=== PATIENT | male | born 1990 | race African-American/Black ===

== ENCOUNTER 2020-05-18 13:50 | Inpatient (IN) | payer OTHER, SELFPAY ==
[2020-05-18] VITALS (14 sets, daily range): BP systolic 171–195; BP diastolic 105–124; PULSE 101–118; RESP 13–21; TEMP 36.7–37.7; O2SAT 95–100; BMI 35.9
--- NOTE | 2020-05-18 15:31 | ECG_ITS ---
Test Reason : ABDOMINAL PAIIN Blood Pressure : / mmHG Vent. Rate : 102 BPM Atrial Rate : 102 BPM P-R Int : 134 ms QRS Dur : 092 ms QT Int : 322 ms P-R-T Axes : 060 -17 032 degrees QTc Int : 419 ms Sinus tachycardia with Sinus Arrhythmia RSR' or QR pattern in V1 suggests right ventricular conduction delay Abnormal ECG No previous ECGs available Referred By: Juan Cheung Electronically Signed By:CAMPOS EATON MD
--- NOTE | 2020-05-18 15:48 | PC.NURSE ---
PT TRIAGED C/O LUQ PAIN X 3 DAYS WITH VOMITING, CHILLS, NAUSEA. HX PANCREATITIS. RECENT INC IN ETOH INTAKE. SLIGHTLY TACHY, BP ELEVATED. PAIN SEVERE, DIAPHORETIC. PT TOUGHT JOHANNY. ABY RN IN TO ATTEMPT IV PLACEMENT AND LAB DRAW.
--- NOTE | 2020-05-18 16:09 | PC.NURSE ---
CALL MADE OUT TO PHLEBOTOMY FOR BLOOD DRAW
[2020-05-18] MEDS: 0.9 % Sodium Chloride 1,000 ML 999 ML IVCONT (16:10)
[2020-05-18] MEDS: Morphine Sulfate 4 MG/ML CARTRIDGE IVPUSH ×3 (16:10→22:14)
[2020-05-18] MEDS: Famotidine/PF 20 MG/2 ML VIAL IVPUSH (16:11)
[2020-05-18] MEDS: ondansetron HCL 4 MG/2 ML VIAL IVPUSH (16:11)
--- NOTE | 2020-05-18 16:23 | PC.NURSE ---
phlebotomy at bedside for blood draw
[2020-05-18 16:30] LABS: PLT CLUMP 1; Red Cell Distribution Width 12.4 % (11.0-16.0); SCAN SMEAR FLAG 1
[2020-05-18 16:31] LABS: Basophils Absolute Auto 0.1 X10*3/uL (0.0-0.2); Basophils Percent Auto 0.6 % (0-2); Eosinophils Absolute Auto 0.1 X10*3/uL (0.0-0.4); Eosinophils Percent Auto 1.1 % (0-4); Hematocrit 52.4 % (42-52); Hemoglobin 18.1 g/dl (14.0-18.0); Imm Gran Abs Auto 0.03 X10*3/uL (0.00-0.03); Imm Gran Pct Auto 0.4 % (0.0-0.4); Lymphocytes Absolute Auto 0.7 X10*3/uL (1.2-4.9); Lymphocytes Percent Auto 8.9 % (20-40); Mean Corpuscular HGB Conc 34.5 g/dl (31.0-36.0); Mean Corpuscular Hemoglobin 30.8 pg (27.0-33.0); Mean Corpuscular Volume 89.1 fL (80-98); Monocytes Absolute Auto 0.6 X10*3/uL (0.1-1.2); Monocytes Percent Auto 7.3 % (2-11); Neutrophils Absolute Auto 6.8 X10*3/uL (2.0-8.3); Neutrophils Percent Auto 81.7 % (45-73); Red Blood Count 5.88 X10*6/uL (4.60-5.80); White Blood Count 8.3 X10*3/uL (4.8-10.8)
[2020-05-18 16:48] LABS: MANUAL DIFF FLAG NO
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
[2020-05-18 17:15] LABS: Troponin-I High Sensitivity 4.4 ng/L (<3.5-35.0)
[2020-05-18 17:20] LABS: Alanine Aminotransferase 66 U/L (0-40); Albumin Level 4.8 g/dL (3.5-5.0); Alkaline Phosphatase 63 U/L (39-117); Anion Gap 22 (12-20); Aspartate Amino Transferase 54 U/L (5-37); Bilirubin Direct 0.8 mg/dL (0.0-0.5); Bilirubin Total 1.9 mg/dL (0.0-1.0); Blood Urea Nitrogen 14 mg/dL (9-16); Carbon Dioxide 20 mmol/L (22-29); Chloride 96 mmol/L (96-108); Creatinine Clr Calc Pharmacy 104.5; Estimated Glomerular Filt Rate > 60; Glucose Random 149 mg/dL (60-115); Lipase 1078 U/L (8-78); Potassium 3.9 mmol/l (3.3-5.1); Sodium 134 mmol/L (135-145); Total Protein 8.7 g/dL (6.5-8.0)
--- NOTE | 2020-05-18 17:31 | CT_ITS ---
EXAMINATION: CT ABDOMEN AND PELVIS WITHOUT CONTRAST CLINICAL INFORMATION: Abdomen pain Evaluate for gallstone pancreatitis. COMPARISON: None TECHNIQUE: Multidetector volumetric imaging was performed from the superior aspect of the liver through the pubic symphysis. Sagittal and coronal reformatted images were obtained on the technologist's workstation. This CT examination was performed using dose optimization techniques as appropriate, variously including the following: *Automated exposure control *Adjustment of mA and/or kV according to patient size (this includes techniques or standardized protocols for targeted exams where dose is matched to indication/reason for exam; i.e. extremities or head) *Use of iterative reconstruction technique DLP: 805 mGy-cm FINDINGS: LUNG BASES: No suspicious abnormality in the visualized lower chest LIVER, GALLBLADDER, AND BILIARY TREE: The liver contour appears smooth. There may be some fatty change. No definite focal lesion. There is some mild hypodensity in the gallbladder which is nonspecific. No calcified gallstone. No obvious biliary dilation. PANCREAS: The pancreas and surrounding tissues are markedly abnormal. The pancreas is enlarged and the margins are indistinct. There is extensive peripancreatic fat stranding extending along the pararenal fascia extending into the mesentery and lesser sac as well as along the left paracolic gutter. The study was performed without IV contrast. SPLEEN: No suspicious abnormality ADRENAL GLANDS: Within normal limits KIDNEYS AND URETERS: There is no dilation of the intrarenal collecting system on either side. No suspicious renal mass. BLADDER: No abnormality demonstrated GASTROINTESTINAL TRACT: The rectum is not distended. There is gas and fecal residue throughout the colon. The stranding extends into the mesentery adjacent to the colon. The appendix is normal. There is no evidence of small bowel obstruction. ABDOMINAL WALL: I suspect previous lower abdominal midline surgery. LYMPH NODES: No measurably enlarged lymph nodes. VASCULAR: There is no abdominal aortic aneurysm. PELVIC VISCERA: No suspicious abnormality OSSEOUS STRUCTURES: Within normal limits CT/CT abdomen pelvis wo con IMPRESSION: Extensive abnormalities related to acute pancreatitis. No contrast was administered and therefore I cannot determine if there is any necrosis. Extensive stranding extends along the retroperitoneum, mesentery, lesser sac and paracolic gutter No opaque biliary calculus. If there is persistent concern for biliary calculus MRCP might be of value
--- NOTE | 2020-05-18 18:21 | PC.NURSE ---
PT TO CT SCAN
[2020-05-18] MEDS: LORazepam 2 MG/ML VIAL IVPUSH (18:45)
--- NOTE | 2020-05-18 18:45 | PC.NURSE ---
pt reported no change in pain to initial MOP dose, 9/10 pain. denies nausea at this time. reports typically drinking 3 nips and 2 beers every other day. consumption recently increased to 4 nips and larger beers, for about a week leading up to tuesday when pain started. increase in ETOH consumption related to the loss of his mother. pt to underdgo CT scan, lipase elevated
--- NOTE | 2020-05-18 18:52 | PC.NURSE ---
PA MADE AWARE OF SUSTAINED ELEVATED BPS. LIKELY R/T PAIN AND POSSIBLE ETOH WITHDRAWAL
--- NOTE | 2020-05-18 18:52 | PC.NURSE ---
MED REC COMPLETE
[2020-05-18] MEDS: HYDROmorphone HCl 0.5 MG/0.5 ML SYRINGE IVPUSH (19:40)
[2020-05-18] MEDS: Labetalol HCL 100 MG/20 ML VIAL 10 MG IVPUSH (19:41)
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
[2020-05-18] MEDS: amLODIPine Besylate 5 MG TABLET PO (20:47)
[2020-05-18 20:52] LABS: SARS COV2 PCR INHOUSE NEGATIVE (Negative)
[2020-05-18] MEDS: Lactated Ringers 1,000 ML 150 ML IVCONT (21:00)
--- NOTE | 2020-05-18 21:24 | PC.NURSE ---
CALLED UP TO [facility] [place] FOR REPORT
--- NOTE | 2020-05-18 22:06 | PC.NURSE ---
BPS REMAIN ELEVATED. TRENDING BACK UP TO 190S SYSTOLICALLY. PT ALSO C/O ONGOING PAIN 7-03/03. CIWA 0. SPOKE WITH DEREK JIN FOR OVERNIGHT ORDERS. [facility] GIVEN REPORT. WILL MEDICATE AND TRANSPORT TO FLOOR
[2020-05-18] MEDS: hydrALAZINE HCl 20 MG/ML VIAL 5 MG IVPUSH (22:14)
[2020-05-19] VITALS (22 sets, daily range): BP systolic 122–208; BP diastolic 63–119; PULSE 80–140; RESP 16–19; TEMP 36–39.1; O2SAT 93–99; BMI 35.9
--- NOTE | 2020-05-19 | ECG_ITS ---
Test Reason : sinus tach, ? t-wave inverstions Blood Pressure : / mmHG Vent. Rate : 129 BPM Atrial Rate : 129 BPM P-R Int : 140 ms QRS Dur : 088 ms QT Int : 304 ms P-R-T Axes : 051 -02 -07 degrees QTc Int : 445 ms Sinus tachycardia RSR' or QR pattern in V1 suggests right ventricular conduction delay Possible Left atrial enlargement Left ventricular hypertrophy Nonspecific ST and T wave abnormality Abnormal ECG When compared with ECG of 18-MAY-2020 16:08, ST now depressed in Inferior leads Nonspecific T wave abnormality now evident in Lateral leads Heart rate has increased Referred By: Broderick Liu Electronically Signed By:CAMPOS EATON MD
[2020-05-19] MEDS: Lactated Ringers 1,000 ML 150 ML IVCONT ×5 (00:20→22:01)
[2020-05-19] MEDS: 0.9 % Sodium Chloride Flush 3 ML SYRINGE IVFLUSH ×4 (00:20→20:21)
[2020-05-19] MEDS: HYDROmorphone HCl 0.5 MG/0.5 ML SYRINGE IVPUSH (00:32)
[2020-05-19] MEDS: Acetaminophen 325 MG TABLET 650 MG PO ×2 (00:37→23:38)
[2020-05-19] MEDS: Morphine Sulfate 4 MG/ML CARTRIDGE IVPUSH (02:37)
--- NOTE | 2020-05-19 03:25 | MHC.PIE ---
P.ELEVATED BP,INADEQUATE PAIN CONTROL,TEMP I.BP 191/108,200/119. PT ALSO C/O ABD PAIN.RECEIVED PRN IV MORPHINE AND DILAUDID WITH LITTLE EFFECT.PT ALSO HAD TEMP OF 100 DOWN TO 99.8 AFTER TYLENOL. UPDATED ON ALL.ORDER FOR HYDRALAZINE 10 MG IV AND DILAUDID 1MG IV NOW X 1 GIVEN.PT UPDATED AND MEDS GIVEN. E.BP REMAINS AT 202/114,WITH HR 130-140 STACH AT 5 AM. NOTIFIED.ORDER FOR LABETOLOL 10MG IV AND HYDRALAZINE 10MG IV NOW X 1 GIVEN.PT UPDATED AND MEDS GIVEN. E.BP RECHECKED AT 4354=345/99,HR 117.PT RESTING QUIETLY.CONT TO MONITOR.
[2020-05-19] MEDS: hydrALAZINE HCl 20 MG/ML VIAL 10 MG IVPUSH ×2 (03:56→05:22)
[2020-05-19] MEDS: HYDROmorphone HCl 1 MG/ML SYRINGE IVPUSH ×7 (03:58→22:06)
[2020-05-19] MEDS: Labetalol HCL 100 MG/20 ML VIAL 10 MG IVPUSH (05:23)
[2020-05-19 06:16] LABS: Basophils Percent Auto 0.3 % (0-2); Eosinophils Absolute Auto 0.1 X10*3/uL (0.0-0.4); Eosinophils Percent Auto 0.4 % (0-4); Hematocrit 51.1 % (42-52); Hemoglobin 17.2 g/dl (14.0-18.0); Imm Gran Abs Auto 0.05 X10*3/uL (0.00-0.03); Imm Gran Pct Auto 0.4 % (0.0-0.4); Lymphocytes Absolute Auto 0.5 X10*3/uL (1.2-4.9); Lymphocytes Percent Auto 4.4 % (20-40); MANUAL DIFF FLAG SCAN; Mean Corpuscular HGB Conc 33.7 g/dl (31.0-36.0); Mean Corpuscular Hemoglobin 30.3 pg (27.0-33.0); Mean Platelet Volume 11.7 fL (9.4-12.4); Monocytes Absolute Auto 0.7 X10*3/uL (0.1-1.2); Monocytes Percent Auto 6.5 % (2-11); Neutrophils Absolute Auto 10.1 X10*3/uL (2.0-8.3); Platelet Count 211 X10*3/uL (160-400); Red Blood Count 5.68 X10*6/uL (4.60-5.80); Red Cell Distribution Width 12.7 % (11.0-16.0); SCAN SMEAR FLAG 1; White Blood Count 11.4 X10*3/uL (4.8-10.8)
[2020-05-19 06:44] LABS: Alanine Aminotransferase 46 U/L (0-40); Albumin Level 4.4 g/dL (3.5-5.0); Alkaline Phosphatase 57 U/L (39-117); Anion Gap 18 (12-20); Aspartate Amino Transferase 35 U/L (5-37); Bilirubin Direct 0.7 mg/dL (0.0-0.5); Bilirubin Total 1.4 mg/dL (0.0-1.0); Blood Urea Nitrogen 10 mg/dL (9-16); Calcium 8.8 mg/dL (8.4-10.2); Carbon Dioxide 22 mmol/L (22-29); Chloride 100 mmol/L (96-108); Creatinine Clr Calc Pharmacy 121.4; Estimated Glomerular Filt Rate > 60; Glucose Random 159 mg/dL (60-115); Potassium 4.3 mmol/l (3.3-5.1); Sodium 136 mmol/L (135-145); Total Protein 7.8 g/dL (6.5-8.0)
[2020-05-19 07:02] LABS: SLIDE REVIEW VERIFIED
[2020-05-19] MEDS: ondansetron HCL 4 MG/2 ML VIAL IVPUSH (07:59)
[2020-05-19] MEDS: amLODIPine Besylate 5 MG TABLET PO (07:59)
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
[2020-05-19] MEDS: Fluticasone/Vilanterol 200/25 BLST.W.DEV 1 PUFF INHALE (08:16)
--- NOTE | 2020-05-19 09:44 | MHC.CM.PN ---
dc plan home no services pt has own transportaion home
[2020-05-19] MEDS: PHENobarbitaL sodium 130 MG/ML VIAL 372 MG IM (10:46)
[2020-05-19] MEDS: Famotidine/PF 20 MG/2 ML VIAL IVPUSH ×2 (11:46→20:21)
[2020-05-19] MEDS: Metoprolol Tartrate 25 MG TABLET PO ×2 (12:41→20:21)
[2020-05-19] MEDS: PHENobarbitaL sodium 130 MG/ML VIAL 280 MG IM ×2 (14:22→16:54)
--- NOTE | 2020-05-19 17:11 | HO.PM.IMPN ---
Subjective Subjective Date of Service: 05/19/20 Interval History: seen and examined this AM and then multiple times throughout the days reports diffuse abdominal pain -- dilaudid slowly increased slowly and finally he was to sleep for a few hours discussed with him re: alcohol -- endorses last 5-7 days was drinking 8-10 drinks with last drink 3 days prior to arrival he denies any chest pain or sob Review of Systems General - no fevers or chills Cardiovascular - no chest pain Respiratory - no shortness of breath or cough Abdominal- no abdominal pain, nausea, vomiting, diarrhea Physical Exam Vital Signs: Vital Signs: Vital Signs Temp Pulse Resp BP Pulse Ox 05/19/20 15:30 96.8 F 123 H 16 168/88 H 95 05/19/20 12:41 130 H 158/100 H 05/19/20 11:04 99.4 F 130 H 18 158/100 H 95 05/19/20 08:21 18 05/19/20 07:59 131 H 176/100 H 05/19/20 07:44 98.3 F 131 H 18 176/100 H 97 05/19/20 06:27 157/99 H 05/19/20 05:23 140 H 202/114 H 05/19/20 05:22 140 H 202/114 H 05/19/20 03:58 18 05/19/20 03:56 114 H 18 200/119 H 05/19/20 03:08 99.8 F 104 H 19 200/119 H 99 05/19/20 02:37 18 05/19/20 01:52 98.9 F 05/19/20 01:51 98.9 F 114 H 18 191/108 H 05/19/20 01:48 98.9 F 114 H 18 191/108 H 05/19/20 00:36 208/107 H 05/18/20 22:55 98.4 F 104 H 16 195/105 H 05/18/20 22:28 101 H 171/111 H 100 05/18/20 22:14 101 H 190/116 H 05/18/20 21:32 101 H 13 185/116 H 99 05/18/20 20:49 107 H 172/116 H 05/18/20 20:47 107 H 176/118 H 05/18/20 20:20 104 H 18 176/118 H 98 05/18/20 19:41 118 H 175/108 H 05/18/20 18:53 98.1 F 113 H 21 H 05/18/20 17:52 190/124 H 05/18/20 17:50 98.4 F 107 H 18 190/114 H 95 05/18/20 17:49 18 Body Mass Index 35.9 General - no acute distress, appears comfortable Cardiovascular - regular rate and rhythm, S1-S2 Lungs - normal respiratory effort, clear to auscultation bilaterally, no wheezing Abdomen - diffuse abdominal pain without rebound or guarding Extremities - no edema bilaterally Neuro - awake and alert, no focal deficits Objective Data Current Medications Generic Name Dose Route Start Last Admin Trade Name Freq PRN Reason Stop Dose Admin Acetaminophen 650 mg 05/18/20 21:34 05/19/20 00:37 Acetaminophen 325 Mg Tablet PO 650 mg Q6H PRN Administration Pain, Mild (Pain Scale 1-3) Albuterol Sulfate 2 puff 05/18/20 21:34 Albuterol Sulfate 90 Mcg 18 Gm Inhaler INHALE Q4H PRN wheezing Famotidine 20 mg 05/19/20 11:00 05/19/20 11:46 Famotidine/Pf 20 Mg/2 Ml Vial IVPUSH 20 mg BID MATTHEW Administration Fluticasone/Vilanterol 1 puff 05/19/20 08:00 05/19/20 08:16 Fluticasone/Vilanterol 200/25 Blst.W.Dev INHALE 1 puff RDAILY MATTHEW Administration Hydromorphone HCl 1 mg 05/19/20 15:48 05/19/20 16:53 Hydromorphone Hcl 1 Mg/Ml Syringe IVPUSH 1 mg Q2H PRN Administration Pain, Severe (Pain Scale 7-10) Lactated Ringer's 1,000 mls @ 200 mls/hr 05/18/20 21:34 05/19/20 16:58 Lr IVCONT 150 mls/hr .Q5H MATTHEW Administration Medication 1 each 05/20/20 09:00 No Benzodiazepines MISCELLANE DAILY [facility] Metoprolol Tartrate 25 mg 05/19/20 21:00 Metoprolol Tartrate 25 Mg Tablet PO QID [facility] Protocol Ondansetron HCl 4 mg 05/18/20 21:34 05/19/20 07:59 Ondansetron Hcl 4 Mg/2 Ml Vial IVPUSH 4 mg Q8H PRN Administration Nausea and Vomiting Pharmacy Consult 1 each 05/18/20 20:12 Consult Rx Perform Med Rec MISCELLANE ONCE PRN Consult order Phenobarbital 60 mg 05/20/20 09:00 Phenobarbital 30 Mg Tablet PO 05/21/20 21:01 BID MATTHEW Phenobarbital 30 mg 05/22/20 09:00 Phenobarbital 30 Mg Tablet PO 05/23/20 21:01 BID MATTHEW Phenobarbital 30 mg 05/24/20 09:00 Phenobarbital 30 Mg Tablet PO 05/25/20 09:01 DAILY MATTHEW Sodium Chloride 3 ml 05/19/20 00:00 05/19/20 16:54 0.9 % Sodium Chloride Flush 3 Ml Syringe IVFLUSH 3 ml QSHIFT MATTHEW Administration Labs CBC & Chem 7: 05/19/20 05:28 05/19/20 05:28 Assessment and Plan (1) Pancreatitis: Status: Acute Assessment and Plan: This is a 30 yo M with no significant PMH (he reports borderline HTN for which he isnt on any treatment for) who presents to the hospital with complaints of diffuse abdominal byrne. He is diagnosed and admitted for acute pancreatitis, likely 2/2 to heavy alcohol abuse. 1. Acute Pancreatitis increase LR to 200 IV dialudid 1mg [id number] prn clear liquids if he can tolerate suspect secondary to alcohol abuse LFTs downtrending -- will await GI input prior to further imaging 2. Alcohol abuse and dependence showing signs of withdrawal start high dose pheno maru monitor lytes cessation has been strongly advised 3. EKG changes no chest pain endorses ST segment appears changed on tele / EKG, but difficult to say if this is rate related check HS trop-I, consult cardiology if any abnormalities 4. Alcoholic gastritis IV pepcid Full Code DVT pptx, start lovenox
[2020-05-19] MEDS: Enoxaparin Sodium 40 MG/0.4 ML SYRINGE SUBCUT (17:52)
[2020-05-19 18:02] LABS: Magnesium 2.1 mg/dL (1.6-2.6)
[2020-05-20] VITALS (23 sets, daily range): BP systolic 120–154; BP diastolic 70–89; PULSE 112–137; RESP 14–20; TEMP 37.3–38.3; O2SAT 92–97
--- NOTE | 2020-05-20 | ECG_ITS ---
Test Reason : CP Blood Pressure : / mmHG Vent. Rate : 114 BPM Atrial Rate : 114 BPM P-R Int : 140 ms QRS Dur : 092 ms QT Int : 320 ms P-R-T Axes : 047 011 -02 degrees QTc Int : 441 ms Sinus tachycardia RSR' or QR pattern in V1 suggests right ventricular conduction delay Nonspecific T wave abnormality Abnormal ECG When compared with ECG of 19-MAY-2020 16:04, No significant change was found Heart rate has decreased Referred By: Mayra Guevara Electronically Signed By:CAMPOS EATON MD
[2020-05-20] MEDS: HYDROmorphone HCl 1 MG/ML SYRINGE IVPUSH ×10 (00:01→22:00)
--- NOTE | 2020-05-20 02:34 | PC.NURSE ---
HR continues to be 130s, ST on tele. aware, no new orders at this time. Pt resting in bed, medicated with prn dilaudid for abdominal pain. Will continue to monitor.
[2020-05-20] MEDS: Lactated Ringers 1,000 ML 200 ML IVCONT ×2 (03:08→12:59)
[2020-05-20 06:34] LABS: MANUAL DIFF FLAG NO
[2020-05-20 07:30] LABS: Basophils Percent Auto 0.3 % (0-2); Eosinophils Absolute Auto 0.1 X10*3/uL (0.0-0.4); Eosinophils Percent Auto 0.5 % (0-4); Hematocrit 45.8 % (42-52); Hemoglobin 15.3 g/dl (14.0-18.0); Imm Gran Abs Auto 0.05 X10*3/uL (0.00-0.03); Imm Gran Pct Auto 0.5 % (0.0-0.4); Lymphocytes Absolute Auto 1.1 X10*3/uL (1.2-4.9); Lymphocytes Percent Auto 10.1 % (20-40); Mean Corpuscular HGB Conc 33.4 g/dl (31.0-36.0); Mean Corpuscular Hemoglobin 30.9 pg (27.0-33.0); Mean Corpuscular Volume 92.5 fL (80-98); Mean Platelet Volume 12.9 fL (9.4-12.4); Monocytes Absolute Auto 0.9 X10*3/uL (0.1-1.2); Monocytes Percent Auto 8.5 % (2-11); Neutrophils Absolute Auto 8.9 X10*3/uL (2.0-8.3); Neutrophils Percent Auto 80.1 % (45-73); Platelet Count 140 X10*3/uL (160-400); Red Blood Count 4.95 X10*6/uL (4.60-5.80); Red Cell Distribution Width 13.5 % (11.0-16.0); White Blood Count 11.1 X10*3/uL (4.8-10.8)
[2020-05-20] MEDS: 0.9 % Sodium Chloride Flush 3 ML SYRINGE IVFLUSH ×2 (07:47→20:08)
[2020-05-20] MEDS: Fluticasone/Vilanterol 200/25 BLST.W.DEV 1 PUFF INHALE (07:56)
[2020-05-20 09:01] LABS: Alanine Aminotransferase 32 U/L (0-40); Albumin Level 3.8 g/dL (3.5-5.0); Alkaline Phosphatase 48 U/L (39-117); Anion Gap 17 (12-20); Aspartate Amino Transferase 41 U/L (5-37); Bilirubin Direct 0.7 mg/dL (0.0-0.5); Bilirubin Total 1.8 mg/dL (0.0-1.0); Blood Urea Nitrogen 12 mg/dL (9-16); Calcium 8.3 mg/dL (8.4-10.2); Carbon Dioxide 26 mmol/L (22-29); Chloride 99 mmol/L (96-108); Creatinine Clr Calc Pharmacy 109.3; Estimated Glomerular Filt Rate > 60; Glucose Random 132 mg/dL (60-115); Sodium 137 mmol/L (135-145); Total Protein 7.2 g/dL (6.5-8.0)
[2020-05-20] MEDS: PHENobarbitaL 30 MG TABLET 60 MG PO ×2 (09:12→20:06)
[2020-05-20] MEDS: Metoprolol Tartrate 25 MG TABLET PO ×4 (09:13→20:07)
[2020-05-20] MEDS: Famotidine/PF 20 MG/2 ML VIAL IVPUSH ×2 (09:15→20:06)
[2020-05-20 11:48] LABS: Lipase 349 U/L (8-78)
[2020-05-20 12:28] LABS: Vitamin B12 439 pg/mL (200-900)
--- NOTE | 2020-05-20 13:16 | HO.PM.IMPN ---
Subjective Subjective Date of Service: 05/20/20 Interval History: Patient complaining of persistent abdominal pain with radiation to back it feels pain severity is improved from 10-7, denies nausea vomiting no fevers no diarrhea. Review of Systems General no headache , no dizziness,no fever, chills. CVS no chest pain, no palpitation. Respiratory no cough no sputum production no respiratory distress. Physical Exam Vital Signs: Vital Signs: Vital Signs Temp Pulse Resp BP Pulse Ox 05/20/20 13:00 16 05/20/20 12:08 126 H 17 125/71 05/20/20 11:05 100.5 F H 126 H 18 125/71 97 05/20/20 10:58 17 05/20/20 10:04 17 05/20/20 09:13 130 H 139/75 05/20/20 08:41 16 05/20/20 07:48 18 05/20/20 07:46 100.9 F H 137 H 20 139/75 96 05/20/20 05:07 18 05/20/20 03:58 99.8 F 134 H 18 154/89 H 94 05/20/20 02:13 99.2 F 05/20/20 01:01 100.4 F 05/20/20 00:01 14 05/19/20 23:07 102.4 F H 127 H 19 145/71 H 93 05/19/20 22:06 18 05/19/20 20:21 135 H 146/97 H 05/19/20 20:20 18 05/19/20 20:00 97.9 F 129 H 16 140/87 H 94 05/19/20 15:30 96.8 F 123 H 16 168/88 H 95 Body Mass Index 35.9 General patient resting in bed, no acute distress. Neck is supple no JVD. CVS regular rate rhythm, Respiratory lungs clear to auscultation, no respiratory distress, no wheeze, no rhonchi. Gastrointestinal abdomen obese, mild diffuse tenderness with palpation, no guarding, no rigidity, bowel sounds audible. Extremities no clubbing cyanosis or edema. Neuro nonfocal patient moving all 4 extremity speech clear. Skin no rash Objective Data Current Medications Generic Name Dose Route Start Last Admin Trade Name Freq PRN Reason Stop Dose Admin Acetaminophen 650 mg 05/18/20 21:34 05/19/20 23:38 Acetaminophen 325 Mg Tablet PO 650 mg Q6H PRN Administration Pain, Mild (Pain Scale 1-3) Albuterol Sulfate 2 puff 05/18/20 21:34 Albuterol Sulfate 90 Mcg 18 Gm Inhaler INHALE Q4H PRN wheezing Enoxaparin Sodium 40 mg 05/19/20 18:00 05/19/20 17:52 Enoxaparin Sodium 40 Mg/0.4 Ml Syringe SUBCUT 40 mg Q24H MATTHEW Administration Famotidine 20 mg 05/19/20 11:00 05/20/20 09:15 Famotidine/Pf 20 Mg/2 Ml Vial IVPUSH 20 mg BID MATTHEW Administration Fluticasone/Vilanterol 1 puff 05/19/20 08:00 05/20/20 07:56 Fluticasone/Vilanterol 200/25 Blst.W.Dev INHALE 1 puff RDAILY MATTHEW Administration Hydromorphone HCl 1 mg 05/19/20 15:48 05/20/20 12:08 Hydromorphone Hcl 1 Mg/Ml Syringe IVPUSH 1 mg Q2H PRN Administration Pain, Severe (Pain Scale 7-10) Sodium Chloride 1,000 mls @ 150 mls/hr 05/20/20 13:15 Ns IV .Q6H40M MATTHEW Medication 1 each 05/20/20 09:00 No Benzodiazepines MISCELLANE DAILY [facility] Metoprolol Tartrate 25 mg 05/19/20 21:00 05/20/20 12:08 Metoprolol Tartrate 25 Mg Tablet PO 25 mg QID MATTHEW Administration Protocol Ondansetron HCl 4 mg 05/18/20 21:34 05/19/20 07:59 Ondansetron Hcl 4 Mg/2 Ml Vial IVPUSH 4 mg Q8H PRN Administration Nausea and Vomiting Pharmacy Consult 1 each 05/18/20 20:12 Consult Rx Perform Med Rec MISCELLANE ONCE PRN Consult order Phenobarbital 60 mg 05/20/20 09:00 05/20/20 09:12 Phenobarbital 30 Mg Tablet PO 05/21/20 21:01 60 mg BID MATTHEW Administration Phenobarbital 30 mg 05/22/20 09:00 Phenobarbital 30 Mg Tablet PO 05/23/20 21:01 BID MATTHEW Phenobarbital 30 mg 05/24/20 09:00 Phenobarbital 30 Mg Tablet PO 05/25/20 09:01 DAILY MATTHEW Sodium Chloride 3 ml 05/19/20 00:00 05/20/20 07:47 0.9 % Sodium Chloride Flush 3 Ml Syringe IVFLUSH 3 ml QSHIFT [facility] Administration Labs CBC & Chem 7: 05/20/20 05:37 05/20/20 08:10 Assessment and Plan (1) Pancreatitis: Status: Acute (2) Hypertension: Status: Acute (3) Asthma: Status: Acute (4) Elevated LFTs: Status: Acute Assessment and Plan: 30 yo M with no significant PMH (he reports borderline HTN for which he isnt on any treatment for) who presents to the hospital with complaints of diffuse abdominal byrne. He is diagnosed and admitted for acute pancreatitis, likely 2/2 to heavy alcohol abuse. 1. Acute Pancreatitis persistent abdominal pain, although lipase significantly improved, will change Ringer lactate to IV normal saline, continue clear liquid will change IV dialudid 1mg [id number] prn to q.3 hours suspect secondary to alcohol abuse follow LFTs, reviewed GI input will obtain a liver ultrasound to rule out galll stone 2. Alcohol abuse and dependence no signs of withdrawal continue phenobarb, normal potassium and magnesium will continue to follow labs cessation has been strongly advised 3. EKG changes no chest pain, repeat EKG shows no change, troponin negative. continue tele monitor 4. Alcoholic gastritis continue IV pepcid Full Code DVT pptx, lovenox
[2020-05-20] MEDS: 0.9 % Sodium Chloride 1,000 ML 150 ML IV ×2 (13:25→19:50)
[2020-05-20] MEDS: Enoxaparin Sodium 40 MG/0.4 ML SYRINGE SUBCUT (17:38)
[2020-05-20] MEDS: Acetaminophen 325 MG TABLET 650 MG PO (20:07)
[2020-05-21] VITALS (17 sets, daily range): BP systolic 130–171; BP diastolic 58–91; PULSE 97–122; RESP 17–20; TEMP 36.9–38.2; O2SAT 93–98
[2020-05-21] MEDS: HYDROmorphone HCl 1 MG/ML SYRINGE IVPUSH ×9 (00:35→21:47)
[2020-05-21] MEDS: 0.9 % Sodium Chloride 1,000 ML 150 ML IV (02:32)
[2020-05-21 06:21] LABS: MANUAL DIFF FLAG NO
[2020-05-21 06:33] LABS: Basophils Percent Auto 0.2 % (0-2); Eosinophils Absolute Auto 0.2 X10*3/uL (0.0-0.4); Eosinophils Percent Auto 2.3 % (0-4); Hematocrit 40.1 % (42-52); Hemoglobin 13.3 g/dl (14.0-18.0); Imm Gran Abs Auto 0.03 X10*3/uL (0.00-0.03); Imm Gran Pct Auto 0.4 % (0.0-0.4); Lymphocytes Absolute Auto 1.1 X10*3/uL (1.2-4.9); Lymphocytes Percent Auto 13.2 % (20-40); Mean Corpuscular HGB Conc 33.2 g/dl (31.0-36.0); Mean Corpuscular Hemoglobin 31.1 pg (27.0-33.0); Mean Corpuscular Volume 93.9 fL (80-98); Mean Platelet Volume 12.8 fL (9.4-12.4); Monocytes Absolute Auto 0.7 X10*3/uL (0.1-1.2); Monocytes Percent Auto 8.5 % (2-11); Neutrophils Absolute Auto 6.3 X10*3/uL (2.0-8.3); Neutrophils Percent Auto 75.4 % (45-73); Platelet Count 129 X10*3/uL (160-400); Red Blood Count 4.27 X10*6/uL (4.60-5.80); Red Cell Distribution Width 13.2 % (11.0-16.0); White Blood Count 8.3 X10*3/uL (4.8-10.8)
--- NOTE | 2020-05-21 06:33 | PC.NURSE ---
Alert and oriented x 4, coherent and conversant. No complaints of chest pain or shortness of breath. Still complaining of whole abdominal pain radiating to the back, Dilaudid 1 mg IV given religiously every 2 hours. IV fluids infusing well. Kept NPO after midnight for abdominal ultrasound. Claimed of no BM for 5 days, attempted this AM but he only passed gas 3 times when he was on the bathroom. Will address need of bowel meds with this AM. Will continue care plan
[2020-05-21 06:55] LABS: Alanine Aminotransferase 28 U/L (0-40); Albumin Level 3.4 g/dL (3.5-5.0); Alkaline Phosphatase 47 U/L (39-117); Aspartate Amino Transferase 42 U/L (5-37); Bilirubin Direct 0.9 mg/dL (0.0-0.5); Bilirubin Total 1.4 mg/dL (0.0-1.0); Total Protein 6.2 g/dL (6.5-8.0)
[2020-05-21 06:57] LABS: Anion Gap 15 (12-20); Blood Urea Nitrogen 12 mg/dL (9-16); Calcium 7.6 mg/dL (8.4-10.2); Carbon Dioxide 27 mmol/L (22-29); Chloride 101 mmol/L (96-108); Creatinine Clr Calc Pharmacy 118.4; Estimated Glomerular Filt Rate > 60; Glucose Random 101 mg/dL (60-115); Potassium 3.8 mmol/l (3.3-5.1); Sodium 139 mmol/L (135-145)
[2020-05-21] MEDS: Fluticasone/Vilanterol 200/25 BLST.W.DEV 1 PUFF INHALE (07:56)
--- NOTE | 2020-05-21 09:00 | US_ITS ---
EXAMINATION: US ABDOMEN LIMITED CLINICAL INFORMATION: Acute pancreatitis. Evaluate for gallstones.. COMPARISON: Previous CT scan of the abdomen and pelvis 05/18/2020 TECHNIQUE: Real-time imaging of the right upper quadrant abdominal viscera. FINDINGS: PANCREAS: Not well visualized due to bowel gas LIVER: Normal. The liver is normal in size. The liver contour is normal. Parenchymal echogenicity is normal. No focal hepatic lesion. There is no intrahepatic biliary duct dilatation seen. GALLBLADDER: Normal. The gallbladder is physiologically distended without evidence of stones, sludge, polyps, wall thickening or pericholecystic fluid. COMMON BILE DUCT: Normal in caliber measuring 0.6 cm in diameter. RIGHT KIDNEY: The right renal cortex appears more echogenic than the adjacent liver. No hydronephrosis. No renal calculi or focal parenchymal lesions. The kidney measures 11.6 cm in maximum dimension. FREE FLUID: None. US/US abdomen limited IMPRESSION: Normal-appearing gallbladder. No gallstones seen. Question increased echogenicity of the right kidney. Correlation with renal function is recommended.
[2020-05-21] MEDS: Lactulose 20 GM/30 ML SOLUTION PO (09:04)
[2020-05-21] MEDS: Famotidine/PF 20 MG/2 ML VIAL IVPUSH (09:04)
[2020-05-21] MEDS: Docusate Sodium 100 MG CAPSULE PO ×2 (09:05→20:42)
[2020-05-21] MEDS: PHENobarbitaL 30 MG TABLET 60 MG PO ×2 (09:05→21:48)
[2020-05-21] MEDS: Metoprolol Tartrate 25 MG TABLET 50 MG PO ×2 (09:08→20:43)
--- NOTE | 2020-05-21 12:45 | MHC.CM.PN ---
per multi dis rounds no dc date at this time plan rem[facility] home no servceis
[2020-05-21] MEDS: 0.9 % Sodium Chloride Flush 3 ML SYRINGE IVFLUSH ×2 (15:42→20:47)
--- NOTE | 2020-05-21 16:10 | P.PNIM_ITS ---
Subjective Subjective Interval History: Patient Feels better still complaining of abdominal pain walk to the bathroom with no lightheadedness or dizziness patient just return from abdominal ultrasound, denies nausea, vomiting ,no fevers, complaining of constipation passing flatus. General no headache, no dizziness, no fever chills. CVS no chest pain, no palpitation. Respiratory no cough, no sputum production, no respiratory distress. Gastrointestinal no nausea no vomiting, persistent abdominal pain radiating from epigastric towards lower abdomen. Physical Exam Vital Signs: Vital Signs: Vital Signs Temp Pulse Resp BP Pulse Ox 05/21/20 15:13 98.5 F 115 H 20 153/91 H 96 05/21/20 12:12 18 05/21/20 11:00 98.5 F 107 H 18 152/68 H 96 05/21/20 09:08 122 H 161/76 H 05/21/20 09:05 18 05/21/20 06:44 100.0 F 113 H 18 130/69 98 05/21/20 06:27 18 05/21/20 06:06 20 05/21/20 04:34 19 05/21/20 04:19 17 05/21/20 03:22 100.8 F H 117 H 18 134/58 L 96 05/21/20 02:28 18 05/21/20 01:39 18 05/21/20 00:35 19 05/21/20 00:00 99.9 F 109 H 18 162/73 H 94 05/20/20 22:00 18 05/20/20 20:07 112 H 136/79 05/20/20 20:06 18 05/20/20 19:51 100.5 F H 118 H 20 136/79 95 05/20/20 18:33 16 05/20/20 17:39 17 05/20/20 17:38 117 H 120/70 Body Mass Index 35.9 General patient resting in bed, no acute distress. Neck is supple no JVD. CVS regular rate rhythm, Respiratory lungs clear to auscultation, no respiratory distress, no wheeze, no rhonchi. Gastrointestinal abdomen obese, mild diffuse tenderness with palpation, no guarding, no rigidity, bowel sounds audible. Extremities no clubbing cyanosis or edema. Neuro nonfocal patient moving all 4 extremity speech clear. No tremors Skin no rash Objective Data Current Medications Generic Name Dose Route Start Last Admin Trade Name Freq PRN Reason Stop Dose Admin Acetaminophen 650 mg 05/18/20 21:34 05/20/20 20:07 Acetaminophen 325 Mg Tablet PO 650 mg Q6H PRN Administration Pain, Mild (Pain Scale 1-3) Albuterol Sulfate 2 puff 05/18/20 21:34 Albuterol Sulfate 90 Mcg 18 Gm Inhaler INHALE Q4H PRN wheezing Docusate Sodium 100 mg 05/21/20 09:00 05/21/20 09:05 Docusate Sodium 100 Mg Capsule PO 100 mg BID MATTHEW Administration Enoxaparin Sodium 40 mg 05/19/20 18:00 05/20/20 17:38 Enoxaparin Sodium 40 Mg/0.4 Ml Syringe SUBCUT 40 mg Q24H MATTHEW Administration Famotidine 20 mg 05/19/20 11:00 05/21/20 09:04 Famotidine/Pf 20 Mg/2 Ml Vial IVPUSH 20 mg BID MATTHEW Administration Fluticasone/Vilanterol 1 puff 05/19/20 08:00 05/21/20 07:56 Fluticasone/Vilanterol 200/25 Blst.W.Dev INHALE 1 puff RDAILY MATTHEW Administration Hydromorphone HCl 1 mg 05/21/20 08:36 05/21/20 15:39 Hydromorphone Hcl 1 Mg/Ml Syringe IVPUSH 1 mg Q3H PRN Administration Pain, Severe (Pain Scale 7-10) Medication 1 each 05/20/20 09:00 No Benzodiazepines MISCELLANE DAILY [facility] Metoprolol Tartrate 50 mg 05/21/20 09:00 05/21/20 09:08 Metoprolol Tartrate 25 Mg Tablet PO 50 mg BID MATTHEW Administration Protocol Ondansetron HCl 4 mg 05/18/20 21:34 05/19/20 07:59 Ondansetron Hcl 4 Mg/2 Ml Vial IVPUSH 4 mg Q8H PRN Administration Nausea and Vomiting Pharmacy Consult 1 each 05/18/20 20:12 Consult Rx Perform Med Rec MISCELLANE ONCE PRN Consult order Phenobarbital 60 mg 05/20/20 09:00 05/21/20 09:05 Phenobarbital 30 Mg Tablet PO 05/21/20 21:01 60 mg BID MATTHEW Administration Phenobarbital 30 mg 05/22/20 09:00 Phenobarbital 30 Mg Tablet PO 05/23/20 21:01 BID [facility] Phenobarbital 30 mg 05/24/20 09:00 Phenobarbital 30 Mg Tablet PO 05/25/20 09:01 DAILY MATTHEW Sodium Chloride 3 ml 05/19/20 00:00 05/21/20 15:42 0.9 % Sodium Chloride Flush 3 Ml Syringe IVFLUSH 3 ml QSHIFT [facility] Administration Labs CBC & Chem 7: 05/21/20 05:31 05/21/20 05:31 Assessment and Plan (1) Pancreatitis: Status: Acute (2) Hypertension: Status: Acute (3) Asthma: Status: Acute (4) Elevated LFTs: Status: Acute Assessment and Plan: 30 yo M with no significant PMH (he reports borderline HTN for which he isnt on any treatment for) who presents to the hospital with complaints of diffuse abdominal byrne. He is diagnosed and admitted for acute pancreatitis, likely 2/2 to heavy alcohol abuse. 1. Acute Pancreatitis persistent abdominal pain gradually improving, lipase significantly improved, LFTs trending down, abdominal ultrasound showed no evidence of gallstone will DC IV fluid advance diet to full liquids with Ensure can t.i.d. will change IV dialudid 1mg [id number] prn to q.3 hours suspect secondary to alcohol abuse Will give lactulose time 1 and add stool softeners for constipation, follow labs at a.m. 2. Alcohol abuse and dependence no signs of withdrawal continue phenobarb, normal potassium and magnesium will continue to follow labs, strongly advised to abstain from alcohol 3. abnormal EKG no chest pain, repeat EKG shows no change, troponin negative. continue tele monitor 4. Alcoholic gastritis will DC IV pepcid and placed on by mouth Prilosec. Full Code DVT pptx, lovenox
[2020-05-21] MEDS: Enoxaparin Sodium 40 MG/0.4 ML SYRINGE SUBCUT (17:09)
[2020-05-21] MEDS: Acetaminophen 325 MG TABLET 650 MG PO (20:42)
[2020-05-21] MEDS: diphenhydrAMINE HCL 25 MG TABLET PO (21:48)
[2020-05-22] VITALS (8 sets, daily range): BP systolic 172–188; BP diastolic 85–112; PULSE 98–111; RESP 18; TEMP 36.6–37.2; O2SAT 95–99
[2020-05-22] MEDS: HYDROmorphone HCl 1 MG/ML SYRINGE IVPUSH ×3 (00:45→06:45)
[2020-05-22] MEDS: Acetaminophen 325 MG TABLET 650 MG PO (03:45)
[2020-05-22 06:18] LABS: MANUAL DIFF FLAG NO
[2020-05-22 06:32] LABS: Basophils Percent Auto 0.4 % (0-2); Eosinophils Absolute Auto 0.2 X10*3/uL (0.0-0.4); Hematocrit 37.2 % (42-52); Hemoglobin 12.4 g/dl (14.0-18.0); Imm Gran Abs Auto 0.02 X10*3/uL (0.00-0.03); Imm Gran Pct Auto 0.3 % (0.0-0.4); Lymphocytes Absolute Auto 1.1 X10*3/uL (1.2-4.9); Lymphocytes Percent Auto 13.1 % (20-40); Mean Corpuscular HGB Conc 33.3 g/dl (31.0-36.0); Mean Platelet Volume 12.5 fL (9.4-12.4); Monocytes Absolute Auto 0.8 X10*3/uL (0.1-1.2); Monocytes Percent Auto 9.6 % (2-11); Neutrophils Absolute Auto 5.9 X10*3/uL (2.0-8.3); Neutrophils Percent Auto 73.6 % (45-73); Platelet Count 155 X10*3/uL (160-400); Red Cell Distribution Width 13.1 % (11.0-16.0)
[2020-05-22] MEDS: Omeprazole 20 MG CAPSULE.DR PO (06:42)
[2020-05-22 07:02] LABS: Alanine Aminotransferase 67 U/L (0-40); Albumin Level 3.5 g/dL (3.5-5.0); Alkaline Phosphatase 75 U/L (39-117); Anion Gap 16 (12-20); Aspartate Amino Transferase 91 U/L (5-37); Bilirubin Direct 0.7 mg/dL (0.0-0.5); Bilirubin Total 1.3 mg/dL (0.0-1.0); Blood Urea Nitrogen 11 mg/dL (9-16); Calcium 7.9 mg/dL (8.4-10.2); Carbon Dioxide 26 mmol/L (22-29); Chloride 101 mmol/L (96-108); Creatinine Clr Calc Pharmacy 150.8; Estimated Glomerular Filt Rate > 60; Glucose Random 117 mg/dL (60-115); Potassium 3.6 mmol/l (3.3-5.1); Sodium 139 mmol/L (135-145); Total Protein 6.4 g/dL (6.5-8.0)
[2020-05-22] MEDS: Fluticasone/Vilanterol 200/25 BLST.W.DEV 1 PUFF INHALE (08:01)
[2020-05-22] MEDS: Docusate Sodium 100 MG CAPSULE PO (08:06)
[2020-05-22] MEDS: PHENobarbitaL 30 MG TABLET PO ×2 (08:07→21:38)
[2020-05-22] MEDS: Metoprolol Tartrate 25 MG TABLET 50 MG PO ×2 (08:07→21:39)
[2020-05-22] MEDS: 0.9 % Sodium Chloride Flush 3 ML SYRINGE IVFLUSH ×2 (08:08→16:25)
[2020-05-22] MEDS: HYDROmorphone HCl 1 MG/ML SYRINGE 0.5 MG IVPUSH ×4 (09:18→21:37)
[2020-05-22] MEDS: Ketorolac Tromethamine 15 MG/ML VIAL IV ×2 (11:29→18:40)
[2020-05-22] MEDS: Lactulose 20 GM/30 ML SOLUTION PO (11:29)
[2020-05-22] MEDS: guaiFENesin 200 MG/10 ML 10 ML LIQUID PO ×2 (13:18→17:16)
--- NOTE | 2020-05-22 15:01 | P.PNIM_ITS ---
Subjective Subjective Date of Service: 05/22/20 Interval History: Patient complaining of abdominal pain took long time walking to the bathroom as per RN had no lightheadedness or dizziness, denies nausea, vomiting ,no fevers, complaining of constipation passing flatus. General no headache, no dizziness, no fever chills. CVS no chest pain, no palpitation. Respiratory complaining of dry cough, no sputum production, no respiratory distress. Gastrointestinal no nausea ,no vomiting, persistent abdominal pain radiating from epigastric towards lower abdomen. Physical Exam Vital Signs: Vital Signs: Vital Signs Temp Pulse Resp BP Pulse Ox 05/22/20 10:53 98.0 F 100 18 180/110 H 97 05/22/20 08:07 100 173/87 H 05/22/20 07:37 97.9 F 100 18 173/87 H 97 05/22/20 03:32 99.0 F 107 H 18 172/85 H 95 05/21/20 23:25 99.7 F 97 18 171/88 H 96 05/21/20 19:10 99.7 F 115 H 18 146/86 H 93 05/21/20 15:13 98.5 F 115 H 20 153/91 H 96 Body Mass Index 35.9 General patient resting in bed, no acute distress. Neck is supple no JVD. CVS regular rate rhythm, Respiratory lungs clear to auscultation, no respiratory distress, no wheeze, no rhonchi. Gastrointestinal abdomen obese, mild diffuse tenderness with palpation, no guarding, no rigidity, bowel sounds audible. Extremities no clubbing cyanosis or edema. Neuro nonfocal patient moving all 4 extremity speech clear. No tremors Skin no rash Objective Data Current Medications Generic Name Dose Route Start Last Admin Trade Name Freq PRN Reason Stop Dose Admin Acetaminophen 650 mg 05/18/20 21:34 05/22/20 03:45 Acetaminophen 325 Mg Tablet PO 650 mg Q6H PRN Administration Pain, Mild (Pain Scale 1-3) Albuterol Sulfate 2 puff 05/18/20 21:34 Albuterol Sulfate 90 Mcg 18 Gm Inhaler INHALE Q4H PRN wheezing Diphenhydramine HCl 25 mg 05/21/20 18:28 05/21/20 21:48 Diphenhydramine Hcl 25 Mg Tablet PO 25 mg BEDTIME PRN Administration Insomnia Docusate Sodium 100 mg 05/21/20 09:00 05/22/20 08:06 Docusate Sodium 100 Mg Capsule PO 100 mg BID MATTHEW Administration Enoxaparin Sodium 40 mg 05/19/20 18:00 05/21/20 17:09 Enoxaparin Sodium 40 Mg/0.4 Ml Syringe SUBCUT 40 mg Q24H MATTHEW Administration Fluticasone/Vilanterol 1 puff 05/19/20 08:00 05/22/20 08:01 Fluticasone/Vilanterol 200/25 Blst.W.Dev INHALE 1 puff RDAILY MATTHEW Administration Guaifenesin 10 ml 05/22/20 10:30 05/22/20 13:18 Guaifenesin 200 Mg/10 Ml 10 Ml Liquid PO 10 ml Q6H PRN Administration cough Hydromorphone HCl 0.5 mg 05/22/20 08:59 05/22/20 13:14 Hydromorphone Hcl 1 Mg/Ml Syringe IVPUSH 0.5 mg Q4H PRN Administration Pain, Severe (Pain Scale 7-10) Ketorolac Tromethamine 15 mg 05/22/20 10:30 05/22/20 11:29 Ketorolac Tromethamine 15 Mg/Ml Vial IV 15 mg Q6H PRN Administration abdominal pain Lactulose 20 gm 05/22/20 10:45 05/22/20 11:29 Lactulose 20 Gm/30 Ml Solution PO 20 gm DAILY [facility] Administration Medication 1 each 05/20/20 09:00 No Benzodiazepines MISCELLANE DAILY [facility] Metoprolol Tartrate 50 mg 05/21/20 09:00 05/22/20 08:07 Metoprolol Tartrate 25 Mg Tablet PO 50 mg BID [facility] Administration Protocol Omeprazole 20 mg 05/22/20 06:30 05/22/20 06:42 Omeprazole 20 Mg Capsule.Dr PO 20 mg DAILY@0630 [facility] Administration Ondansetron HCl 4 mg 05/18/20 21:34 05/19/20 07:59 Ondansetron Hcl 4 Mg/2 Ml Vial IVPUSH 4 mg Q8H PRN Administration Nausea and Vomiting Pharmacy Consult 1 each 05/18/20 20:12 Consult Rx Perform Med Rec MISCELLANE ONCE PRN Consult order Phenobarbital 30 mg 05/22/20 09:00 05/22/20 08:07 Phenobarbital 30 Mg Tablet PO 05/23/20 21:01 30 mg BID MATTHEW Administration Phenobarbital 30 mg 05/24/20 09:00 Phenobarbital 30 Mg Tablet PO 05/25/20 09:01 DAILY [facility]W Sodium Chloride 3 ml 05/19/20 00:00 05/22/20 08:08 0.9 % Sodium Chloride Flush 3 Ml Syringe IVFLUSH 3 ml QSHIFT MATTHEW Administration Labs CBC & Chem 7: 05/22/20 05:23 05/22/20 05:23 Assessment and Plan (1) Pancreatitis: Status: Acute (2) Hypertension: Status: Acute (3) Asthma: Status: Acute (4) Elevated LFTs: Status: Acute Assessment and Plan: 30 yo M with no significant PMH (he reports borderline HTN for which he isnt on any treatment for) who presents to the hospital with complaints of diffuse abdominal byrne. He is diagnosed and admitted for acute pancreatitis, likely 2/2 to heavy alcohol abuse. 1. Acute Pancreatitis persistent abdominal pain gradually improving with no nausea, no vomiting ,no fevers, lipase significantly improved, LFTs trending down, abdominal ultrasound showed no evidence of gallstone will advance diet to fat-free diet and continue with Ensure can t.i.d. will change IV dialudid to 0.5mg q6 h prn and add toradol to avoid constipation. recommend out of bed to chair and to ambulate, will add cough med ication for dry cough will place on lactulose and continue stool softeners for constipation, follow labs at a.m. 2. Alcohol abuse and dependence no signs of withdrawal continue phenobarb, normal potassium and magnesium will continue to follow labs, strongly advised to abstain from alcohol 3. abnormal EKG no chest pain, repeat EKG shows no change, troponin negative. continue tele monitor,will repeat ekg. 4. Alcoholic gastritis cont. Prilosec. 5. history of hypertension patient placed on beta-nazario but noted to have persistent elevated blood pressure therefore will add Norvasc 5 mg daily patient not on antihypertensive medication at home. Full Code DVT pptx, lovenox
[2020-05-22] MEDS: amLODIPine Besylate 5 MG TABLET PO (16:10)
[2020-05-22] MEDS: Enoxaparin Sodium 40 MG/0.4 ML SYRINGE SUBCUT (17:15)
[2020-05-23] VITALS (11 sets, daily range): BP systolic 169–191; BP diastolic 89–111; PULSE 84–96; RESP 16–20; TEMP 36.2–37.3; O2SAT 97–100
--- NOTE | 2020-05-23 | CT_ITS ---
EXAMINATION: CT ABDOMEN AND PELVIS WITHOUT CONTRAST CLINICAL INFORMATION: Abdominal pain COMPARISON: None TECHNIQUE: Multidetector volumetric imaging was performed from the superior aspect of the liver through the pubic symphysis. Sagittal and coronal reformatted images were obtained on the technologist's workstation. This CT examination was performed using dose optimization techniques as appropriate, variously including the following: *Automated exposure control *Adjustment of mA and/or kV according to patient size (this includes techniques or standardized protocols for targeted exams where dose is matched to indication/reason for exam; i.e. extremities or head) *Use of iterative reconstruction technique DLP: 753 mGy-cm FINDINGS: LUNG BASES: There is bilateral lower lobe platelike atelectasis. There is left lower lobe pleural thickening and/or effusion. Heart size is normal. LIVER, GALLBLADDER, AND BILIARY TREE: The liver is normal in size, shape, and attenuation. No focal hepatic lesion or biliary ductal dilatation is present. The gallbladder is unremarkable with no evidence of radiopaque gallstones, gallbladder wall thickening, or obvious pericholecystic inflammatory changes. PANCREAS: The pancreas is diffusely thickened with peripancreatic moderate soft tissue density consistent with pancreatitis there is no's focal fluid collection to suspect any pseudocyst at this time SPLEEN: Unremarkable. ADRENAL GLANDS: Unremarkable. KIDNEYS AND URETERS: The kidneys are normal in size, shape, and attenuation. No hydronephrosis, hydroureter, or calculi seen. No perinephric stranding. BLADDER: Unremarkable. GASTROINTESTINAL TRACT: There is scattered stool and gas seen throughout the colon without distention. The small bowel loops are normal caliber. Appendix is normal caliber no free air or free fluid. ABDOMINAL WALL: There is minimal bilateral lateral abdominal wall haziness question edema LYMPH NODES: There are very small mesenteric lymph node adenopathy. VASCULAR: Unremarkable. PELVIC VISCERA: There is minimal free fluid in the pelvis and mild fat stranding. OSSEOUS STRUCTURES: No lytic or sclerotic process seen CT/CT abdomen pelvis wo con IMPRESSION: Sequelae of acute pancreatitis stool continues. There is no pseudocyst formation. Is no bowel obstruction there. There is no free fluid air. Minimal free fluid and fat stranding extends into the pelvis. Minimal left pleural effusion and underlying atelectasis, new since previous study
[2020-05-23] MEDS: Ketorolac Tromethamine 15 MG/ML VIAL IV (00:42)
[2020-05-23] MEDS: 0.9 % Sodium Chloride Flush 3 ML SYRINGE IVFLUSH ×3 (02:17→20:01)
[2020-05-23] MEDS: HYDROmorphone HCl 1 MG/ML SYRINGE 0.5 MG IVPUSH ×5 (02:18→21:34)
[2020-05-23] MEDS: diphenhydrAMINE HCL 25 MG TABLET PO ×2 (02:23→21:34)
[2020-05-23] MEDS: Acetaminophen 325 MG TABLET 650 MG PO ×2 (04:53→12:30)
[2020-05-23] MEDS: Omeprazole 20 MG CAPSULE.DR PO (06:25)
[2020-05-23 07:05] LABS: Alanine Aminotransferase 116 U/L (0-40); Albumin Level 3.7 g/dL (3.5-5.0); Alkaline Phosphatase 100 U/L (39-117); Aspartate Amino Transferase 116 U/L (5-37); Bilirubin Direct 0.7 mg/dL (0.0-0.5); Bilirubin Total 1.4 mg/dL (0.0-1.0)
[2020-05-23] MEDS: Fluticasone/Vilanterol 200/25 BLST.W.DEV 1 PUFF INHALE (07:30)
[2020-05-23] MEDS: PHENobarbitaL 30 MG TABLET PO ×2 (08:02→20:01)
[2020-05-23] MEDS: Metoprolol Tartrate 25 MG TABLET 50 MG PO ×2 (08:02→20:01)
[2020-05-23] MEDS: amLODIPine Besylate 5 MG TABLET PO (08:03)
--- NOTE | 2020-05-23 12:25 | HO.PM.IMPN ---
Subjective Subjective Date of Service: 05/23/20 Interval History: Patient complaining of abdominal pain Complaining of difficulty in ambulation due to back pain, denies nausea vomiting but taking fluids causes abdominal pain, had 2 bowel movement , no fever chills. General no headache, no dizziness, no fever chills. CVS no chest pain, no palpitation. Respiratory complaining of dry cough, no sputum production, no respiratory distress. Gastrointestinal no nausea ,no vomiting, persistent abdominal pain radiating from epigastric towards lower abdomen. Physical Exam Vital Signs: Vital Signs: Vital Signs Temp Pulse Resp BP Pulse Ox 05/23/20 12:00 20 05/23/20 11:17 174/100 H 05/23/20 11:08 98.4 F 87 18 191/111 H 97 05/23/20 07:39 98.9 F 88 18 189/108 H 97 05/23/20 03:39 98.3 F 96 18 169/96 H 98 05/22/20 23:44 99.0 F 98 18 187/110 H 99 05/22/20 19:48 98.2 F 111 H 18 185/96 H 99 05/22/20 16:10 105 H 188/112 H 05/22/20 15:24 98.3 F 105 H 18 188/112 H 97 Body Mass Index 35.9 General patient resting in bed, no acute distress. Neck is supple no JVD. CVS regular rate rhythm, Respiratory lungs diminished breath sound at base, no respiratory distress Gastrointestinal abdomen obese, mild diffuse tenderness with palpation, no rigidity, bowel sounds audible. Extremities no clubbing cyanosis or edema. Neuro nonfocal patient moving all 4 extremity speech clear. No tremors Skin no rash Objective Data Current Medications Generic Name Dose Route Start Last Admin Trade Name Freq PRN Reason Stop Dose Admin Acetaminophen 650 mg 05/18/20 21:34 05/23/20 04:53 Acetaminophen 325 Mg Tablet PO 650 mg Q6H PRN Administration Pain, Mild (Pain Scale 1-3) Albuterol Sulfate 2 puff 05/18/20 21:34 Albuterol Sulfate 90 Mcg 18 Gm Inhaler INHALE Q4H PRN wheezing Amlodipine Besylate 5 mg 05/22/20 15:05 05/23/20 08:03 Amlodipine Besylate 5 Mg Tablet PO 5 mg DAILY MATTHEW Administration Protocol Diphenhydramine HCl 25 mg 05/21/20 18:28 05/23/20 02:23 Diphenhydramine Hcl 25 Mg Tablet PO 25 mg BEDTIME PRN Administration Insomnia Docusate Sodium 100 mg 05/21/20 09:00 05/23/20 08:03 Docusate Sodium 100 Mg Capsule PO Not Given BID [facility] Enoxaparin Sodium 40 mg 05/19/20 18:00 05/22/20 17:15 Enoxaparin Sodium 40 Mg/0.4 Ml Syringe SUBCUT 40 mg Q24H [facility] Administration Fluticasone/Vilanterol 1 puff 05/19/20 08:00 05/23/20 07:30 Fluticasone/Vilanterol 200/25 Blst.W.Dev INHALE 1 puff RDAILY [facility] Administration Guaifenesin 10 ml 05/22/20 10:30 05/22/20 17:16 Guaifenesin 200 Mg/10 Ml 10 Ml Liquid PO 10 ml Q6H PRN Administration cough Hydromorphone HCl 0.5 mg 05/22/20 08:59 05/23/20 10:29 Hydromorphone Hcl 1 Mg/Ml Syringe IVPUSH 0.5 mg Q4H PRN Administration Pain, Severe (Pain Scale 7-10) Lactated Ringer's 1,000 mls @ 125 mls/hr 05/23/20 12:30 Lr IVCONT .Q8H [facility] Lactulose 20 gm 05/22/20 10:45 05/23/20 08:03 Lactulose 20 Gm/30 Ml Solution PO Not Given DAILY [facility] Medication 1 each 05/20/20 09:00 No Benzodiazepines MISCELLANE DAILY [facility] Metoprolol Tartrate 50 mg 05/21/20 09:00 05/23/20 08:02 Metoprolol Tartrate 25 Mg Tablet PO 50 mg BID [facility] Administration Protocol Omeprazole 20 mg 05/22/20 06:30 05/23/20 06:25 Omeprazole 20 Mg Capsule.Dr PO 20 mg DAILY@0630 [facility] Administration Ondansetron HCl 4 mg 05/18/20 21:34 05/19/20 07:59 Ondansetron Hcl 4 Mg/2 Ml Vial IVPUSH 4 mg Q8H PRN Administration Nausea and Vomiting Oxycodone HCl 10 mg 05/23/20 12:17 Oxycodone Hcl Immed Release 5 Mg Tablet PO Q6H PRN pain severe Pharmacy Consult 1 each 05/18/20 20:12 Consult Rx Perform Med Rec MISCELLANE ONCE PRN Consult order Phenobarbital 30 mg 05/22/20 09:00 05/23/20 08:02 Phenobarbital 30 Mg Tablet PO 05/23/20 21:01 30 mg BID [facility]THEW Administration Phenobarbital 30 mg 05/24/20 09:00 Phenobarbital 30 Mg Tablet PO 05/25/20 09:01 DAILY [facility]W Sodium Chloride 3 ml 05/19/20 00:00 05/23/20 08:03 0.9 % Sodium Chloride Flush 3 Ml Syringe IVFLUSH 3 ml QSHIFT [facility]W Administration Labs CBC & Chem 7: 05/22/20 05:23 05/22/20 05:23 Assessment and Plan (1) Pancreatitis: Status: Acute (2) Hypertension: Status: Acute (3) Asthma: Status: Acute (4) Elevated LFTs: Status: Acute Assessment and Plan: 30 yo M with no significant PMH (he reports borderline HTN for which he isnt on any treatment for) who presents to the hospital with complaints of diffuse abdominal byrne. He is diagnosed and admitted for acute pancreatitis, likely 2/2 to heavy alcohol abuse. 1. Acute Pancreatitis persistent abdominal pain therefore CT abdomen obtained that shows persistent pancreatic inflammation no pseudocyst ,no bowel obstruction due to poor by mouth intake will restart IV fluid, since Toradol is not helping with pain, will DC Toradol, will add by mouth oxycodone and continue as needed Dilaudid. will check lipase CRP and BMP, mildly elevated LFTs likely due to alcoholic hepatitis continue full liquid diet and continue with Ensure can t.i.d. case discussed with Dr. Zee from Gastroenterology she will review CT findings with Radiology 2. Alcohol abuse and dependence no signs of withdrawal continue phenobarb, normal potassium and magnesium will continue to follow labs, strongly advised to abstain from alcohol 3. abnormal EKG no chest pain, repeat EKG shows no change, troponin negative. continue tele monitor, and follow ekg. 4. Alcoholic gastritis cont. Prilosec. 5. history of hypertension patient placed on beta-nazario but noted to have persistent elevated blood pressure therefore added Norvasc 5 mg daily BP remains elevated will follow blood pressure and adjust blood pressure medications , patient not on antihypertensive medications at home. Full Code DVT pptx, lovenox
[2020-05-23] MEDS: oxyCODONE HCl Immed Release 5 MG TABLET 10 MG PO ×3 (12:31→23:26)
[2020-05-23] MEDS: Lactated Ringers 1,000 ML 125 ML IVCONT ×2 (12:31→20:01)
[2020-05-23 12:44] LABS: Anion Gap 20 (12-20); Blood Urea Nitrogen 11 mg/dL (9-16); C Reactive Protein 26.13 mg/dL (< or = 0.50); Calcium 8.3 mg/dL (8.4-10.2); Carbon Dioxide 24 mmol/L (22-29); Chloride 99 mmol/L (96-108); Creatinine Clr Calc Pharmacy 147.7; Estimated Glomerular Filt Rate > 60; Glucose Random 127 mg/dL (60-115); Potassium 3.6 mmol/l (3.3-5.1); Sodium 139 mmol/L (135-145)
[2020-05-23 13:00] LABS: Lipase 247 U/L (8-78)
--- NOTE | 2020-05-23 13:22 | MHC.CM.PN ---
The goal for dc is for Patient to return home with no anticipated need for skilled services. Patient appears to be experiencing persistent abdominal pain and some difficulty with mobility, r/t Back Pain.CM will continue to follow for dc planning and possible need to adjust dc plan.
[2020-05-23] MEDS: Enoxaparin Sodium 40 MG/0.4 ML SYRINGE SUBCUT (17:58)
[2020-05-23] MEDS: Docusate Sodium 100 MG CAPSULE PO (20:01)
[2020-05-23] MEDS: guaiFENesin 200 MG/10 ML 10 ML LIQUID PO (20:06)
[2020-05-24] VITALS (10 sets, daily range): BP systolic 148–188; BP diastolic 73–108; PULSE 84–98; RESP 18; TEMP 36.8–37.8; O2SAT 96–99
[2020-05-24] MEDS: HYDROmorphone HCl 1 MG/ML SYRINGE 0.5 MG IVPUSH (03:56)
[2020-05-24] MEDS: guaiFENesin 200 MG/10 ML 10 ML LIQUID PO ×2 (04:01→21:42)
[2020-05-24] MEDS: Lactated Ringers 1,000 ML 125 ML IVCONT ×3 (04:38→22:15)
[2020-05-24] MEDS: Omeprazole 20 MG CAPSULE.DR PO (05:32)
[2020-05-24] MEDS: oxyCODONE HCl Immed Release 5 MG TABLET 10 MG PO ×2 (07:00→12:17)
[2020-05-24 07:28] LABS: MANUAL DIFF FLAG NO
[2020-05-24 07:36] LABS: Basophils Percent Auto 0.6 % (0-2); Eosinophils Absolute Auto 0.3 X10*3/uL (0.0-0.4); Eosinophils Percent Auto 4.2 % (0-4); Hematocrit 38.5 % (42-52); Hemoglobin 12.9 g/dl (14.0-18.0); Imm Gran Abs Auto 0.03 X10*3/uL (0.00-0.03); Imm Gran Pct Auto 0.5 % (0.0-0.4); Lymphocytes Absolute Auto 1.5 X10*3/uL (1.2-4.9); Lymphocytes Percent Auto 22.6 % (20-40); Mean Corpuscular HGB Conc 33.5 g/dl (31.0-36.0); Mean Corpuscular Hemoglobin 30.5 pg (27.0-33.0); Mean Platelet Volume 12.1 fL (9.4-12.4); Monocytes Absolute Auto 0.9 X10*3/uL (0.1-1.2); Monocytes Percent Auto 13.4 % (2-11); Neutrophils Absolute Auto 3.9 X10*3/uL (2.0-8.3); Neutrophils Percent Auto 58.7 % (45-73); Platelet Count 212 X10*3/uL (160-400); Red Blood Count 4.23 X10*6/uL (4.60-5.80); Red Cell Distribution Width 12.8 % (11.0-16.0); White Blood Count 6.6 X10*3/uL (4.8-10.8)
[2020-05-24] MEDS: Fluticasone/Vilanterol 200/25 BLST.W.DEV 1 PUFF INHALE (07:36)
[2020-05-24 08:05] LABS: Alanine Aminotransferase 130 U/L (0-40); Albumin Level 3.7 g/dL (3.5-5.0); Alkaline Phosphatase 110 U/L (39-117); Anion Gap 16 (12-20); Aspartate Amino Transferase 86 U/L (5-37); Bilirubin Direct 0.6 mg/dL (0.0-0.5); Bilirubin Total 1.1 mg/dL (0.0-1.0); Blood Urea Nitrogen 10 mg/dL (9-16); Calcium 8.2 mg/dL (8.4-10.2); Carbon Dioxide 27 mmol/L (22-29); Chloride 102 mmol/L (96-108); Creatinine Clr Calc Pharmacy 152.4; Estimated Glomerular Filt Rate > 60; Glucose Random 123 mg/dL (60-115); Magnesium 2.1 mg/dL (1.6-2.6); Potassium 3.5 mmol/l (3.3-5.1); Sodium 141 mmol/L (135-145); Total Protein 6.6 g/dL (6.5-8.0)
[2020-05-24] MEDS: HYDROmorphone HCl 1 MG/ML SYRINGE IVPUSH ×4 (08:23→22:15)
[2020-05-24] MEDS: Metoprolol Tartrate 25 MG TABLET 50 MG PO ×2 (08:24→21:42)
[2020-05-24] MEDS: PHENobarbitaL 30 MG TABLET PO (08:24)
[2020-05-24] MEDS: amLODIPine Besylate 5 MG TABLET 10 MG PO (08:25)
[2020-05-24] MEDS: 0.9 % Sodium Chloride Flush 3 ML SYRINGE IVFLUSH ×2 (08:31→18:16)
[2020-05-24] MEDS: Acetaminophen 325 MG TABLET 650 MG PO (12:17)
--- NOTE | 2020-05-24 13:08 | P.PNIM_ITS ---
Subjective Subjective Date of Service: 05/24/20 Interval History: Patient complaining of abdominal pain but feels it is improving, Complaining of right foot pain is concerned about gout, is tolerating diet better. General no headache, no dizziness, no fever, no chills. CVS no chest pain, no palpitation. Respiratory no shortness of breath, no respiratory distress. Gastrointestinal no nausea ,no vomiting, persistent abdominal pain but better. Physical Exam Vital Signs: Vital Signs: Vital Signs Temp Pulse Resp BP Pulse Ox 05/24/20 11:30 100.0 F 96 18 158/86 H 99 05/24/20 08:25 95 180/94 H 05/24/20 08:24 95 180/94 H 05/24/20 07:44 98.2 F 95 18 180/94 H 98 05/24/20 03:40 172/88 H 05/24/20 03:31 98.8 F 85 18 188/97 H 96 05/23/20 23:16 99.2 F 85 18 174/89 H 98 05/23/20 21:34 16 05/23/20 20:01 94 181/92 H 05/23/20 20:00 98.5 F 84 18 181/92 H 100 05/23/20 16:10 20 05/23/20 16:00 97.1 F 95 18 170/90 H 97 Body Mass Index 35.9 General patient resting in bed, no acute distress. Neck is supple no JVD. CVS regular rate rhythm, Respiratory lungs diminished breath sound at base, no respiratory distress Gastrointestinal abdomen obese, mild tenderness with palpation around epigastrium, no rigidity, bowel sounds audible. Extremities no clubbing cyanosis or edema. right big toe normal examination no redness, no swelling, Neuro nonfocal patient moving all 4 extremity speech clear. No tremors Skin no rash Objective Data Current Medications Generic Name Dose Route Start Last Admin Trade Name Freq PRN Reason Stop Dose Admin Acetaminophen 650 mg 05/18/20 21:34 05/24/20 12:17 Acetaminophen 325 Mg Tablet PO 650 mg Q6H PRN Administration Pain, Mild (Pain Scale 1-3) Albuterol Sulfate 2 puff 05/18/20 21:34 Albuterol Sulfate 90 Mcg 18 Gm Inhaler INHALE Q4H PRN wheezing Amlodipine Besylate 10 mg 05/24/20 09:00 05/24/20 08:25 Amlodipine Besylate 5 Mg Tablet PO 10 mg DAILY MATTHEW Administration Protocol Diphenhydramine HCl 25 mg 05/21/20 18:28 05/23/20 21:34 Diphenhydramine Hcl 25 Mg Tablet PO 25 mg BEDTIME PRN Administration Insomnia Docusate Sodium 100 mg 05/21/20 09:00 05/24/20 08:24 Docusate Sodium 100 Mg Capsule PO Not Given BID MATTHEW Enoxaparin Sodium 40 mg 05/19/20 18:00 05/23/20 17:58 Enoxaparin Sodium 40 Mg/0.4 Ml Syringe SUBCUT 40 mg Q24H MATTHEW Administration Fluticasone/Vilanterol 1 puff 05/19/20 08:00 05/24/20 07:36 Fluticasone/Vilanterol 200/25 Blst.W.Dev INHALE 1 puff RDAILY MATTHEW Administration Guaifenesin 10 ml 05/22/20 10:30 05/24/20 04:01 Guaifenesin 200 Mg/10 Ml 10 Ml Liquid PO 10 ml Q6H PRN Administration cough Hydromorphone HCl 1 mg 05/24/20 08:00 05/24/20 08:23 Hydromorphone Hcl 1 Mg/Ml Syringe IVPUSH 1 mg Q4H PRN Administration Pain, Severe (Pain Scale 7-10) Lactated Ringer's 1,000 mls @ 125 mls/hr 05/23/20 12:30 05/24/20 04:38 Lr IVCONT 125 mls/hr .Q8H MATTHEW Administration Lactulose 20 gm 05/22/20 10:45 05/24/20 08:31 Lactulose 20 Gm/30 Ml Solution PO Not Given DAILY MATTHEW Medication 1 each 05/20/20 09:00 No Benzodiazepines MISCELLANE DAILY MATTHEW Metoprolol Tartrate 50 mg 05/21/20 09:00 05/24/20 08:24 Metoprolol Tartrate 25 Mg Tablet PO 50 mg BID MATTHEW Administration Protocol Omeprazole 20 mg 05/22/20 06:30 05/24/20 05:32 Omeprazole 20 Mg Capsule.Dr PO 20 mg DAILY@0630 MATTHEW Administration Ondansetron HCl 4 mg 05/18/20 21:34 05/19/20 07:59 Ondansetron Hcl 4 Mg/2 Ml Vial IVPUSH 4 mg Q8H PRN Administration Nausea and Vomiting Oxycodone HCl 10 mg 05/23/20 12:17 05/24/20 12:17 Oxycodone Hcl Immed Release 5 Mg Tablet PO 10 mg Q6H PRN Administration pain severe Pharmacy Consult 1 each 05/18/20 20:12 Consult Rx Perform Med Rec MISCELLANE ONCE PRN Consult order Phenobarbital 30 mg 05/24/20 09:00 05/24/20 08:24 Phenobarbital 30 Mg Tablet PO 05/25/20 09:01 30 mg DAILY MATTHEW Administration Sodium Chloride 3 ml 05/19/20 00:00 05/24/20 08:31 0.9 % Sodium Chloride Flush 3 Ml Syringe IVFLUSH 3 ml QSHIFT MATTHEW Administration Labs CBC & Chem 7: 05/24/20 06:11 05/24/20 06:11 Assessment and Plan (1) Pancreatitis: Status: Acute (2) Hypertension: Status: Acute (3) Asthma: Status: Acute (4) Elevated LFTs: Status: Acute Assessment and Plan: 30 yo M with no significant PMH (he reports borderline HTN for which he isnt on any treatment for) who presents to the hospital with complaints of diffuse abdominal byrne. He is diagnosed and admitted for acute pancreatitis, likely 2/2 to heavy alcohol abuse. 1. Acute Pancreatitis persistent abdominal pain but improveing repeat CT abdomen shows no improvement, but showed no pseudocyst ,no bowel obstruction continue full liquid diet, Ensure and IV fluid, continue Dilaudid and as needed oxycodone, CRP significantly elevated will repeat CRP at a.m.. elevated LFTs likely due to alcoholic hepatitis, follow labs at a.m. case discussed with Dr. Zee she recommend to continue full liquid diet and if unable to tolerate solids by Tuesday then she recommend nasojejunal feeding tube for nutritional support 2. Alcohol abuse and dependence no signs of withdrawal continue phenobarb, normal potassium and magnesium will continue to follow labs, strongly advised to abstain from alcohol 3. abnormal EKG no chest pain, repeat EKG shows no change, troponin negative. continue tele monitor, and follow ekg. 4. Alcoholic gastritis cont. Prilosec. 5. history of hypertension patient placed on beta-nazario but noted to have per sistent elevated blood pressure therefore added Norvasc 5 mg daily BP remains elevated therefore dose of Norvasc increased to 10 mg patient not on antihypertensive medications at home. Full Code DVT pptx, lovenox
[2020-05-24] MEDS: Enoxaparin Sodium 40 MG/0.4 ML SYRINGE SUBCUT (18:16)
[2020-05-24] MEDS: diphenhydrAMINE HCL 25 MG TABLET PO (22:15)
[2020-05-25] VITALS (12 sets, daily range): BP systolic 144–191; BP diastolic 83–107; PULSE 68–96; RESP 16–18; TEMP 36.3–38; O2SAT 96–99
[2020-05-25] MEDS: Acetaminophen 325 MG TABLET 650 MG PO (00:18)
[2020-05-25] MEDS: oxyCODONE HCl Immed Release 5 MG TABLET 10 MG PO ×2 (02:03→11:19)
[2020-05-25] MEDS: HYDROmorphone HCl 1 MG/ML SYRINGE IVPUSH ×3 (02:59→18:42)
[2020-05-25] MEDS: Lactated Ringers 1,000 ML 125 ML IVCONT (06:16)
[2020-05-25] MEDS: Omeprazole 20 MG CAPSULE.DR PO (06:16)
[2020-05-25] MEDS: Fluticasone/Vilanterol 200/25 BLST.W.DEV 1 PUFF INHALE (07:53)
[2020-05-25] MEDS: amLODIPine Besylate 5 MG TABLET 10 MG PO (09:09)
[2020-05-25] MEDS: PHENobarbitaL 30 MG TABLET PO (09:09)
[2020-05-25] MEDS: 0.9 % Sodium Chloride Flush 3 ML SYRINGE IVFLUSH ×2 (09:10→18:43)
[2020-05-25] MEDS: Lactulose 20 GM/30 ML SOLUTION PO (09:11)
[2020-05-25] MEDS: Metoprolol Tartrate 25 MG TABLET 75 MG PO ×2 (11:20→21:08)
--- NOTE | 2020-05-25 12:48 | P.PNIM_ITS ---
Subjective Subjective Date of Service: 05/25/20 Interval History: patient feels abdominal pain is significantly improved now 5/10 is able to stand up and ambulate in the room, tolerating full liquid diet patient taking both oxycodone and Dilaudid for pain control. Review of Systems General no headache no dizziness no fever chills. CVS no chest pain, no palpitation. Respiratory no cough no sputum production no respiratory distress. Gastrointestinal no nausea no vomiting, abdominal pain Physical Exam Vital Signs: Vital Signs: Vital Signs Temp Pulse Resp BP Pulse Ox 05/25/20 11:20 96 144/86 H 05/25/20 11:13 98 F 96 18 144/86 H 96 05/25/20 09:09 95 170/92 H 05/25/20 07:30 98.1 F 95 18 170/92 H 99 05/25/20 04:07 97.8 F 80 18 158/83 H 98 05/25/20 02:59 18 05/25/20 02:12 99.2 F 05/25/20 00:00 100.4 F 68 18 191/107 H 98 05/24/20 22:15 18 05/24/20 21:42 95 165/108 H 05/24/20 19:11 98.9 F 84 18 148/73 H 98 05/24/20 16:00 98.2 F 98 18 168/80 H 98 Body Mass Index 35.9 General patient resting in bed, no acute distress. Neck is supple no JVD. CVS regular rate rhythm, Respiratory lungs diminished breath sound at base, no respiratory distress Gastrointestinal abdomen obese, mild tenderness with palpation around epigastrium, No guarding, no rigidity, bowel sounds audible. Extremities no clubbing cyanosis or edema. right big toe normal examination no redness, no swelling, Neuro nonfocal Skin no rash, no jaundice Objective Data Current Medications Generic Name Dose Route Start Last Admin Trade Name Freq PRN Reason Stop Dose Admin Acetaminophen 650 mg 05/18/20 21:34 05/25/20 00:18 Acetaminophen 325 Mg Tablet PO 650 mg Q6H PRN Administration Pain, Mild (Pain Scale 1-3) Albuterol Sulfate 2 puff 05/18/20 21:34 Albuterol Sulfate 90 Mcg 18 Gm Inhaler INHALE Q4H PRN wheezing Amlodipine Besylate 10 mg 05/24/20 09:00 05/25/20 09:09 Amlodipine Besylate 5 Mg Tablet PO 10 mg DAILY MATTHEW Administration Protocol Diphenhydramine HCl 25 mg 05/21/20 18:28 05/24/20 22:15 Diphenhydramine Hcl 25 Mg Tablet PO 25 mg BEDTIME PRN Administration Insomnia Docusate Sodium 100 mg 05/21/20 09:00 05/25/20 09:11 Docusate Sodium 100 Mg Capsule PO Not Given BID [facility] Enoxaparin Sodium 40 mg 05/19/20 18:00 05/24/20 18:16 Enoxaparin Sodium 40 Mg/0.4 Ml Syringe SUBCUT 40 mg Q24H MATTHEW Administration Fluticasone/Vilanterol 1 puff 05/19/20 08:00 05/25/20 07:53 Fluticasone/Vilanterol 200/25 Blst.W.Dev INHALE 1 puff RDAILY MATTHEW Administration Guaifenesin 10 ml 05/22/20 10:30 05/24/20 21:42 Guaifenesin 200 Mg/10 Ml 10 Ml Liquid PO 10 ml Q6H PRN Administration cough Hydromorphone HCl 1 mg 05/25/20 12:46 Hydromorphone Hcl 1 Mg/Ml Syringe IVPUSH Q6H PRN Pain, Severe (Pain Scale 7-10) Lactated Ringer's 1,000 mls @ 100 mls/hr 05/23/20 12:30 05/25/20 06:16 Lr IVCONT 125 mls/hr .Q10H MATTHEW Administration Lactulose 20 gm 05/22/20 10:45 05/25/20 09:11 Lactulose 20 Gm/30 Ml Solution PO 20 gm DAILY [facility] Administration Medication 1 each 05/20/20 09:00 No Benzodiazepines MISCELLANE DAILY [facility] Metoprolol Tartrate 75 mg 05/25/20 09:15 05/25/20 11:20 Metoprolol Tartrate 25 Mg Tablet PO 75 mg BID [facility] Administration Protocol Omeprazole 20 mg 05/22/20 06:30 05/25/20 06:16 Omeprazole 20 Mg Capsule.Dr PO 20 mg DAILY@0630 MATTHEW Administration Ondansetron HCl 4 mg 05/18/20 21:34 05/19/20 07:59 Ondansetron Hcl 4 Mg/2 Ml Vial IVPUSH 4 mg Q8H PRN Administration Nausea and Vomiting Oxycodone HCl 10 mg 05/23/20 12:17 05/25/20 11:19 Oxycodone Hcl Immed Release 5 Mg Tablet PO 10 mg Q6H PRN Administration pain severe Pharmacy Consult 1 each 05/18/20 20:12 Consult Rx Perform Med Rec MISCELLANE ONCE PRN Consult order Sodium Chloride 3 ml 05/19/20 00:00 05/25/20 09:10 0.9 % Sodium Chloride Flush 3 Ml Syringe IVFLUSH 3 ml QSHIFT MATTHEW Administration Labs CBC & Chem 7: 05/24/20 06:11 05/24/20 06:11 Assessment and Plan (1) Pancreatitis: Status: Acute (2) Hypertension: Status: Acute (3) Asthma: Status: Acute (4) Elevated LFTs: Status: Acute Assessment and Plan: 30 yo M with no significant PMH (he reports borderline HTN for which he isnt on any treatment for) who presents to the hospital with complaints of diffuse abdominal byrne. He is diagnosed and admitted for acute pancreatitis, likely 2/2 to heavy alcohol abuse. 1. Acute Pancreatitis abdominal pain improved significantly, having loose stools, repeat CT abdomen shows no improvement, but showed no pseudocyst ,no bowel obstruction since patient tolerating full liquid diet well advanced to low-fat diet continue Ensure and IV fluid will minimize IV narcotic medications LFTs trending down as well as lipase will follow CRP if patient able to tolerate low-fat diet and CRP trending down will discharge patient home with strong recommendation to abstain from alcohol 2. Alcohol abuse and dependence no signs of withdrawal patient finish phenobarb protocol,strongly advised to abstain from alcohol, will obtain care team consult 3. abnormal EKG no chest pain, repeat EKG shows no change, troponin negative. continue tele monitor, and follow ekg. 4. Alcoholic gastritis cont. Prilosec. 5. history of hypertension patient placed on beta-nazario but noted to have persistent elevated blood pressure therefore added Norvasc 10 mg daily BP remains elevated therefore will increase dose of metoprolol to 75 mg b.i.d. will hold off on using hydrochlorothiazide and lisinopril due to concern for pancreatitis. Full Code DVT pptx, lovenox
[2020-05-25] MEDS: Lactated Ringers 1,000 ML 100 ML IVCONT (14:07)
--- NOTE | 2020-05-25 15:38 | MHC.CARE ---
CARE team responded to consulted to speak with patient regarding his alcohol use. Met with patient in room 445, he was sitting up in bed, alert, oriented and easily engaged. Discussed his available supports and needs, identified his twin brother, and a cousin as two people he stays in contact with and can rely on when in need but noted he has to be open with them. He believes that the isolation of the pandemic, especially not seeing his son in person, is contributing to his increased alcohol use. Patient said stated that he wants to remain sober after leaving the hospital and was accepting of written resources (local counselors, online self help and IOP--intensive Outpatient and detoxes) as well as meeting with a Manager [employer]. Communicated with RN and MD CARE team available as needed
[2020-05-25] MEDS: Enoxaparin Sodium 40 MG/0.4 ML SYRINGE SUBCUT (18:42)
[2020-05-25] MEDS: Docusate Sodium 100 MG CAPSULE PO (21:08)
[2020-05-25] MEDS: guaiFENesin 200 MG/10 ML 10 ML LIQUID PO (21:10)
[2020-05-26] VITALS: BP 160/88; PULSE 84; RESP 16; TEMP 37; O2SAT 98
[2020-05-26] MEDS: Lactated Ringers 1,000 ML 100 ML IVCONT (00:12)
[2020-05-26] MEDS: HYDROmorphone HCl 1 MG/ML SYRINGE IVPUSH (00:15)
[2020-05-26] MEDS: Acetaminophen 325 MG TABLET 650 MG PO (00:16)
[2020-05-26] MEDS: diphenhydrAMINE HCL 25 MG TABLET PO (00:17)
[2020-05-26] MEDS: 0.9 % Sodium Chloride Flush 3 ML SYRINGE IVFLUSH (00:55)
[2020-05-26 03:43] VITALS: BP 150/89; PULSE 60; RESP 16; TEMP 36.7; O2SAT 97
[2020-05-26] MEDS: oxyCODONE HCl Immed Release 5 MG TABLET 10 MG PO ×2 (04:31→09:13)
[2020-05-26] MEDS: Omeprazole 20 MG CAPSULE.DR PO (04:32)
[2020-05-26 05:56] LABS: Alanine Aminotransferase 118 U/L (0-40); Albumin Level 3.5 g/dL (3.5-5.0); Alkaline Phosphatase 102 U/L (39-117); Aspartate Amino Transferase 56 U/L (5-37); Bilirubin Direct 0.3 mg/dL (0.0-0.5); Bilirubin Total 0.5 mg/dL (0.0-1.0); C Reactive Protein 9.26 mg/dL (< or = 0.50); Total Protein 6.6 g/dL (6.5-8.0)
[2020-05-26 06:11] LABS: Lipase 184 U/L (8-78)
[2020-05-26 07:10] VITALS: BP 176/103; PULSE 74; RESP 18; TEMP 36.7; O2SAT 99
[2020-05-26 08:18] VITALS: BP 163/90; PULSE 102
[2020-05-26] MEDS: hydrALAZINE HCl 25 MG TABLET PO (08:18)
[2020-05-26] MEDS: Docusate Sodium 100 MG CAPSULE PO (08:18)
[2020-05-26] MEDS: Lactulose 20 GM/30 ML SOLUTION PO (08:18)
[2020-05-26 08:20] VITALS: BP 163/90; PULSE 102
[2020-05-26] MEDS: Metoprolol Tartrate 50 MG TABLET PO (08:20)
[2020-05-26 08:21] VITALS: BP 163/90; PULSE 102
[2020-05-26] MEDS: amLODIPine Besylate 5 MG TABLET 10 MG PO (08:21)
--- NOTE | 2020-05-26 09:05 | P.DS_ITS ---
DS: Providers Provider Date of admission: 05/18/20 20:33 Primary care physician: Brissa Seals MD Consults: 05/18/20 21:34 Consult to Physician Routine Consulting Provider: Lori Zee Reason for consultation: acute pancreatitis Has provider been notified: No 05/25/20 12:54 Consult to Care Team Routine Comment: Reason for consultation: alcohol withdrawal DS: Diagnosis Discharge Diagnosis (1) Pancreatitis: Status: Acute (2) Hypertension: Status: Acute (3) Asthma: Status: Acute (4) Elevated LFTs: Status: Acute DS: Summary Hospital Course Hospital Course: 30-year-old man presenting with complaints of abdominal pain that started yesterday. He reportedly took some ibuprofen so that he could sleep and took some prune juice because he felt constipated. He was unable to have bowel movement. He did have 3 episodes of vomiting. He reports a history of pancreatitis in the past as he does drink alcohol on a regular basis. He reported that he drinks at least a 20 oz beer with to 100 proof nips however, recently he has been drinking for 100 proof nips. he denied fever, chills, recent travel or improperly cooked foods. abdominal CT showed extensive abnormality related to acute pancreatitis. Also there was a question of necrosis however abdominal CT was noncontrast. Patient denied fever and he has no leukocytosis. His [place] score is currently a 0. he was noted to have an elevated bilirubin of 1.9, AST 54, ALT 66, lipase 1078. he was given morphine, Zofran, Pepcid, Ativan, Dilaudid, labetalol for elevated blood pressure. He reported remote history of hypertension but takes no medications. He will be admitted for further management treatment of acute pancreatitis. Acute Pancreatitis related to alcohol abuse Patient of admitted with abdominal pain CT abdomen showed finding suggestive of pancreatitis patient was treated with IV fluids pain medication it took a long time for patient symptoms to improved due to persistent symptoms, repeat CT abdomen was obtained that showed no pseudocyst ,no bowel obstruction, patient was noted to have elevated LFTs and CRP of 26.13 with supportive care patient's symptoms have significantly improved currently he is tolerating regular diet with no worsening of abdominal pain no nausea , no vomiting his CRPs improved to 9.26, LFTs trending down therefore patient is being discharged home on low-fat diet with strong recommendation to abstain from alcohol Alcohol abuse and dependence received phenobarb per protocol,strongly advised to abstain from alcohol. abnormal EKG no chest pain, repeat EKG shows no change, troponin negative. Alcoholic gastritis cont. Prilosec. history of hypertension patient placed on beta-nazario , Norvasc and added hydralazine due to persistently elevated blood pressures strongly advised to follow up with PCP. Time Spent with Patient Time attestation: Total time spent providing and/or coordinating discharge services: Physical Exam 2 Vital Signs: Vital Signs: Vital Signs Temp Pulse Resp BP Pulse Ox 05/26/20 08:21 102 H 163/90 H 05/26/20 08:20 102 H 163/90 H 05/26/20 08:18 102 H 163/90 H 05/26/20 07:10 98.1 F 74 18 176/103 H 99 05/26/20 03:43 98.1 F 60 16 150/89 H 97 05/26/20 00:00 98.6 F 84 16 160/88 H 98 05/25/20 21:08 86 150/86 H 05/25/20 19:59 97.3 F 85 18 150/90 H 97 05/25/20 18:42 16 05/25/20 15:49 97.9 F 79 18 175/99 H 98 05/25/20 11:20 96 144/86 H 05/25/20 11:13 98 F 96 18 144/86 H 96 05/25/20 09:09 95 170/92 H Body Mass Index 35.9 General patient resting comfortably in no acute distress. Neck is supple no JVD. CVS regular rate rhythm, Respiratory lungs clear to auscultation, no respiratory distress, no wheeze, no rhonchi. Gastrointestinal abdomen soft, bowel sounds audible, no guarding , no rigidity , nontender. Extremities no clubbing cyanosis or edema. Neuro nonfocal patient moving all 4 extremity speech clear. Skin no rash DS: Data Data Completed and Pending Labs on day of discharge: Labs from last 24 hours 05/26/20 04:16 Total Bilirubin 0.5 Direct Bilirubin 0.3 AST 56 H ALT 118 H Alkaline Phosphatase 102 C-Reactive Protein 9.26 H Total Protein 6.6 Albumin 3.5 Lipase 184 H Discharge Plan Discharge Patient Disposition: Home, Self-Care Referrals: Brissa Viramontes MD [Primary Care Provider] - Discharge Medications: New oxycodone 5 mg Tablet 10 mg PO Q6H PRN (Reason: pain severe) Qty: 12 RF: 0 omeprazole 20 mg Capsule,Delayed Release(Dr/Ec) 20 mg PO DAILY@0630 Qty: 30 RF: 0 hydralazine 25 mg Tablet 25 mg PO BID Qty: 60 RF: 0 amlodipine 5 mg Tablet 10 mg PO DAILY Qty: 30 RF: 0 metoprolol tartrate 50 mg Tablet 50 mg PO BID Qty: 60 RF: 0 Continued albuterol sulfate [ProAir HFA] 90 mcg/actuation HFA aerosol inhaler 2 puff inhalation Q4H PRN (Reason: wheezing) RF: 0 budesonide-formoterol [Symbicort] 160-4.5 mcg/actuation HFA aerosol inhaler 2 puff PO DAILY RF: 0 Discontinued albuterol sulfate 90 mcg/actuation HFA aerosol inhaler 2 puff inhalation Q4H PRN (Reason: wheezing) RF: 0 Discharge Orders: Discharge Order (Routine); Ordered 05/26/20 Ordered By: Mayra Guevara Diet: low fat, low cholesterol Activity on Discharge: As tolerated Visit Report Forms: Patient Portal Discharge page Care Plan Goals: follow low-fat diet and recommend to completely abstain from alcohol Health Concerns: outpatient follow-up with primary care physician and close blood pressures following Plan of Treatment: outpatient follow-up with PCP.
--- NOTE | 2020-05-26 09:08 | MHC.CM.PN ---
pt dcd home no servceis pt to arrange own transportation home
[2020-05-26] MEDS: guaiFENesin 200 MG/10 ML 10 ML LIQUID PO (09:13)
[2020-05-26] MEDS: Fluticasone/Vilanterol 200/25 BLST.W.DEV 1 PUFF INHALE (11:10)
== END 2020-05-26 13:20 | disposition home or self-care (01) | DRG 282 ==
LOC: HO.ED 21:05 → HO.IMC 21:21
PROVIDERS: Family Medicine; Internal Medicine Gastroenterology; Nurse Practitioner Acute Care; Physician Assistant; Admitting Provider Internal Medicine; Emergency Provider Emergency Medicine; PCP Internal Medicine; Visit Provider Hospitalist
DX: K85.20 Alcohol induced acute pancreatitis without necrosis or infection (principal); F10.239 Alcohol dependence with withdrawal, unspecified; J45.909 Unspecified asthma, uncomplicated; M10.9 Gout, unspecified; K29.20 Alcoholic gastritis without bleeding; I10 Essential (primary) hypertension; R74.01 Elevation of levels of liver transaminase levels; Z20.828 Contact with and (suspected) exposure to other viral communicable diseases; Z79.899 Other long term (current) drug therapy
CPT/HCPCS: 36415; 74176; 76705; 80048; 80053; 80076; 82607; 83690; 83735; 84484; 85025; 86140; 87635; 93005; 94640; 94664; 96361; 96374; 96375; 96376; 99285; J1170; J1650; J1885; J2060; J2270; J2405; J2560; Q0163

== ENCOUNTER 2021-12-24 08:15 | Outpatient (REF) | payer OTHER, SELFPAY ==
[2021-12-24 08:39] LABS: MANUAL DIFF FLAG NO
[2021-12-24 09:45] LABS: Basophils Percent Auto 0.7 % (0-2); Eosinophils Absolute Auto 0.3 X10*3/uL (0.0-0.4); Estimated Average Glucose 117 mg/dL; Hematocrit 38.2 % (42.0-52.0); Hemoglobin 12.7 g/dl (14.0-18.0); Hemoglobin A1c % 5.7 %; Imm Gran Abs Auto 0.01 X10*3/uL (0.00-0.03); Imm Gran Pct Auto 0.2 % (0.0-0.4); Lymphocytes Absolute Auto 1.5 X10*3/uL (1.2-4.9); Lymphocytes Percent Auto 33.3 % (20-40); Mean Corpuscular HGB Conc 33.2 g/dl (31.0-36.0); Mean Corpuscular Hemoglobin 30.2 pg (27.0-33.0); Mean Platelet Volume 12.5 fL (9.4-12.4); Monocytes Absolute Auto 0.5 X10*3/uL (0.1-1.2); Monocytes Percent Auto 9.9 % (2-11); Neutrophils Absolute Auto 2.3 x10*3/uL (2.0-8.3); Neutrophils Percent Auto 49.9 % (45-73); Platelet Count 198 X10*3/uL (160-400); Red Cell Distribution Width 13.2 % (11.0-16.0); White Blood Count 4.5 X10*3/uL (4.8-10.8)
[2021-12-24 10:17] LABS: Appearance Urine CLEAR; Color Urine YELLOW; Glucose Urine UA NEG (NEG); Leukocyte Esterase Urine NEG (NEG); Nitrite Urine NEG (NEG); Specific Gravity - Urine 1.025 (1.005-1.025); Urine Blood NEG (NEG); Urine Ketones 5 MG/DL (NEG); Urine Protein NEG (NEG-TRACE)
[2021-12-24 10:36] LABS: Alanine Aminotransferase 40 U/L (0-40); Albumin Level 4.3 g/dL (3.5-5.0); Alkaline Phosphatase 58 U/L (39-117); Amylase 97 U/L (28-100); Anion Gap 14 (12-20); Aspartate Amino Transferase 29 U/L (5-37); Bilirubin Total 0.5 mg/dL (0.0-1.0); Blood Urea Nitrogen 10 mg/dL (9-16); Calcium 9.1 mg/dL (8.4-10.2); Carbon Dioxide 25 mmol/L (22-29); Chloride 103 mmol/L (96-108); Estimated Glomerular Filt Rate > 60; Glucose Random 99 mg/dL (60-115); Lipase 249 U/L (8-78); Magnesium 2.1 mg/dL (1.6-2.6); Potassium 3.8 mmol/L (3.3-5.1); Sodium 138 mmol/L (135-145); Total Protein 7.2 g/dL (6.5-8.0)
[2021-12-24 10:38] LABS: TSH reflex Free T4 1.46 uIU/mL (0.32-4.0)
[2021-12-24 11:05] LABS: Folate 13.2 ng/mL (> or = 4.0); Vitamin B12 386 pg/mL (200-900)
== END 2021-12-24 08:16 | disposition home or self-care (01) ==
LOC: HO.LAB 08:15
PROVIDERS: PCP Internal Medicine; Visit Provider Internal Medicine
DX: I10 Essential (primary) hypertension (principal); K85.20 Alcohol induced acute pancreatitis without necrosis or infection; K85.90 Acute pancreatitis without necrosis or infection, unspecified; E83.42 Hypomagnesemia; R73.9 Hyperglycemia, unspecified; E53.8 Deficiency of other specified B group vitamins; R61 Generalized hyperhidrosis
CPT/HCPCS: 36415; 80053; 81003; 82150; 82607; 82746; 83036; 83690; 83735; 84443; 85025

== ENCOUNTER 2022-09-27 13:35 | Emergency (ER) | payer OTHER, SELFPAY | END 2022-09-27 14:42 | disposition left against medical advice (07) | PROVIDERS: Emergency Provider Emergency Medicine; PCP Internal Medicine | DX: R10.9 Unspecified abdominal pain (principal) ==

== ENCOUNTER 2022-09-27 20:58 | Inpatient (IN) | payer OTHER, SELFPAY ==
--- NOTE | ~2022-09-27 | US_ITS ---
EXAMINATION: US ABDOMEN LIMITED CLINICAL INFORMATION: Right upper quadrant pain. COMPARISON: CT abdomen/pelvis dated 05/23/2020 TECHNIQUE: Real-time imaging of the right upper quadrant abdominal viscera. FINDINGS: PANCREAS: Obscured by bowel gas. LIVER: The liver is normal in size. The liver contour is normal. There is diffuse increased liver parenchymal echogenicity, consistent with hepatic steatosis. No focal hepatic lesion. Mild intrahepatic biliary duct dilatation. GALLBLADDER: Normal. The gallbladder is physiologically distended without evidence of stones, sludge, polyps, wall thickening or pericholecystic fluid. COMMON BILE DUCT: Dilated to 9 mm. No choledocholithiasis, left although the distal common bile duct is not seen. RIGHT KIDNEY: Normal. No hydronephrosis. No renal calculi or focal parenchymal lesions. The kidney measures cm in maximum dimension. FREE FLUID: None. US/US abdomen limited IMPRESSION: * Mild intrahepatic and extrahepatic biliary ductal dilatation. No choledocholithiasis evident, however the distal common bile duct is not seen. Consider MRCP for further evaluation. * Hepatic steatosis.
--- NOTE | ~2022-09-27 | CT_ITS ---
EXAMINATION: CT ABDOMEN AND PELVIS WITH CONTRAST CLINICAL INFORMATION: Epigastric and right upper quadrant pain COMPARISON: 05/23/2020 TECHNIQUE: Multidetector volumetric images were obtained from the superior aspect of the liver through the pubic symphysis following administration 85 mL of Omnipaque 350 intravenous contrast. Sagittal and coronal reformatted images were obtained on the technologist's workstation. Oral contrast: No This CT examination was performed using dose optimization techniques as appropriate, variously including the following: *Automated exposure control *Adjustment of mA and/or kV according to patient size (this includes techniques or standardized protocols for targeted exams where dose is matched to indication/reason for exam; i.e. extremities or head) *Use of iterative reconstruction technique DLP: 752 mGy-cm FINDINGS: LUNG BASES: The visualized lung bases are unremarkable. LIVER, GALLBLADDER, AND BILIARY TREE: The liver is normal in size, shape, and attenuation. No focal hepatic lesion. Mild intrahepatic biliary duct dilatation. Moderate dilatation of the common bile duct leading into the pancreatic head. The gallbladder is unremarkable with no evidence of radiopaque gallstones, gallbladder wall thickening, or obvious pericholecystic inflammatory changes. PANCREAS: Mild peripancreatic fat stranding most notably about the pancreatic head. The common bile duct is not well seen within the pancreatic head. Pancreatic duct is mildly dilated measuring up to 6 mm within the pancreatic neck. SPLEEN: Unremarkable. ADRENAL GLANDS: Unremarkable. KIDNEYS AND URETERS: The kidneys are normal in size, shape, and attenuation. No hydronephrosis, hydroureter, or calculi seen. No perinephric stranding. BLADDER: Unremarkable. GASTROINTESTINAL TRACT: Low-attenuation changes associated with the medial wall of the descending duodenum, possibly cystic cyst. The small and large bowel are unremarkable. The appendix is unremarkable. ABDOMINAL WALL: No significant hernia is appreciated. LYMPH NODES: Normal. VASCULAR: Unremarkable. PELVIC VISCERA: Unremarkable. OSSEOUS STRUCTURES: Unremarkable. CT/CT abdomen pelvis w IV con IMPRESSION: * Mild peripancreatic fat stranding most notably about the pancreatic head suggestive of mild acute pancreatitis. Inflammation appears most pronounced about the pancreatic head, and there is associated cystic thickening of the medial duodenal wall, which would support paraduodenal pancreatitis. * There is moderate dilatation of the common bile duct leading into the pancreatic head. Neither that common bile duct nor the main pancreatic duct are seen within the pancreatic head. There is associated mild intrahepatic biliary duct dilatation and mild pancreatic ductal dilatation. This may be all be related to mass effect from the patient's pancreatitis on the distal common bile duct and distal main pancreatic duct, however an underlying mass cannot be excluded on the basis of CT. Dynamic MRI/MRCP of the abdomen recommended for further evaluation.
--- NOTE | ~2022-09-27 | MR_ITS ---
EXAMINATION: MR ABDOMEN WITHOUT CONTRAST CLINICAL INFORMATION: Right upper quadrant pain, biliary ductal dilatation. COMPARISON: CT scan of the abdomen and pelvis dated 09/28/2022 and abdominal ultrasound dated 09/27/2022. TECHNIQUE: MR abdomen is performed without gadolinium contrast. MRCP with 3-D reformatted images on a separate workstation was also performed. FINDINGS: LUNG BASES: The visualized lung bases are unremarkable. LIVER: Unremarkable. GALLBLADDER, AND BILIARY TREE: Mild dilatation of the biliary tree. The common hepatic duct measures up to 1.1 cm (image 17, series 13) and the common bile duct measures up to 1.0 cm (image 20, series 13) with normal tapering distally in the pancreatic head. No intraluminal abnormality. The cystic duct and gallbladder are unremarkable. PANCREAS: A T2 hyperintense focus is seen along the lateral margin of the pancreatic head at the level of the second segment duodenum measuring 1.4 cm (image 13, series 6). No pancreatic ductal dilatation or peripancreatic abnormality. SPLEEN: Unremarkable. ADRENAL GLANDS: Unremarkable. KIDNEYS AND URETERS: The left kidney shows a tiny T2 hyperintense thin-walled focus measuring 0.5 cm (image 16, series 3). The right kidney is unremarkable. No hydroureteronephrosis. GASTROINTESTINAL TRACT: The stomach, visualized small bowel and visualized large bowel are unremarkable. ABDOMINAL WALL: No significant hernia is appreciated. LYMPH NODES: No lymphadenopathy. VASCULAR: Unremarkable. OSSEOUS STRUCTURES: Marrow signal normal. MR/MR MRCP IMPRESSION: 1. Mild biliary duct dilatation correlating with the previous studies. An obstructing abnormality is not identified. No significant causative pancreatic abnormality is seen as well. 2. Separate small cystic structure laterally in the pancreatic head adjacent to the second segment of duodenum. This could represent a cyst pancreatic cyst, possibly a sequelae from previous pancreatitis. A small duodenal diverticulum cannot be excluded. 2. Small left renal cyst and shows benign features not requiring follow-up at this time. These findings can be monitored in the short-term with right upper quadrant ultrasound as clinically indicated. Given the patient's relative young age, abdominal MRI in 6 months, preferably with intravenous contrast is recommended to reassess the pancreas.
--- NOTE | ~2022-09-27 | NM_ITS ---
BILIARY TRACT IMAGING STUDY CLINICAL INDICATION: Abnormal LFTs. PROCEDURE: Scintillation camera images were obtained over the abdomen for an observation of 120 minutes following the intravenous administration of 5 millicuries technetium 99m mebrofenin. In addition, 4 hour delayed images were obtained. COMPARISON: MRCP 09/28/2022.. FINDINGS: There is good concentration of activity in the liver by 5 minutes postinjection with adequate clearance of the blood pool. There is however a persistent hepatogram on initial and delayed images with little or no evidence of bile entering the extrahepatic ductal system and no evidence of bile duct transit into the small bowel. The gallbladder is not visualized. NM/NM hepatobiliary wo pharm IMPRESSION: No evidence of biliary activity or small bowel activity, suggestive of a biliary obstruction. Recommend GI consultation and if indicated ERCP. This result was discussed with Alix JIN at 10/01/2022 9:24 PM and it was ascertained that the content and urgency of the report was understood at the time of direct communication.
[2022-09-27 21:22] VITALS: BP 171/87; PULSE 100; RESP 16; TEMP 36.7; O2SAT 100; BMI 28.5
--- NOTE | 2022-09-27 21:47 | MHC.EDTECH ---
pt blood drawn and sent to lab .
[2022-09-27 21:52] LABS: MANUAL DIFF FLAG NO
[2022-09-27 21:53] LABS: Basophils Percent Auto 0.9 % (0-2); Eosinophils Absolute Auto 0.3 X10*3/uL (0.0-0.4); Eosinophils Percent Auto 6.4 % (0-4); Hematocrit 44.3 % (42.0-52.0); Hemoglobin 15.1 g/dl (14.0-18.0); Imm Gran Abs Auto 0.01 X10*3/uL (0.00-0.03); Imm Gran Pct Auto 0.2 % (0.0-0.4); Lymphocytes Absolute Auto 0.9 X10*3/uL (1.2-4.9); Lymphocytes Percent Auto 19.5 % (20-40); Mean Corpuscular HGB Conc 34.1 g/dl (31.0-36.0); Mean Corpuscular Hemoglobin 30.1 pg (27.0-33.0); Mean Corpuscular Volume 88.4 fL (80.0-98.0); Mean Platelet Volume 11.1 fL (9.4-12.4); Monocytes Absolute Auto 0.3 X10*3/uL (0.1-1.2); Monocytes Percent Auto 6.7 % (2-11); Neutrophils Absolute Auto 2.9 x10*3/uL (2.0-8.3); Neutrophils Percent Auto 66.3 % (45-73); Platelet Count 205 X10*3/uL (160-400); Red Blood Count 5.01 X10*6/uL (4.60-5.80); Red Cell Distribution Width 13.6 % (11.0-16.0); White Blood Count 4.4 X10*3/uL (4.8-10.8)
[2022-09-27 22:13] LABS: Alanine Aminotransferase 583 U/L (0-40); Albumin Level 4.6 g/dL (3.5-5.0); Alkaline Phosphatase 203 U/L (39-117); Anion Gap 18 (12-20); Aspartate Amino Transferase 502 U/L (5-37); Bilirubin Total 5.2 mg/dL (0.0-1.0); Blood Urea Nitrogen 11 mg/dL (9-16); Calcium 9.3 mg/dL (8.4-10.2); Carbon Dioxide 25 mmol/L (22-29); Chloride 102 mmol/L (96-108); Creatinine Clr Calc Pharmacy 86.1; Estimated Glomerular Filt Rate 56; Glucose Random 131 mg/dL (60-115); Lipase 58 U/L (8-78); Potassium 3.7 mmol/L (3.3-5.1); Sodium 141 mmol/L (135-145); Total Protein 7.6 g/dL (6.5-8.0)
[2022-09-27 23:08] LABS: Appearance Urine Clear; Color Urine Dark Yellow; Glucose Urine UA Negative (Negative); Leukocyte Esterase Urine Trace (Negative); Nitrite Urine Negative (Negative); PH 5.5 (5.0-9.0); Specific Gravity - Urine 1.025 (1.005-1.025); UMIC TRIGGER UACC YES; Urine Blood Negative (Negative); Urine Ketones 40 mg/dL (Negative); Urine Protein 30 (1+) mg/dL (Neg-Trace)
[2022-09-27 23:13] LABS: Bacteria Urine None Seen (None Seen); Hyaline Casts Urine 0-2 /LPF (0-2); RBC Urine 0-2 /HPF (0-2); WBC Urine 0-5 /HPF (0-5)
[2022-09-28] VITALS (16 sets, daily range): BP systolic 154–200; BP diastolic 84–150; PULSE 75–103; RESP 15–22; TEMP 36.2–37; O2SAT 97–100
--- NOTE | 2022-09-28 | PC.NURSE ---
This designer/writer assumed care of this Pt at 2300. Pt A&Ox4, reports 10/10 upper ABD pain. States its constant, stabbing, increasing in pain x 1 week. Reports last BM was normal , describes his urine as dark like apple juice , denies any burning or pain with urination. ABD tender to touch. Active bowel sounds x 4 quadrants. Pt able to ambulate with steady gait to BR.
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
[2022-09-28] MEDS: fentaNYL citrate/PF 100 MCG/2 ML VIAL 25 MCG IVPUSH (00:36)
[2022-09-28] MEDS: 0.9 % Sodium Chloride 1,000 ML 999 ML IV (00:37)
[2022-09-28 00:52] LABS: Lactic Acid 0.9 mmol/L (0.5-2.0)
[2022-09-28 00:55] LABS: COVID-19 Test Negative (Negative); IDNOW Serial# BCCEAD1C
[2022-09-28] MEDS: HYDROmorphone HCl 0.5 MG/0.5 ML SYRINGE IVPUSH ×2 (01:03→01:50)
[2022-09-28] MEDS: Piperacillin Sodium/Tazobactam 3.375 GM in 0.9 % Sodium Chloride 50 ML IV (01:03)
[2022-09-28] MEDS: hydrALAZINE HCl 20 MG/ML VIAL 5 MG IVPUSH (02:22)
[2022-09-28 02:23] LABS: Alanine Aminotransferase 508 U/L (0-40); Albumin Level 4.4 g/dL (3.5-5.0); Alkaline Phosphatase 196 U/L (39-117); Anion Gap 20 (12-20); Aspartate Amino Transferase 362 U/L (5-37); Bilirubin Total 3.8 mg/dL (0.0-1.0); Blood Urea Nitrogen 12 mg/dL (9-16); Calcium 8.8 mg/dL (8.4-10.2); Carbon Dioxide 20 mmol/L (22-29); Chloride 105 mmol/L (96-108); Creatinine Clr Calc Pharmacy 93.8; Estimated Glomerular Filt Rate > 60; Glucose Random 117 mg/dL (60-115); Potassium 3.6 mmol/L (3.3-5.1); Sodium 141 mmol/L (135-145)
[2022-09-28] MEDS: iohexoL 350 MG/ML 100 ML INFUS..BTL 85 ML IV (02:56)
--- NOTE | 2022-09-28 03:15 | PC.NURSE ---
Pt had one episode of vomiting during CT scan, provider aware. New orders given as documented.
[2022-09-28] MEDS: HYDROmorphone HCl 1 MG/ML SYRINGE IVPUSH ×8 (03:16→21:48)
[2022-09-28] MEDS: ondansetron HCL 4 MG/2 ML VIAL IVPUSH (03:16)
[2022-09-28] MEDS: Lactated Ringers 1,000 ML 999 ML IV (04:20)
[2022-09-28] MEDS: Labetalol HCL 100 MG/20 ML VIAL IVPUSH (07:22)
--- NOTE | 2022-09-28 07:22 | PHA.MEDREC ---
Addendum entered by Sharri Brink [facility] 09/28/22 08:31: Went down to speak to patient as claims are very spread out. Patient confirmed that they are on all medications regardless of the claim history. He also mentioned he would like to take a multi while he is here and that he is out of his nebulizer solution. Original Note: Pharmacy Consult ? Medication Reconciliation Pharmacy has reviewed the medication reconciliation.
--- NOTE | 2022-09-28 07:44 | PC.NURSE ---
Alert and oriented, resp even and unlabored. Hospitalist in to see pt, pt remains NPO at this time. Medicated per the MAR for pain.
--- NOTE | 2022-09-28 07:51 | PC.NURSE ---
Off to MRI via wheelchair
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
[2022-09-28] MEDS: Piperacillin Sodium/Tazobactam 4.5 GM in 0.9 % Sodium Chloride 100 ML IV ×3 (08:46→20:27)
[2022-09-28] MEDS: Lactated Ringers 1,000 ML 125 ML IVCONT ×3 (08:46→23:25)
[2022-09-28] MEDS: Folic Acid 1 MG TABLET PO (08:46)
[2022-09-28] MEDS: Labetalol HCL 200 MG TABLET PO ×2 (08:57→20:27)
[2022-09-28] MEDS: Multivitamin TABLET 1 TAB PO (08:57)
--- NOTE | 2022-09-28 09:05 | PC.NURSE ---
Pt back from MRI, medicated per the MAR. Report given
[2022-09-28] MEDS: oxyCODONE HCl Immed Release 5 MG TABLET 10 MG PO ×3 (11:55→20:25)
[2022-09-28] MEDS: 0.9 % Sodium Chloride Flush 3 ML SYRINGE IVFLUSH (20:27)
[2022-09-28] MEDS: Montelukast Sodium 10 MG TABLET PO (20:27)
[2022-09-29] MEDS: oxyCODONE HCl Immed Release 5 MG TABLET 10 MG PO ×5 (01:03→20:39)
[2022-09-29] MEDS: HYDROmorphone HCl 1 MG/ML SYRINGE IVPUSH ×7 (01:51→22:24)
[2022-09-29] MEDS: Piperacillin Sodium/Tazobactam 4.5 GM in 0.9 % Sodium Chloride 100 ML IV ×4 (02:31→20:40)
[2022-09-29 03:05] VITALS: BP 128/71; PULSE 75; RESP 18; TEMP 36.3; O2SAT 99
[2022-09-29] MEDS: Omeprazole 20 MG CAPSULE.DR PO (05:16)
[2022-09-29 05:54] LABS: MANUAL DIFF FLAG NO
[2022-09-29 06:05] LABS: Basophils Percent Auto 0.7 % (0-2); Eosinophils Absolute Auto 0.2 X10*3/uL (0.0-0.4); Eosinophils Percent Auto 3.8 % (0-4); Hemoglobin 12.3 g/dl (14.0-18.0); Imm Gran Abs Auto 0.01 X10*3/uL (0.00-0.03); Imm Gran Pct Auto 0.2 % (0.0-0.4); Lymphocytes Absolute Auto 0.9 X10*3/uL (1.2-4.9); Lymphocytes Percent Auto 20.1 % (20-40); Mean Corpuscular HGB Conc 33.2 g/dl (31.0-36.0); Mean Corpuscular Hemoglobin 30.7 pg (27.0-33.0); Mean Corpuscular Volume 92.3 fL (80.0-98.0); Mean Platelet Volume 11.8 fL (9.4-12.4); Monocytes Absolute Auto 0.3 X10*3/uL (0.1-1.2); Monocytes Percent Auto 6.3 % (2-11); Neutrophils Absolute Auto 3.1 x10*3/uL (2.0-8.3); Neutrophils Percent Auto 68.9 % (45-73); Platelet Count 179 X10*3/uL (160-400); Red Blood Count 4.01 X10*6/uL (4.60-5.80); Red Cell Distribution Width 14.1 % (11.0-16.0); White Blood Count 4.5 X10*3/uL (4.8-10.8)
[2022-09-29 06:41] VITALS: RESP 18
[2022-09-29 06:56] LABS: Alanine Aminotransferase 391 U/L (0-40); Albumin Level 4.1 g/dL (3.5-5.0); Alkaline Phosphatase 152 U/L (39-117); Anion Gap 17 (12-20); Aspartate Amino Transferase 199 U/L (5-37); Blood Urea Nitrogen 12 mg/dL (9-16); Calcium 8.9 mg/dL (8.4-10.2); Carbon Dioxide 24 mmol/L (22-29); Chloride 107 mmol/L (96-108); Creatinine Clr Calc Pharmacy 86.1; Estimated Glomerular Filt Rate 56; Glucose Fasting 81 mg/dL (60-99); Potassium 3.9 mmol/L (3.3-5.1); Sodium 144 mmol/L (135-145); Total Protein 6.6 g/dL (6.5-8.0)
[2022-09-29 07:29] VITALS: BP 143/69; PULSE 67; RESP 18; TEMP 36.3; O2SAT 95
[2022-09-29] MEDS: Folic Acid 1 MG TABLET PO (08:25)
[2022-09-29] MEDS: Multivitamin TABLET 1 TAB PO (08:25)
[2022-09-29] MEDS: Labetalol HCL 200 MG TABLET PO ×2 (08:25→20:39)
[2022-09-29] MEDS: 0.9 % Sodium Chloride Flush 3 ML SYRINGE IVFLUSH (08:33)
[2022-09-29] MEDS: Lactated Ringers 1,000 ML 125 ML IVCONT ×3 (09:49→19:17)
--- NOTE | 2022-09-29 11:07 | HO.PM.IMPN ---
Subjective Subjective Date of Service: 09/29/22 Interval History: continues with diffuse abdominal pain with some mild guarding. Remains MASTER WELDER Review of Systems Denies chest pain Admits to nausea vomiting denies diarrhea Admits to shortness of breath related to his asthma Admits to fever chills Physical Exam Vital Signs: Vital Signs: Last Vital Signs Temp 97.3 F 09/29/22 07:29 Pulse 67 09/29/22 07:29 Resp 18 09/29/22 07:29 BP 143/69 H 09/29/22 07:29 Pulse Ox 95 09/29/22 07:29 O2 Del Method 09/29/22 07:29 BMI result Body Mass Index 28.5 Const: Other: awake uncomfortable appearing lying in the bed; no acute distress Resp: Other: diminished at bases with scant expiratory wheezes Cardio: Other: no S4; positive S1-S2; no S3 murmurs rubs or gallops GI: Other: voluntary guarding noted; tenderness across mid epigastrium. Bowel sounds quiet Neuro: Other: cranial nerves 2-12 grossly intact as tested. Motor is 5/5 all extremities. Sensation is intact. Cognition appropriate Extrem: Other: no edema bilaterally Objective Data Active Medications Albuterol Sulfate (Albuterol Sulfate 90 Mcg 8 Gm Inhaler) 2 puff INHALE Q4H PRN PRN Reason: wheezing Albuterol Sulfate 2.5 mg/ (Ipratropium [place] 0.5 mg) 0 mg INHALE Q4H PRN PRN Reason: Shortness of Breath/Wheezing Fluticasone/Vilanterol (Fluticasone/Vilanterol 200/25 Blst.W.Dev) 1 puff INHALE RDAILY [facility] Last Admin: 09/29/22 07:56 Dose: Not Given Documented By: SHAWN Non-Admin Reason: Patient Asleep Folic Acid (Folic Acid 1 Mg Tablet) 1 mg PO DAILY [facility] Last Admin: 09/29/22 08:25 Dose: 1 mg Documented By: ULI Hydromorphone HCl (Hydromorphone Hcl 1 Mg/Ml Syringe) 1 mg IVPUSH Q3H PRN; Protocol PRN Reason: Pain, Severe (Pain Scale 7-10) Last Admin: 09/29/22 09:09 Dose: 1 mg Documented By: ULI Lactated Ringer's (Lr) 1,000 mls @ 125 mls/hr IVCONT .Q8H [facility] Last Admin: 09/29/22 09:49 Dose: 125 mls/hr Documented By: ULI Piperacillin Sod/Tazobactam (Sod 4.5 gm/ Sodium Chloride) 100 mls @ 200 mls/hr IV Q6H [facility] Last Infusion: 09/29/22 09:09 Dose: 0 mls/hr Documented By: ULI Labetalol HCl (Labetalol Hcl 200 Mg Tablet) 200 mg PO BID [facility]; Protocol Last Admin: 09/29/22 08:25 Dose: 200 mg Documented By: ULI Montelukast Sodium (Montelukast Sodium 10 Mg Tablet) 10 mg PO BEDTIME [facility] Last Admin: 09/28/22 20:27 Dose: 10 mg Documented By: GODWIN Multivitamins/Vitamin C (Multivitamin Tablet) 1 tab PO DAILY [facility] Last Admin: 09/29/22 08:25 Dose: 1 tab Documented By: ULI Omeprazole (Omeprazole 20 Mg Capsule.Dr) 20 mg PO DAILY@0630 [facility] Last Admin: 09/29/22 05:16 Dose: 20 mg Documented By: GODWIN Oxycodone HCl (Oxycodone Hcl Immed Release 5 Mg Tablet) 10 mg PO Q4H PRN PRN Reason: Pain, Moderate (Pain Scale 4-6 Last Admin: 09/29/22 10:56 Dose: 10 mg Documented By: LEONORA Pharmacy Consult (Consult Rx Perform Med Rec) 1 each MISCELLANE ONCE PRN PRN Reason: Consult order Sodium Chloride (0.9 % Sodium Chloride Flush 3 Ml Syringe) 3 ml IVFLUSH QSHIFT [facility] Last Admin: 09/29/22 08:33 Dose: 3 ml Documented By: ULI Labs 09/29/22 05:16 09/29/22 05:16 Labs: Laboratory Results - last 24 hr 09/29/22 09/29/22 05:16 05:16 MCV 92.3 MCH 30.7 MCHC 33.2 RDW 14.1 Plt Count 179 MPV 11.8 Immature Gran % (Auto) 0.2 Neut % (Auto) 68.9 Lymph % (Auto) 20.1 [place] % (Auto) 6.3 Eos % (Auto) 3.8 Baso % (Auto) 0.7 Lymph # (Auto) 0.9 L [place] # (Auto) 0.3 Eos # (Auto) 0.2 Baso # (Auto) 0.0 Abs Immat Gran (auto) 0.01 Absolute Neuts (auto) 3.1 Absolute Nucleated RBC 0.000 Nucleated RBC % (auto) 0.0 Anion Gap 17 Estim Creat Clear Calc 86.1 Estimated GFR 56 Fasting Glucose 81 Calcium 8.9 Total Bilirubin 4.0 H AST 199 H ALT 391 H Alkaline Phosphatase 152 H Total Protein 6.6 Albumin 4.1 Microbiology Microbiology Results: Microbiology 09/28/22 00:32 Blood Culture - Preliminary Blood - Venous No growth after 24 hours. 09/28/22 00:31 Blood Culture - Preliminary Blood - Venous No growth after 24 hours. Assessment and Plan (1) Alcoholic pancreatitis: Status: Acute (2) Benign essential hypertension: Status: Acute (3) Asthma: Status: Acute Plan 32-year-old male presents with diffuse mid epigastric tenderness nausea vomiting chills similar to past episodes of alcoholic pancreatitis. States last drink approximately 1 week ago. LFTs demonstrated cholestatic pattern. . . MRCP pending 1. Acute pancreatitis - empiric Zosyn(2) - pain management with Dilaudid; keep NPO - MRCP complete; GI to evaluate 2. Hypertension - control improved with p.o. labetalol - aggressive pain management 3.Asthma - will order of DuoNebs q.4 hours while awake as needed 4.GERD - continue PPI full code pneumatic boots pending GI intervention patient will require ongoing hospitalization for IV fluids while NPO; pain management for pancreatitis Time Spent With Patient Time: Total time managing care of this patient today ____ minutes. Quality Stroke Does the patient have a stroke diagnosis?: No VTE Prior VTE?: No VTE Risk Level:: Medical - moderate - high VTE Device Contraindication: N/A - Device Ordered VTE Drug Contraindication: Treatment Not Indicated
--- NOTE | 2022-09-29 11:53 | MHC.CM.PN ---
pt lives with girlfriend is not vax has own ride homedc plan home no servceis
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
[2022-09-29 15:15] VITALS: BP 168/83; PULSE 60; RESP 18; TEMP 36.4; O2SAT 96
[2022-09-29 19:22] VITALS: BP 138/84; PULSE 82; RESP 18; TEMP 36.6; O2SAT 96
[2022-09-29] MEDS: Montelukast Sodium 10 MG TABLET PO (20:39)
[2022-09-29 22:36] VITALS: PULSE 84; O2SAT 96
[2022-09-30] MEDS: HYDROmorphone HCl 1 MG/ML SYRINGE IVPUSH ×6 (01:20→23:51)
[2022-09-30] MEDS: Lactated Ringers 1,000 ML 125 ML IVCONT (02:57)
[2022-09-30] MEDS: Piperacillin Sodium/Tazobactam 4.5 GM in 0.9 % Sodium Chloride 100 ML IV ×4 (02:57→20:33)
[2022-09-30 03:00] VITALS: BP 168/98; PULSE 68; RESP 18; TEMP 36.6; O2SAT 98
[2022-09-30] MEDS: Omeprazole 20 MG CAPSULE.DR PO (05:25)
[2022-09-30 06:04] LABS: MANUAL DIFF FLAG NO
[2022-09-30 06:12] LABS: Basophils Percent Auto 1.1 % (0-2); Eosinophils Absolute Auto 0.2 X10*3/uL (0.0-0.4); Eosinophils Percent Auto 5.9 % (0-4); Hematocrit 36.6 % (42.0-52.0); Hemoglobin 11.9 g/dl (14.0-18.0); Imm Gran Abs Auto 0.01 X10*3/uL (0.00-0.03); Imm Gran Pct Auto 0.3 % (0.0-0.4); Lymphocytes Absolute Auto 1.2 X10*3/uL (1.2-4.9); Lymphocytes Percent Auto 33.2 % (20-40); Mean Corpuscular HGB Conc 32.5 g/dl (31.0-36.0); Mean Corpuscular Hemoglobin 30.4 pg (27.0-33.0); Mean Corpuscular Volume 93.4 fL (80.0-98.0); Mean Platelet Volume 12.2 fL (9.4-12.4); Monocytes Absolute Auto 0.3 X10*3/uL (0.1-1.2); Monocytes Percent Auto 7.8 % (2-11); Neutrophils Absolute Auto 1.9 x10*3/uL (2.0-8.3); Neutrophils Percent Auto 51.7 % (45-73); Platelet Count 163 X10*3/uL (160-400); Red Blood Count 3.92 X10*6/uL (4.60-5.80); Red Cell Distribution Width 14.1 % (11.0-16.0); White Blood Count 3.7 X10*3/uL (4.8-10.8)
[2022-09-30 06:25] LABS: Alanine Aminotransferase 377 U/L (0-40); Alkaline Phosphatase 149 U/L (39-117); Anion Gap 16 (12-20); Aspartate Amino Transferase 224 U/L (5-37); Bilirubin Total 4.6 mg/dL (0.0-1.0); Blood Urea Nitrogen 10 mg/dL (9-16); Calcium 8.6 mg/dL (8.4-10.2); Carbon Dioxide 26 mmol/L (22-29); Chloride 103 mmol/L (96-108); Creatinine Clr Calc Pharmacy 87.9; Estimated Glomerular Filt Rate 57; Glucose Fasting 90 mg/dL (60-99); Lipase 30 U/L (8-78); Potassium 3.7 mmol/L (3.3-5.1); Sodium 141 mmol/L (135-145); Total Protein 6.4 g/dL (6.5-8.0)
[2022-09-30] MEDS: Multivitamin TABLET 1 TAB PO (07:55)
[2022-09-30] MEDS: Folic Acid 1 MG TABLET PO (07:55)
[2022-09-30] MEDS: 0.9 % Sodium Chloride Flush 3 ML SYRINGE IVFLUSH ×3 (07:55→20:33)
[2022-09-30] MEDS: Fluticasone/Vilanterol 200/25 BLST.W.DEV 1 PUFF INHALE (07:57)
[2022-09-30] MEDS: Labetalol HCL 200 MG TABLET PO ×2 (07:58→20:33)
[2022-09-30 07:59] VITALS: PULSE 70; RESP 18; O2SAT 98
[2022-09-30 08:00] VITALS: BP 147/94; PULSE 67; RESP 18; TEMP 36.7; O2SAT 99
[2022-09-30] MEDS: oxyCODONE HCl Immed Release 5 MG TABLET 10 MG PO ×2 (10:32→17:36)
--- NOTE | 2022-09-30 10:52 | HO.PM.IMPN ---
Subjective Subjective Date of Service: 09/30/22 Interval History: Utilizing needed Dilaudid every 3 hours and holding off on oxycodone; when queried trying to wean however thought it was better to wean oxycodone. Tolerating clear liquids wishes to advance to full liquids Review of Systems Denies chest pain Admits to nausea vomiting denies diarrhea Admits to shortness of breath related to his asthma Admits to fever chills Physical Exam Vital Signs: Vital Signs: Last Vital Signs Temp 98.1 F 09/30/22 08:00 Pulse 67 09/30/22 08:00 Resp 18 09/30/22 08:00 BP 147/94 H 09/30/22 08:00 Pulse Ox 99 09/30/22 08:00 O2 Del Method 09/30/22 08:00 BMI result Body Mass Index 28.5 Const: Other: awake uncomfortable appearing lying in the bed; no acute distress Resp: Other: diminished at bases with scant expiratory wheezes Cardio: Other: no S4; positive S1-S2; no S3 murmurs rubs or gallops GI: Other: voluntary guarding noted; tenderness across mid epigastrium. Bowel sounds quiet Neuro: Other: cranial nerves 2-12 grossly intact as tested. Motor is 5/5 all extremities. Sensation is intact. Cognition appropriate Extrem: Other: no edema bilaterally Objective Data Active Medications Albuterol Sulfate (Albuterol Sulfate 90 Mcg 8 Gm Inhaler) 2 puff INHALE Q4H PRN PRN Reason: wheezing Albuterol Sulfate 2.5 mg/ (Ipratropium [place] 0.5 mg) 0 mg INHALE Q4H PRN PRN Reason: Shortness of Breath/Wheezing Last Admin: 09/29/22 21:32 Dose: 1 each Documented By: MATAYO Fluticasone/Vilanterol (Fluticasone/Vilanterol 200/25 Blst.W.Dev) 1 puff INHALE RDAILY [facility] Last Admin: 09/30/22 07:57 Dose: 1 puff Documented By: SILVIA Folic Acid (Folic Acid 1 Mg Tablet) 1 mg PO DAILY [facility] Last Admin: 09/30/22 07:55 Dose: 1 mg Documented By: SANJANA-DAVID Hydromorphone HCl (Hydromorphone Hcl 1 Mg/Ml Syringe) 1 mg IVPUSH Q3H PRN; Protocol PRN Reason: Pain, Severe (Pain Scale 7-10) Last Admin: 09/30/22 07:56 Dose: 1 mg Documented By: ZONIA Piperacillin Sod/Tazobactam (Sod 4.5 gm/ Sodium Chloride) 100 mls @ 200 mls/hr IV Q6H [facility] Last Infusion: 09/30/22 09:46 Dose: 0 mls/hr Documented By: ZONIA Labetalol HCl (Labetalol Hcl 200 Mg Tablet) 200 mg PO BID [facility]; Protocol Last Admin: 09/30/22 07:58 Dose: 200 mg Documented By: ZONIA Montelukast Sodium (Montelukast Sodium 10 Mg Tablet) 10 mg PO BEDTIME [facility] Last Admin: 09/29/22 20:39 Dose: 10 mg Documented By: ALONSO Multivitamins/Vitamin C (Multivitamin Tablet) 1 tab PO DAILY [facility] Last Admin: 09/30/22 07:55 Dose: 1 tab Documented By: ZONIA Omeprazole (Omeprazole 20 Mg Capsule.Dr) 20 mg PO DAILY@0630 [facility] Last Admin: 09/30/22 05:25 Dose: 20 mg Documented By: ALONSO Oxycodone HCl (Oxycodone Hcl Immed Release 5 Mg Tablet) 10 mg PO Q4H PRN PRN Reason: Pain, Moderate (Pain Scale 4-6 Last Admin: 09/30/22 10:32 Dose: 10 mg Documented By: ZONIA Pharmacy Consult (Consult Rx Perform Med Rec) 1 each MISCELLANE ONCE PRN PRN Reason: Consult order Sodium Chloride (0.9 % Sodium Chloride Flush 3 Ml Syringe) 3 ml IVFLUSH QSHIFT [facility] Last Admin: 09/30/22 07:55 Dose: 3 ml Documented By: ZONIA Labs 09/30/22 05:24 09/30/22 05:24 Labs: Laboratory Results - last 24 hr 09/30/22 09/30/22 09/30/22 05:24 05:24 05:24 MCV 93.4 MCH 30.4 MCHC 32.5 RDW 14.1 Plt Count 163 MPV 12.2 Immature Gran % (Auto) 0.3 Neut % (Auto) 51.7 Lymph % (Auto) 33.2 [place] % (Auto) 7.8 Eos % (Auto) 5.9 H Baso % (Auto) 1.1 Lymph # (Auto) 1.2 [place] # (Auto) 0.3 Eos # (Auto) 0.2 Baso # (Auto) 0.0 Abs Immat Gran (auto) 0.01 Absolute Neuts (auto) 1.9 L Absolute Nucleated RBC 0.000 Nucleated RBC % (auto) 0.0 Anion Gap 16 Estim Creat Clear Calc 87.9 Estimated GFR 57 Fasting Glucose 90 Calcium 8.6 Total Bilirubin 4.6 H AST 224 H ALT 377 H Alkaline Phosphatase 149 H Total Protein 6.4 L Albumin 4.0 Lipase 30 Microbiology Microbiology Results: Microbiology 09/28/22 00:32 Blood Culture - Preliminary Blood - Venous No growth after 48 hours. 09/28/22 00:31 Blood Culture - Preliminary Blood - Venous No growth after 48 hours. Assessment and Plan (1) Alcoholic pancreatitis: Status: Acute (2) Benign essential hypertension: Status: Acute (3) Asthma: Status: Acute Plan 32-year-old male presents with diffuse mid epigastric tenderness nausea vomiting chills similar to past episodes of alcoholic pancreatitis. States last drink approximately 1 week ago. LFTs demonstrated cholestatic pattern. . . MRCP pending 1. Acute alcoholic pancreatitis (upon further discussion, patient admits to drinking ?moonshine? 1 week ago. Shortly thereafter pain began was exacerbated when 8 greasy food) - empiric Zosyn(3) - pain management with Dilaudid; discussed on weaning back off dilaudid utilizing oxycodone; understands that this is all that can be given at discharge. -advance diet to full liquids 2. Hypertension - control improved with p.o. labetalol - aggressive pain management 3.Asthma - will order of DuoNebs q.4 hours while awake as needed 4.GERD - continue PPI full code pneumatic boots pending GI intervention patient will require ongoing hospitalization for IV fluids , pain management for pancreatitis Time Spent With Patient Time: Total time managing care of this patient today ____ minutes. Quality Stroke Does the patient have a stroke diagnosis?: No VTE Prior VTE?: No VTE Risk Level:: Medical - moderate - high VTE Device Contraindication: N/A - Device Ordered VTE Drug Contraindication: Treatment Not Indicated
[2022-09-30 15:00] VITALS: BP 139/87; PULSE 50; RESP 18; TEMP 36; O2SAT 96
[2022-09-30 19:08] VITALS: BP 159/91; PULSE 59; RESP 18; TEMP 36.4; O2SAT 97
[2022-09-30 19:19] VITALS: PULSE 59; RESP 18; O2SAT 98
[2022-09-30] MEDS: Montelukast Sodium 10 MG TABLET PO (20:33)
[2022-10-01] VITALS (9 sets, daily range): BP systolic 155–185; BP diastolic 92–100; PULSE 50–81; RESP 16–18; TEMP 36.6–36.9; O2SAT 93–98
[2022-10-01] MEDS: Piperacillin Sodium/Tazobactam 4.5 GM in 0.9 % Sodium Chloride 100 ML IV ×4 (02:35→20:56)
[2022-10-01] MEDS: oxyCODONE HCl Immed Release 5 MG TABLET 10 MG PO ×2 (02:39→07:07)
[2022-10-01] MEDS: HYDROmorphone HCl 1 MG/ML SYRINGE IVPUSH ×5 (04:50→21:42)
[2022-10-01] MEDS: Omeprazole 20 MG CAPSULE.DR PO (04:50)
[2022-10-01 05:34] LABS: HBS Num1 67.95 mIU/mL (0-7.99); HBsAGNum1 0.23 S/CO (0.00-0.99); Hepatitis B Core Antibody Nonreactive (Nonreactive); Hepatitis B Surface Antigen Negative (Negative); ~HepC Num1 0.13 S/CO (0.00-0.79); ~Hepatitis B Surface Antibody REACTIVE (Nonreactive); ~Hepatitis C Antibody Nonreactive (Nonreactive)
[2022-10-01 05:39] LABS: Hepatitis A Antibody IgG Nonreactive (Nonreactive); Hepatitis A Antibody IgM 0.15 Index (0-0.79); ~Hepatitis A Antibody IgG 0.49 S/CO (0.00-0.99); ~Hepatitis A Antibody IgM Nonreactive (Nonreactive)
[2022-10-01 06:07] LABS: MANUAL DIFF FLAG NO
[2022-10-01 06:13] LABS: Basophils Percent Auto 0.9 % (0-2); Eosinophils Absolute Auto 0.2 X10*3/uL (0.0-0.4); Eosinophils Percent Auto 6.5 % (0-4); Hematocrit 36.3 % (42.0-52.0); Hemoglobin 12.5 g/dl (14.0-18.0); Lymphocytes Absolute Auto 1.3 X10*3/uL (1.2-4.9); Lymphocytes Percent Auto 37.2 % (20-40); Mean Corpuscular HGB Conc 34.4 g/dl (31.0-36.0); Mean Corpuscular Hemoglobin 31.2 pg (27.0-33.0); Mean Corpuscular Volume 90.5 fL (80.0-98.0); Mean Platelet Volume 12.3 fL (9.4-12.4); Monocytes Absolute Auto 0.2 X10*3/uL (0.1-1.2); Monocytes Percent Auto 6.5 % (2-11); Neutrophils Absolute Auto 1.7 x10*3/uL (2.0-8.3); Neutrophils Percent Auto 48.9 % (45-73); Platelet Count 172 X10*3/uL (160-400); Red Blood Count 4.01 X10*6/uL (4.60-5.80); Red Cell Distribution Width 14.1 % (11.0-16.0); White Blood Count 3.4 X10*3/uL (4.8-10.8)
[2022-10-01 06:50] LABS: Alanine Aminotransferase 395 U/L (0-40); Albumin Level 3.8 g/dL (3.5-5.0); Alkaline Phosphatase 195 U/L (39-117); Anion Gap 15 (12-20); Aspartate Amino Transferase 273 U/L (5-37); Bilirubin Total 5.8 mg/dL (0.0-1.0); Blood Urea Nitrogen 7 mg/dL (9-16); Calcium 8.5 mg/dL (8.4-10.2); Carbon Dioxide 24 mmol/L (22-29); Chloride 104 mmol/L (96-108); Creatinine Clr Calc Pharmacy 83.3; Estimated Glomerular Filt Rate 53; Glucose Fasting 125 mg/dL (60-99); Potassium 3.7 mmol/L (3.3-5.1); Sodium 139 mmol/L (135-145); Total Protein 6.3 g/dL (6.5-8.0)
[2022-10-01] MEDS: Folic Acid 1 MG TABLET PO (07:07)
[2022-10-01] MEDS: Labetalol HCL 200 MG TABLET PO ×2 (07:07→20:57)
[2022-10-01] MEDS: Multivitamin TABLET 1 TAB PO (07:07)
[2022-10-01] MEDS: 0.9 % Sodium Chloride Flush 3 ML SYRINGE IVFLUSH ×2 (07:07→20:58)
[2022-10-01] MEDS: Fluticasone/Vilanterol 200/25 BLST.W.DEV 1 PUFF INHALE (07:47)
[2022-10-01 11:27] LABS: Lactic Acid 1.1 mmol/L (0.5-2.0)
[2022-10-01] MEDS: Lactated Ringers 1,000 ML 200 ML IVCONT ×3 (11:39→20:58)
--- NOTE | 2022-10-01 12:03 | HO.PM.IMPN ---
Subjective Subjective Date of Service: 10/01/22 Interval History: Continues to have significant pain. Not tolerating clear liquids. Review of Systems Denies chest pain Denies shortness of breath Admits to abdominal pain and nausea with clear liquids Denies fever chills Physical Exam Vital Signs: Vital Signs: Last Vital Signs Temp 98.1 F 10/01/22 07:55 Pulse 53 10/01/22 07:55 Resp 18 10/01/22 07:55 BP 155/92 H 10/01/22 07:55 Pulse Ox 97 10/01/22 07:55 O2 Del Method 10/01/22 07:55 BMI result Body Mass Index 28.5 Const: Other: awake uncomfortable appearing lying in the bed; no acute distress Resp: Other: diminished at bases with scant expiratory wheezes Cardio: Other: no S4; positive S1-S2; no S3 murmurs rubs or gallops GI: Other: voluntary guarding noted; tenderness across mid epigastrium. Bowel sounds quiet Neuro: Other: cranial nerves 2-12 grossly intact as tested. Motor is 5/5 all extremities. Sensation is intact. Cognition appropriate Extrem: Other: no edema bilaterally Objective Data Active Medications Albuterol Sulfate (Albuterol Sulfate 90 Mcg 8 Gm Inhaler) 2 puff INHALE Q4H PRN PRN Reason: wheezing Albuterol Sulfate 2.5 mg/ (Ipratropium [place] 0.5 mg) 0 mg INHALE Q4H PRN PRN Reason: Shortness of Breath/Wheezing Last Admin: 09/30/22 19:19 Dose: 1 each Documented By: KENNETH Fluticasone/Vilanterol (Fluticasone/Vilanterol 200/25 Blst.W.Dev) 1 puff INHALE RDAILY [facility] Last Admin: 10/01/22 07:47 Dose: 1 puff Documented By: SILVIA Folic Acid (Folic Acid 1 Mg Tablet) 1 mg PO DAILY [facility] Last Admin: 10/01/22 07:07 Dose: 1 mg Documented By: LEONORA Hydromorphone HCl (Hydromorphone Hcl 1 Mg/Ml Syringe) 1 mg IVPUSH Q3H PRN; Protocol PRN Reason: Pain, Severe (Pain Scale 7-10) Last Admin: 10/01/22 09:33 Dose: 1 mg Documented By: ZONIA Piperacillin Sod/Tazobactam (Sod 4.5 gm/ Sodium Chloride) 100 mls @ 200 mls/hr IV Q6H [facility] Last Infusion: 10/01/22 10:25 Dose: 0 mls/hr Documented By: ZONIA Lactated Ringer's (Lr) 1,000 mls @ 200 mls/hr IVCONT .Q5H [facility] Last Admin: 10/01/22 11:39 Dose: 200 mls/hr Documented By: ZONIA Labetalol HCl (Labetalol Hcl 200 Mg Tablet) 200 mg PO BID [facility]; Protocol Last Admin: 10/01/22 07:07 Dose: 200 mg Documented By: LEONORA Montelukast Sodium (Montelukast Sodium 10 Mg Tablet) 10 mg PO BEDTIME [facility] Last Admin: 09/30/22 20:33 Dose: 10 mg Documented By: ALONSO Multivitamins/Vitamin C (Multivitamin Tablet) 1 tab PO DAILY [facility] Last Admin: 10/01/22 07:07 Dose: 1 tab Documented By: LEONORA Omeprazole (Omeprazole 20 Mg Capsule.Dr) 20 mg PO DAILY@0630 [facility] Last Admin: 10/01/22 04:50 Dose: 20 mg Documented By: ALONSO Oxycodone HCl (Oxycodone Hcl Immed Release 5 Mg Tablet) 10 mg PO Q4H PRN PRN Reason: Pain, Moderate (Pain Scale 4-6 Last Admin: 10/01/22 07:07 Dose: 10 mg Documented By: LEONORA Pharmacy Consult (Consult Rx Perform Med Rec) 1 each MISCELLANE ONCE PRN PRN Reason: Consult order Sodium Chloride (0.9 % Sodium Chloride Flush 3 Ml Syringe) 3 ml IVFLUSH QSHIFT [facility] Last Admin: 10/01/22 07:07 Dose: 3 ml Documented By: LEONORA Labs 10/01/22 05:48 10/01/22 05:48 Labs: Laboratory Results - last 24 hr 09/29/22 09/29/22 10/01/22 15:28 15:28 05:48 MCV 90.5 MCH 31.2 MCHC 34.4 RDW 14.1 Plt Count 172 MPV 12.3 Immature Gran % (Auto) 0.0 Neut % (Auto) 48.9 Lymph % (Auto) 37.2 [place] % (Auto) 6.5 Eos % (Auto) 6.5 H Baso % (Auto) 0.9 Lymph # (Auto) 1.3 [place] # (Auto) 0.2 Eos # (Auto) 0.2 Baso # (Auto) 0.0 Abs Immat Gran (auto) 0.00 Absolute Neuts (auto) 1.7 L Absolute Nucleated RBC 0.000 Nucleated RBC % (auto) 0.0 Anion Gap Estim Creat Clear Calc Estimated GFR Fasting Glucose Lactic Acid Calcium Total Bilirubin AST ALT Alkaline Phosphatase Total Protein Albumin Hepatitis A IgG Ab Nonreactive Hepatitis A IgM Ab Nonreactive Hep Bs Antigen Negative Hep Bs Antibody REACTIVE Hep B Core Total Ab Nonreactive Hepatitis C Ab (EIA) Nonreactive 10/01/22 10/01/22 05:48 11:08 MCV MCH MCHC RDW Plt Count MPV Immature Gran % (Auto) Neut % (Auto) Lymph % (Auto) [place] % (Auto) Eos % (Auto) Baso % (Auto) Lymph # (Auto) [place] # (Auto) Eos # (Auto) Baso # (Auto) Abs Immat Gran (auto) Absolute Neuts (auto) Absolute Nucleated RBC Nucleated RBC % (auto) Anion Gap 15 Estim Creat Clear Calc 83.3 Estimated GFR 53 Fasting Glucose 125 H Lactic Acid 1.1 Calcium 8.5 Total Bilirubin 5.8 H AST 273 H ALT 395 H Alkaline Phosphatase 195 H Total Protein 6.3 L Albumin 3.8 Hepatitis A IgG Ab Hepatitis A IgM Ab Hep Bs Antigen Hep Bs Antibody Hep B Core Total Ab Hepatitis C Ab (EIA) Assessment and Plan (1) Alcoholic pancreatitis: Status: Acute (2) Benign essential hypertension: Status: Acute (3) Asthma: Status: Acute Plan 32-year-old male presents with diffuse mid epigastric tenderness nausea vomiting chills similar to past episodes of alcoholic pancreatitis. States last drink approximately 1 week ago. LFTs demonstrated cholestatic pattern. . . MRCP pending 1. Acute alcoholic pancreatitis (upon further discussion, patient admits to drinking ?moonshine? 1 week ago. Shortly thereafter pain began was exacerbated when 8 greasy food) -empiric Zosyn(4) -cholestatic LFTs have worsened... Await GI input -NPO -lactated Ringer's at 200 an hour 2. Hypertension - control improved with p.o. labetalol - aggressive pain management 3.Asthma - will order of DuoNebs q.4 hours while awake as needed 4.GERD - continue PPI full code pneumatic boots pending GI intervention patient will require ongoing hospitalization for IV fluids , pain management for pancreatitis Time Spent With Patient Time: Total time managing care of this patient today ____ minutes. Quality Stroke Does the patient have a stroke diagnosis?: No VTE Prior VTE?: No VTE Risk Level:: Medical - moderate - high VTE Device Contraindication: N/A - Device Ordered VTE Drug Contraindication: Treatment Not Indicated
--- NOTE | 2022-10-01 12:37 | P.PNGI_ITS ---
Subjective Subjective Date of Service: 10/01/22 Critical Care Time (minutes): 0 Comment: Patient seen and examined at bedside. Continue significant abdominal pain s till. Also reports fatigue and weakness. Has been passing gas, last bowel movement last night. Physical Exam Vital Signs: Vital Signs: Last Vital Signs Temp 98.1 F 10/01/22 07:55 Pulse 53 10/01/22 07:55 Resp 18 10/01/22 07:55 BP 155/92 H 10/01/22 07:55 Pulse Ox 97 10/01/22 07:55 O2 Del Method 10/01/22 07:55 BMI result Body Mass Index 28.5 General appearance: Young male, with the city HEENT: Sclerae icterus Abdomen: Soft, distended, very tender to palpation, bowel sounds positive Objective Data Labs 10/01/22 05:48 10/01/22 05:48 Labs: Laboratory Results - last 24 hr 09/29/22 09/29/22 10/01/22 15:28 15:28 05:48 WBC 3.4 L RBC 4.01 L Hgb 12.5 L Hct 36.3 L MCV 90.5 MCH 31.2 MCHC 34.4 RDW 14.1 Plt Count 172 MPV 12.3 Immature Gran % (Auto) 0.0 Neut % (Auto) 48.9 Lymph % (Auto) 37.2 [place] % (Auto) 6.5 Eos % (Auto) 6.5 H Baso % (Auto) 0.9 Lymph # (Auto) 1.3 [place] # (Auto) 0.2 Eos # (Auto) 0.2 Baso # (Auto) 0.0 Abs Immat Gran (auto) 0.00 Absolute Neuts (auto) 1.7 L Absolute Nucleated RBC 0.000 Nucleated RBC % (auto) 0.0 Sodium Potassium Chloride Carbon Dioxide Anion Gap BUN Creatinine Estim Creat Clear Calc Estimated GFR Fasting Glucose Lactic Acid Calcium Total Bilirubin AST ALT Alkaline Phosphatase Total Protein Albumin Hepatitis A IgG Ab Nonreactive Hepatitis A IgM Ab Nonreactive Hep Bs Antigen Negative Hep Bs Antibody REACTIVE Hep B Core Total Ab Nonreactive Hepatitis C Ab (EIA) Nonreactive 10/01/22 10/01/22 05:48 11:08 WBC RBC Hgb Hct MCV MCH MCHC RDW Plt Count MPV Immature Gran % (Auto) Neut % (Auto) Lymph % (Auto) [place] % (Auto) Eos % (Auto) Baso % (Auto) Lymph # (Auto) [place] # (Auto) Eos # (Auto) Baso # (Auto) Abs Immat Gran (auto) Absolute Neuts (auto) Absolute Nucleated RBC Nucleated RBC % (auto) Sodium 139 Potassium 3.7 Chloride 104 Carbon Dioxide 24 Anion Gap 15 BUN 7 L Creatinine 1.51 H Estim Creat Clear Calc 83.3 Estimated GFR 53 Fasting Glucose 125 H Lactic Acid 1.1 Calcium 8.5 Total Bilirubin 5.8 H AST 273 H ALT 395 H Alkaline Phosphatase 195 H Total Protein 6.3 L Albumin 3.8 Hepatitis A IgG Ab Hepatitis A IgM Ab Hep Bs Antigen Hep Bs Antibody Hep B Core Total Ab Hepatitis C Ab (EIA) Microbiology Microbiology Results: Microbiology 09/28/22 00:32 Blood - Venous Blood Culture - Preliminary No growth after 48 hours. 09/28/22 00:31 Blood - Venous Blood Culture - Preliminary No growth after 48 hours. Procedures Date of Service Date of Service: 10/01/22 Progress Note: A&P Assessment and plan (1) Alcoholic pancreatitis: Status: Acute (2) Elevated LFTs: Status: Acute (3) Peripancreatic fluid collection: Status: Acute (4) Common bile duct dilatation: Status: Acute (5) Dilated pancreatic duct: Status: Acute (6) Acute kidney injury: Status: Acute Plan LFT trend noted. While microlithiasis causing CBD obstruction not excluded, overall picture also compounded by ongoing acute pancreatitis and recent alcohol use. Case was also reviewed with Dr. Kelly. Recommendations: -start LR 200 mL/hr, continue for at least 8-12 hours today and then decrease to 100 mL/hour and continue until patient resumes diet -check HIDA scan, specifically for CBD obstruction/whether contrast flows to small bowel. -checking EBV, varicella, herpes serology -check Tylenol, aspirin level -check INR -if HIDA scan positive for CBD obstruction, will plan for ERCP. Time Spent With Patient Time: Total time managing care of this patient today ____ minutes. Quality Stroke Does the patient have a stroke diagnosis?: No VTE Prior VTE?: No VTE Risk Level:: Medical - moderate - high VTE Device Contraindication: N/A - Device Ordered VTE Drug Contraindication: Treatment Not Indicated
--- NOTE | 2022-10-01 15:03 | MHC.CM.PN ---
per rounds pt not to be dcd gi needs to see him plan remains home no servcies
[2022-10-01] MEDS: Montelukast Sodium 10 MG TABLET PO (20:57)
--- NOTE | 2022-10-01 21:26 | PM.EVENT ---
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 Notified dr Lagunas (GI) -> recs Monitoring for now; and repeat labs in AM. Dr Buchanan is aware as well. spoke to Dr Aguirre (General Surgery)-> mentioned no surgical intervention-> f/u with GI. Time Spent With Patient Time: Total time managing care of this patient today ____ minutes.
[2022-10-02] VITALS (8 sets, daily range): BP systolic 160–189; BP diastolic 90–119; PULSE 71–82; RESP 16–20; TEMP 36.2–36.4; O2SAT 97–100
[2022-10-02] MEDS: Lactated Ringers 1,000 ML 200 ML IVCONT ×5 (02:37→22:26)
[2022-10-02] MEDS: Piperacillin Sodium/Tazobactam 4.5 GM in 0.9 % Sodium Chloride 100 ML IV ×4 (02:38→20:30)
[2022-10-02] MEDS: HYDROmorphone HCl 1 MG/ML SYRINGE IVPUSH ×6 (02:38→21:20)
[2022-10-02] MEDS: Omeprazole 20 MG CAPSULE.DR PO (05:18)
[2022-10-02] MEDS: Labetalol HCL 200 MG TABLET PO (05:44)
--- NOTE | 2022-10-02 05:53 | PC.NURSE ---
Pt repeat blood pressure 182/100 manually, denies chest pain headache or lightheadedness. Dr. Thomson notified; instructed this rn to give an unscheduled dose of 200 mg Labetalol. Medication given, will recheck blood pressure in 30 minutes. Pt aware of plan of care.
[2022-10-02 06:29] LABS: MANUAL DIFF FLAG NO
[2022-10-02 06:31] LABS: Basophils Absolute Auto 0.1 X10*3/uL (0.0-0.2); Eosinophils Absolute Auto 0.2 X10*3/uL (0.0-0.4); Eosinophils Percent Auto 4.1 % (0-4); Hematocrit 40.1 % (42.0-52.0); Hemoglobin 13.8 g/dl (14.0-18.0); Imm Gran Abs Auto 0.01 X10*3/uL (0.00-0.03); Imm Gran Pct Auto 0.2 % (0.0-0.4); Lymphocytes Percent Auto 20.5 % (20-40); Mean Corpuscular HGB Conc 34.4 g/dl (31.0-36.0); Mean Corpuscular Hemoglobin 30.6 pg (27.0-33.0); Mean Corpuscular Volume 88.9 fL (80.0-98.0); Mean Platelet Volume 12.2 fL (9.4-12.4); Monocytes Absolute Auto 0.3 X10*3/uL (0.1-1.2); Monocytes Percent Auto 6.4 % (2-11); Neutrophils Absolute Auto 3.3 x10*3/uL (2.0-8.3); Neutrophils Percent Auto 67.8 % (45-73); Platelet Count 195 X10*3/uL (160-400); Red Blood Count 4.51 X10*6/uL (4.60-5.80); Red Cell Distribution Width 13.7 % (11.0-16.0); White Blood Count 4.8 X10*3/uL (4.8-10.8)
[2022-10-02 06:54] LABS: Alanine Aminotransferase 437 U/L (0-40); Alkaline Phosphatase 219 U/L (39-117); Anion Gap 15 (12-20); Aspartate Amino Transferase 299 U/L (5-37); Bilirubin Total 7.4 mg/dL (0.0-1.0); Blood Urea Nitrogen 6 mg/dL (9-16); Calcium 9.3 mg/dL (8.4-10.2); Carbon Dioxide 27 mmol/L (22-29); Chloride 103 mmol/L (96-108); Creatinine Clr Calc Pharmacy 90.5; Estimated Glomerular Filt Rate 59; Glucose Fasting 85 mg/dL (60-99); Potassium 3.9 mmol/L (3.3-5.1); Sodium 141 mmol/L (135-145); Total Protein 6.5 g/dL (6.5-8.0)
[2022-10-02 07:53] LABS: C Reactive Protein 1.66 mg/dL (< or = 0.50); Lactate Dehydrogenase 406 U/L (118-273)
[2022-10-02] MEDS: Fluticasone/Vilanterol 200/25 BLST.W.DEV 1 PUFF INHALE (08:02)
[2022-10-02] MEDS: Multivitamin TABLET 1 TAB PO (08:23)
[2022-10-02] MEDS: Folic Acid 1 MG TABLET PO (08:23)
[2022-10-02] MEDS: 0.9 % Sodium Chloride Flush 3 ML SYRINGE IVFLUSH ×2 (08:25→20:31)
[2022-10-02] MEDS: Labetalol HCL 100 MG TABLET PO (08:25)
[2022-10-02] MEDS: oxyCODONE HCl Immed Release 5 MG TABLET 10 MG PO (08:26)
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
[2022-10-02 10:15] LABS: Prothrombin Time 11.8 SEC (10.0-13.1)
[2022-10-02 10:17] LABS: Partial Thromboplastin Time 39.5 SEC (26.0-36.4)
--- NOTE | 2022-10-02 11:13 | HO.PM.IMPN ---
Subjective Subjective Date of Service: 10/02/22 Interval History: c/o epigastric + RUQ pain mentions he was hospitalized at [facility] 1 yr ago and had stones swept out, but never followed up for cholecystectomy no fever Review of Systems Review of Systems: Yes all other systems are reviewed and are negative Physical Exam Vital Signs: Vital Signs: Last Vital Signs Temp 97.6 F 10/02/22 07:43 Pulse 82 10/02/22 08:04 Resp 18 10/02/22 08:04 BP 177/96 H 10/02/22 07:43 Pulse Ox 100 10/02/22 07:43 O2 Del Method 10/02/22 07:43 BMI result Body Mass Index 28.5 Gen: in no acute distress HEENT: sclera anicteric, moist mucus membranes Neck: supple Lungs: clear to auscultation bilaterally Heart: regular rate and rhythm, no murmurs Abd: soft, tender epigastrium + RUQ Ext: no edema Skin: warm/well-perfused Neuro: alert and oriented x3, no focal findings Psych: appropriate affect Objective Data Active Medications Albuterol Sulfate (Albuterol Sulfate 90 Mcg 8 Gm Inhaler) 2 puff INHALE Q4H PRN PRN Reason: wheezing Benzocaine (Benzocaine 20 % Oral Gel 9 Gm Tube) 1 appl MUCOUS MEM QID PRN; Protocol PRN Reason: oral ulcer Albuterol Sulfate 2.5 mg/ (Ipratropium [place] 0.5 mg) 0 mg INHALE Q4H PRN PRN Reason: Shortness of Breath/Wheezing Last Admin: 09/30/22 19:19 Dose: 1 each Documented By: KENNETH Fluticasone/Vilanterol (Fluticasone/Vilanterol 200/25 Blst.W.Dev) 1 puff INHALE RDAILY [facility] Last Admin: 10/02/22 08:02 Dose: 1 puff Documented By: MANDI Folic Acid (Folic Acid 1 Mg Tablet) 1 mg PO DAILY [facility] Last Admin: 10/02/22 08:23 Dose: 1 mg Documented By: ZONIA Hydromorphone HCl (Hydromorphone Hcl 1 Mg/Ml Syringe) 1 mg IVPUSH Q3H PRN; Protocol PRN Reason: Pain, Severe (Pain Scale 7-10) Last Admin: 10/02/22 10:11 Dose: 1 mg Documented By: ZONIA Piperacillin Sod/Tazobactam (Sod 4.5 gm/ Sodium Chloride) 100 mls @ 200 mls/hr IV Q6H [facility] Last Infusion: 10/02/22 09:39 Dose: 0 mls/hr Documented By: ZONIA Lactated Ringer's (Lr) 1,000 mls @ 200 mls/hr IVCONT .Q5H [facility] Last Admin: 10/02/22 08:24 Dose: 200 mls/hr Documented By: ZONIA Labetalol HCl (Labetalol Hcl 100 Mg Tablet) 300 mg PO BID [facility]; Protocol Last Admin: 10/02/22 08:31 Dose: Not Given Documented By: ZONIA Non-Admin Reason: See Note Comments: order change given early Montelukast Sodium (Montelukast Sodium 10 Mg Tablet) 10 mg PO BEDTIME [facility] Last Admin: 10/01/22 20:57 Dose: 10 mg Documented By: GODWIN Multivitamins/Vitamin C (Multivitamin Tablet) 1 tab PO DAILY [facility] Last Admin: 10/02/22 08:23 Dose: 1 tab Documented By: ZONIA Omeprazole (Omeprazole 20 Mg Capsule.Dr) 20 mg PO DAILY@0630 [facility] Last Admin: 10/02/22 05:18 Dose: 20 mg Documented By: GODWIN Oxycodone HCl (Oxycodone Hcl Immed Release 5 Mg Tablet) 10 mg PO Q4H PRN PRN Reason: Pain, Moderate (Pain Scale 4-6 Last Admin: 10/02/22 08:26 Dose: 10 mg Documented By: ZONIA Pharmacy Consult (Consult Rx Perform Med Rec) 1 each MISCELLANE ONCE PRN PRN Reason: Consult order Sodium Chloride (0.9 % Sodium Chloride Flush 3 Ml Syringe) 3 ml IVFLUSH QSHIFT [facility] Last Admin: 10/02/22 08:25 Dose: 3 ml Documented By: ZONIA Labs 10/02/22 06:06 10/02/22 06:06 Labs: Laboratory Results - last 24 hr 10/01/22 10/02/22 10/02/22 11:08 06:06 06:06 MCV 88.9 MCH 30.6 MCHC 34.4 RDW 13.7 Plt Count 195 MPV 12.2 Immature Gran % (Auto) 0.2 Neut % (Auto) 67.8 Lymph % (Auto) 20.5 [place] % (Auto) 6.4 Eos % (Auto) 4.1 H Baso % (Auto) 1.0 Lymph # (Auto) 1.0 L [place] # (Auto) 0.3 Eos # (Auto) 0.2 Baso # (Auto) 0.1 Abs Immat Gran (auto) 0.01 Absolute Neuts (auto) 3.3 Absolute Nucleated RBC 0.000 Nucleated RBC % (auto) 0.0 PT INR APTT Anion Gap 15 Estim Creat Clear Calc 90.5 Estimated GFR 59 Fasting Glucose 85 Lactic Acid 1.1 Calcium 9.3 D Total Bilirubin 7.4 H AST 299 H ALT 437 H Alkaline Phosphatase 219 H Lactate Dehydrogenase 406 H C-Reactive Protein 1.66 H Total Protein 6.5 Albumin 4.0 10/02/22 09:11 MCV MCH MCHC RDW Plt Count MPV Immature Gran % (Auto) Neut % (Auto) Lymph % (Auto) [place] % (Auto) Eos % (Auto) Baso % (Auto) Lymph # (Auto) [place] # (Auto) Eos # (Auto) Baso # (Auto) Abs Immat Gran (auto) Absolute Neuts (auto) Absolute Nucleated RBC Nucleated RBC % (auto) PT 11.8 INR 1.0 APTT 39.5 H Anion Gap Estim Creat Clear Calc Estimated GFR Fasting Glucose Lactic Acid Calcium Total Bilirubin AST ALT Alkaline Phosphatase Lactate Dehydrogenase C-Reactive Protein Total Protein Albumin Impressions Hepatobiliary Scan Nuclear Medicine 10/01/22 20:40 IMPRESSION: No evidence of biliary activity or small bowel activity, suggestive of a biliary obstruction. Recommend GI consultation and if indicated ERCP. This result was discussed with Alix JIN at 10/01/2022 9:24 PM and it was ascertained that the content and urgency of the report was understood at the time of direct communication. Assessment and Plan (1) Alcoholic pancreatitis: Status: Acute (2) Benign essential hypertension: Status: Acute (3) Asthma: Status: Acute Plan d#5 32yo M with hx EtOH pancreatitis presenting with epigastric pain and N/V, admitted for pancreatitis # acute alcoholic vs. gallstone pancreatitis (patient admits to drinking ?moonshine? 1 week ago, then ate greasy food, then pain began) - will get records from [facility] re: ?prior ERCP. GI notified. keep NPO for now, IV fluids - d#5 pip-ronda - prn IV hydromorphone - pending viral work up [EBV, CMV, HSV, HIV] # HTN - increase labetalol # asthma not in acute exacerbation - continue ICS-LABA + montelukast + prn MARCIAL # GERD - PPI # VTE ppx: SCDs # dispo: eventually home In my clinical judgment, the patient requires continued inpatient hospitalization for the following reasons: pancreatitis requiring IV fluids + IV analgesics and possibly endoscopic intervention Time Spent With Patient Time: Total time managing care of this patient today ___45_ minutes. Quality Stroke Does the patient have a stroke diagnosis?: No VTE Prior VTE?: No VTE Risk Level:: Medical - moderate - high VTE Device Contraindication: N/A - Device Ordered VTE Drug Contraindication: Treatment Not Indicated
[2022-10-02 11:26] LABS: Bilirubin Direct 5.3 mg/dL (0.0-0.5); Lipase 13 U/L (8-78)
[2022-10-02] MEDS: Benzocaine 20 % Oral Gel 9 GM TUBE 1 APPL MUCOUS MEM ×2 (12:22→20:31)
--- NOTE | 2022-10-02 16:22 | P.EN_ITS ---
Event Note Date of Service: 10/02/22 Event Note: GI Coverage-Case D/W Dr. Means, chart reviewed. LFT's higher today, but afebrile and WBC count normal. Lipase WNL. Patient describes that he may have had a previous ERCP with stone removal at [facility], although no air noted in the biliary tract on his current imaging studies to suggest a previous sphincterotomy. Aside from nonvisualized choledocholithiasis casuing his biliary obstruction, another possibility is that of some biliary obstruction from residual pancreatic head edema from the recent pancreatitis. Recs: Try to get any ERCP records from [facility], continue antibiotics, F/u labs in AM. ERCP if he shows any signs of cholangitis/sepsis or if the LFT's and component of biliary obstruction don't resolve. Thanks. Time Spent With Patient Time: Total time managing care of this patient today ____ minutes.
[2022-10-02] MEDS: Labetalol HCL 100 MG TABLET 300 MG PO (20:31)
[2022-10-02] MEDS: Montelukast Sodium 10 MG TABLET PO (20:31)
[2022-10-03] MEDS: HYDROmorphone HCl 1 MG/ML SYRINGE IVPUSH ×6 (00:32→20:29)
[2022-10-03] MEDS: Piperacillin Sodium/Tazobactam 4.5 GM in 0.9 % Sodium Chloride 100 ML IV ×4 (01:39→20:31)
[2022-10-03] MEDS: Lactated Ringers 1,000 ML 200 ML IVCONT (03:19)
[2022-10-03 04:00] VITALS: BP 180/130; PULSE 65; RESP 20; TEMP 36.5; O2SAT 100
[2022-10-03] MEDS: Benzocaine 20 % Oral Gel 9 GM TUBE 1 APPL MUCOUS MEM ×3 (05:12→20:30)
[2022-10-03] MEDS: Omeprazole 20 MG CAPSULE.DR PO (05:12)
--- NOTE | 2022-10-03 05:26 | PC.NURSE ---
Pt blood pressure elevated at 182/100, manual, denies chest pain headache or lightheadedness. Dr. Thomson notified; instructed this rn to give an unscheduled dose of 300 mg Labetalol. Medication given, will recheck blood pressure in 30 minutes. Pt aware of plan of care.
[2022-10-03 06:15] VITALS: PULSE 73; O2SAT 99
[2022-10-03 07:14] LABS: Hematocrit 41.8 % (42.0-52.0); Hemoglobin 13.8 g/dl (14.0-18.0); Mean Corpuscular Hemoglobin 30.3 pg (27.0-33.0); Mean Corpuscular Volume 91.9 fL (80.0-98.0); Mean Platelet Volume 12.3 fL (9.4-12.4); Platelet Count 193 X10*3/uL (160-400); Red Blood Count 4.55 X10*6/uL (4.60-5.80); Red Cell Distribution Width 13.9 % (11.0-16.0); White Blood Count 3.2 X10*3/uL (4.8-10.8)
[2022-10-03 07:16] LABS: Prothrombin Time 11.7 SEC (10.0-13.1)
[2022-10-03 07:39] LABS: Acetaminophen LAB < 17 mcg/mL (<30); Alanine Aminotransferase 500 U/L (0-40); Albumin Level 4.4 g/dL (3.5-5.0); Alkaline Phosphatase 240 U/L (39-117); Anion Gap 18 (12-20); Aspartate Amino Transferase 320 U/L (5-37); Bilirubin Total 5.1 mg/dL (0.0-1.0); Blood Urea Nitrogen 5 mg/dL (9-16); Calcium 9.4 mg/dL (8.4-10.2); Carbon Dioxide 27 mmol/L (22-29); Chloride 97 mmol/L (96-108); Creatinine Clr Calc Pharmacy 93.8; Estimated Glomerular Filt Rate > 60; Glucose Random 83 mg/dL (60-115); Potassium 3.7 mmol/L (3.3-5.1); Salicylate < 5.0 mg/dL (15-30); Sodium 138 mmol/L (135-145); Total Protein 7.3 g/dL (6.5-8.0)
[2022-10-03 08:00] VITALS: BP 145/80; PULSE 73; RESP 20; TEMP 36.6; O2SAT 94
[2022-10-03] MEDS: Fluticasone/Vilanterol 200/25 BLST.W.DEV 1 PUFF INHALE (08:15)
[2022-10-03 08:16] VITALS: PULSE 59; RESP 20; O2SAT 98
[2022-10-03] MEDS: Folic Acid 1 MG TABLET PO (08:34)
[2022-10-03] MEDS: Labetalol HCL 200 MG TABLET PO (08:34)
[2022-10-03] MEDS: Multivitamin TABLET 1 TAB PO (08:34)
[2022-10-03] MEDS: Lactated Ringers 1,000 ML 100 ML IVCONT ×3 (08:35→23:26)
[2022-10-03] MEDS: 0.9 % Sodium Chloride Flush 3 ML SYRINGE IVFLUSH ×2 (08:35→16:33)
--- NOTE | 2022-10-03 10:05 | P.PNGS_ITS ---
Subjective Subjective Date of Service: 10/03/22 Patient reports: still having pain Interval history: The patient is seen and reports ongoing pain. I discussed his statement that he had this happen before and it was advised that he have his gallbladder removed but never followed through. The patient states he had never had an ERCP but was told that he had tiny stones in his bile duct. We are still working on obtaining records. Physical Exam Vital Signs: Vital Signs: Last Vital Signs Temp 97.8 F 10/03/22 08:00 Pulse 59 10/03/22 08:16 Resp 20 10/03/22 08:16 BP 145/80 H 10/03/22 08:00 Pulse Ox 94 10/03/22 08:00 O2 Del Method 10/03/22 08:00 BMI result Body Mass Index 28.5 On exam he remains anicteric and nontoxic He is in no respiratory distress Abdomen is overweight and soft with epigastric tenderness but no rebound, rigidity nor guarding Objective Data Active Medications Albuterol Sulfate (Albuterol Sulfate 90 Mcg 8 Gm Inhaler) 2 puff INHALE Q4H PRN PRN Reason: wheezing Benzocaine (Benzocaine 20 % Oral Gel 9 Gm Tube) 1 appl MUCOUS MEM QID PRN; Protocol PRN Reason: oral ulcer Last Admin: 10/03/22 05:12 Dose: 1 appl Documented By: GODWIN Albuterol Sulfate 2.5 mg/ (Ipratropium [place] 0.5 mg) 0 mg INHALE Q4H PRN PRN Reason: Shortness of Breath/Wheezing Last Admin: 09/30/22 19:19 Dose: 1 each Documented By: KENNETH Fluticasone/Vilanterol (Fluticasone/Vilanterol 200/25 Blst.W.Dev) 1 puff INHALE RDAILY [facility] Last Admin: 10/03/22 08:15 Dose: 1 puff Documented By: MANDI Folic Acid (Folic Acid 1 Mg Tablet) 1 mg PO DAILY [facility] Last Admin: 10/03/22 08:34 Dose: 1 mg Documented By: SANJANA-DAVID Hydromorphone HCl (Hydromorphone Hcl 1 Mg/Ml Syringe) 1 mg IVPUSH Q3H PRN; Pro tocol PRN Reason: Pain, Severe (Pain Scale 7-10) Last Admin: 10/03/22 08:34 Dose: 1 mg Documented By: ZONIA Piperacillin Sod/Tazobactam (Sod 4.5 gm/ Sodium Chloride) 100 mls @ 200 mls/hr IV Q6H [facility] Last Infusion: 10/03/22 09:24 Dose: 0 mls/hr Documented By: ZONIA Lactated Ringer's (Lr) 1,000 mls @ 100 mls/hr IVCONT .Q10H [facility] Last Admin: 10/03/22 08:35 Dose: 100 mls/hr Documented By: ZONIA Labetalol HCl (Labetalol Hcl 200 Mg Tablet) 400 mg PO BID [facility]; Protocol Last Admin: 10/03/22 08:39 Dose: Not Given Documented By: ZONIA Non-Admin Reason: Physician Approved Montelukast Sodium (Montelukast Sodium 10 Mg Tablet) 10 mg PO BEDTIME [facility] Last Admin: 10/02/22 20:31 Dose: 10 mg Documented By: ZONIA Multivitamins/Vitamin C (Multivitamin Tablet) 1 tab PO DAILY [facility] Last Admin: 10/03/22 08:34 Dose: 1 tab Documented By: ZONIA Omeprazole (Omeprazole 20 Mg Capsule.) 20 mg PO DAILY@0630 [facility] Last Admin: 10/03/22 05:12 Dose: 20 mg Documented By: OZORALMilena Oxycodone HCl (Oxycodone Hcl Immed Release 5 Mg Tablet) 10 mg PO Q4H PRN PRN Reason: Pain, Moderate (Pain Scale 4-6 Last Admin: 10/02/22 08:26 Dose: 10 mg Documented By: ZONIA Pharmacy Consult (Consult Rx Perform Med Rec) 1 each MISCELLANE ONCE PRN PRN Reason: Consult order Sodium Chloride (0.9 % Sodium Chloride Flush 3 Ml Syringe) 3 ml IVFLUSH QSHIFT [facility] Last Admin: 10/03/22 08:35 Dose: 3 ml Documented By: ZONIA Labs 10/03/22 06:08 10/03/22 06:08 Labs: Laboratory Results - last 24 hr 10/02/22 10/02/22 10/03/22 06:06 09:11 06:08 MCV 91.9 MCH 30.3 MCHC 33.0 RDW 13.9 Plt Count 193 MPV 12.3 Absolute Nucleated RBC 0.000 Nucleated RBC % (auto) 0.0 PT 11.8 INR 1.0 APTT 39.5 H Anion Gap Estim Creat Clear Calc Estimated GFR Random Glucose Calcium Total Bilirubin Direct Bilirubin 5.3 H AST ALT Alkaline Phosphatase Total Protein Albumin Lipase 13 Salicylates Acetaminophen 10/03/22 10/03/22 06:08 06:08 MCV MCH MCHC RDW Plt Count MPV Absolute Nucleated RBC Nucleated RBC % (auto) PT 11.7 INR 1.0 APTT Anion Gap 18 Estim Creat Clear Calc 93.8 Estimated GFR > 60 Random Glucose 83 Calcium 9.4 Total Bilirubin 5.1 H Direct Bilirubin AST 320 H ALT 500 H Alkaline Phosphatase 240 H Total Protein 7.3 Albumin 4.4 Lipase Salicylates < 5.0 L Acetaminophen < 17 Microbiology Microbiology Results: Microbiology 09/28/22 00:32 Blood Culture - Final Blood - Venous No growth after 5 days. 09/28/22 00:31 Blood Culture - Final Blood - Venous No growth after 5 days. Procedures Date of Service Date of Service: 10/03/22 Progress Note: A&P Assessment and plan (1) Common bile duct dilatation: Status: Acute (2) Dilated pancreatic duct: Status: Acute (3) Peripancreatic fluid collection: Status: Acute (4) Acute pancreatitis: Status: Acute (5) Elevated LFTs: Status: Acute (6) Asthma: Status: Acute (7) Benign essential hypertension: Status: Acute Plan We need records from his prior evaluation. The patient now notes that he did not have an ERCP but was advised to consider having his gallbladder removed. There were no stones apparent on our studies. LFTs remain elevated. Timing of ERCP is deferred to GI. Continue present management, trend labs. Time Spent With Patient Time: Total time managing care of this patient today ____ minutes. Quality Stroke Does the patient have a stroke diagnosis?: No VTE Prior VTE?: No VTE Risk Level:: Medical - moderate - high VTE Device Contraindication: N/A - Device Ordered VTE Drug Contraindication: Treatment Not Indicated
[2022-10-03] MEDS: oxyCODONE HCl Immed Release 5 MG TABLET 10 MG PO ×2 (10:45→14:06)
--- NOTE | 2022-10-03 11:05 | HO.PM.IMPN ---
Subjective Subjective Date of Service: 10/03/22 Interval History: epigastric + RUQ pain improved pt recalls hospitalization at [facility] 05/18-05/22; had 3 suspected stones on imaging that passed on own; did not require ERCP but did not f/u for lap shaunna Review of Systems Review of Systems: Yes all other systems are reviewed and are negative Physical Exam Vital Signs: Vital Signs: Last Vital Signs Temp 97.8 F 10/03/22 08:00 Pulse 59 10/03/22 08:16 Resp 20 10/03/22 08:16 BP 145/80 H 10/03/22 08:00 Pulse Ox 94 10/03/22 08:00 O2 Del Method 10/03/22 08:00 BMI result Body Mass Index 28.5 Gen: in no acute distress HEENT: sclera anicteric, moist mucus membranes Neck: supple Lungs: clear to auscultation bilaterally Heart: regular rate and rhythm, no murmurs Abd: soft, tender epigastrium + RUQ Ext: no edema Skin: warm/well-perfused Neuro: alert and oriented x3, no focal findings Psych: appropriate affect Objective Data Active Medications Albuterol Sulfate (Albuterol Sulfate 90 Mcg 8 Gm Inhaler) 2 puff INHALE Q4H PRN PRN Reason: wheezing Benzocaine (Benzocaine 20 % Oral Gel 9 Gm Tube) 1 appl MUCOUS MEM QID PRN; Protocol PRN Reason: oral ulcer Last Admin: 10/03/22 05:12 Dose: 1 appl Documented By: OZORALB Albuterol Sulfate 2.5 mg/ (Ipratropium [place] 0.5 mg) 0 mg INHALE Q4H PRN PRN Reason: Shortness of Breath/Wheezing Last Admin: 09/30/22 19:19 Dose: 1 each Documented By: KENNETH Fluticasone/Vilanterol (Fluticasone/Vilanterol 200/25 Blst.W.Dev) 1 puff INHALE RDAILY [facility] Last Admin: 10/03/22 08:15 Dose: 1 puff Documented By: MANDI Folic Acid (Folic Acid 1 Mg Tablet) 1 mg PO DAILY [facility] Last Admin: 10/03/22 08:34 Dose: 1 mg Documented By: ZONIA Hydromorphone HCl (Hydromorphone Hcl 1 Mg/Ml Syringe) 1 mg IVPUSH Q3H PRN; Protocol PRN Reason: Pain, Severe (Pain Scale 7-10) Last Admin: 10/03/22 08:34 Dose: 1 mg Documented By: ZONIA Piperacillin Sod/Tazobactam (Sod 4.5 gm/ Sodium Chloride) 100 mls @ 200 mls/hr IV Q6H [facility] Last Infusion: 10/03/22 09:24 Dose: 0 mls/hr Documented By: ZONIA Lactated Ringer's (Lr) 1,000 mls @ 100 mls/hr IVCONT .Q10H [facility] Last Admin: 10/03/22 08:35 Dose: 100 mls/hr Documented By: ZONIA Labetalol HCl (Labetalol Hcl 200 Mg Tablet) 400 mg PO BID [facility]; Protocol Last Admin: 10/03/22 08:39 Dose: Not Given Documented By: ZONIA Non-Admin Reason: Physician Approved Montelukast Sodium (Montelukast Sodium 10 Mg Tablet) 10 mg PO BEDTIME [facility] Last Admin: 10/02/22 20:31 Dose: 10 mg Documented By: ZONIA Multivitamins/Vitamin C (Multivitamin Tablet) 1 tab PO DAILY [facility] Last Admin: 10/03/22 08:34 Dose: 1 tab Documented By: ZONIA Omeprazole (Omeprazole 20 Mg Capsule.Dr) 20 mg PO DAILY@0630 [facility] Last Admin: 10/03/22 05:12 Dose: 20 mg Documented By: GODWIN Pharmacy Consult (Consult Rx Perform Med Rec) 1 each MISCELLANE ONCE PRN PRN Reason: Consult order Sodium Chloride (0.9 % Sodium Chloride Flush 3 Ml Syringe) 3 ml IVFLUSH QSHIFT [facility] Last Admin: 10/03/22 08:35 Dose: 3 ml Documented By: ZONIA Labs 10/03/22 06:08 10/03/22 06:08 Labs: Laboratory Results - last 24 hr 10/02/22 10/02/22 10/03/22 06:06 09:11 06:08 MCV 91.9 MCH 30.3 MCHC 33.0 RDW 13.9 Plt Count 193 MPV 12.3 Absolute Nucleated RBC 0.000 Nucleated RBC % (auto) 0.0 PT 11.8 INR 1.0 APTT 39.5 H Anion Gap Estim Creat Clear Calc Estimated GFR Random Glucose Calcium Total Bilirubin Direct Bilirubin 5.3 H AST ALT Alkaline Phosphatase Total Protein Albumin Lipase 13 Salicylates Acetaminophen 10/03/22 10/03/22 06:08 06:08 MCV MCH MCHC RDW Plt Count MPV Absolute Nucleated RBC Nucleated RBC % (auto) PT 11.7 INR 1.0 APTT Anion Gap 18 Estim Creat Clear Calc 93.8 Estimated GFR > 60 Random Glucose 83 Calcium 9.4 Total Bilirubin 5.1 H Direct Bilirubin AST 320 H ALT 500 H Alkaline Phosphatase 240 H Total Protein 7.3 Albumin 4.4 Lipase Salicylates < 5.0 L Acetaminophen < 17 Microbiology Microbiology Results: Microbiology 09/28/22 00:32 Blood Culture - Final Blood - Venous No growth after 5 days. 09/28/22 00:31 Blood Culture - Final Blood - Venous No growth after 5 days. Assessment and Plan (1) Alcoholic pancreatitis: Status: Acute (2) Benign essential hypertension: Status: Acute (3) Asthma: Status: Acute Plan d#6 32yo M with hx EtOH pancreatitis presenting with epigastric pain and N/V, admitted for pancreatitis # acute alcoholic vs. gallstone pancreatitis (patient admits to drinking ?moonshine? 1 week ago, then ate greasy food, then pain began) - 2n request for records from [facility]. GI notified. clear liquid diet, IV fluids. - d#6 pip-ronda - prn IV hydromorphone - pending viral work up [EBV, CMV, HSV, HIV] # HTN - increase labetalol to 400 mg bid # asthma not in acute exacerbation - continue ICS-LABA + montelukast + prn MACRIAL # GERD - PPI # VTE ppx: SCDs # dispo: eventually home In my clinical judgment, the patient requires continued inpatient hospitalization for the following reasons: pancreatitis requiring IV fluids + IV analgesics and possibly endoscopic intervention Time Spent With Patient Time: Total time managing care of this patient today __35__ minutes. Quality Stroke Does the patient have a stroke diagnosis?: No VTE Prior VTE?: No VTE Risk Level:: Medical - moderate - high VTE Device Contraindication: N/A - Device Ordered VTE Drug Contraindication: Treatment Not Indicated
--- NOTE | 2022-10-03 11:23 | PM.EVENT ---
Event Note Date of Service: 10/03/22 Event Note: GI Coverage--Course noted. Patient remains afebrile. TBili has decreased. He apparently has not had an ERCP upon further discussion. Recs: Agree with current plans, F/U LFT's in AM. Would hold off on an ERCP if the LFT's continue to improve given no evidence of stones and his recent bout of pancreatitis, presumably in relation to his EtOH use. Thanks Time Spent With Patient Time: Total time managing care of this patient today ____ minutes.
[2022-10-03 17:29] VITALS: BP 148/90; PULSE 74; RESP 18; TEMP 36.4; O2SAT 98
[2022-10-03 20:00] VITALS: BP 168/110; PULSE 75; RESP 18; TEMP 36.6; O2SAT 99
[2022-10-03] MEDS: Labetalol HCL 200 MG TABLET 400 MG PO (20:30)
[2022-10-03] MEDS: Montelukast Sodium 10 MG TABLET PO (20:30)
[2022-10-04] MEDS: HYDROmorphone HCl 1 MG/ML SYRINGE IVPUSH ×5 (01:52→20:08)
[2022-10-04 03:00] VITALS: BP 160/70; PULSE 70; RESP 18; TEMP 36.6; O2SAT 97
[2022-10-04] MEDS: Piperacillin Sodium/Tazobactam 4.5 GM in 0.9 % Sodium Chloride 100 ML IV ×2 (03:00→08:15)
[2022-10-04 04:15] LABS: HIV AB/AG Nonreactive (Nonreactive); HIV Num 1 0.05 S/CO (0.00-0.99)
[2022-10-04] MEDS: Omeprazole 20 MG CAPSULE.DR PO (05:05)
[2022-10-04 06:37] LABS: Alanine Aminotransferase 386 U/L (0-40); Albumin Level 3.9 g/dL (3.5-5.0); Alkaline Phosphatase 193 U/L (39-117); Anion Gap 14 (12-20); Aspartate Amino Transferase 164 U/L (5-37); Bilirubin Total 2.9 mg/dL (0.0-1.0); Blood Urea Nitrogen 5 mg/dL (9-16); Calcium 8.9 mg/dL (8.4-10.2); Carbon Dioxide 27 mmol/L (22-29); Chloride 104 mmol/L (96-108); Creatinine Clr Calc Pharmacy 94.5; Estimated Glomerular Filt Rate > 60; Glucose Random 136 mg/dL (60-115); Potassium 3.8 mmol/L (3.3-5.1); Sodium 141 mmol/L (135-145); Total Protein 6.4 g/dL (6.5-8.0)
[2022-10-04 07:49] LABS: Magnesium 1.8 mg/dL (1.6-2.6)
[2022-10-04 07:53] VITALS: BP 145/83; PULSE 65; RESP 18; TEMP 36.7; O2SAT 98
[2022-10-04] MEDS: Lactated Ringers 1,000 ML 100 ML IVCONT ×2 (08:16→19:44)
[2022-10-04] MEDS: Multivitamin TABLET 1 TAB PO (08:17)
[2022-10-04] MEDS: Labetalol HCL 200 MG TABLET 400 MG PO ×2 (08:17→20:04)
[2022-10-04] MEDS: Folic Acid 1 MG TABLET PO (08:17)
[2022-10-04] MEDS: Benzocaine 20 % Oral Gel 9 GM TUBE 1 APPL MUCOUS MEM ×2 (09:25→16:25)
--- NOTE | 2022-10-04 09:46 | PM.PNGS ---
Subjective Subjective Date of Service: 10/04/22 Patient reports: no new complaints Interval history: Patient is unchanged and reports left back pain. Otherwise, there is no chest pain, difficulty breathing or shortness of breath. Physical Exam Vital Signs: Vital Signs: Last Vital Signs Temp 98.0 F 10/04/22 07:53 Pulse 65 10/04/22 07:53 Resp 18 10/04/22 07:53 BP 145/83 H 10/04/22 07:53 Pulse Ox 98 10/04/22 07:53 O2 Del Method 10/04/22 07:53 BMI result Body Mass Index 28.5 Patient remains anicteric He is nontoxic and in no acute respiratory distress Mild epigastric tenderness noted Objective Data Active Medications Albuterol Sulfate (Albuterol Sulfate 90 Mcg 8 Gm Inhaler) 2 puff INHALE Q4H PRN PRN Reason: wheezing Benzocaine (Benzocaine 20 % Oral Gel 9 Gm Tube) 1 appl MUCOUS MEM QID PRN; Protocol PRN Reason: oral ulcer Last Admin: 10/04/22 09:25 Dose: 1 appl Documented By: UBALDO Albuterol Sulfate 2.5 mg/ (Ipratropium [place] 0.5 mg) 0 mg INHALE Q4H PRN PRN Reason: Shortness of Breath/Wheezing Last Admin: 09/30/22 19:19 Dose: 1 each Documented By: KENNETH Fluticasone/Vilanterol (Fluticasone/Vilanterol 200/25 Blst.W.Dev) 1 puff INHALE RDAILY [facility] Last Admin: 10/04/22 07:34 Dose: Not Given Documented By: SHAWN Non-Admin Reason: Patient Asleep Folic Acid (Folic Acid 1 Mg Tablet) 1 mg PO DAILY [facility] Last Admin: 10/04/22 08:17 Dose: 1 mg Documented By: UBALDO Hydromorphone HCl (Hydromorphone Hcl 1 Mg/Ml Syringe) 1 mg IVPUSH Q4H PRN; Protocol PRN Reason: Pain, Severe (Pain Scale 7-10) Last Admin: 10/04/22 06:12 Dose: 1 mg Documented By: ALONSO Piperacillin Sod/Tazobactam (Sod 4.5 gm/ Sodium Chloride) 100 mls @ 200 mls/hr IV Q6H [facility] Last Infusion: 10/04/22 08:45 Dose: 0 mls/hr Documented By: UBALDO Lactated Ringer's (Lr) 1,000 mls @ 100 mls/hr IVCONT .Q10H [facility] Last Admin: 10/04/22 08:16 Dose: 100 mls/hr Documented By: UBALDO Labetalol HCl (Labetalol Hcl 200 Mg Tablet) 400 mg PO BID [facility]; Protocol Last Admin: 10/04/22 08:17 Dose: 400 mg Documented By: UBALDO Montelukast Sodium (Montelukast Sodium 10 Mg Tablet) 10 mg PO BEDTIME [facility] Last Admin: 10/03/22 20:30 Dose: 10 mg Documented By: ALONSO Multivitamins/Vitamin C (Multivitamin Tablet) 1 tab PO DAILY [facility] Last Admin: 10/04/22 08:17 Dose: 1 tab Documented By: UBALDO Omeprazole (Omeprazole 20 Mg Capsule.Dr) 20 mg PO DAILY@0630 [facility] Last Admin: 10/04/22 05:05 Dose: 20 mg Documented By: ALONSO Oxycodone HCl (Oxycodone Hcl Immed Release 5 Mg Tablet) 10 mg PO Q4H PRN PRN Reason: pain moderate Last Admin: 10/03/22 14:06 Dose: 10 mg Documented By: LEONORA Pharmacy Consult (Consult Rx Perform Med Rec) 1 each MISCELLANE ONCE PRN PRN Reason: Consult order Sodium Chloride (0.9 % Sodium Chloride Flush 3 Ml Syringe) 3 ml IVFLUSH QSHIFT [facility] Last Admin: 10/04/22 08:17 Dose: Not Given Documented By: UBALDO Non-Admin Reason: IV Running Labs 10/03/22 06:08 10/04/22 05:25 Labs: Laboratory Results - last 24 hr 10/03/22 10/04/22 06:08 05:25 Anion Gap 14 Estim Creat Clear Calc 94.5 Estimated GFR > 60 Random Glucose 136 H Calcium 8.9 Magnesium 1.8 Total Bilirubin 2.9 H AST 164 H ALT 386 H Alkaline Phosphatase 193 H Total Protein 6.4 L Albumin 3.9 HIV 1&2 Ab/P24 Ag 4thGn Nonreactive Procedures Date of Service Date of Service: 10/04/22 Progress Note: A&P Assessment and plan (1) Common bile duct dilatation: Status: Acute (2) Dilated pancreatic duct: Status: Acute (3) Acute kidney injury: Status: Acute (4) Peripancreatic fluid collection: Status: Acute (5) Alcoholic pancreatitis: Status: Acute Plan The patient's LFTs are improving. GI note from yesterday recommended trending LFTs given the patient's presumed alcoholic pancreatitis. I have reviewed all imaging including: abdominal ultrasound, MRCP, CT and nuclear medicine study. There is no documented sludge or stones to mandate cholecystectomy. Without an ERCP, this is presumed to be secondary to alcohol and discussion with GI regarding the patient's presentation remains. Plan as per GI and primary service. Time Spent With Patient Time: Total time managing care of this patient today ____ minutes. Quality Stroke Does the patient have a stroke diagnosis?: No VTE Prior VTE?: No VTE Risk Level:: Medical - moderate - high VTE Device Contraindication: N/A - Device Ordered VTE Drug Contraindication: Treatment Not Indicated
--- NOTE | 2022-10-04 12:01 | P.PNIM_ITS ---
Subjective Subjective Date of Service: 10/04/22 Interval History: pain improved, no N/V, Tbili improved Review of Systems Review of Systems: Yes all other systems are reviewed and are negative Physical Exam Vital Signs: Vital Signs: Last Vital Signs Temp 98.0 F 10/04/22 07:53 Pulse 65 10/04/22 07:53 Resp 18 10/04/22 07:53 BP 145/83 H 10/04/22 07:53 Pulse Ox 98 10/04/22 07:53 O2 Del Method 10/04/22 07:53 BMI result Body Mass Index 28.5 Gen: in no acute distress HEENT: sclera anicteric, moist mucus membranes Neck: supple Lungs: clear to auscultation bilaterally Heart: regular rate and rhythm, no murmurs Abd: soft, mildly tender epigastrium Ext: no edema Skin: warm/well-perfused Neuro: alert and oriented x3, no focal findings Psych: appropriate affect Objective Data Active Medications Albuterol Sulfate (Albuterol Sulfate 90 Mcg 8 Gm Inhaler) 2 puff INHALE Q4H PRN PRN Reason: wheezing Benzocaine (Benzocaine 20 % Oral Gel 9 Gm Tube) 1 appl MUCOUS MEM QID PRN; Protocol PRN Reason: oral ulcer Last Admin: 10/04/22 09:25 Dose: 1 appl Documented By: UBALDO Albuterol Sulfate 2.5 mg/ (Ipratropium [place] 0.5 mg) 0 mg INHALE Q4H PRN PRN Reason: Shortness of Breath/Wheezing Last Admin: 09/30/22 19:19 Dose: 1 each Documented By: KENNETH Fluticasone/Vilanterol (Fluticasone/Vilanterol 200/25 Blst.W.Dev) 1 puff INHALE RDAILY [facility] Last Admin: 10/04/22 07:34 Dose: Not Given Documented By: SHAWN Non-Admin Reason: Patient Asleep Folic Acid (Folic Acid 1 Mg Tablet) 1 mg PO DAILY [facility] Last Admin: 10/04/22 08:17 Dose: 1 mg Documented By: UBALDO Hydromorphone HCl (Hydromorphone Hcl 1 Mg/Ml Syringe) 1 mg IVPUSH Q4H PRN; Protocol PRN Reason: Pain, Severe (Pain Scale 7-10) Last Admin: 10/04/22 10:58 Dose: 1 mg Documented By: UBALDO Piperacillin Sod/Tazobactam (Sod 4.5 gm/ Sodium Chloride) 100 mls @ 200 mls/hr IV Q6H [facility] Last Infusion: 10/04/22 08:45 Dose: 0 mls/hr Documented By: UBALDO Lactated Ringer's (Lr) 1,000 mls @ 100 mls/hr IVCONT .Q10H [facility] Last Admin: 10/04/22 08:16 Dose: 100 mls/hr Documented By: UBALDO Labetalol HCl (Labetalol Hcl 200 Mg Tablet) 400 mg PO BID [facility]; Protocol Last Admin: 10/04/22 08:17 Dose: 400 mg Documented By: UBALDO Montelukast Sodium (Montelukast Sodium 10 Mg Tablet) 10 mg PO BEDTIME [facility] Last Admin: 10/03/22 20:30 Dose: 10 mg Documented By: ALONSO Multivitamins/Vitamin C (Multivitamin Tablet) 1 tab PO DAILY [facility] Last Admin: 10/04/22 08:17 Dose: 1 tab Documented By: UBALDO Omeprazole (Omeprazole 20 Mg Capsule.Dr) 20 mg PO DAILY@0630 [facility] Last Admin: 10/04/22 05:05 Dose: 20 mg Documented By: ALONSO Oxycodone HCl (Oxycodone Hcl Immed Release 5 Mg Tablet) 10 mg PO Q4H PRN PRN Reason: pain moderate Last Admin: 10/03/22 14:06 Dose: 10 mg Documented By: LEONORA Pharmacy Consult (Consult Rx Perform Med Rec) 1 each MISCELLANE ONCE PRN PRN Reason: Consult order Sodium Chloride (0.9 % Sodium Chloride Flush 3 Ml Syringe) 3 ml IVFLUSH QSHIFT [facility] Last Admin: 10/04/22 08:17 Dose: Not Given Documented By: UBALDO Non-Admin Reason: IV Running Labs 10/03/22 06:08 10/04/22 05:25 Labs: Laboratory Results - last 24 hr 10/03/22 10/04/22 06:08 05:25 Anion Gap 14 Estim Creat Clear Calc 94.5 Estimated GFR > 60 Random Glucose 136 H Calcium 8.9 Magnesium 1.8 Total Bilirubin 2.9 H AST 164 H ALT 386 H Alkaline Phosphatase 193 H Total Protein 6.4 L Albumin 3.9 HIV 1&2 Ab/P24 Ag 4thGn Nonreactive Assessment and Plan (1) Alcoholic pancreatitis: Status: Acute (2) Benign essential hypertension: Status: Acute (3) Asthma: Status: Acute Plan d#7 32yo M with hx EtOH pancreatitis presenting with epigastric pain and N/V, admitted for pancreatitis # acute alcoholic vs. gallstone pancreatitis (patient admits to drinking ?moonshine? 1 week ago, then ate greasy food, then pain began) - Tbili coming down and no stone visualized. - 2nd request for records from [facility]. GI notified. try advancing diet today - d/c pip-ronda - prn IV hydromorphone + PO oxycodone - pending viral work up [EBV, CMV, HSV; HIV neg] # HTN - improved on labetalol 400 mg bid # asthma not in acute exacerbation - continue ICS-LABA + montelukast + prn MARCIAL # GERD - PPI # VTE ppx: SCDs # dispo: eventually home In my clinical judgment, the patient requires continued inpatient hospitalization for the following reasons: pancreatitis requiring IV fluids + IV analgesics Time Spent With Patient Time: Total time managing care of this patient today __35__ minutes. Quality Stroke Does the patient have a stroke diagnosis?: No VTE Prior VTE?: No VTE Risk Level:: Medical - moderate - high VTE Device Contraindication: N/A - Device Ordered VTE Drug Contraindication: Treatment Not Indicated
--- NOTE | 2022-10-04 12:35 | PM.GIPN ---
Subjective Subjective Date of Service: 10/04/22 Interval History: Seen at bedside. Just finished his lunch and reports no worsening of abd pain, N or V. (He in fact had a cheeseburger and I did field counsel him re low fat diet). Has been passing gas but last BM was almost 5 days ago. Does report that over the weekend he had an episode where the pain worsened sharply and then got better after 3-4 hours and since then his abd pain has shifted from epigastric to left sided that radiates to his back. Also reports another hosp admission for pancreatitis at [facility] in Apr. This was without any etOH in background x months. Was told he had cholelithiasis and needed surgery however on reimaging the stones had resolved/passed spontaneously and therefore he never ended up having CCY. Critical Care Time (minutes): 0 Physical Exam Vital Signs: Vital Signs: Last Vital Signs Temp 98.0 F 10/04/22 07:53 Pulse 65 10/04/22 07:53 Resp 18 10/04/22 07:53 BP 145/83 H 10/04/22 07:53 Pulse Ox 98 10/04/22 07:53 O2 Del Method 10/04/22 07:53 BMI result Body Mass Index 28.5 General appearance: Non toxic appearing HEENT: no scleral icterus Abdomen: Soft, distended, mild tenderness to palpation, bowel sounds positive Objective Data Labs 10/03/22 06:08 10/04/22 05:25 Labs: Laboratory Results - last 24 hr 10/03/22 10/04/22 06:08 05:25 Sodium 141 Potassium 3.8 Chloride 104 Carbon Dioxide 27 Anion Gap 14 BUN 5 L Creatinine 1.33 Estim Creat Clear Calc 94.5 Estimated GFR > 60 Random Glucose 136 H Calcium 8.9 Magnesium 1.8 Total Bilirubin 2.9 H AST 164 H ALT 386 H Alkaline Phosphatase 193 H Total Protein 6.4 L Albumin 3.9 HIV 1&2 Ab/P24 Ag 4thGn Nonreactive Microbiology Microbiology Results: Microbiology 09/28/22 00:32 Blood - Venous Blood Culture - Final No growth after 5 days. 09/28/22 00:31 Blood - Venous Blood Culture - Final No growth after 5 days. Procedures Date of Service Date of Service: 10/04/22 Progress Note: A&P Assessment and plan (1) Alcoholic pancreatitis: Status: Acute (2) Elevated LFTs: Status: Acute (3) Peripancreatic fluid collection: Status: Acute (4) Common bile duct dilatation: Status: Acute (5) Dilated pancreatic duct: Status: Acute (6) Acute kidney injury: Status: Acute Plan LFT trend noted. Although current adm confounded by etOH binge, he gives a story of prior episode of biliary pancreatitis. Records from [facility] awaited. Based on HIDA and LFT trend differentials include resolving panc head edema leading to biliary obstruction vs choledocho which has spontaneously passed or is ball-valving. Recommendations: - If LFT cont to normalise tmrw, can prep pt for discharge as long as hes able to tolerate diet and off IV pain meds - If LFTs go back up again, will review ERCP vs MRCP - Low fat diet - Bowel regimen - Can DC fluids as PO intake resumed. - Understandably limited role of planning a CCY at this time unless this is proven to be biliary panc. Will follow Time Spent With Patient Time: Total time managing care of this patient today ____ minutes. Quality Stroke Does the patient have a stroke diagnosis?: No VTE Prior VTE?: No VTE Risk Level:: Medical - moderate - high VTE Device Contraindication: N/A - Device Ordered VTE Drug Contraindication: Treatment Not Indicated
[2022-10-04] MEDS: Sennosides/Docusate Sodium TABLET 2 TAB PO ×2 (13:44→20:04)
[2022-10-04] MEDS: polyethylene glycoL 3350 17 GM POWD.PACK PO (13:44)
[2022-10-04 16:00] VITALS: BP 170/110; PULSE 80; RESP 18; TEMP 35.8; O2SAT 98
[2022-10-04 16:10] VITALS: BP 156/84
--- NOTE | 2022-10-04 16:58 | MHC.CM.PN ---
Per MD rounds discharge 1-2 days. Patients diet is advancing. DP home with GF assist and transport.
[2022-10-04 20:00] VITALS: BP 150/100; PULSE 76; RESP 18; TEMP 36.1; O2SAT 98
[2022-10-04] MEDS: Montelukast Sodium 10 MG TABLET PO (20:04)
[2022-10-05] MEDS: HYDROmorphone HCl 1 MG/ML SYRINGE IVPUSH ×3 (00:18→08:41)
[2022-10-05] MEDS: Benzocaine 20 % Oral Gel 9 GM TUBE 1 APPL MUCOUS MEM ×2 (00:18→12:27)
[2022-10-05 03:50] VITALS: BP 158/96; PULSE 68; RESP 18; TEMP 36.2; O2SAT 99
[2022-10-05] MEDS: Omeprazole 20 MG CAPSULE.DR PO (04:42)
[2022-10-05] MEDS: Lactated Ringers 1,000 ML 100 ML IVCONT (04:43)
[2022-10-05 07:12] LABS: Alanine Aminotransferase 290 U/L (0-40); Albumin Level 3.9 g/dL (3.5-5.0); Alkaline Phosphatase 170 U/L (39-117); Anion Gap 13 (12-20); Aspartate Amino Transferase 81 U/L (5-37); Blood Urea Nitrogen 10 mg/dL (9-16); Carbon Dioxide 28 mmol/L (22-29); Chloride 103 mmol/L (96-108); Creatinine Clr Calc Pharmacy 93.8; Estimated Glomerular Filt Rate > 60; Glucose Random 95 mg/dL (60-115); Potassium 3.8 mmol/L (3.3-5.1); Sodium 140 mmol/L (135-145); Total Protein 6.6 g/dL (6.5-8.0)
[2022-10-05 07:40] LABS: Hematocrit 38.2 % (42.0-52.0); Hemoglobin 12.8 g/dl (14.0-18.0); Mean Corpuscular HGB Conc 33.5 g/dl (31.0-36.0); Mean Corpuscular Hemoglobin 30.8 pg (27.0-33.0); Mean Corpuscular Volume 91.8 fL (80.0-98.0); Platelet Count 192 X10*3/uL (160-400); Red Blood Count 4.16 X10*6/uL (4.60-5.80); Red Cell Distribution Width 14.2 % (11.0-16.0); White Blood Count 4.1 X10*3/uL (4.8-10.8)
[2022-10-05 07:58] VITALS: BP 160/110; PULSE 61; RESP 18; TEMP 36; O2SAT 98
[2022-10-05] MEDS: Multivitamin TABLET 1 TAB PO (08:10)
[2022-10-05] MEDS: Folic Acid 1 MG TABLET PO (08:10)
[2022-10-05] MEDS: Labetalol HCL 200 MG TABLET 400 MG PO ×2 (08:10→20:04)
[2022-10-05] MEDS: Fluticasone/Vilanterol 200/25 BLST.W.DEV 1 PUFF INHALE (08:25)
[2022-10-05 08:27] VITALS: PULSE 66; RESP 18; O2SAT 97
[2022-10-05] MEDS: Sennosides/Docusate Sodium TABLET 2 TAB PO ×2 (08:40→20:05)
--- NOTE | 2022-10-05 09:03 | P.PNGS_ITS ---
Subjective Subjective Date of Service: 10/05/22 Patient reports: feels better Interval history: Patient reports about the same pain and possible interval improvement since yesterday with pain predominantly in his left back. He reviewed again the fact that he was at an outside hospital and had a similar event and was told he needed cholecystectomy. These records remain unavailable. He otherwise denies chest pain, difficulty breathing, shortness of breath. Physical Exam Vital Signs: Vital Signs: Last Vital Signs Temp 96.8 F 10/05/22 07:58 Pulse 66 10/05/22 08:27 Resp 18 10/05/22 08:27 BP 160/110 H 10/05/22 07:58 Pulse Ox 98 10/05/22 07:58 O2 Del Method 10/05/22 03:50 BMI result Body Mass Index 28.5 He remains anicteric He is in no respiratory distress Abdomen is overweight with no rebound, rigidity or guarding Objective Data Active Medications Albuterol Sulfate (Albuterol Sulfate 90 Mcg 8 Gm Inhaler) 2 puff INHALE Q4H PRN PRN Reason: wheezing Benzocaine (Benzocaine 20 % Oral Gel 9 Gm Tube) 1 appl MUCOUS MEM QID PRN; Protocol PRN Reason: oral ulcer Last Admin: 10/05/22 00:18 Dose: 1 appl Documented By: ALONSO Fluticasone/Vilanterol (Fluticasone/Vilanterol 200/25 Blst.W.Dev) 1 puff INHALE RDAILY [facility] Last Admin: 10/05/22 08:25 Dose: 1 puff Documented By: SILVIA Folic Acid (Folic Acid 1 Mg Tablet) 1 mg PO DAILY [facility] Last Admin: 10/05/22 08:10 Dose: 1 mg Documented By: BECKA Hydromorphone HCl (Hydromorphone Hcl 1 Mg/Ml Syringe) 1 mg IVPUSH Q4H PRN; Protocol PRN Reason: Pain, Severe (Pain Scale 7-10) Last Admin: 10/05/22 08:41 Dose: 1 mg Documented By: BECKA Lactated Ringer's (Lr) 1,000 mls @ 100 mls/hr IVCONT .Q10H [facility] Last Admin: 10/05/22 04:43 Dose: 100 mls/hr Documented By: ALONSO Labetalol HCl (Labetalol Hcl 200 Mg Tablet) 400 mg PO BID [facility]; Protocol Last Admin: 10/05/22 08:10 Dose: 400 mg Documented By: BECKA Montelukast Sodium (Montelukast Sodium 10 Mg Tablet) 10 mg PO BEDTIME [facility] Last Admin: 10/04/22 20:04 Dose: 10 mg Documented By: ALONSO Multivitamins/Vitamin C (Multivitamin Tablet) 1 tab PO DAILY [facility] Last Admin: 10/05/22 08:10 Dose: 1 tab Documented By: BECKA Omeprazole (Omeprazole 20 Mg Capsule.Dr) 20 mg PO DAILY@0630 [facility] Last Admin: 10/05/22 04:42 Dose: 20 mg Documented By: ALONSO Oxycodone HCl (Oxycodone Hcl Immed Release 5 Mg Tablet) 10 mg PO Q4H PRN PRN Reason: pain moderate Last Admin: 10/03/22 14:06 Dose: 10 mg Documented By: LEONORA Pharmacy Consult (Consult Rx Perform Med Rec) 1 each MISCELLANE ONCE PRN PRN Reason: Consult order Senna/Docusate Sodium (Sennosides/Docusate Sodium Tablet) 2 tab PO BID [facility] Last Admin: 10/05/22 08:40 Dose: 2 tab Documented By: BECKA Sodium Chloride (0.9 % Sodium Chloride Flush 3 Ml Syringe) 3 ml IVFLUSH QSHIFT [facility] Last Admin: 10/05/22 06:56 Dose: Not Given Documented By: BECKA Non-Admin Reason: IV Running Labs 10/05/22 05:49 10/05/22 05:49 Labs: Laboratory Results - last 24 hr 10/02/22 10/05/22 10/05/22 06:06 05:49 05:49 MCV 91.8 MCH 30.8 MCHC 33.5 RDW 14.2 Plt Count 192 MPV 13.0 H Absolute Nucleated RBC 0.000 Nucleated RBC % (auto) 0.0 Anion Gap 13 Estim Creat Clear Calc 93.8 Estimated GFR > 60 Random Glucose 95 Calcium 9.0 Total Bilirubin 2.0 H AST 81 H ALT 290 H Alkaline Phosphatase 170 H Total Protein 6.6 Albumin 3.9 VZV IgG Antibody 1181.00 Procedures Date of Service Date of Service: 10/05/22 Progress Note: A&P Assessment and plan (1) Common bile duct dilatation: Status: Acute (2) Dilated pancreatic duct: Status: Acute (3) Obesity (BMI 30-39.9): Status: Acute (4) Alcoholic pancreatitis: Status: Acute (5) Asthma: Status: Acute (6) Benign essential hypertension: Status: Acute (7) Elevated LFTs: Status: Acute (8) Pancreatitis: Status: Acute Plan I again explained to the patient that I have insufficient data to recommend cholecystectomy. Plan as per hospitalist and GI. Time Spent With Patient Time: Total time managing care of this patient today ____ minutes. Quality Stroke Does the patient have a stroke diagnosis?: No VTE Prior VTE?: No VTE Risk Level:: Medical - moderate - high VTE Device Contraindication: N/A - Device Ordered VTE Drug Contraindication: Treatment Not Indicated
[2022-10-05] MEDS: oxyCODONE HCl Immed Release 5 MG TABLET 10 MG PO ×3 (10:34→22:33)
--- NOTE | 2022-10-05 11:27 | P.PNIM_ITS ---
Subjective Subjective Date of Service: 10/05/22 Interval History: Tbili down from 2.9 to 2 and pain improving, tolerating diet Review of Systems Review of Systems: Yes all other systems are reviewed and are negative Physical Exam Vital Signs: Vital Signs: Last Vital Signs Temp 96.8 F 10/05/22 07:58 Pulse 66 10/05/22 08:27 Resp 18 10/05/22 08:27 BP 160/110 H 10/05/22 07:58 Pulse Ox 98 10/05/22 07:58 O2 Del Method 10/05/22 03:50 BMI result Body Mass Index 28.5 Gen: in no acute distress HEENT: sclera anicteric, moist mucus membranes Neck: supple Lungs: clear to auscultation bilaterally Heart: regular rate and rhythm, no murmurs Abd: soft, mild epigastric tenderness, non-distended Ext: no edema Skin: warm/well-perfused Neuro: alert and oriented x3, no focal findings Psych: appropriate affect Objective Data Active Medications Albuterol Sulfate (Albuterol Sulfate 90 Mcg 8 Gm Inhaler) 2 puff INHALE Q4H PRN PRN Reason: wheezing Benzocaine (Benzocaine 20 % Oral Gel 9 Gm Tube) 1 appl MUCOUS MEM QID PRN; Protocol PRN Reason: oral ulcer Last Admin: 10/05/22 00:18 Dose: 1 appl Documented By: ALONSO Fluticasone/Vilanterol (Fluticasone/Vilanterol 200/25 Blst.W.Dev) 1 puff INHALE RDAILY [facility] Last Admin: 10/05/22 08:25 Dose: 1 puff Documented By: SILVIA Folic Acid (Folic Acid 1 Mg Tablet) 1 mg PO DAILY [facility] Last Admin: 10/05/22 08:10 Dose: 1 mg Documented By: BECKA Hydromorphone HCl (Hydromorphone Hcl 1 Mg/Ml Syringe) 1 mg IVPUSH Q4H PRN; Protocol PRN Reason: Pain, Severe (Pain Scale 7-10) Last Admin: 10/05/22 08:41 Dose: 1 mg Documented By: BECKA Lactated Ringer's (Lr) 1,000 mls @ 100 mls/hr IVCONT .Q10H [facility] Last Admin: 10/05/22 04:43 Dose: 100 mls/hr Documented By: ALONSO Labetalol HCl (Labetalol Hcl 200 Mg Tablet) 400 mg PO BID [facility]; Protocol Last Admin: 10/05/22 08:10 Dose: 400 mg Documented By: BECKA Montelukast Sodium (Montelukast Sodium 10 Mg Tablet) 10 mg PO BEDTIME [facility] Last Admin: 10/04/22 20:04 Dose: 10 mg Documented By: ALONSO Multivitamins/Vitamin C (Multivitamin Tablet) 1 tab PO DAILY [facility] Last Admin: 10/05/22 08:10 Dose: 1 tab Documented By: BECAK Omeprazole (Omeprazole 20 Mg Capsule.Dr) 20 mg PO DAILY@0630 [facility] Last Admin: 10/05/22 04:42 Dose: 20 mg Documented By: ALONSO Oxycodone HCl (Oxycodone Hcl Immed Release 5 Mg Tablet) 10 mg PO Q4H PRN PRN Reason: pain moderate Last Admin: 10/05/22 10:34 Dose: 10 mg Documented By: LEONORA Pharmacy Consult (Consult Rx Perform Med Rec) 1 each MISCELLANE ONCE PRN PRN Reason: Consult order Senna/Docusate Sodium (Sennosides/Docusate Sodium Tablet) 2 tab PO BID [facility] Last Admin: 10/05/22 08:40 Dose: 2 tab Documented By: BECKA Sodium Chloride (0.9 % Sodium Chloride Flush 3 Ml Syringe) 3 ml IVFLUSH QSHIFT [facility] Last Admin: 10/05/22 06:56 Dose: Not Given Documented By: BECKA Non-Admin Reason: IV Running Labs 10/05/22 05:49 10/05/22 05:49 Labs: Laboratory Results - last 24 hr 10/02/22 10/05/22 10/05/22 06:06 05:49 05:49 MCV 91.8 MCH 30.8 MCHC 33.5 RDW 14.2 Plt Count 192 MPV 13.0 H Absolute Nucleated RBC 0.000 Nucleated RBC % (auto) 0.0 Anion Gap 13 Estim Creat Clear Calc 93.8 Estimated GFR > 60 Random Glucose 95 Calcium 9.0 Total Bilirubin 2.0 H AST 81 H ALT 290 H Alkaline Phosphatase 170 H Total Protein 6.6 Albumin 3.9 VZV IgG Antibody 1181.00 Assessment and Plan (1) Alcoholic pancreatitis: Status: Acute (2) Benign essential hypertension: Status: Acute (3) Asthma: Status: Acute Plan d#8 32yo M with hx EtOH vs gallstone pancreatitis presenting with epigastric pain and N/V, admitted for pancreatitis # acute alcoholic vs. gallstone pancreatitis (patient admits to drinking ?moonshine? 1 week ago, then ate greasy food, then pain began) - Tbili coming down and no stone visualized - [facility] records reviewed and discussed with GI: admitted 07/09-07/14/22 to [facility] US: GB wall thickening without gallstones, cannot exclude acute acalculous cholecystitis, CBD dilated to 1.1 cm MRCP: acute pancreatitis, mild dilation of intra and extrahepatic bile ducts with dilated proximal main pancreatic duct with no pancreatic mass or focal p eripancreatic collection, distended GB with thickened wall/contiguous inflammation also admitted 05/17-05/22/22 to [facility]; thought to have acute alcoholic pancreatitis then - d/c'ed pip/ronda - d/c IV fluids - d/c IV hydromorphone, use prn PO oxycodone - HIV negative, EBV/CMV/HSV pending - per GI monitor LFTs 1 more day, possible d/c tomorrow # HTN - not controlled on labetalol 400 mg bid, will add amlodipine 5 mg/d # UZAIR - CPAP at night # asthma not in acute exacerbation - continue ICS-LABA + montelukast + prn MARCIAL # GERD - PPI # VTE ppx: SCDs # dispo: eventually home likely tomorrow In my clinical judgment, the patient requires continued inpatient hospitalization for the following reasons: pancreatitis Time Spent With Patient Time: Total time managing care of this patient today 37.4____ minutes. Quality Stroke Does the patient have a stroke diagnosis?: No VTE Prior VTE?: No VTE Risk Level:: Medical - moderate - high VTE Device Contraindication: N/A - Device Ordered VTE Drug Contraindication: Treatment Not Indicated
[2022-10-05] MEDS: amLODIPine Besylate 5 MG TABLET PO (11:59)
--- NOTE | 2022-10-05 12:00 | PM.GIPN ---
Subjective Subjective Date of Service: 10/05/22 Interval History: Seen at bedside. Abd pain better. Has still not had a BM. No N/V. Critical Care Time (minutes): 0 Physical Exam Vital Signs: Vital Signs: Last Vital Signs Temp 96.8 F 10/05/22 07:58 Pulse 66 10/05/22 08:27 Resp 18 10/05/22 08:27 BP 160/110 H 10/05/22 07:58 Pulse Ox 98 10/05/22 07:58 O2 Del Method 10/05/22 03:50 BMI result Body Mass Index 28.5 General appearance: Non toxic appearing HEENT: no scleral icterus Abdomen: Soft, distended, mild tenderness to palpation, bowel sounds positive Objective Data Labs 10/05/22 05:49 10/05/22 05:49 Labs: Laboratory Results - last 24 hr 10/02/22 10/05/22 10/05/22 06:06 05:49 05:49 WBC 4.1 L RBC 4.16 L Hgb 12.8 L Hct 38.2 L MCV 91.8 MCH 30.8 MCHC 33.5 RDW 14.2 Plt Count 192 MPV 13.0 H Absolute Nucleated RBC 0.000 Nucleated RBC % (auto) 0.0 Sodium 140 Potassium 3.8 Chloride 103 Carbon Dioxide 28 Anion Gap 13 BUN 10 Creatinine 1.34 Estim Creat Clear Calc 93.8 Estimated GFR > 60 Random Glucose 95 Calcium 9.0 Total Bilirubin 2.0 H AST 81 H ALT 290 H Alkaline Phosphatase 170 H Total Protein 6.6 Albumin 3.9 VZV IgG Antibody 1181.00 Microbiology Microbiology Results: Microbiology 09/28/22 00:32 Blood - Venous Blood Culture - Final No growth after 5 days. 09/28/22 00:31 Blood - Venous Blood Culture - Final No growth after 5 days. Procedures Date of Service Date of Service: 10/05/22 Progress Note: A&P Assessment and plan (1) Alcoholic pancreatitis: Status: Acute (2) Elevated LFTs: Status: Acute (3) Peripancreatic fluid collection: Status: Acute (4) Common bile duct dilatation: Status: Acute (5) Dilated pancreatic duct: Status: Acute (6) Acute kidney injury: Status: Acute Plan LFTs continue to downtrend. Was likely 2/2 biliary obstruction due to panc edema vs passed stone. Recommendations: - Check LFTs tmrw. If cont to normalise pt may be discharged. - Low fat diet - Bowel regimen - add 1-2 doses of miralax today. Encourage ambulation. - Outpatient follow up will be set up. - He will also be booked for an outpatient MRI for eval of CBD and PD dilation in weeks (i.e after pancreatitis has resolved) Time Spent With Patient Time: Total time managing care of this patient today ____ minutes. Quality Stroke Does the patient have a stroke diagnosis?: No VTE Prior VTE?: No VTE Risk Level:: Medical - moderate - high VTE Device Contraindication: N/A - Device Ordered VTE Drug Contraindication: Treatment Not Indicated
[2022-10-05 16:00] VITALS: BP 164/94; PULSE 67; RESP 18; TEMP 36.5; O2SAT 98
[2022-10-05] MEDS: 0.9 % Sodium Chloride Flush 3 ML SYRINGE IVFLUSH ×2 (16:21→20:05)
[2022-10-05 19:53] VITALS: PULSE 78; RESP 18; TEMP 36.4; O2SAT 97
[2022-10-05 19:58] VITALS: BP 158/98
[2022-10-05] MEDS: Montelukast Sodium 10 MG TABLET PO (20:04)
[2022-10-06] MEDS: oxyCODONE HCl Immed Release 5 MG TABLET 10 MG PO ×2 (02:30→08:41)
[2022-10-06 03:29] VITALS: BP 142/90; PULSE 59; RESP 17; TEMP 36.1; O2SAT 99
[2022-10-06] MEDS: Omeprazole 20 MG CAPSULE.DR PO (06:08)
[2022-10-06 06:20] LABS: Alanine Aminotransferase 265 U/L (0-40); Albumin Level 4.1 g/dL (3.5-5.0); Alkaline Phosphatase 166 U/L (39-117); Anion Gap 13 (12-20); Aspartate Amino Transferase 84 U/L (5-37); Bilirubin Total 1.7 mg/dL (0.0-1.0); Blood Urea Nitrogen 12 mg/dL (9-16); Calcium 9.3 mg/dL (8.4-10.2); Carbon Dioxide 29 mmol/L (22-29); Chloride 102 mmol/L (96-108); Creatinine Clr Calc Pharmacy 110.3; Estimated Glomerular Filt Rate > 60; Glucose Random 139 mg/dL (60-115); Potassium 3.8 mmol/L (3.3-5.1); Sodium 140 mmol/L (135-145); Total Protein 6.9 g/dL (6.5-8.0)
[2022-10-06 08:00] VITALS: BP 159/80; PULSE 66; RESP 18; TEMP 36.1; O2SAT 98
[2022-10-06] MEDS: Fluticasone/Vilanterol 200/25 BLST.W.DEV 1 PUFF INHALE (08:16)
[2022-10-06 08:17] VITALS: PULSE 76; RESP 18; O2SAT 98
[2022-10-06] MEDS: Labetalol HCL 200 MG TABLET 400 MG PO (08:34)
[2022-10-06] MEDS: Sennosides/Docusate Sodium TABLET 2 TAB PO (08:34)
[2022-10-06] MEDS: Folic Acid 1 MG TABLET PO (08:34)
[2022-10-06] MEDS: amLODIPine Besylate 5 MG TABLET PO (08:35)
[2022-10-06] MEDS: 0.9 % Sodium Chloride Flush 3 ML SYRINGE IVFLUSH (08:35)
[2022-10-06] MEDS: Multivitamin TABLET 1 TAB PO (08:35)
--- NOTE | 2022-10-06 11:39 | MHC.CM.PN ---
pt dcd home no skilled seervceis ordered by
--- NOTE | 2022-10-06 11:45 | P.DS_ITS ---
DS: Providers Provider Date of Service: 10/06/22 Date of admission: 09/28/22 07:26 Date of discharge: 10/06/22 Primary care physician: Kunal Schreiber MD Consults: 09/29/22 10:52 Consult to Gastroenterology Stat Consulting Provider: Geetha Buchanan Reason for consultation: Pancreatitis Has provider been notified: Yes 10/01/22 21:24 Consult to General Surgery Routine Consulting Provider: [facility] General Surgeons Reason for consultation: high Grade Biliary stenosis DS: Diagnosis Discharge Diagnosis (1) Alcoholic pancreatitis: Status: Acute (2) Elevated LFTs: Status: Acute (3) Peripancreatic fluid collection: Status: Acute (4) Common bile duct dilatation: Status: Acute (5) Dilated pancreatic duct: Status: Acute (6) Acute kidney injury: Status: Acute DS: Summary Hospital Course Hospital Course: 32-year-old male presents with approximately 16 hours of acute abdominal pain that has continued to worsen accompanied by nausea and vomiting.? He states it feels similar to his past episode of pancreatitis when he was younger which was related to alcohol.? He states he has reduced his alcohol intake significantly and has not drank in the past few days.? He also notes fever and chills.? Workup in the emergency room consistent with a cholestatic pattern of LFTs.? CT consistent with mild acute pancreatitis and moderate dilatation of the common duct.? [facility] Patient admitted to general medical floor. Consult placed to GI. MRCP demonstrated ductal dilatation without acute obstruction. HIDA failed to demonstrate any evidence of biliary activity or small-bowel activity suggestive of a biliary obstruction. Seen by surgery; insufficient data to mandate cholecystectomy. Patient manage with conservative measures and his diet was advanced. His pain improved. Plan is for outpatient follow-up with MRCP by GI and further treatment based on clinical data. He will be discharged to follow- up with GI as outpatient Time Spent with Patient Time attestation: Total time managing care of this patient today ____ minutes. Discharge coordination time: Greater than 30 minutes Quality: Safe Use of Opioids Does Pt have an Active Cancer Diagnosis on the Problem List?: No Quality: Stroke Does the patient have a stroke diagnosis?: No Physical Exam Vital Signs: Vital Signs: Last Vital Signs Temp 96.9 F 10/06/22 08:00 Pulse 76 10/06/22 08:17 Resp 18 10/06/22 08:17 BP 159/80 H 10/06/22 08:00 Pulse Ox 98 10/06/22 08:00 O2 Del Method 10/06/22 08:00 BMI result Body Mass Index 28.5 Const: Other: awake uncomfortable appearing lying in the bed; no acute distress Resp: Other: diminished at bases with scant expiratory wheezes Cardio: Other: no S4; positive S1-S2; no S3 murmurs rubs or gallops GI: Other: Soft nontender nondistended normoactive bowel sounds Neuro: Other: cranial nerves 2-12 grossly intact as tested. Motor is 5/5 all extremities. Sensation is intact. Cognition appropriate Extrem: Other: no edema bilaterally DS: Data Data Completed and Pending Completed studies during hospitalization [Text1]: Procedures Detoxification Services for Substance Abuse Treatment (05/18/20) Labs on day of discharge: Laboratory Results - last 24 hr 10/06/22 05:19 Sodium 140 Potassium 3.8 Chloride 102 Carbon Dioxide 29 Anion Gap 13 BUN 12 Creatinine 1.14 Estim Creat Clear Calc 110.3 Estimated GFR > 60 Random Glucose 139 H Calcium 9.3 Total Bilirubin 1.7 H AST 84 H ALT 265 H Alkaline Phosphatase 166 H Total Protein 6.9 Albumin 4.1 Discharge Plan Discharge Anticipated Discharge Date/Time: 10/06/22 11:33 Patient Disposition: Home, Self-Care Discharge Diagnosis: Alcoholic pancreatitis Referrals: Kunal Schreiber MD [Primary Care Provider] - 1 Week Discharge Medications: New labetalol 200 mg Tablet 400 mg PO BID Qty: 120 0RF Protocol: Hold for SBP/HR < HOLD for SBP < : 90 HOLD for HR < : 60 amlodipine 5 mg Tablet 5 mg PO DAILY Qty: 30 0RF Protocol: Hold for SBP< HOLD for SBP < : 90 oxycodone 5 mg Tablet 10 mg PO Q6H PRN (Reason: pain moderate) Qty: 30 0RF Rx Instructions: Partial Fill upon patient request. Continued omeprazole 20 mg capsule,delayed release(DR/EC) 1 cap PO DAILY folic acid 1 mg tablet 1 tab PO DAILY montelukast 10 mg tablet 1 tab PO DAILY albuterol sulfate [Ventolin HFA] 90 mcg/actuation HFA aerosol inhaler 2 puff INHALATION Q4H PRN (Reason: wheezing) budesonide-formoterol [Symbicort] 160-4.5 mcg/actuation HFA aerosol inhaler 2 puff inhalation DAILY albuterol sulfate 2.5 mg /3 mL (0.083 %) Solution For Nebulization 2.5 mg INHALATION Q4H PRN (Reason: Wheezing) Discontinued labetalol 200 mg tablet 1 tab PO BID Discharge Orders: Discharge Order (Routine); Ordered 10/06/22 Ordered By: Chance Sotelo Diet: Low fat, low cholesterol Activity on Discharge: As tolerated Stand Alone Forms: Patient Portal Discharge page Care Plan Goals: Oxycodone as needed for pain. Health Concerns: Low-fat diet. No alcohol Plan of Treatment: Follow-up with GI. She will call arrange MRI in 6 weeks Assessment: See discharge summary Discharge Date/Time: 10/06/22 13:31
[2022-10-06 13:54] LABS: EBV DNA PCR Not Detected (Not Detected); EBV Source Whole Blood
[2022-10-07 22:54] LABS: HSV 1 IgM IFA Negative (Negative); HSV 2 IgM IFA Negative (Negative)
== END 2022-10-06 13:31 | disposition home or self-care (01) | DRG 282 ==
LOC: HO.ED 09-28 03:47 → HO.EDOVER 09-28 07:38 → HO.S3 09-28 08:03
PROVIDERS: Family Medicine; Internal Medicine; Surgery; Admitting Provider Hospitalist; Emergency Provider Student in an Organized Health Care Education/Training Program; PCP Internal Medicine; Visit Provider Hospitalist
DX: K85.20 Alcohol induced acute pancreatitis without necrosis or infection (principal); K83.8 Other specified diseases of biliary tract; E66.9 Obesity, unspecified; Z68.28 Body mass index [BMI] 28.0-28.9, adult; G47.33 Obstructive sleep apnea (adult) (pediatric); F10.10 Alcohol abuse, uncomplicated; I10 Essential (primary) hypertension; J45.40 Moderate persistent asthma, uncomplicated; K21.9 Gastro-esophageal reflux disease without esophagitis; Z20.822 Contact with and (suspected) exposure to COVID-19; Z87.891 Personal history of nicotine dependence; Z79.899 Other long term (current) drug therapy
CPT/HCPCS: 36415; 74177; 74181; 76705; 78226; 80053; 80143; 80179; 81001; 82248; 83605; 83615; 83690; 83735; 85025; 85027; 85610; 85730; 86140; 86695; 86696; 86704; 86706; 86708; 86709; 86787; 86803; 87040; 87340; 87389; 87635; 87798; 94660; 99285; A9537; J1170; J2405; J2543; J3010; Q9967

== ENCOUNTER 2023-01-13 03:24 | Emergency (ER) | payer OTHER, SELFPAY ==
--- NOTE | ~2023-01-13 | CT_ITS ---
EXAMINATION: CT ABDOMEN AND PELVIS WITH CONTRAST CLINICAL INFORMATION: Right-sided abdominal pain COMPARISON: 09/28/2022 and MRCP from 09/28/2022 TECHNIQUE: Multidetector volumetric images were obtained from the superior aspect of the liver through the pubic symphysis following administration 85 mL of Omnipaque 350 intravenous contrast. Sagittal and coronal reformatted images were obtained on the technologist's workstation. Oral contrast: No This CT examination was performed using dose optimization techniques as appropriate, variously including the following: *Automated exposure control *Adjustment of mA and/or kV according to patient size (this includes techniques or standardized protocols for targeted exams where dose is matched to indication/reason for exam; i.e. extremities or head) *Use of iterative reconstruction technique DLP: 809 mGy-cm FINDINGS: LUNG BASES: The visualized lung bases are unremarkable. LIVER, GALLBLADDER, AND BILIARY TREE: The liver is normal in size, shape, and attenuation. No focal hepatic lesion or biliary ductal dilatation is present. The gallbladder is unremarkable with no evidence of radiopaque gallstones, gallbladder wall thickening, or obvious pericholecystic inflammatory changes. CBD is mildly prominent without evidence of choledocholithiasis PANCREAS: Pancreas is unremarkable. There is minimal peripancreatic fat stranding between pancreatic head and second portion of duodenum, in improved since previous study. No cystic lesions in the pancreatic head are confirmed on CT scan, as seen on MRCP SPLEEN: Unremarkable. ADRENAL GLANDS: Unremarkable. KIDNEYS AND URETERS: The kidneys are normal in size, shape, and attenuation. No hydronephrosis, hydroureter, or calculi seen. No perinephric stranding. BLADDER: Unremarkable. GASTROINTESTINAL TRACT: The small and large bowel are unremarkable. The appendix is unremarkable. ABDOMINAL WALL: No significant hernia is appreciated. LYMPH NODES: Reactive appearing inguinal lymphadenopathy is seen bilaterally. There is no abdominal or retroperitoneal lymphadenopathy seen. VASCULAR: Unremarkable. PELVIC VISCERA: Unremarkable. OSSEOUS STRUCTURES: Unremarkable. CT/CT abdomen pelvis w IV con IMPRESSION: Minimal peripancreatic fat stranding between pancreatic head and second portion of duodenum, improved since previous study. No evidence of choledocholithiasis. Fleischner guidelines were followed.
[2023-01-13 03:26] VITALS: BP 230/138; PULSE 97; RESP 18; TEMP 36.7; O2SAT 99; BMI 34.7
[2023-01-13 04:48] VITALS: BP 191/118; PULSE 85; RESP 18; O2SAT 100
[2023-01-13 04:50] LABS: Basophils Percent Auto 0.5 % (0-2); Eosinophils Absolute Auto 0.2 X10*3/uL (0.0-0.4); Eosinophils Percent Auto 4.3 % (0-4); Hematocrit 40.6 % (42.0-52.0); Imm Gran Abs Auto 0.01 X10*3/uL (0.00-0.03); Imm Gran Pct Auto 0.2 % (0.0-0.4); Lymphocytes Absolute Auto 1.7 X10*3/uL (1.2-4.9); Lymphocytes Percent Auto 29.8 % (20-40); MANUAL DIFF FLAG NO; Mean Corpuscular HGB Conc 34.5 g/dl (31.0-36.0); Mean Corpuscular Hemoglobin 30.8 pg (27.0-33.0); Mean Corpuscular Volume 89.2 fL (80.0-98.0); Mean Platelet Volume 11.1 fL (9.4-12.4); Monocytes Absolute Auto 0.4 X10*3/uL (0.1-1.2); Monocytes Percent Auto 7.2 % (2-11); Neutrophils Absolute Auto 3.2 x10*3/uL (2.0-8.3); Platelet Count 179 X10*3/uL (160-400); Red Blood Count 4.55 X10*6/uL (4.60-5.80); Red Cell Distribution Width 13.1 % (11.0-16.0); White Blood Count 5.5 X10*3/uL (4.8-10.8)
[2023-01-13 05:08] LABS: Alanine Aminotransferase 46 U/L (0-40); Albumin Level 4.5 g/dL (3.5-5.0); Alkaline Phosphatase 55 U/L (39-117); Anion Gap 17 (12-20); Aspartate Amino Transferase 32 U/L (5-37); Bilirubin Total 0.6 mg/dL (0.0-1.0); Blood Urea Nitrogen 15 mg/dL (9-16); Calcium 9.5 mg/dL (8.4-10.2); Carbon Dioxide 24 mmol/L (22-29); Chloride 103 mmol/L (96-108); Creatinine Clr Calc Pharmacy 99.4; Estimated Glomerular Filt Rate 59; Glucose Random 111 mg/dL (60-115); Lipase 19 U/L (8-78); Potassium 4.1 mmol/L (3.3-5.1); Sodium 140 mmol/L (135-145); Total Protein 7.5 g/dL (6.5-8.0)
[2023-01-13] MEDS: ondansetron HCL 4 MG/2 ML VIAL IVPUSH ×2 (06:07→07:38)
[2023-01-13 06:09] VITALS: BP 197/137; PULSE 88; RESP 17; O2SAT 99
[2023-01-13] MEDS: 0.9 % Sodium Chloride 1,000 ML 999 ML IV (06:09)
[2023-01-13] MEDS: Morphine Sulfate 4 MG/ML CARTRIDGE IVPUSH ×2 (06:10→07:38)
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
--- NOTE | 2023-01-13 07:26 | ECG_ITS ---
Test Reason : abd pain Blood Pressure : / mmHG Vent. Rate : 078 BPM Atrial Rate : 078 BPM P-R Int : 192 ms QRS Dur : 096 ms QT Int : 394 ms P-R-T Axes : 047 052 100 degrees QTc Int : 449 ms Normal sinus rhythm Nonspecific T wave abnormality Abnormal ECG When compared with ECG of 20-MAY-2020 13:09, No significant change was found Referred By: Juan Cheung Electronically Signed By:JOAO LEARY
[2023-01-13] MEDS: iohexoL 350 MG/ML 100 ML INFUS..BTL 85 ML IV (07:35)
[2023-01-13] MEDS: Labetalol HCL 200 MG TABLET 400 MG PO (07:39)
--- NOTE | 2023-01-13 07:54 | PC.NURSE ---
abd ct done, results pending, pt reports 03/03 abd pain, iv pain med given. b/p med given per order. pt resting quietly, no apparent distress.
[2023-01-13 08:05] LABS: Prothrombin Time 11.2 SEC (10.0-13.1)
[2023-01-13 08:08] LABS: Partial Thromboplastin Time 32.9 SEC (26.0-36.4)
[2023-01-13 08:15] LABS: Troponin-I High Sensitivity 32.6 ng/L (<3.5-35.0)
[2023-01-13] MEDS: HYDROmorphone HCl 0.5 MG/0.5 ML SYRINGE IVPUSH ×2 (09:36→13:07)
[2023-01-13 11:26] LABS: Troponin-I High Sensitivity 24.7 ng/L (<3.5-35.0)
[2023-01-13 11:42] LABS: Appearance Urine Clear; Color Urine Yellow; Glucose Urine UA Negative (Negative); Leukocyte Esterase Urine Negative (Negative); Nitrite Urine Negative (Negative); PH 5.5 (5.0-9.0); Specific Gravity - Urine >= 1.030 (1.005-1.025); Urine Blood Negative (Negative); Urine Ketones Negative (Negative); Urine Protein Negative (Neg-Trace)
[2023-01-13 14:20] VITALS: BP 170/112; PULSE 79; RESP 18; TEMP 36.5; O2SAT 97
== END 2023-01-13 14:56 | disposition home or self-care (01) ==
PROVIDERS: Physician Assistant; Emergency Provider Student in an Organized Health Care Education/Training Program
DX: K86.1 Other chronic pancreatitis (principal); I10 Essential (primary) hypertension; Z87.891 Personal history of nicotine dependence; Z79.899 Other long term (current) drug therapy
CPT/HCPCS: 36415; 74177; 80053; 81003; 83690; 84484; 85025; 85610; 85730; 93005; 96361; 96374; 96375; 96376; 99285; J1170; J2270; J2405; Q9967

== ENCOUNTER 2025-01-13 17:57 | Inpatient (IN) | payer MEDICAID, SELFPAY ==
--- NOTE | 2025-01-13 | ECG_ITS ---
Test Reason : abnormal labs Blood Pressure : */* mmHG Vent. Rate : 97 BPM Atrial Rate : 97 BPM P-R Int : 168 ms QRS Dur : 96 ms QT Int : 352 ms P-R-T Axes : 44 46 198 degrees QTcB Int : 447 ms Normal sinus rhythm Possible Left atrial enlargement Minimal voltage criteria for LVH, may be normal variant ( Wilfred product ) T wave abnormality, consider inferolateral ischemia Abnormal ECG When compared with ECG of 13-Jan-2025 19:37, T wave inversion less evident in Inferior leads Referred By: Jolanta Ramirez Electronically Signed By: JOAO LEARY
--- NOTE | 2025-01-13 | ECG_ITS ---
Test Reason : CHEST PAIN, ABD PAIN, ?PANCREATITIS, HBP Blood Pressure : */* mmHG Vent. Rate : 104 BPM Atrial Rate : 104 BPM P-R Int : 170 ms QRS Dur : 92 ms QT Int : 334 ms P-R-T Axes : 48 58 269 degrees QTcB Int : 439 ms Sinus tachycardia Possible Left atrial enlargement T wave abnormality, consider inferior ischemia Abnormal ECG When compared with ECG of 13-Jan-2023 07:46, T wave inversion now evident in Inferior leads Referred By: Generic ED Physician Electronically Signed By: JOAO LEARY
--- NOTE | ~2025-01-13 | MR_ITS ---
EXAMINATION: MR ABDOMEN WITHOUT THEN WITH IV CONTRAST HISTORY: pancreatitis COMPARISON: Comparison is made with the prior examination dated 09/28/2022. Correlation is also made with a CT of the abdomen with contrast dated 01/11/2025. TECHNIQUE: Axial in and out of phase T1-weighted gradient echo, axial diffusion weighted, and axial and coronal HASTE T2 with fat saturation images were obtained through the abdomen. Subsequently, fat suppressed axial and coronal T1-weighted images were obtained after the intravenous administration of 10 mL Gadavist. FINDINGS: There is no significant signal loss within the liver on opposed phase imaging to suggest steatosis. There is no enhancing liver mass. There is mild intrahepatic biliary ductal dilatation. The hepatic and portal veins are patent. The gallbladder is unremarkable. There is dilatation of the common bile duct measuring up to 10 mm in diameter. There is an abrupt change to normal caliber in the pancreatic head. There is mild peripancreatic inflammatory stranding and fluid consistent with the given history of acute pancreatitis. The pancreatic duct is dilated measuring up to 6 mm in diameter, with dilatation of multiple sidebranches. There is an abrupt change to normal caliber duct in the pancreatic head. There is fullness of the uncinate process of the pancreas without definite differential enhancement. There is no evidence of pancreatic necrosis. The spleen, adrenals, and kidneys are unremarkable. There are prominent peripancreatic lymph nodes measuring up to 2.9 cm. There is no ascites in the upper abdomen. The visualized bones demonstrate normal marrow signal intensity. MR/MR abdomen wo/w con IMPRESSION: 1. Mild peripancreatic inflammatory stranding consistent with acute pancreatitis. 2. Intra and extrahepatic biliary ductal dilatation and dilatation of the pancreatic duct. There is an abrupt change to normal caliber common bile duct and pancreatic duct in the pancreatic head with fullness of the uncinate process. While this may represent a postinflammatory stricture in the pancreatic head, a mass in this region is not excluded. ERCP is recommended. Electronically signed by: Derrell Bocanegra MD 01/15/2025 01:13 PM EDT
--- NOTE | ~2025-01-13 | NM_ITS ---
EXAMINATION: NM LUNG PERFUSION HISTORY: rule out PE. TECHNIQUE: A pulmonary perfusion scan was performed following intravenous administration of 4.0 mCi technetium 99m-MAA. Imaging was obtained in multiple projections. COMPARISON: Correlation is made with a CT angiogram of the chest dated 01/13/2025. FINDINGS: There is patchy uptake of the radiopharmaceutical bilaterally. No segmental or large subsegmental perfusion defects are identified. Findings are consistent with a very low probability for pulmonary emboli. NM/NM pul perfusion IMPRESSION: Very low probability for pulmonary emboli. Electronically signed by: Derrell Bocanegra MD 01/14/2025 02:26 PM EDT
--- NOTE | ~2025-01-13 | CT_ITS ---
CLINICAL HISTORY: Upper ABD pain, elevated lipase, LFTs R pancreatit CT abdomen and pelvis with contrast Comparison: None provided Findings: The lung bases are clear. Adrenal glands, spleen, gallbladder, liver and kidneys are unremarkable. There is haziness in the fat around the pancreas in the retroperitoneum. Pancreatic gland enhances diffusely. Pancreatic duct measures up to 5 mm, dilated in the pancreatic head. Common duct measures up to 10 mm in diameter. No bowel obstruction, pneumoperitoneum, or pneumatosis. No ascites. Small fat containing umbilical hernia. Pelvic contents unremarkable. Normal appendix. The bones are intact. No lytic or blastic bone lesions. IMPRESSION: 1. Interstitial edematous pancreatitis. 2. Dilated common bile duct and pancreatic duct. No definite filling defects seen. No evidence of pancreatic head mass. Differential includes stricture, stone or mass. This document has been electronically signed by: Faizan Carreno MD on 01/13/2025 20:53:36
--- NOTE | ~2025-01-13 | CT_ITS ---
CLINICAL HISTORY: rule out PE, abnormal ECG PT FELL ASLEEP DURING EXAM, NO CONTRAST SEEN IN PULM ARTERIES, UNABLE TO REINJECT PER PRINTER SLOTTER FEEDER - PT ALREADY INJECTED FOR PRIOR ABD CT. PLEASE EVAL FOR AORTIC DISSECTION PER PRINTER SLOTTER FEEDER CT angiography chest with contrast. 3D Postprocessing. Comparison: None provided Findings: The heart size is normal. RV/LV ratio is normal. The left ventricular wall appears thickened. This may be due to artifact or hypertrophy. Unremarkable thoracic aorta and great vessels. No aneurysm. There is a inadequate opacification of the pulmonary arteries for evaluation for pulmonary embolus. No large saddle embolus. Small residual thymus present. There is scarring in the right upper lobe. No focal area of consolidation in the lungs. No pleural effusion or pneumothorax. The visualized upper abdomen is unremarkable. No acute fractures. IMPRESSION: 1. Inadequate opacification of the pulmonary arteries for evaluation for pulmonary embolus. No aortic dissection or aneurysm. 2. Question hypertrophy of the left ventricular wall versus artifact. This document has been electronically signed by: Faizan Carreno MD on 01/14/2025 00:15:43
[2025-01-13 18:24] VITALS: BP 204/137; PULSE 107; RESP 18; TEMP 36.8; O2SAT 94; BMI 35.8
[2025-01-13 18:39] LABS: Basophils Percent Auto 0.6 % (0-2); Eosinophils Absolute Auto 0.2 X10*3/uL (0.0-0.4); Eosinophils Percent Auto 4.4 % (0-4); Hematocrit 44.5 % (42.0-52.0); Hemoglobin 15.7 g/dl (14.0-18.0); Imm Gran Abs Auto 0.01 X10*3/uL (0.00-0.03); Imm Gran Pct Auto 0.2 % (0.0-0.4); Lymphocytes Absolute Auto 1.1 X10*3/uL (1.2-4.9); Lymphocytes Percent Auto 22.8 % (20-40); MANUAL DIFF FLAG NO; Mean Corpuscular HGB Conc 35.3 g/dl (31.0-36.0); Mean Corpuscular Hemoglobin 29.4 pg (27.0-33.0); Mean Corpuscular Volume 83.3 fL (80.0-98.0); Monocytes Absolute Auto 0.2 X10*3/uL (0.1-1.2); Monocytes Percent Auto 3.9 % (2-11); Neutrophils Absolute Auto 3.3 x10*3/uL (2.0-8.3); Neutrophils Percent Auto 68.1 % (45-73); Platelet Count 195 X10*3/uL (160-400); Red Blood Count 5.34 X10*6/uL (4.60-5.80); Red Cell Distribution Width 12.7 % (11.0-16.0); White Blood Count 4.8 X10*3/uL (4.8-10.8)
[2025-01-13 18:57] LABS: Alanine Aminotransferase 572 U/L (0-40); Albumin Level 4.9 g/dL (3.5-5.0); Alkaline Phosphatase 87 U/L (39-117); Anion Gap 15 (12-20); Aspartate Amino Transferase 341 U/L (5-37); Bilirubin Total 0.9 mg/dL (0.0-1.0); Blood Urea Nitrogen 13 mg/dL (9-16); Calcium 9.5 mg/dL (8.4-10.2); Carbon Dioxide 25 mmol/L (22-29); Chloride 102 mmol/L (96-108); Creatinine Clr Calc Pharmacy 105.9; Estimated Glomerular Filt Rate > 60; Ethanol < 10 mg/dL; Glucose Random 191 mg/dL (60-115); Lipase 119 U/L (8-78); Magnesium 1.8 mg/dL (1.6-2.6); Potassium 3.9 mmol/L (3.3-5.1); Sodium 138 mmol/L (135-145); Total Protein 7.8 g/dL (6.5-8.0)
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
[2025-01-13 19:33] VITALS: BP 187/142; PULSE 104; RESP 20; O2SAT 95
[2025-01-13 19:58] LABS: Prothrombin Time 11.1 SEC (10.9-12.4)
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
--- NOTE | 2025-01-13 20:00 | PC.NURSE ---
Dr. Santoyo at bedside speaking with patient for evaluation.
[2025-01-13 20:12] LABS: Troponin-I High Sensitivity 36.3 ng/L (<3.5-35.0)
[2025-01-13] MEDS: HYDROmorphone HCl 2 MG/ML VIAL IVPUSH ×2 (20:12→21:52)
[2025-01-13] MEDS: ondansetron HCL 4 MG/2 ML VIAL IVPUSH (20:12)
[2025-01-13] MEDS: 0.9 % Sodium Chloride 1,000 ML 999 ML IV (20:13)
[2025-01-13 20:17] VITALS: BP 153/99; PULSE 102; RESP 20; O2SAT 95
[2025-01-13 20:18] VITALS: BP 160/111; PULSE 103; RESP 18; O2SAT 95
[2025-01-13] MEDS: iohexoL 350 MG/ML 100 ML INFUS..BTL IV (20:29)
--- NOTE | 2025-01-13 20:29 | PC.NURSE ---
Patient returned from CT scan, results pending. Plan to collect repeat troponin level at 21:45, as ordered by Dr. Santoyo.
[2025-01-13 21:47] VITALS: BP 164/103; PULSE 92; RESP 13; TEMP 37.1; O2SAT 98
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
[2025-01-13 22:14] LABS: Troponin-I High Sensitivity 46.3 ng/L (<3.5-35.0)
[2025-01-13] MEDS: Magnesium Sulfate/H2O 2 GM/50 ML PIGGYBACK IV (22:25)
[2025-01-13] MEDS: Pantoprazole Sodium 40 MG/10 ML VIAL IVPUSH (22:44)
[2025-01-13] MEDS: PHENobarbitaL sodium 130 MG/ML IM ONCE 455 MG IM (22:44)
[2025-01-13] MEDS: 0.9 % Sodium Chloride 1,000 ML 100 ML IVCONT (22:52)
--- NOTE | 2025-01-13 23:14 | PC.NURSE ---
pt taken to imaging. Report given to Yue King RN
[2025-01-13] MEDS: iohexoL 350 MG/ML 100 ML INFUS..BTL 65 ML IV (23:34)
[2025-01-13 23:51] LABS: Prothrombin Time 11.5 SEC (10.9-12.4)
[2025-01-14] VITALS (19 sets, daily range): BP systolic 119–193; BP diastolic 64–156; PULSE 88–104; RESP 12–22; TEMP 36.5–37.4; O2SAT 93–99; BMI 40.7
[2025-01-14 00:02] LABS: Troponin-I High Sensitivity 41.4 ng/L (<3.5-35.0)
[2025-01-14] MEDS: Labetalol HCL 100 MG/20 ML VIAL 10 MG IVPUSH (00:59)
[2025-01-14 01:20] LABS: B Type Natriuretic Peptide 53 pg/mL (<100)
[2025-01-14 02:37] LABS: Troponin-I High Sensitivity 41.4 ng/L (<3.5-35.0)
[2025-01-14] MEDS: PHENobarbitaL sodium 130 MG/ML VIAL IM Q3Hx2 351 MG IM ×2 (02:46→05:23)
[2025-01-14] MEDS: HYDROmorphone HCl 0.5 MG/0.5 ML SYRINGE IVPUSH ×4 (02:52→11:39)
--- NOTE | 2025-01-14 02:55 | PC.NURSE ---
lovenox injection not available in pyxis. no results on global search either. will call overnight pharmacy
--- NOTE | 2025-01-14 03:14 | PC.NURSE ---
pharmacy retiming lovenox 120mg dose for morning - OK'd by Jolanta ALEGRIA hospitalist. will administer 40mg lovenox now per PIPELINE SUPERINTENDENT request
[2025-01-14] MEDS: Enoxaparin Sodium 40 MG/0.4 ML SYRINGE SUBCUT (03:20)
--- NOTE | 2025-01-14 03:27 | PC.NURSE ---
called respiratory to come place pt on CPAP since he sleeps with it at night for UZAIR however all machines currently being used. pt placed on 2L NC instead as O2 dropped to 85% room air when sleeping
[2025-01-14 04:33] LABS: MANUAL DIFF FLAG NO
[2025-01-14 04:37] LABS: Basophils Percent Auto 0.5 % (0-2); Eosinophils Absolute Auto 0.2 X10*3/uL (0.0-0.4); Hematocrit 42.8 % (42.0-52.0); Hemoglobin 14.1 g/dl (14.0-18.0); Imm Gran Abs Auto 0.01 X10*3/uL (0.00-0.03); Imm Gran Pct Auto 0.2 % (0.0-0.4); Lymphocytes Absolute Auto 1.5 X10*3/uL (1.2-4.9); Lymphocytes Percent Auto 26.9 % (20-40); Mean Corpuscular HGB Conc 32.9 g/dl (31.0-36.0); Mean Corpuscular Hemoglobin 29.2 pg (27.0-33.0); Mean Corpuscular Volume 88.6 fL (80.0-98.0); Mean Platelet Volume 11.9 fL (9.4-12.4); Monocytes Absolute Auto 0.5 X10*3/uL (0.1-1.2); Monocytes Percent Auto 8.6 % (2-11); Neutrophils Absolute Auto 3.4 x10*3/uL (2.0-8.3); Neutrophils Percent Auto 59.8 % (45-73); Platelet Count 199 X10*3/uL (160-400); Red Blood Count 4.83 X10*6/uL (4.60-5.80); Red Cell Distribution Width 13.1 % (11.0-16.0); White Blood Count 5.7 X10*3/uL (4.8-10.8)
[2025-01-14 04:43] LABS: D Dimer High Sensitivity 309 NG/ML
[2025-01-14 04:58] LABS: Magnesium 2.5 mg/dL (1.6-2.6)
[2025-01-14 05:03] LABS: Alanine Aminotransferase 442 U/L (0-40); Albumin Level 4.5 g/dL (3.5-5.0); Alkaline Phosphatase 75 U/L (39-117); Anion Gap 14 (12-20); Aspartate Amino Transferase 189 U/L (5-37); Bilirubin Total 0.6 mg/dL (0.0-1.0); Blood Urea Nitrogen 14 mg/dL (9-16); Calcium 8.8 mg/dL (8.4-10.2); Carbon Dioxide 24 mmol/L (22-29); Chloride 105 mmol/L (96-108); Creatinine Clr Calc Pharmacy 95.6; Estimated Average Glucose 143 mg/dL; Estimated Glomerular Filt Rate 56; Glucose Random 130 mg/dL (60-115); Hemoglobin A1c % 6.6 % (<6.0); Lipase 211 U/L (8-78); Potassium 4.4 mmol/L (3.3-5.1); Sodium 139 mmol/L (135-145); Total Hemoglobin (HGBA1C) 3662.6156 umol/L
[2025-01-14] MEDS: Pantoprazole Sodium 40 MG/10 ML VIAL IVPUSH ×2 (05:32→16:29)
[2025-01-14 05:38] LABS: Appearance Urine Clear; Color Urine Yellow; Glucose Urine UA Negative (Negative); Leukocyte Esterase Urine Negative (Negative); Nitrite Urine Negative (Negative); Specific Gravity - Urine >= 1.030 (1.005-1.025); Urine Blood Negative (Negative); Urine Ketones Negative (Negative); Urine Protein Trace mg/dL (Neg-Trace)
[2025-01-14 05:50] LABS: Amphetamine Screen Urine Not Detected (Not Detect); Barbiturates, Urine POSITIVE (Not Detect); Benzodiazepines Screen Urine Not Detected (Not Detect); Buprenorphine Scr Not Detected (Not Detect); Cannabinoid Screen Urine Not Detected (Not Detect); Cocaine Screen Urine Not Detected (Not Detect); Fentanyl, urine Not Detected (Not Detect); Methadone Screen, Urine Not Detected (Not Detect); Opiate Screen Urine POSITIVE (Not Detect); Oxycodone Screen Urine Not Detected (Not Detect); Phencyclidine Screen Urine Not Detected (Not Detect)
[2025-01-14] MEDS: 0.9 % Sodium Chloride 500 ML IV (07:11)
[2025-01-14] MEDS: HYDROmorphone HCl 1 MG/ML SYRINGE IVPUSH (07:56)
[2025-01-14] MEDS: Budesonide 0.5 MG/2 ML AMPUL.NEB INHALE ×2 (07:58→19:52)
[2025-01-14] MEDS: 0.9 % Sodium Chloride Flush 3 ML SYRINGE IVFLUSH (07:58)
--- NOTE | 2025-01-14 08:00 | ECG_ITS ---
Test Reason : elevated troponins repeat in AM needed Blood Pressure : */* mmHG Vent. Rate : 90 BPM Atrial Rate : 90 BPM P-R Int : 174 ms QRS Dur : 98 ms QT Int : 360 ms P-R-T Axes : 48 55 192 degrees QTcB Int : 440 ms Normal sinus rhythm Minimal voltage criteria for LVH, may be normal variant ( Sokolow-Yee ) T wave abnormality, consider inferolateral ischemia Abnormal ECG When compared with ECG of 13-Jan-2025 22:48, No significant change was found Referred By: Jolanta Ramirez Electronically Signed By: JOAO LEARY
--- NOTE | 2025-01-14 08:10 | PC.NURSE ---
Scheduled 8a EKG completed. Image of EKG sent to Attending GEOFF Rosado via [employer]. Acknowledgement received from GEOFF Rosado, no new orders received at this time.
[2025-01-14] MEDS: 0.9 % Sodium Chloride 1,000 ML 100 ML IVCONT (08:25)
[2025-01-14] MEDS: Thiamine HCL 100 MG in 0.9 % Sodium Chloride 100 ML 202 MG IV (09:07)
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
[2025-01-14 09:40] LABS: Cholesterol 190 mg/dL (<200); HDL Cholesterol 57 mg/dL (>40); LDL Cholesterol Calculated 75 mg/dL (<100); Triglycerides 293 mg/dL (<150)
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
[2025-01-14] MEDS: oxyCODONE HCl Immed Release 5 MG TABLET PO ×4 (10:22→23:59)
--- NOTE | 2025-01-14 10:25 | PC.NURSE ---
Addendum entered by Marychuy Angel RN 01/14/25 11:46: 1146: Follow up inquiry about needed folic acid and Flonase spray. Awaiting reply Original Note: Med requests placed to Pharmacy @ [id number] for folic acid and flonase. Awaiting delivery at this time. Will administer upon arrival.
[2025-01-14] MEDS: Lactated Ringers 1,000 ML 999 ML IV ×2 (11:12→11:57)
--- NOTE | 2025-01-14 11:28 | PHA.MEDREC ---
Pharmacy Consult ? Medication Reconciliation Pharmacy has completed the medication reconciliation. Spoke to patient who confirmed albuterol and budesonide/formoterol but didn't know other medications. Previous discharge listed amlodipine 5mg, labetalol 400mg bid, and montelukast 10mg but hasn't got any medications in months and only claim history is for montelukast. Patient doesnt know where he normally gets his medications
[2025-01-14] MEDS: Folic Acid 1 MG in 0.9 % Sodium Chloride 50 ML 100.4 MG IV (11:56)
--- NOTE | 2025-01-14 12:59 | HO.PM.IMPN ---
Subjective Subjective Date of Service: 01/14/25 Interval History: f/u pancreatitis 05/03 epigastric and back pain no nausea, vomiting, or diarrhea no additional complaints at this time Constitutional Constitutional: Denies body ache(s), Denies chills, Denies fatigue, Denies fever(s) and Denies headache(s) Eyes Eyes: Denies change in vision ENT Ears, Nose, Mouth, and Throat: Denies headache(s) Cardiovascular Cardiovascular: Denies chest pain, Denies leg edema and Denies dyspnea Respiratory Respiratory: Denies dyspnea and Denies wheezing Gastrointestinal Gastrointestinal: Reports as per HPI Genitourinary Genitourinary: Denies dysuria Musculoskeletal Musculoskeletal: Reports back pain Integumentary/Breasts Skin/Breast: Denies rash Neurologic Neurologic: Denies confusion and Denies headache(s) Psychiatric Psychiatric: Denies confusion Endocrine Endocrine: Denies fatigue Allergic/Immunologic Allergic/Immunologic: Denies wheezing Physical Exam Vital Signs: Vital Signs: Last Vital Signs Temp 98.7 F 01/13/25 21:47 Pulse 96 01/14/25 08:00 Resp 20 01/14/25 11:39 BP 174/72 H 01/14/25 05:28 Pulse Ox 97 01/14/25 05:28 O2 Del Method Nasal Cannula 01/14/25 05:28 O2 Flow Rate 2 01/14/25 05:28 BMI result Body Mass Index 35.8 General: AOx3, very uncomfortable, rolling in bed Resp: CTA bilaterally CVS: S1, S2, RRR GI: +BS, tender throughout, worse in the epigastric region, no distention Skin: Warm, dry Neuro: Cranial nerves II-XII grossly intact bilaterally. Motor grossly intact bilaterally Extremities: No LE edema Psych: Appropriate affect Const: General: No confusion Orientation/consciousness: No confusion Neuro: General: No confusion Objective Data Active Medications Albuterol/Ipratropium (Albuterol/Iprat 2.5/0.5mg 3 Ml Ampul.Neb) 3 ml INHALE Q4H PRN PRN Reason: Shortness of Breath/Wheezing Amlodipine Besylate (Amlodipine Besylate 10 Mg Tablet) 10 mg PO DAILY MATTHEW; Protocol Budesonide (Budesonide 0.5 Mg/2 Ml Ampul.Neb) 0.5 mg INHALE RBID MATTHEW Last Admin: 01/14/25 07:58 Dose: 0.5 mg Documented By: RAJ Calcium Carbonate (Calcium Carbonate 750 Mg Tab.Chew) 750 mg PO Q4H PRN PRN Reason: Heartburn Carvedilol (Carvedilol 12.5 Mg Tablet) 12.5 mg PO BID COUNT INCLUDES THE [facility]; Protocol Enoxaparin Sodium (Enoxaparin Sodium 40 Mg/0.4 Ml Syringe) 40 mg SUBCUT Q24H COUNT INCLUDES THE [facility] Fluticasone Propionate (Fluticasone Propionate Nasal 16 Gm [place]) 1 spray NOSTRIL-B BID COUNT INCLUDES THE [facility] Last Admin: 01/14/25 11:57 Dose: Not Given Documented By: DEYSI Non-Admin Reason: Patient Asleep Hydralazine HCl (Hydralazine Hcl 20 Mg/Ml Vial) 10 mg IVPUSH Q4H PRN; Protocol PRN Reason: SBP > 160 Hydromorphone HCl (Hydromorphone Hcl 0.5 Mg/0.5 Ml Syringe) 1 mg IVPUSH Q4H PRN; Protocol PRN Reason: Pain, Severe (Pain Scale 7-10) Thiamine HCl 100 mg/ Sodium (Chloride) 101 mls @ 202 mls/hr IV DAILY COUNT INCLUDES THE [facility] Last Infusion: 01/14/25 10:19 Dose: Infused Documented By: DEYSI Folic Acid 1 mg/ Sodium (Chloride) 50.2 mls @ 100.4 mls/hr IV DAILY COUNT INCLUDES THE [facility] Last Infusion: 01/14/25 12:43 Dose: Infused Documented By: DEYSI Lactated Ringer's (Lr) 1,000 mls @ 150 mls/hr IVCONT .Q6H40M COUNT INCLUDES THE [facility] Stop: 01/15/25 12:59 Magnesium Hydroxide (Milk Of Magnesia 30 Ml Oral.Susp) 30 ml PO DAILY PRN PRN Reason: Constipation Melatonin (Melatonin 3 Mg Tablet) 6 mg PO BEDTIME PRN PRN Reason: Insomnia Ondansetron HCl (Ondansetron Hcl 4 Mg/2 Ml Vial) 4 mg IVPUSH Q8H PRN PRN Reason: Nausea and Vomiting Oxycodone HCl (Oxycodone Hcl Immed Release 5 Mg Tablet) 5 mg PO Q4H PRN PRN Reason: Pain, Moderate(Pain Scale 4-6) Last Admin: 01/14/25 10:22 Dose: 5 mg Documented By: DEYSI Pantoprazole Sodium (Pantoprazole Sodium 40 Mg/10 Ml Vial) 40 mg IVPUSH BID@0219,3605 COUNT INCLUDES THE [facility] Last Admin: 01/14/25 05:32 Dose: 40 mg Documented By: JOLENE Pharmacy Consult (Consult Rx Etoh Phenob Im/Po) 1 each MISCELLANE ONCE PRN; Protocol PRN Reason: Consult order Phenobarbital (Phenobarbital 30 Mg Tablet) 60 mg PO BID COUNT INCLUDES THE [facility] Stop: 01/16/25 09:01 Phenobarbital (Phenobarbital 30 Mg Tablet) 30 mg PO BID COUNT INCLUDES THE [facility] Stop: 01/18/25 09:01 Phenobarbital (Phenobarbital 30 Mg Tablet) 30 mg PO DAILY COUNT INCLUDES THE [facility] Stop: 01/20/25 09:01 Sodium Chloride (0.9 % Sodium Chloride Flush 3 Ml Syringe) 3 ml IVFLUSH QSHIFT COUNT INCLUDES THE [facility] Last Admin: 01/14/25 07:58 Dose: 3 ml Documented By: DEYSI Labs 01/14/25 03:45 01/14/25 03:45 Labs: Laboratory Results - last 24 hr 01/13/25 01/13/25 01/13/25 18:34 19:46 21:48 MCV 83.3 MCH 29.4 MCHC 35.3 RDW 12.7 Plt Count 195 MPV 11.0 Immature Gran % (Auto) 0.2 Neut % (Auto) 68.1 Lymph % (Auto) 22.8 [place] % (Auto) 3.9 Eos % (Auto) 4.4 H Baso % (Auto) 0.6 Lymph # (Auto) 1.1 L [place] # (Auto) 0.2 Eos # (Auto) 0.2 Baso # (Auto) 0.0 Abs Immat Gran (auto) 0.01 Absolute Neuts (auto) 3.3 Absolute Nucleated RBC 0.000 Nucleated RBC % (auto) 0.0 PT 11.1 INR 1.0 APTT D-Dimer High Sensitivty Anion Gap 15 Estim Creat Clear Calc 105.9 Estimated GFR > 60 Random Glucose 191 H Estimat Average Glucose Hemoglobin A1c % Calcium 9.5 Magnesium 1.8 Total Bilirubin 0.9 AST 341 H ALT 572 H Alkaline Phosphatase 87 Total Creatine Kinase 697 H Troponin I High Sens 36.3 H 46.3 H B-Natriuretic Peptide Total Protein 7.8 Albumin 4.9 Triglycerides Cholesterol LDL Cholesterol, Calc HDL Cholesterol Lipase 119 H Urine Color Urine Appearance Urine pH Ur Specific [place] Urine Protein Urine Glucose (UA) Urine Ketones Urine Blood Urine Nitrite Ur Leukocyte Esterase Urine Opiates Screen Ur Buprenorphine Scrn Ur Oxycodone Screen Urine Methadone Screen Urine Fentanyl Screen Ur Barbiturates Screen Ur Phencyclidine Scrn Ur Amphetamines Screen U Benzodiazepines Scrn Urine Cocaine Screen U Marijuana (THC) Screen Ethyl Alcohol < 10 01/13/25 01/14/25 01/14/25 23:38 02:10 03:45 MCV 88.6 D MCH 29.2 MCHC 32.9 RDW 13.1 Plt Count 199 MPV 11.9 Immature Gran % (Auto) 0.2 Neut % (Auto) 59.8 Lymph % (Auto) 26.9 [place] % (Auto) 8.6 Eos % (Auto) 4.0 Baso % (Auto) 0.5 Lymph # (Auto) 1.5 [place] # (Auto) 0.5 Eos # (Auto) 0.2 Baso # (Auto) 0.0 Abs Immat Gran (auto) 0.01 Absolute Neuts (auto) 3.4 Absolute Nucleated RBC 0.000 Nucleated RBC % (auto) 0.0 PT 11.5 INR 1.0 APTT 35.0 D-Dimer High Sensitivty 309 Anion Gap 14 Estim Creat Clear Calc 95.6 Estimated GFR 56 Random Glucose 130 H Estimat Average Glucose 143 Hemoglobin A1c % 6.6 H Calcium 8.8 D Magnesium 2.5 Total Bilirubin 0.6 AST 189 H ALT 442 H Alkaline Phosphatase 75 Total Creatine Kinase Troponin I High Sens 41.4 H 41.4 H B-Natriuretic Peptide 53 Total Protein 7.0 Albumin 4.5 Triglycerides Cholesterol LDL Cholesterol, Calc HDL Cholesterol Lipase 211 H Urine Color Urine Appearance Urine pH Ur Specific [place] Urine Protein Urine Glucose (UA) Urine Ketones Urine Blood Urine Nitrite Ur Leukocyte Esterase Urine Opiates Screen Ur Buprenorphine Scrn Ur Oxycodone Screen Urine Methadone Screen Urine Fentanyl Screen Ur Barbiturates Screen Ur Phencyclidine Scrn Ur Amphetamines Screen U Benzodiazepines Scrn Urine Cocaine Screen U Marijuana (THC) Screen Ethyl Alcohol 01/14/25 01/14/25 05:30 09:03 MCV MCH MCHC RDW Plt Count MPV Immature Gran % (Auto) Neut % (Auto) Lymph % (Auto) [place] % (Auto) Eos % (Auto) Baso % (Auto) Lymph # (Auto) [place] # (Auto) Eos # (Auto) Baso # (Auto) Abs Immat Gran (auto) Absolute Neuts (auto) Absolute Nucleated RBC Nucleated RBC % (auto) PT INR APTT D-Dimer High Sensitivty Anion Gap Estim Creat Clear Calc Estimated GFR Random Glucose Estimat Average Glucose Hemoglobin A1c % Calcium Magnesium Total Bilirubin AST ALT Alkaline Phosphatase Total Creatine Kinase Troponin I High Sens B-Natriuretic Peptide Total Protein Albumin Triglycerides 293 H Cholesterol 190 LDL Cholesterol, Calc 75 HDL Cholesterol 57 Lipase Urine Color Yellow Urine Appearance Clear Urine pH 5.0 Ur Specific [place] >= 1.030 H Urine Protein Trace Urine Glucose (UA) Negative Urine Ketones Negative Urine Blood Negative Urine Nitrite Negative Ur Leukocyte Esterase Negative Urine Opiates Screen POSITIVE H Ur Buprenorphine Scrn Not Detected Ur Oxycodone Screen Not Detected Urine Methadone Screen Not Detected Urine Fentanyl Screen Not Detected Ur Barbiturates Screen POSITIVE H Ur Phencyclidine Scrn Not Detected Ur Amphetamines Screen Not Detected U Benzodiazepines Scrn Not Detected Urine Cocaine Screen Not Detected U Marijuana (THC) Screen Not Detected Ethyl Alcohol Assessment and Plan (1) Pancreatitis: Status: Acute (2) Alcohol use disorder: Status: Acute (3) Hypertension: Status: Acute (4) Obesity (BMI 30-39.9): Status: Acute (5) Dilated pancreatic duct: Status: Acute (6) Elevated troponin: Status: Acute Plan Patient is a 34-year-old black male with past medical history alcohol abuse, pancreatitis, GERD, hypertension, UZAIR, COPD/asthma, previous hamstring injury presents with abdominal pain secondary to alcohol use 3 days prior. Patient drank excessively beer and Tequila due to a celebration for friends promotion. Patient has had pancreatitis in the past. Incidentally EKG concerning for T-wave changes and troponin elevations. please note patient has not had his usual meds for at least 6 months with no primary care physician in place. Patient will need all medications prescribed at discharge. Acute pancreatitis with common bile duct and pancreatic duct dilation indicating possible stricture, stone or mass -Gastroenterology consulted, recommended: repeat MRI [address] was done, LR bolus X2L followed by 125ml/hr -NPO, can take PO meds -Dilaudid IV for pain -follow LFTs Alcohol abuse with potential for withdrawal -CIWA -Phenobarbital -Thiamine and folic acid IV -NPO secondary to pancreatitis -Addiction med consult -Telemetry -MG 1.8, 2GMS IV X1 , AM MG 2.5 no further repletion needed at this time Elevated troponin with abnormal EKG (T wave inversions inferior leads, ST changes V1, V2) -EKG evaluated by sunday school missionary who suggested left ventricular hypertrophy pattern. No clear ischemia. -Cardiology consulted and stated no STEMI. Stop therapeutic Lovenox. -Echo ordered -Trend troponins,. initially 36.6, 46.3, 41.4, 41.4 -Telemetry -Lipid panel with elevated triglycerides -CT to r/o PE but was inaccurate, d-dimer elevated, VQ scan ordered, PE unlikley Transaminitis -No Tylenol -LFTs improving -Alk-phos normal Hypertension -Echo pending -amlodipine 10 mg and and Coreg 12.5 mg b.i.d. per Cardiology recommendation UZAIR -CPAP COPD/asthma without exacerbation or hypoxia/ Allergic Rhinitis -Duo nebs p.r.n. -Budesonide -Flonase GERD -Protonix 40 IV BID Class 2 obesity - BMI 35.8 - weight loss encouraged DVT prophylaxis: Lovenox PPI prophylaxis: Protonix IV b.i.d. Med rec pending Full Code status Continued need for hospitalization due to acute pancreatitis with significant abd pain Quality Stroke Does the patient have a stroke diagnosis?: No Reason for No Anti-thrombotic by Day Two: N/A - Med Ordered VTE Prior VTE?: No VTE Risk Level:: Medical - moderate - high VTE Device Contraindication: N/A - Device Ordered VTE Drug Contraindication: N/A - Med Ordered
--- NOTE | 2025-01-14 13:00 | MHC.RECOVRN ---
T/W attempted to meet with pt. in ED 23 following referral received for ETOH overuse with recurring pancreatitis. Pt in bed sleeping soundly. Pt's nurse reports that he had a rough morning and it took a while for them to get him comfortable. T/W requested nurse roosevelter once pt. awake and alert enough for visit. Otherwise we will F/U in the AM once pt. on floor. T/W availalbe as needed
--- NOTE | 2025-01-14 13:28 | PC.NURSE ---
Pt off unit to nuclear medicine.
[2025-01-14] MEDS: carvediloL 12.5 MG TABLET PO ×2 (14:23→20:52)
[2025-01-14] MEDS: amLODIPine Besylate 10 MG TABLET PO (14:27)
--- NOTE | 2025-01-14 14:50 | PC.NURSE ---
Pt returns from Nuclear Medicine c/o severe pain. BP assessment shows significant HTN. Pt medicated with schedule Carvedilol and Amlodipine and Attending notified. Re-check of BP shows decrease in values, f/u BP sent to Attending and no new orders received at this time. Pt continues to report significant pain--will medicate with PRN Dilaudid when Pt eligible.
[2025-01-14] MEDS: HYDROmorphone HCl 0.5 MG/0.5 ML SYRINGE 1 MG IVPUSH ×3 (14:58→20:38)
[2025-01-14] MEDS: Lactated Ringers 1,000 ML 150 ML IVCONT ×2 (15:59→22:08)
[2025-01-14] MEDS: hydrOXYzine HCL 50 MG TABLET PO (20:53)
[2025-01-14] MEDS: Fluticasone Propionate Nasal 16 GM SPRAY 1 SPRAY NOSTRIL-B (20:56)
[2025-01-14] MEDS: PHENobarbitaL 30 MG TABLET 60 MG PO (20:57)
[2025-01-15] VITALS (10 sets, daily range): BP systolic 135–178; BP diastolic 76–99; PULSE 71–98; RESP 16–20; TEMP 36.1–37.1; O2SAT 92–98
[2025-01-15 00:04] LABS: Prothrombin Time 10.9 SEC (10.9-12.4)
[2025-01-15] MEDS: HYDROmorphone HCl 0.5 MG/0.5 ML SYRINGE 1 MG IVPUSH ×8 (00:38→23:19)
[2025-01-15] MEDS: oxyCODONE HCl Immed Release 5 MG TABLET PO ×7 (03:59→23:19)
[2025-01-15] MEDS: Lactated Ringers 1,000 ML 150 ML IVCONT (04:47)
[2025-01-15] MEDS: Pantoprazole Sodium 40 MG/10 ML VIAL IVPUSH ×2 (05:14→15:33)
--- NOTE | 2025-01-15 07:00 | CA_ITS ---
Transthoracic Echocardiogram Patient (Last, First, Middle): Que Cabrera A Gender: Male Date of : 1990 Age: 34 Procedure Date: 01/15/2025 Procedure Type: Transthoracic Echocardiogram Location[place] [facility] [place] Height: 182.88 cm Weight: 119.75 kg BSA: 2.40 m2 Heart Rate: bpm BP: 174 / 72 mmHg Head Refrigerating Engineer: Referring MD: Jolanta HERRINGPJaylen Symptoms: abnormal ecg, elevated troponin Study Quality: Adequate with contrast ECG Rhythm: Sinus Conclusions: - The left ventricular systolic function is normal. The visually estimated ejection fraction is between 55-60%. - There is severely increased left ventricular wall thickness. - No obvious valvular pathology seen on this study. Findings Procedure Information Contrast agent, definity, is being given per protocol without apparent complications. Left Ventricle Normal left ventricular cavity size. There is severely increased left ventricular wall thickness. The left ventricular systolic function is normal. The visually estimated ejection fraction is between 55-60%. Diastolic function is normal for age. Possible basal inferior hypokinesis. Right Ventricle Normal right ventricular cavity size and systolic function. Atria Both atria are normal in size. Aortic Valve There is a normal trileaflet aortic valve. There is no aortic valve stenosis. There is no aortic valve regurgitation. Mitral Valve The mitral valve appears normal. There is no mitral valve regurgitation. There is no mitral valve stenosis. Pulmonic Valve The pulmonic valve is likely normal. Tricuspid Valve There is trace tricuspid valve regurgitation. There is no evidence of pulmonary hypertension. Great Vessels The asc aorta is normal in size. Venous The inferior vena cava is mildly dilated and collapses greater than 50% with inspiration. Pericardium/Pleural There is no evidence of pericardial effusion. Prior Study Comparison No prior study available for comparison. Recommendations, Care & Conclusions No obvious valvular pathology seen on this study. Measurements 2D Linear Measurements IVSd: 1.90 0.6-0.9/0.6-1.0 cm LVIDd: 4.68 3.9-5.3/4.2-5.9 cm LVIDd Index: 1.95 2.4-3.2/2.2-3.1 cm/m2 LVIDs: 3.40 2.0-3.6 cm LVPWd: 1.93 0.7-1.1 cm Ao Root: 3.40 2.1-3.5 cm LA Diam: 4.70 2.7-3.8/3.0-4.0 cm LAIDs Index: 1.96 1.5-2.3 cm/m2 LV Mass: 534.34 67-162/88-224 g LV Mass Index: 222.64 43-95/49-115 g/m2 LVOT Diam: 2.40 3.0+(-)1.3 cm 2D Systolic Function EF 4C: 58.70 >55% EF 2C: 64.70 >55% EF BiP: 61.60 >55% Mitral Valve MV Pk E: 0.89 MV PK A: 0.48 MV Decel Time: 75.00 E/A: 1.90 E'Lateral: 8.59 E'Medial: 8.38 E/E' Med: 10.60 E/E' Lat: 10.40 PHT: 22.00 MVA PHT: 10.00 Decel Gosper: 11.94 Aortic Valve AoV Pk Jose Juan: 1.62 AoV Mn Jose Juan: 1.00 AoV VTI: 0.25 AoV Pk Grad: 10.00 Aov Mn Grad: 5.00 ROBBY Cont.VTI: 3.62 LVOT LVOT Pk Jose Juan: 1.27 LVOT Mn Jose Juan: 0.89 LVOT VTI: 0.20 LVOT Pk Grad: 6.00 LVOT Mn Grad: 4.00 LVOT Diam: 2.40 LVOT Area: 4.52 Diastolic Function MV Pk E: 0.89 MV Pk A: 0.48 E/A: 1.90 E'Medial: 8.38 E/E' Med: 10.60 E' Laterial: 8.59 E/E' Lat: 10.40 Right Ventricle TAPSE (mm): 23.80 Tricuspid Valve TR Pk Jose Juan: 1.79 TR Pk Grad: 13.00 Great Vessels Aorta Ao Root-2D: 3.40 2.0-3.7 cm Ao Asc: 3.00 2.1-3.4 cm Pulmonary Valve PV Pk Jose Juan: 1.13 Peak PV Grad: 5.00 Updated in Other Vendor System with Status of Final Devon Nicholson MD electronically signed on 01/15/2025 11:14:45 AM with status of Final
[2025-01-15] MEDS: carvediloL 12.5 MG TABLET PO (07:51)
[2025-01-15] MEDS: amLODIPine Besylate 10 MG TABLET PO (07:52)
[2025-01-15] MEDS: PHENobarbitaL 30 MG TABLET 60 MG PO ×2 (07:52→19:32)
--- NOTE | 2025-01-15 08:30 | P.PNIM_ITS ---
Subjective Subjective Date of Service: 01/15/25 Interval History: Follow-up acute pancreatitis Patient complaining of 7.5/10 pain currently, reports about 30 minutes use having 10/10 pain prior to receiving oxycodone and Dilaudid. Reports he had a terrible night and had significant pain, 10/10. He denies nausea, vomiting, fever or chills. Pain is in the epigastric region radiating to the back. He reports multiple admissions for pancreatitis in the past, mostly at [facility], also [facility] and here Patient reports he usually needs Dilaudid every 2 hours and every 4 hours is 2 infrequent for him He is also requesting muscle relaxer as he reports it has helped in the past pt reports he has been eating sherbert Review of Systems Review of Systems: Yes all other systems are reviewed and are negative Constitutional Constitutional: Denies chills, Denies fever(s) and Denies headache(s) Eyes Eyes: Denies change in vision ENT Ears, Nose, Mouth, and Throat: Denies headache(s), Denies nasal congestion and Denies sore throat Cardiovascular Cardiovascular: Denies chest pain, Denies rapid heart rate, Denies leg edema, Denies lightheadedness and Denies dyspnea Respiratory Respiratory: Denies cough, Denies dyspnea and Denies wheezing Gastrointestinal Gastrointestinal: Reports abdominal pain, Reports dyspepsia, Reports heartburn, Denies nausea and Denies vomiting Genitourinary Genitourinary: Denies dysuria Musculoskeletal Musculoskeletal: Reports back pain Integumentary/Breasts Skin/Breast: Denies rash Neurologic Neurologic: Denies headache(s) Allergic/Immunologic Allergic/Immunologic: Denies wheezing Physical Exam 2 Vital Signs: Vital Signs: Last Vital Signs Temp 98.2 F 01/15/25 07:29 Pulse 91 01/15/25 07:29 Resp 18 01/15/25 07:29 BP 178/94 H 01/15/25 07:29 Pulse Ox 94 01/15/25 07:29 O2 Del Method Room Air 01/15/25 07:29 O2 Flow Rate 2 01/14/25 17:06 BMI result Body Mass Index 40.7 General: AOx3, no acute distress Resp: CTA bilaterally CVS: S1, S2, RRR GI: +BS, tender epigastric region, skin senstive to touch, pain worse with lying back, mild distention Skin: Warm, dry Neuro: Cranial nerves II-XII grossly intact bilaterally. Motor grossly intact bilaterally Extremities: No LE edema Psych: Appropriate affect Objective Data Active Medications Albuterol/Ipratropium (Albuterol/Iprat 2.5/0.5mg 3 Ml Ampul.Neb) 3 ml INHALE Q4H PRN PRN Reason: Shortness of Breath/Wheezing Amlodipine Besylate (Amlodipine Besylate 10 Mg Tablet) 10 mg PO DAILY [facility]; Protocol Last Admin: 01/15/25 07:52 Dose: 10 mg Documented By: HOLGER Budesonide (Budesonide 0.5 Mg/2 Ml Ampul.Neb) 0.5 mg INHALE RBID [facility] Last Admin: 01/15/25 08:07 Dose: Not Given Documented By: SILVIA Non-Admin Reason: Patient Asleep Calcium Carbonate (Calcium Carbonate 750 Mg Tab.Chew) 750 mg PO Q4H PRN PRN Reason: Heartburn Carvedilol (Carvedilol 12.5 Mg Tablet) 12.5 mg PO BID [facility]; Protocol Last Admin: 01/15/25 07:51 Dose: 12.5 mg Documented By: HOLGER Enoxaparin Sodium (Enoxaparin Sodium 40 Mg/0.4 Ml Syringe) 40 mg SUBCUT Q24H [facility] Last Admin: 01/15/25 04:18 Dose: Not Given Documented By: ISABEL Non-Admin Reason: per MD mario azevedo Fluticasone Propionate (Fluticasone Propionate Nasal 16 Gm [place]) 1 spray NOSTRIL-B BID [facility] Last Admin: 01/14/25 20:56 Dose: 1 spray Documented By: ISABEL Hydralazine HCl (Hydralazine Hcl 20 Mg/Ml Vial) 10 mg IVPUSH Q4H PRN; Protocol PRN Reason: SBP > 160 Hydromorphone HCl (Hydromorphone Hcl 0.5 Mg/0.5 Ml Syringe) 1 mg IVPUSH Q3H PRN; Protocol PRN Reason: Pain, Severe (Pain Scale 7-10) Thiamine HCl 100 mg/ Sodium (Chloride) 101 mls @ 202 mls/hr IV DAILY [facility] Last Infusion: 01/14/25 10:19 Dose: Infused Documented By: DEYSI Folic Acid 1 mg/ Sodium (Chloride) 50.2 mls @ 100.4 mls/hr IV DAILY [facility] Last Infusion: 01/14/25 12:43 Dose: Infused Documented By: DEYSI Lactated Ringer's (Lr) 1,000 mls @ 150 mls/hr IVCONT .Q6H40M [facility] Stop: 01/15/25 12:59 Last Admin: 01/15/25 04:47 Dose: 150 mls/hr Documented By: ISABEL Magnesium Hydroxide (Milk Of Magnesia 30 Ml Oral.Susp) 30 ml PO DAILY PRN PRN Reason: Constipation Melatonin (Melatonin 3 Mg Tablet) 6 mg PO BEDTIME PRN PRN Reason: Insomnia Ondansetron HCl (Ondansetron Hcl 4 Mg/2 Ml Vial) 4 mg IVPUSH Q8H PRN PRN Reason: Nausea and Vomiting Oxycodone HCl (Oxycodone Hcl Immed Release 5 Mg Tablet) 5 mg PO Q4H PRN PRN Reason: Pain, Moderate(Pain Scale 4-6) Last Admin: 01/15/25 07:55 Dose: 5 mg Documented By: HOLGER Pantoprazole Sodium (Pantoprazole Sodium 40 Mg/10 Ml Vial) 40 mg IVPUSH BID@0630,1630 [facility] Last Admin: 01/15/25 05:14 Dose: 40 mg Documented By: ISABEL Pharmacy Consult (Consult Rx Etoh Phenob Im/Po) 1 each MISCELLANE ONCE PRN; Protocol PRN Reason: Consult order Phenobarbital (Phenobarbital 30 Mg Tablet) 60 mg PO BID [facility] Stop: 01/16/25 09:01 Last Admin: 01/15/25 07:52 Dose: 60 mg Documented By: HOLGER Phenobarbital (Phenobarbital 30 Mg Tablet) 30 mg PO BID [facility] Stop: 01/18/25 09:01 Phenobarbital (Phenobarbital 30 Mg Tablet) 30 mg PO DAILY [facility] Stop: 01/20/25 09:01 Sodium Chloride (0.9 % Sodium Chloride Flush 3 Ml Syringe) 3 ml IVFLUSH QSHIFT [facility] Last Admin: 01/14/25 22:43 Dose: Not Given Documented By: ISABEL Non-Admin Reason: IV Running Labs 01/14/25 03:45 01/14/25 03:45 Labs: Laboratory Results - last 24 hr 01/14/25 01/14/25 09:03 23:33 PT 10.9 INR 1.0 Triglycerides 293 H Cholesterol 190 LDL Cholesterol, Calc 75 HDL Cholesterol 57 Assessment and Plan (1) Pancreatitis: Status: Acute (2) Dilated pancreatic duct: Status: Acute (3) Hypertension: Status: Acute (4) Alcohol use disorder: Status: Acute (5) Obesity (BMI 30-39.9): Status: Acute Plan F/u acute pancreatitis, untreated HTN please note patient has not had his usual meds for at least 6 months with no primary care physician in place. Patient will need all medications prescribed at discharge. Acute pancreatitis with common bile duct and pancreatic duct dilation indicating possible stricture, stone or mass -Gastroenterology consulted, recommended: repeat MRI [address] was done, LR bolus X2L followed by 125ml/hr - MRI not yet done -NPO, can take PO meds -Dilaudid IV for pain, oxycodone - add flexeril for back pain/spasms -follow LFTs Alcohol abuse with potential for withdrawal -CIWA -Phenobarbital -Thiamine and folic acid IV -NPO secondary to pancreatitis -Addiction med consult -Telemetry -MG 1.8, 2GMS IV X1 , AM MG 2.5 no further repletion needed at this time Elevated troponin with abnormal EKG (T wave inversions inferior leads, ST changes V1, V2) -EKG evaluated by dolphin researcher who suggested left ventricular hypertrophy pattern. No clear ischemia. -Cardiology consulted and stated no STEMI. Stop therapeutic Lovenox. -Echo ordered -Trend troponins,. initially 36.6, 46.3, 41.4, 41.4 -Telemetry -Lipid panel with elevated triglycerides -CT to r/o PE but was inaccurate, d-dimer elevated, VQ scan ordered, PE unlikley Transaminitis -No Tylenol -LFTs improving -Alk-phos normal Hypertension -Echo pending -amlodipine 10 mg and and Coreg 12.5 mg b.i.d. per Cardiology recommendation UZAIR -CPAP COPD/asthma without exacerbation or hypoxia/ Allergic Rhinitis -Duo nebs p.r.n. -Budesonide -Flonase GERD -Protonix 40 IV BID Class 2 obesity - BMI 35.8 - weight loss encouraged DVT prophylaxis: Lovenox PPI prophylaxis: Protonix IV b.i.d. Full Code status Continued need for hospitalization due to acute pancreatitis with significant abd pain Quality Stroke Does the patient have a stroke diagnosis?: No Reason for No Anti-thrombotic by Day Two: N/A - Med Ordered VTE Prior VTE?: No VTE Risk Level:: Medical - moderate - high VTE Device Contraindication: N/A - Device Ordered VTE Drug Contraindication: N/A - Med Ordered
--- NOTE | 2025-01-15 08:36 | MHC.CM.PN ---
CM ATTEMPTED TO MEET W/PT HOWEVER PT RECEIVING ECHO, CM TO REVISIT.
--- NOTE | 2025-01-15 09:59 | PM.PNCARD ---
Subjective Subjective Date of Service: 01/15/25 Interval history: Blood pressure is still on the higher side but not as bad as before. He has abdominal pain related to the pancreatitis. That could also raise the blood pressure. Review of Systems Review of Systems Yes all other systems are reviewed and are negative Constitutional: Reports as per HPI and Reports no additional constitutional complaints Eyes: Reports as per HPI and Denies no additional eye complaints Denies system reviewed and no additional complaints, except as documented and Reports as per HPI Cardiovascular: Reports as per HPI, Reports no additional cardiovascular complaints, Denies acrocyanosis, Denies cool extremities, Denies chest pain, Denies leg edema, Denies lightheadedness, Denies palpitations and Denies dyspnea Respiratory: Reports as per HPI, Denies no additional respiratory complaints and Denies dyspnea Gastrointestinal: Reports as per HPI, Denies no additional gastrointestinal complaints and Reports abdominal pain Genitourinary: Reports no additional male genitourinary complaints and Reports as per HPI Musculoskeletal: Reports no additional musculoskeletal complaints and Reports as per HPI Skin/Breast: Reports system reviewed and no additional complaints, except as docu Reports system reviewed and no additional complaints, except as documented and Reports as per HPI Psychiatric: Reports no additional psychiatric complaints and Reports as per HPI Endocrine: Reports no additional endocrine complaints, Reports as per HPI and Denies palpitations Hematologic/Lymphatic: Reports no additional hematologic/lymphatic complaints and Reports as per HPI Allergic/Immunologic: Reports no additional allergic/immunologic complaints and Reports as per HPI Physical Exam Vital Signs: Last Vital Signs Temp 98.2 F 01/15/25 07:29 Pulse 91 01/15/25 07:29 Resp 18 01/15/25 07:29 BP 178/94 H 01/15/25 07:29 Pulse Ox 94 01/15/25 07:29 O2 Del Method Room Air 01/15/25 07:29 O2 Flow Rate 2 01/14/25 17:06 BMI result Body Mass Index 40.7 Const General: comfortable and no acute distress Orientation/consciousness: patient oriented x3 HEENT Other: Unremarkable Head: Yes normal to inspection Neck Neck: Yes normal visual inspection Chest Chest palpation & inspection: normal inspection of the chest Resp Auscultation: clear to auscultation bilaterally Cardio Palpation: normal PMI Heart sounds: S1 normal heart sound present, S2 normal heart sound present, no gallops, no murmurs and no rubs GI Palpation (GI): Soft to palpation Back/Spine/Pelvis Other: unremarkable Skin General skin exam: no rashes or lesions noted Neuro General: patient oriented x3 Extrem General: Yes normal to inspection Psych Mental Status: mental status grossly normal Objective Labs and Meds 01/14/25 03:45 01/14/25 03:45 Lab results: Laboratory Results - last 24 hr 01/14/25 23:33 PT 10.9 INR 1.0 Imaging Radiologist's impression: Impressions Pulmonary Perfusion Imaging 01/14/25 11:56 IMPRESSION: Very low probability for pulmonary emboli. Electronically signed by: Derrell Bocanegra MD 01/14/2025 02:26 PM EDT RP Progress Note: A&P Assessment and plan (1) Hypertensive urgency: Status: Acute Plan Poorly controlled hypertension at baseline mainly because of noncompliance. In the current setting, because of acute pancreatitis and pain, there is superimposed further elevation of blood pressure. Per home meds, on labetalol/amlodipine but not taking it. Currently, on carvedilol/amlodipine. There are some normal readings from some high readings. Because of concurrent pain, blood pressure can certainly go up. May have to go up on the carvedilol to 25 mg b.i.d.. Continue the amlodipine. If he still needs more meds, we will reassess if JULIO inhibitors or ARB will be appropriate -but may be difficult to follow kidney function if he is noncompliant as an outpatient. Await echocardiogram that is being completed today. Time Spent With Patient Time: Total time managing care of this patient today ____ minutes. Progress Note: Quality Stroke Does the patient have a stroke diagnosis?: No Reason for No Anti-thrombotic by Day Two: N/A - Med Ordered Procedures Date of Service Date of Service: 01/15/25
[2025-01-15] MEDS: Thiamine HCL 100 MG in 0.9 % Sodium Chloride 100 ML 202 MG IV (10:26)
[2025-01-15 10:29] LABS: Hematocrit 36.7 % (42.0-52.0); Hemoglobin 12.5 g/dl (14.0-18.0); Mean Corpuscular HGB Conc 34.1 g/dl (31.0-36.0); Mean Corpuscular Hemoglobin 29.6 pg (27.0-33.0); Mean Platelet Volume 11.4 fL (9.4-12.4); Platelet Count 150 X10*3/uL (160-400); Red Blood Count 4.22 X10*6/uL (4.60-5.80); Red Cell Distribution Width 13.1 % (11.0-16.0); White Blood Count 5.2 X10*3/uL (4.8-10.8)
[2025-01-15] MEDS: Folic Acid 1 MG in 0.9 % Sodium Chloride 50 ML 100.4 MG IV (10:32)
[2025-01-15 10:48] LABS: Alanine Aminotransferase 266 U/L (0-40); Albumin Level 4.4 g/dL (3.5-5.0); Alkaline Phosphatase 67 U/L (39-117); Anion Gap 11 (12-20); Aspartate Amino Transferase 125 U/L (5-37); Bilirubin Total 0.8 mg/dL (0.0-1.0); Blood Urea Nitrogen 9 mg/dL (9-16); Calcium 8.4 mg/dL (8.4-10.2); Carbon Dioxide 28 mmol/L (22-29); Chloride 100 mmol/L (96-108); Creatinine Clr Calc Pharmacy 115.1; Estimated Glomerular Filt Rate > 60; Glucose Random 152 mg/dL (60-115); Magnesium 1.8 mg/dL (1.6-2.6); Potassium 4.1 mmol/L (3.3-5.1); Sodium 135 mmol/L (135-145); Total Protein 6.8 g/dL (6.5-8.0)
--- NOTE | 2025-01-15 11:04 | P.PNGI_ITS ---
Subjective Subjective Date of Service: 01/15/25 Interval History: Seen and evaluated at bedside. Reports appetite is low but tolerating clears. Pain unchanged. No fevers or chills. Critical Care Time (minutes): 0 Physical Exam 2 Vital Signs: Vital Signs: Last Vital Signs Temp 98.2 F 01/15/25 07:29 Pulse 91 01/15/25 07:29 Resp 18 01/15/25 07:29 BP 178/94 H 01/15/25 07:29 Pulse Ox 94 01/15/25 07:29 O2 Del Method Room Air 01/15/25 07:29 O2 Flow Rate 2 01/14/25 17:06 BMI result Body Mass Index 40.7 Young male, obese appearing No apparent distress Nonicteric Abdomen soft, mildly distended, exquisitely tender to palpation Objective Data Labs 01/15/25 10:14 01/15/25 10:26 Labs: Laboratory Results - last 24 hr 01/14/25 01/15/25 01/15/25 23:33 10:14 10:26 WBC 5.2 RBC 4.22 L Hgb 12.5 L Hct 36.7 L MCV 87.0 MCH 29.6 MCHC 34.1 RDW 13.1 Plt Count 150 L MPV 11.4 Absolute Nucleated RBC 0.000 Nucleated RBC % (auto) 0.0 PT 10.9 INR 1.0 Sodium 135 Potassium 4.1 Chloride 100 Carbon Dioxide 28 Anion Gap 11 L BUN 9 Creatinine 1.28 Estim Creat Clear Calc 115.1 Estimated GFR > 60 Random Glucose 152 H Calcium 8.4 Magnesium 1.8 Total Bilirubin 0.8 AST 125 H ALT 266 H Alkaline Phosphatase 67 Total Protein 6.8 Albumin 4.4 Procedures Date of Service Date of Service: 01/15/25 Progress Note: A&P Assessment and plan (1) Alcohol use disorder: Status: Acute (2) Pancreatitis: Status: Acute (3) Common bile duct dilatation: Status: Acute (4) Dilated pancreatic duct: Status: Acute Plan Overall clinically appears improved from yest. MRI report pending. Renal function is also better today. Plan: - Await MRI report - OK to advance to low fat solid diet - [facility] protocol - Addiction med consultation UPDATE MRI reviewed- duct appearance similar to 2022 on independent review of images. In any case, would hold off ERCP during acute interstitial pancreatitis, can be considered as outpatient. Time Spent With Patient Time: Total time managing care of this patient today ____ minutes. Quality Stroke Does the patient have a stroke diagnosis?: No Reason for No Anti-thrombotic by Day Two: N/A - Med Ordered VTE Prior VTE?: No VTE Risk Level:: Medical - moderate - high VTE Device Contraindication: N/A - Device Ordered VTE Drug Contraindication: N/A - Med Ordered
[2025-01-15] MEDS: Cyclobenzaprine HCl 5 MG TABLET PO ×2 (11:43→19:32)
[2025-01-15] MEDS: gadobutroL 10 ML VIAL IVPUSH (12:40)
--- NOTE | 2025-01-15 13:14 | MHC.CM.PN ---
EMR REVIEWED, PT W/PANCREATTIS, CM MET W/PT WHO REPORTS HE LIVES W/EXGF, PT IS FULLY INDEP, WORKS/DRIVES. PT REPORTS HE USES A CPAP AND NO OTHER DME, NO HOME SERVICES, PT'S GOAL FRO DC IS HOME. PT DENIES HAVING A PCP AND PT PROVIDED W/[facility] PROVIDER LIST, PT EDUCATED ON AND DECLINES TO COMPLETE A HCP.
[2025-01-15] MEDS: 0.9 % Sodium Chloride Flush 3 ML SYRINGE IVFLUSH ×2 (15:33→19:35)
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
[2025-01-15] MEDS: carvediloL 25 MG TABLET PO (19:32)
[2025-01-15] MEDS: Fluticasone Propionate Nasal 16 GM SPRAY 1 SPRAY NOSTRIL-B (19:38)
[2025-01-15] MEDS: Budesonide 0.5 MG/2 ML AMPUL.NEB INHALE (20:10)
[2025-01-16] VITALS (11 sets, daily range): BP systolic 117–177; BP diastolic 66–100; PULSE 72–91; RESP 16–19; TEMP 36.1–36.6; O2SAT 94–97
[2025-01-16] MEDS: HYDROmorphone HCl 0.5 MG/0.5 ML SYRINGE 1 MG IVPUSH ×7 (03:04→23:45)
[2025-01-16] MEDS: Cyclobenzaprine HCl 5 MG TABLET PO ×3 (03:05→19:36)
[2025-01-16] MEDS: oxyCODONE HCl Immed Release 5 MG TABLET PO ×5 (03:07→21:33)
[2025-01-16] MEDS: Pantoprazole Sodium 40 MG/10 ML VIAL IVPUSH ×2 (05:54→16:16)
[2025-01-16 07:13] LABS: Hematocrit 39.4 % (42.0-52.0); Hemoglobin 13.1 g/dl (14.0-18.0); Mean Corpuscular HGB Conc 33.2 g/dl (31.0-36.0); Mean Corpuscular Hemoglobin 29.3 pg (27.0-33.0); Mean Corpuscular Volume 88.1 fL (80.0-98.0); Mean Platelet Volume 11.8 fL (9.4-12.4); Platelet Count 163 X10*3/uL (160-400); Red Blood Count 4.47 X10*6/uL (4.60-5.80); Red Cell Distribution Width 13.1 % (11.0-16.0); White Blood Count 4.1 X10*3/uL (4.8-10.8)
[2025-01-16 07:34] LABS: Alanine Aminotransferase 215 U/L (0-40); Albumin Level 4.4 g/dL (3.5-5.0); Alkaline Phosphatase 65 U/L (39-117); Anion Gap 14 (12-20); Aspartate Amino Transferase 87 U/L (5-37); Bilirubin Total 0.6 mg/dL (0.0-1.0); Blood Urea Nitrogen 9 mg/dL (9-16); Calcium 8.8 mg/dL (8.4-10.2); Carbon Dioxide 28 mmol/L (22-29); Chloride 100 mmol/L (96-108); Creatinine Clr Calc Pharmacy 109.9; Estimated Glomerular Filt Rate > 60; Glucose Random 114 mg/dL (60-115); Magnesium 1.9 mg/dL (1.6-2.6); Potassium 3.8 mmol/L (3.3-5.1); Sodium 138 mmol/L (135-145)
[2025-01-16] MEDS: Budesonide 0.5 MG/2 ML AMPUL.NEB INHALE ×2 (08:01→19:51)
[2025-01-16] MEDS: Folic Acid 1 MG in 0.9 % Sodium Chloride 50 ML 100.4 MG IV (09:18)
[2025-01-16] MEDS: PHENobarbitaL 30 MG TABLET 60 MG PO (09:19)
[2025-01-16] MEDS: carvediloL 25 MG TABLET PO ×2 (09:19→19:37)
[2025-01-16] MEDS: Thiamine HCL 100 MG in 0.9 % Sodium Chloride 100 ML 202 MG IV (09:20)
[2025-01-16] MEDS: 0.9 % Sodium Chloride Flush 3 ML SYRINGE IVFLUSH ×3 (09:21→20:36)
--- NOTE | 2025-01-16 09:46 | PC.NURSE ---
Abdominal pain #9 , pt educated on pain management , pain medication dose purpose according to the pain level on the scale 0-10 . Pt medicated with Hydromorphone 1 mg IV , pt is requesting Oxycodone 5 mg po at the same time . Teaching reinforced on pain score and meds ordered according to the pain level . Pt verbalized his frustrations . His provider today , Ximena Rosado is coming for the routine visit this am , RN spoke with the provider about pt's pain level his frustrations and pain management
[2025-01-16] MEDS: Fluticasone Propionate Nasal 16 GM SPRAY 1 SPRAY NOSTRIL-B ×2 (12:06→20:34)
[2025-01-16] MEDS: Milk of Magnesia 30 ML ORAL.SUSP PO (13:45)
--- NOTE | 2025-01-16 14:25 | HO.PM.IMPN ---
Subjective Subjective Date of Service: 01/16/25 <Ximena Rosado PA-C - Last Filed: 01/16/25 14:38> 01/18/25 <Broderick Liu MD - Last Filed: 01/18/25 08:03> Interval History: Follow-up acute pancreatitis Patient currently complaining of 6/10 pain, just received Dilaudid 5 minutes ago. Reports that he continues to have pain escalating to 10/10. No nausea, vomiting, fever or chills Complaining of chest tightness mostly in the upper flanks when abd pain increases. no SOB or centralized chest pain. this has been present since admission with negative w/u still constipated, no BM x5 days <LUDWIN Goldman Last Filed: 01/16/25 14:38> Review of Systems Review of Systems: Yes all other systems are reviewed and are negative <Ximena Rosado PA-C - Last Filed: 01/16/25 14:38> Physical Exam Vital Signs: Vital Signs: Last Vital Signs Temp 97.6 F 01/16/25 11:11 Pulse 80 01/16/25 11:11 Resp 19 01/16/25 11:11 BP 125/75 01/16/25 11:11 Pulse Ox 95 01/16/25 11:11 O2 Del Method CPAP 01/16/25 11:11 O2 Flow Rate 2 01/14/25 17:06 BMI result Body Mass Index 40.7 <Ximena Rosado PA-C - Last Filed: 01/16/25 14:38> General: AOx3, no acute distress Resp: CTA bilaterally, no wheezing CVS: S1, S2, RRR GI: +BS, generalized tenderness, no distention Skin: Warm, dry Neuro: Cranial nerves II-XII grossly intact bilaterally. Motor grossly intact bilaterally Extremities: No LE edema Psych: Appropriate affect <LUDWIN Goldman Last Filed: 01/16/25 14:38> Objective Data Active Medications Albuterol/Ipratropium (Albuterol/Iprat 2.5/0.5mg 3 Ml Ampul.Neb) 3 ml INHALE Q4H PRN PRN Reason: Shortness of Breath/Wheezing Bisacodyl (Bisacodyl 5 Mg Tablet.Dr) 10 mg PO ONCE ONE Stop: 01/16/25 14:24 Budesonide (Budesonide 0.5 Mg/2 Ml Ampul.Neb) 0.5 mg INHALE RBID [facility] Last Admin: 01/16/25 08:01 Dose: 0.5 mg Documented By: EARL Calcium Carbonate (Calcium Carbonate 750 Mg Tab.Chew) 750 mg PO Q4H PRN PRN Reason: Heartburn Carvedilol (Carvedilol 25 Mg Tablet) 25 mg PO BID [facility]; Protocol Last Admin: 01/16/25 09:19 Dose: 25 mg Documented By: JARED Cyclobenzaprine HCl (Cyclobenzaprine Hcl 5 Mg Tablet) 5 mg PO TID PRN PRN Reason: back pain Last Admin: 01/16/25 11:57 Dose: 5 mg Documented By: JARED Enoxaparin Sodium (Enoxaparin Sodium 40 Mg/0.4 Ml Syringe) 40 mg SUBCUT Q24H [facility] Last Admin: 01/16/25 02:40 Dose: Not Given Documented By: ANIKA Non-Admin Reason: See Note Fluticasone Propionate (Fluticasone Propionate Nasal 16 Gm [place]) 1 spray NOSTRIL-B BID [facility] Last Admin: 01/16/25 12:06 Dose: 1 spray Documented By: JARED Hydralazine HCl (Hydralazine Hcl 20 Mg/Ml Vial) 10 mg IVPUSH Q4H PRN; Protocol PRN Reason: SBP > 160 Hydromorphone HCl (Hydromorphone Hcl 0.5 Mg/0.5 Ml Syringe) 1 mg IVPUSH Q3H PRN; Protocol PRN Reason: Pain, Severe (Pain Scale 7-10) Last Admin: 01/16/25 13:41 Dose: 1 mg Documented By: JARED Thiamine HCl 100 mg/ Sodium (Chloride) 101 mls @ 202 mls/hr IV DAILY [facility] Last Infusion: 01/16/25 09:50 Dose: Infused Documented By: JARED Folic Acid 1 mg/ Sodium (Chloride) 50.2 mls @ 100.4 mls/hr IV DAILY [facility] Last Infusion: 01/16/25 09:50 Dose: Infused Documented By: JARED Magnesium Hydroxide (Milk Of Magnesia 30 Ml Oral.Susp) 30 ml PO DAILY PRN PRN Reason: Constipation Last Admin: 01/16/25 13:45 Dose: 30 ml Documented By: JARED Melatonin (Melatonin 3 Mg Tablet) 6 mg PO BEDTIME PRN PRN Reason: Insomnia Ondansetron HCl (Ondansetron Hcl 4 Mg/2 Ml Vial) 4 mg IVPUSH Q8H PRN PRN Reason: Nausea and Vomiting Oxycodone HCl (Oxycodone Hcl Immed Release 5 Mg Tablet) 5 mg PO Q4H PRN PRN Reason: Pain, Moderate(Pain Scale 4-6) Last Admin: 01/16/25 11:57 Dose: 5 mg Documented By: JARED Pantoprazole Sodium (Pantoprazole Sodium 40 Mg/10 Ml Vial) 40 mg IVPUSH BID@0630,1630 [facility] Last Admin: 01/16/25 05:54 Dose: 40 mg Documented By: LORRAINE Pharmacy Consult (Consult Rx Etoh Phenob Im/Po) 1 each MISCELLANE ONCE PRN; Protocol PRN Reason: Consult order Phenobarbital (Phenobarbital 30 Mg Tablet) 30 mg PO BID [facility] Stop: 01/18/25 09:01 Phenobarbital (Phenobarbital 30 Mg Tablet) 30 mg PO DAILY [facility] Stop: 01/20/25 09:01 Sodium Chloride (0.9 % Sodium Chloride Flush 3 Ml Syringe) 3 ml IVFLUSH QSHIFT [facility] Last Admin: 01/16/25 09:21 Dose: 3 ml Documented By: JARED <Ximena Rosado PA-C - Last Filed: 01/16/25 14:38> Labs CBC & Chem 7: 01/18/25 06:45 01/18/25 06:45 <Ximena Rosado PA-C - Last Filed: 01/16/25 14:38> Labs: Laboratory Results - last 24 hr 01/16/25 06:57 MCV 88.1 MCH 29.3 MCHC 33.2 RDW 13.1 Plt Count 163 MPV 11.8 Absolute Nucleated RBC 0.000 Nucleated RBC % (auto) 0.0 Anion Gap 14 Estim Creat Clear Calc 109.9 Estimated GFR > 60 Random Glucose 114 Calcium 8.8 Magnesium 1.9 Total Bilirubin 0.6 AST 87 H ALT 215 H Alkaline Phosphatase 65 Total Protein 7.0 Albumin 4.4 <Ximena Rosado PA-C - Last Filed: 01/16/25 14:38> Assessment and Plan (1) Pancreatitis: Status: Acute <Ximena Rosado PA-C - Last Filed: 01/16/25 14:38> (2) Dilated pancreatic duct: Status: Acute <Ximena Rosado PA-C - Last Filed: 01/16/25 14:38> (3) Alcohol use disorder: Status: Acute <Ximena Rosado PA-C - Last Filed: 01/16/25 14:38> (4) Chest tightness: Status: Acute <Ximena Rsoado PA-C - Last Filed: 01/16/25 14:38> (5) Obesity (BMI 30-39.9): Status: Acute <Ximena Rosado PA-C - Last Filed: 01/16/25 14:38> Assessment and Plan: F/u acute pancreatitis, untreated HTN please note patient has not had his usual meds for at least 6 months with no primary care physician in place. Patient will need all medications prescribed at discharge. Acute pancreatitis with common bile duct and pancreatic duct dilation indicating possible stricture, stone or mass -GI following: recommend possible ERCP outpt. can advance diet as tolerated -advance to full liquid diet today -Dilaudid IV for pain, oxycodone - flexeril for back pain/spasms -follow LFTs constipation - MOM, dulcolax Alcohol abuse with potential for withdrawal -CIWA -Phenobarbital -Thiamine and folic acid IV -Addiction med seen, no recs at this time -Telemetry -MG 1.8, 2GMS IV X1 , AM MG 2.5 no further repletion needed at this time Elevated troponin with abnormal EKG (T wave inversions inferior leads, ST changes V1, V2) - complains of chest tightness when abdominal pain increases, cardiac w/u negative, followed by cardiology -Telemetry normal -Lipid panel with elevated triglycerides -CT to r/o PE but was inaccurate, d-dimer elevated, VQ scan negative Transaminitis -No Tylenol -LFTs improving -Alk-phos normal Hypertension -Echo normal -Coreg 25 mg b.i.d. per Cardiology recommendation, BP better controlled today. pain likely increasing BP. UZAIR -CPAP COPD/asthma without exacerbation or hypoxia/ Allergic Rhinitis -Duo nebs p.r.n. -Budesonide -Flonase GERD -Protonix 40 IV BID Class 2 obesity - BMI 35.8 - weight loss encouraged DVT prophylaxis: Lovenox PPI prophylaxis: Protonix IV b.i.d. Full Code status Continued need for hospitalization due to acute pancreatitis with significant abd pain, unable to tolerate without IV pain management <Ximena Rosado PA-C - Last Filed: 01/16/25 14:38> Quality Stroke Does the patient have a stroke diagnosis?: No <Ximena Rosado PA-C - Last Filed: 01/16/25 14:38> Reason for No Anti-thrombotic by Day Two: N/A - Med Ordered <Ximena Rosado PA-C - Last Filed: 01/16/25 14:38> VTE Prior VTE?: No <Ximena Rosado PA-C - Last Filed: 01/16/25 14:38> VTE Risk Level:: Medical - moderate - high <Ximena Rosado PA-C - Last Filed: 01/16/25 14:38> VTE Device Contraindication: N/A - Device Ordered <Ximena Rosado PA-C - Last Filed: 01/16/25 14:38> VTE Drug Contraindication: N/A - Med Ordered <Ximena Rosado PA-C - Last Filed: 01/16/25 14:38>
--- NOTE | 2025-01-16 16:12 | MHC.CM.PN ---
EMR REVIEWED, PT W/PANCREATITIS, PT CONT'S TO REQ IV NARCOTIC PAIN MEDICATION, DIET ADVANCED TO FULL LIQUIDS, PLAN REMAINS FOR PT TO DC HOME NO SERVICES ONCE MEDICALLY CLEARED, CM WILL CONT TO FOLLOW DC NEEDS.
[2025-01-16] MEDS: bisacodyL 5 MG TABLET.DR 10 MG PO (16:16)
[2025-01-16] MEDS: Melatonin 3 MG TABLET 6 MG PO (19:36)
[2025-01-16] MEDS: PHENobarbitaL 30 MG TABLET PO (19:37)
--- NOTE | 2025-01-16 22:12 | HO.ADDICTPRO ---
Subjective Subjective Date of Service: 01/16/25 Reason For Visit: Pancreatitis Interim History: Patient seen in follow up for AUD Still c/o pain Review of Systems Constitutional: Reports as per HPI Mental Status Exam Mental Status Exam Patient Appearance: Appropriate Level of Consciousness: Awake, Appropriate and Alert Patient Behavior: Appropriate and Cooperative Diagnostics Vital Signs (24Hr): Vital Signs - 24 hr 01/15/25 23:28 01/15/25 23:37 01/16/25 03:35 Temperature 98.8 F 97.5 F Pulse Rate 71 91 Respiratory Rate 16 18 18 Blood Pressure 135/76 177/100 H Pulse Oximetry 98 Oxygen Delivery Method Room Air 01/16/25 03:42 01/16/25 04:05 01/16/25 07:18 Temperature 97.5 F 97.5 F 97.3 F Pulse Rate 91 91 74 Respiratory Rate 18 18 17 Blood Pressure 177/100 H 177/100 H 138/83 Pulse Oximetry 95 94 Oxygen Delivery Method Room Air 01/16/25 08:02 01/16/25 11:11 01/16/25 15:02 Temperature 97.6 F 97.4 F Pulse Rate 74 80 76 Respiratory Rate 17 19 17 Blood Pressure 125/75 117/66 Pulse Oximetry 95 97 Oxygen Delivery Method CPAP Room Air 01/16/25 19:25 01/16/25 19:51 Temperature 98 F Pulse Rate 76 78 Respiratory Rate 16 16 Blood Pressure 133/79 Pulse Oximetry 97 Oxygen Delivery Method CPAP BMI result Body Mass Index 40.7 Labs 01/16/25 06:57 01/16/25 06:57 Labs: Laboratory Results - last 48 hr 01/14/25 01/15/25 01/15/25 23:33 10:14 10:26 WBC 5.2 RBC 4.22 L Hgb 12.5 L Hct 36.7 L MCV 87.0 MCH 29.6 MCHC 34.1 RDW 13.1 Plt Count 150 L MPV 11.4 Absolute Nucleated RBC 0.000 Nucleated RBC % (auto) 0.0 PT 10.9 INR 1.0 Sodium 135 Potassium 4.1 Chloride 100 Carbon Dioxide 28 Anion Gap 11 L BUN 9 Creatinine 1.28 Estim Creat Clear Calc 115.1 Estimated GFR > 60 Random Glucose 152 H Calcium 8.4 Magnesium 1.8 Total Bilirubin 0.8 AST 125 H ALT 266 H Alkaline Phosphatase 67 Total Protein 6.8 Albumin 4.4 01/16/25 06:57 WBC 4.1 L RBC 4.47 L Hgb 13.1 L Hct 39.4 L MCV 88.1 MCH 29.3 MCHC 33.2 RDW 13.1 Plt Count 163 MPV 11.8 Absolute Nucleated RBC 0.000 Nucleated RBC % (auto) 0.0 PT INR Sodium 138 Potassium 3.8 Chloride 100 Carbon Dioxide 28 Anion Gap 14 BUN 9 Creatinine 1.34 Estim Creat Clear Calc 109.9 Estimated GFR > 60 Random Glucose 114 Calcium 8.8 Magnesium 1.9 Total Bilirubin 0.6 AST 87 H ALT 215 H Alkaline Phosphatase 65 Total Protein 7.0 Albumin 4.4 Imaging Radiology Impressions: ITS Impressions Pulmonary Perfusion Imaging 01/14/25 11:56 IMPRESSION: Very low probability for pulmonary emboli. Electronically signed by: Derrell Bocanerga MD 01/14/2025 02:26 PM EDT Abdomen MRI 01/15/25 12:25 IMPRESSION: 1. Mild peripancreatic inflammatory stranding consistent with acute pancreatitis. 2. Intra and extrahepatic biliary ductal dilatation and dilatation of the pancreatic duct. There is an abrupt change to normal caliber common bile duct and pancreatic duct in the pancreatic head with fullness of the uncinate process. While this may represent a postinflammatory stricture in the pancreatic head, a mass in this region is not excluded. ERCP is recommended. Electronically signed by: Derrell Bocanegra MD 01/15/2025 01:13 PM EDT RP Medications Medications Current Medications Albuterol/Ipratropium (Albuterol/Iprat 2.5/0.5mg 3 Ml Ampul.Neb) 3 ml INHALE Q4H PRN PRN Reason: Shortness of Breath/Wheezing Budesonide (Budesonide 0.5 Mg/2 Ml Ampul.Neb) 0.5 mg INHALE RBID [facility] Last Admin: 01/16/25 19:51 Dose: 0.5 mg Calcium Carbonate (Calcium Carbonate 750 Mg Tab.Chew) 750 mg PO Q4H PRN PRN Reason: Heartburn Carvedilol (Carvedilol 25 Mg Tablet) 25 mg PO BID [facility]; Protocol Last Admin: 01/16/25 19:37 Dose: 25 mg Cyclobenzaprine HCl (Cyclobenzaprine Hcl 5 Mg Tablet) 5 mg PO TID PRN PRN Reason: back pain Last Admin: 01/16/25 19:36 Dose: 5 mg Enoxaparin Sodium (Enoxaparin Sodium 40 Mg/0.4 Ml Syringe) 40 mg SUBCUT Q24H [facility] Last Admin: 01/16/25 02:40 Dose: Not Given Fluticasone Propionate (Fluticasone Propionate Nasal 16 Gm [place]) 1 spray NOSTRIL-B BID [facility] Last Admin: 01/16/25 20:34 Dose: 1 spray Folic Acid (Folic Acid 1 Mg Tablet) 1 mg PO DAILY [facility] Hydralazine HCl (Hydralazine Hcl 20 Mg/Ml Vial) 10 mg IVPUSH Q4H PRN; Protocol PRN Reason: SBP > 160 Hydromorphone HCl (Hydromorphone Hcl 0.5 Mg/0.5 Ml Syringe) 1 mg IVPUSH Q3H PRN; Protocol PRN Reason: Pain, Severe (Pain Scale 7-10) Last Admin: 01/16/25 20:34 Dose: 1 mg Magnesium Hydroxide (Milk Of Magnesia 30 Ml Oral.Susp) 30 ml PO DAILY PRN PRN Reason: Constipation Last Admin: 01/16/25 13:45 Dose: 30 ml Melatonin (Melatonin 3 Mg Tablet) 6 mg PO BEDTIME PRN PRN Reason: Insomnia Last Admin: 01/16/25 19:36 Dose: 6 mg Ondansetron HCl (Ondansetron Hcl 4 Mg/2 Ml Vial) 4 mg IVPUSH Q8H PRN PRN Reason: Nausea and Vomiting Oxycodone HCl (Oxycodone Hcl Immed Release 5 Mg Tablet) 5 mg PO Q4H PRN PRN Reason: Pain, Moderate(Pain Scale 4-6) Last Admin: 01/16/25 21:33 Dose: 5 mg Pantoprazole Sodium (Pantoprazole Sodium 40 Mg/10 Ml Vial) 40 mg IVPUSH BID@0630,1630 [facility] Last Admin: 01/16/25 16:16 Dose: 40 mg Pharmacy Consult (Consult Rx Etoh Phenob Im/Po) 1 each MISCELLANE ONCE PRN; Protocol PRN Reason: Consult order Phenobarbital (Phenobarbital 30 Mg Tablet) 30 mg PO BID [facility] Stop: 01/18/25 09:01 Last Admin: 01/16/25 19:37 Dose: 30 mg Phenobarbital (Phenobarbital 30 Mg Tablet) 30 mg PO DAILY [facility] Stop: 01/20/25 09:01 Sodium Chloride (0.9 % Sodium Chloride Flush 3 Ml Syringe) 3 ml IVFLUSH QSHIFT [facility] Last Admin: 01/16/25 20:36 Dose: 3 ml Thiamine HCl (Thiamine Hcl 100 Mg Tablet) 100 mg PO DAILY [facility] Allergies Allergies Allergy/AdvReac Type Severity Reaction Status Date / Time No Known Allergies Allergy Verified 01/13/25 18:27 Assessment & Plan Assessment & Plan (1) Alcohol use disorder: Status: Acute Code(s): F10.90 - Alcohol use, unspecified, uncomplicated Assessment and Plan: patient agreeable to appt at [facility]--scheduled and entered into discharge resources provided, including risk reduction and safer drinking strategies--patient aware that any alcohol is a potential risk for recurrence of pancreatitis no additional follow up indicated at this time Total time managing care of this patient today __20__ minutes.
[2025-01-17] VITALS (12 sets, daily range): BP systolic 119–160; BP diastolic 68–110; PULSE 69–79; RESP 16–20; TEMP 36–36.5; O2SAT 94–98
[2025-01-17] MEDS: oxyCODONE HCl Immed Release 5 MG TABLET PO ×4 (02:10→16:23)
[2025-01-17] MEDS: HYDROmorphone HCl 0.5 MG/0.5 ML SYRINGE 1 MG IVPUSH ×5 (03:11→21:32)
[2025-01-17 06:47] LABS: Hemoglobin 12.8 g/dl (14.0-18.0); Mean Corpuscular HGB Conc 33.7 g/dl (31.0-36.0); Mean Corpuscular Hemoglobin 29.6 pg (27.0-33.0); Mean Corpuscular Volume 87.8 fL (80.0-98.0); Mean Platelet Volume 12.5 fL (9.4-12.4); Platelet Count 166 X10*3/uL (160-400); Red Blood Count 4.33 X10*6/uL (4.60-5.80); Red Cell Distribution Width 13.2 % (11.0-16.0); White Blood Count 3.9 X10*3/uL (4.8-10.8)
[2025-01-17 06:59] LABS: Anion Gap 12 (12-20); Blood Urea Nitrogen 8 mg/dL (9-16); C Reactive Protein 0.95 mg/dL (< or = 0.50); Calcium 8.7 mg/dL (8.4-10.2); Carbon Dioxide 29 mmol/L (22-29); Chloride 99 mmol/L (96-108); Creatinine Clr Calc Pharmacy 123.8; Estimated Glomerular Filt Rate > 60; Glucose Random 105 mg/dL (60-115); Potassium 4.1 mmol/L (3.3-5.1); Sodium 136 mmol/L (135-145)
[2025-01-17] MEDS: Budesonide 0.5 MG/2 ML AMPUL.NEB INHALE ×2 (07:54→19:08)
[2025-01-17] MEDS: PHENobarbitaL 30 MG TABLET PO ×2 (09:01→19:48)
[2025-01-17] MEDS: carvediloL 25 MG TABLET PO ×2 (09:01→19:48)
[2025-01-17] MEDS: Fluticasone Propionate Nasal 16 GM SPRAY 1 SPRAY NOSTRIL-B ×2 (09:01→19:49)
[2025-01-17] MEDS: Thiamine HCL 100 MG TABLET PO (09:01)
[2025-01-17] MEDS: Folic Acid 1 MG TABLET PO (09:01)
[2025-01-17] MEDS: 0.9 % Sodium Chloride Flush 3 ML SYRINGE IVFLUSH ×2 (09:02→15:17)
--- NOTE | 2025-01-17 10:15 | PM.PNCARD ---
Subjective Subjective Date of Service: 01/17/25 Interval history: seen and examined patient. Denies any cardiac symptoms like chest pains or anything else along those lines. Review of Systems Review of Systems Yes all other systems are reviewed and are negative Constitutional: Reports as per HPI and Reports no additional constitutional complaints Eyes: Reports as per HPI and Denies no additional eye complaints Denies system reviewed and no additional complaints, except as documented and Reports as per HPI Cardiovascular: Reports as per HPI, Reports no additional cardiovascular complaints, Denies acrocyanosis, Denies cool extremities, Denies chest pain, Denies leg edema, Denies lightheadedness, Denies palpitations and Denies dyspnea Respiratory: Reports as per HPI, Denies no additional respiratory complaints and Denies dyspnea Gastrointestinal: Reports as per HPI and Denies no additional gastrointestinal complaints Genitourinary: Reports no additional male genitourinary complaints and Reports as per HPI Musculoskeletal: Reports no additional musculoskeletal complaints and Reports as per HPI Skin/Breast: Reports system reviewed and no additional complaints, except as docu Reports system reviewed and no additional complaints, except as documented and Reports as per HPI Psychiatric: Reports no additional psychiatric complaints and Reports as per HPI Endocrine: Reports no additional endocrine complaints, Reports as per HPI and Denies palpitations Hematologic/Lymphatic: Reports no additional hematologic/lymphatic complaints and Reports as per HPI Allergic/Immunologic: Reports no additional allergic/immunologic complaints and Reports as per HPI Physical Exam Vital Signs: Last Vital Signs Temp 97.7 F 01/17/25 07:09 Pulse 71 01/17/25 07:55 Resp 20 01/17/25 07:55 BP 119/68 01/17/25 07:09 Pulse Ox 98 01/17/25 07:09 O2 Del Method CPAP 01/17/25 07:09 O2 Flow Rate 2 01/14/25 17:06 BMI result Body Mass Index 40.7 Const General: comfortable and no acute distress Orientation/consciousness: patient oriented x3 HEENT Other: Unremarkable Head: Yes normal to inspection Neck Neck: Yes normal visual inspection Chest Chest palpation & inspection: normal inspection of the chest Resp Auscultation: clear to auscultation bilaterally Cardio Palpation: normal PMI Heart sounds: S1 normal heart sound present, S2 normal heart sound present, no gallops, no murmurs and no rubs GI Palpation (GI): Soft to palpation Back/Spine/Pelvis Other: unremarkable Skin General skin exam: no rashes or lesions noted Neuro General: patient oriented x3 Extrem General: Yes normal to inspection Psych Mental Status: mental status grossly normal Objective Labs and Meds 01/17/25 06:10 01/17/25 06:10 Lab results: Laboratory Results - last 24 hr 01/17/25 06:10 WBC 3.9 L RBC 4.33 L Hgb 12.8 L Hct 38.0 L MCV 87.8 MCH 29.6 MCHC 33.7 RDW 13.2 Plt Count 166 MPV 12.5 H Absolute Nucleated RBC 0.000 Nucleated RBC % (auto) 0.0 Sodium 136 Potassium 4.1 Chloride 99 Carbon Dioxide 29 Anion Gap 12 BUN 8 L Creatinine 1.19 Estim Creat Clear Calc 123.8 Estimated GFR > 60 Random Glucose 105 Calcium 8.7 C-Reactive Protein 0.95 H Progress Note: A&P Assessment and plan (1) Hypertensive urgency: Status: Acute Plan Poorly controlled hypertension at baseline mainly because of noncompliance. In the current setting, because of acute pancreatitis and pain, there is superimposed further elevation of blood pressure. Per home meds, on labetalol/amlodipine but not taking it. In the current regimen, started on carvedilol/amlodipine but do not see the amlodipine in the list. However, blood pressure readings are much better. In the echocardiogram, preserved LVEF at 55-60% with severe left ventricular hypertrophy. Findings suggest poorly controlled hypertension which is also longstanding. We discussed the importance of adequate blood pressure control and consequences of not taking meds including myocardial infarction, stroke, cardiac arrest extra. He understands that. Time Spent With Patient Time: Total time managing care of this patient today ____ minutes. Progress Note: Quality Stroke Does the patient have a stroke diagnosis?: No Reason for No Anti-thrombotic by Day Two: N/A - Med Ordered Procedures Date of Service Date of Service: 01/17/25
--- NOTE | 2025-01-17 11:43 | P.PNIM_ITS ---
Subjective Subjective Date of Service: 01/17/25 Interval History: f/u acute pancreatitis pt still complaining of 7/10 pain. mostly in the RUQ now. still now BM but having a lot of gas. no chest pain, SOB, nausea or vomiting Review of Systems Review of Systems: Yes all other systems are reviewed and are negative Physical Exam 2 Vital Signs: Vital Signs: Last Vital Signs Temp 97.1 F 01/17/25 10:52 Pulse 77 01/17/25 10:52 Resp 20 01/17/25 10:52 BP 125/72 01/17/25 10:52 Pulse Ox 97 01/17/25 10:52 O2 Del Method Room Air 01/17/25 10:52 O2 Flow Rate 2 01/14/25 17:06 BMI result Body Mass Index 40.7 General: AOx3, appears uncomfortable Resp: CTA bilaterally CVS: S1, S2, RRR GI: +BS, generalized, no distention Skin: Warm, dry Neuro: Cranial nerves II-XII grossly intact bilaterally. Motor grossly intact bilaterally Extremities: No LE edema Psych: Appropriate affect Objective Data Active Medications Albuterol/Ipratropium (Albuterol/Iprat 2.5/0.5mg 3 Ml Ampul.Neb) 3 ml INHALE Q4H PRN PRN Reason: Shortness of Breath/Wheezing Budesonide (Budesonide 0.5 Mg/2 Ml Ampul.Neb) 0.5 mg INHALE ID [facility] Last Admin: 01/17/25 07:54 Dose: 0.5 mg Documented By: CODIE Calcium Carbonate (Calcium Carbonate 750 Mg Tab.Chew) 750 mg PO Q4H PRN PRN Reason: Heartburn Carvedilol (Carvedilol 25 Mg Tablet) 25 mg PO BID [facility]; Protocol Last Admin: 01/17/25 09:01 Dose: 25 mg Documented By: JARED Cyclobenzaprine HCl (Cyclobenzaprine Hcl 5 Mg Tablet) 5 mg PO TID PRN PRN Reason: back pain Last Admin: 01/16/25 19:36 Dose: 5 mg Documented By: ANIKA Enoxaparin Sodium (Enoxaparin Sodium 40 Mg/0.4 Ml Syringe) 40 mg SUBCUT Q24H [facility] [place] Last Admin: 01/17/25 00:54 Dose: Not Given Documented By: ANIKA Non-Admin Reason: See Note Fluticasone Propionate (Fluticasone Propionate Nasal 16 Gm [place]) 1 spray NOSTRIL-B BID [facility] [place] Last Admin: 01/17/25 09:01 Dose: 1 spray Documented By: JARED Folic Acid (Folic Acid 1 Mg Tablet) 1 mg PO DAILY [facility] [place] Last Admin: 01/17/25 09:01 Dose: 1 mg Documented By: JARED Hydralazine HCl (Hydralazine Hcl 20 Mg/Ml Vial) 10 mg IVPUSH Q4H PRN; Protocol PRN Reason: SBP > 160 Hydromorphone HCl (Hydromorphone Hcl 0.5 Mg/0.5 Ml Syringe) 1 mg IVPUSH Q6H PRN; Protocol PRN Reason: Pain, Severe (Pain Scale 7-10) Magnesium Hydroxide (Milk Of Magnesia 30 Ml Oral.Susp) 30 ml PO DAILY PRN PRN Reason: Constipation Last Admin: 01/16/25 13:45 Dose: 30 ml Documented By: JARED Melatonin (Melatonin 3 Mg Tablet) 6 mg PO BEDTIME PRN PRN Reason: Insomnia Last Admin: 01/16/25 19:36 Dose: 6 mg Documented By: ANIKA Ondansetron HCl (Ondansetron Hcl 4 Mg/2 Ml Vial) 4 mg IVPUSH Q8H PRN PRN Reason: Nausea and Vomiting Oxycodone HCl (Oxycodone Hcl Immed Release 5 Mg Tablet) 5 mg PO Q4H PRN PRN Reason: Pain, Moderate(Pain Scale 4-6) Last Admin: 01/17/25 11:35 Dose: 5 mg Documented By: JARED Pharmacy Consult (Consult Rx Etoh Phenob Im/Po) 1 each MISCELLANE ONCE PRN; Protocol PRN Reason: Consult order Phenobarbital (Phenobarbital 30 Mg Tablet) 30 mg PO BID [facility] [place] Stop: 01/18/25 09:01 Last Admin: 01/17/25 09:01 Dose: 30 mg Documented By: JARED Phenobarbital (Phenobarbital 30 Mg Tablet) 30 mg PO DAILY [facility] [place] Stop: 01/20/25 09:01 Polyethylene Glycol (Polyethylene Glycol 3350 17 Gm Powd.Pack) 17 gm PO DAILY PRN PRN Reason: Constipation Simethicone (Simethicone 80 Mg Tab.Chew) 80 mg PO QIDWMHS [facility] Sodium Chloride (0.9 % Sodium Chloride Flush 3 Ml Syringe) 3 ml IVFLUSH QSHIFT [facility] [place] Last Admin: 01/17/25 09:02 Dose: 3 ml Documented By: JARED Thiamine HCl (Thiamine Hcl 100 Mg Tablet) 100 mg PO DAILY [facility] [place] Last Admin: 01/17/25 09:01 Dose: 100 mg Documented By: JARED Labs 01/17/25 06:10 01/17/25 06:10 Labs: Laboratory Results - last 24 hr 01/17/25 06:10 MCV 87.8 MCH 29.6 MCHC 33.7 RDW 13.2 Plt Count 166 MPV 12.5 H Absolute Nucleated RBC 0.000 Nucleated RBC % (auto) 0.0 Anion Gap 12 Estim Creat Clear Calc 123.8 Estimated GFR > 60 Random Glucose 105 Calcium 8.7 C-Reactive Protein 0.95 H Assessment and Plan (1) Pancreatitis: Status: Acute (2) Common bile duct dilatation: Status: Acute (3) Constipation: Status: Acute Plan F/u acute pancreatitis, untreated HTN please note patient has not had his usual meds for at least 6 months with no primary care physician in place. Patient will need all medications prescribed at discharge. Acute pancreatitis with common bile duct dilation -GI following: recommend possible ERCP outpt. can advance diet as tolerated -advance to regular diet today -space dilauded and oxycodone more - flexeril for back pain/spasms -follow LFTs constipation - MOM, dulcolax without improvement - add miralax and simethicone Alcohol abuse with potential for withdrawal -CIWA score remain low -Phenobarbital -Thiamine and folic acid PO -Addiction med seen, no recs at this time -Telemetry -Mag repleted Elevated troponin with abnormal EKG (T wave inversions inferior leads, ST changes V1, V2) - no longer having chest tightness cardiac w/u negative, followed by cardiology -Telemetry normal -Lipid panel with elevated triglycerides -CT to r/o PE but was inaccurate, d-dimer elevated, VQ scan negative Transaminitis -No Tylenol -LFTs improving -Alk-phos normal Hypertension -Echo normal -Coreg 25 mg b.i.d. per Cardiology recommendation, BP better controlled UZAIR -CPAP COPD/asthma without exacerbation or hypoxia/ Allergic Rhinitis -Duo nebs p.r.n. -Budesonide -Flonase GERD - Omeprazole Class 2 obesity - BMI 35.8 - weight loss encouraged DVT prophylaxis: Lovenox Full Code status Continued need for hospitalization due to acute pancreatitis with significant abd pain, unable to tolerate without IV pain management Quality Stroke Does the patient have a stroke diagnosis?: No Reason for No Anti-thrombotic by Day Two: N/A - Med Ordered VTE Prior VTE?: No VTE Risk Level:: Medical - moderate - high VTE Device Contraindication: N/A - Device Ordered VTE Drug Contraindication: N/A - Med Ordered
[2025-01-17] MEDS: Simethicone 80 MG TAB.CHEW PO ×3 (12:38→19:48)
--- NOTE | 2025-01-17 12:47 | PC.NURSE ---
pt verbalizes that his pain level is #8 and that oxycodone is not helping with the pain , Pt is not accepting the pain management plan that was discussed with the provider today : to decrease hydromorphone dose or frequency today . Provider GEOFF Goldman was notified .
--- NOTE | 2025-01-17 13:25 | PC.NURSE ---
Pt swearing, angry, requesting to speak with the doctor , stated his pain is not controlled , Ximena Rosado was notified
[2025-01-17] MEDS: Ketorolac Tromethamine 30 MG/ML VIAL IVPUSH ×2 (13:39→19:47)
[2025-01-17] MEDS: Cyclobenzaprine HCl 5 MG TABLET PO ×2 (15:20→21:33)
[2025-01-18] MEDS: oxyCODONE HCl Immed Release 5 MG TABLET PO (00:42)
[2025-01-18] MEDS: 0.9 % Sodium Chloride Flush 3 ML SYRINGE IVFLUSH ×2 (00:43→09:37)
[2025-01-18] MEDS: Ketorolac Tromethamine 30 MG/ML VIAL IVPUSH (00:43)
[2025-01-18] MEDS: polyethylene glycoL 3350 17 GM POWD.PACK PO (00:53)
[2025-01-18 03:33] VITALS: BP 162/103; PULSE 68; RESP 20; TEMP 36.6; O2SAT 96
[2025-01-18] MEDS: HYDROmorphone HCl 0.5 MG/0.5 ML SYRINGE 1 MG IVPUSH (03:41)
[2025-01-18] MEDS: Enoxaparin Sodium 40 MG/0.4 ML SYRINGE SUBCUT (03:42)
[2025-01-18] MEDS: Omeprazole 20 MG CAPSULE.DR PO (05:13)
[2025-01-18] MEDS: Cyclobenzaprine HCl 5 MG TABLET PO (05:14)
[2025-01-18 06:55] LABS: Hematocrit 38.8 % (42.0-52.0); Hemoglobin 13.2 g/dl (14.0-18.0); Mean Corpuscular Hemoglobin 29.7 pg (27.0-33.0); Mean Corpuscular Volume 87.4 fL (80.0-98.0); Mean Platelet Volume 11.9 fL (9.4-12.4); Platelet Count 149 X10*3/uL (160-400); Red Blood Count 4.44 X10*6/uL (4.60-5.80); White Blood Count 3.5 X10*3/uL (4.8-10.8)
[2025-01-18 07:12] LABS: Anion Gap 13 (12-20); Blood Urea Nitrogen 12 mg/dL (9-16); C Reactive Protein 0.66 mg/dL (< or = 0.50); Calcium 8.8 mg/dL (8.4-10.2); Carbon Dioxide 27 mmol/L (22-29); Chloride 99 mmol/L (96-108); Creatinine Clr Calc Pharmacy 117.8; Estimated Glomerular Filt Rate > 60; Glucose Random 142 mg/dL (60-115); Lipase 10 U/L (8-78); Potassium 3.9 mmol/L (3.3-5.1); Sodium 135 mmol/L (135-145)
[2025-01-18 07:18] VITALS: BP 147/88; PULSE 72; RESP 15; TEMP 36.3; O2SAT 97
[2025-01-18] MEDS: Budesonide 0.5 MG/2 ML AMPUL.NEB INHALE (07:52)
[2025-01-18 07:54] VITALS: PULSE 60; RESP 15; RESP 16; O2SAT 99
[2025-01-18] MEDS: carvediloL 25 MG TABLET PO (09:36)
[2025-01-18] MEDS: HYDROmorphone HCl 1 MG/ML SYRINGE IVPUSH (09:36)
[2025-01-18] MEDS: Thiamine HCL 100 MG TABLET PO (09:37)
[2025-01-18] MEDS: PHENobarbitaL 30 MG TABLET PO (09:37)
[2025-01-18] MEDS: Simethicone 80 MG TAB.CHEW PO (09:37)
[2025-01-18] MEDS: Folic Acid 1 MG TABLET PO (09:37)
[2025-01-18] MEDS: Fluticasone Propionate Nasal 16 GM SPRAY 1 SPRAY NOSTRIL-B (09:37)
[2025-01-18 11:09] VITALS: BP 118/68; PULSE 70; RESP 18; TEMP 36.9; O2SAT 96
--- NOTE | 2025-01-18 14:18 | MHC.CM.PN ---
PER HOSPITALIST ANTIC PT WILL BE MEDICALLY CLEARED FOR DC HOME SEFL CARE, PT HAS REQUESTED ADD [facility] TO CHART, COPY OF MEDICAID NUMBER PROVIDED TO PT AND PT WILL ARRANGE TRANSPORT.
--- NOTE | 2025-01-18 15:26 | P.DS_ITS ---
DS: Providers Provider Date of Service: 01/18/25 Date of admission: 01/13/25 21:49 Date of discharge: 01/18/25 Primary care physician: Unknown Physician Consults: 01/13/25 21:57 Consult to Cardiology Routine Consulting Provider: [facility] [place] [facility] Reason for consultation: elevated trop abnormal ECG 01/13/25 22:06 Consult to Gastroenterology Routine Consulting Provider: Amado Rubi Reason for consultation: Pancreatitis with abnormal CT indicating bile and pancreatic duct dilation 01/13/25 22:10 Addiction Medicine Provider Routine Consulting Provider: Addiction Covering Reason for consultation: Alcohol abuse with recurring pancreatitis 01/13/25 22:54 Consult to Case Management Routine Comment: Does not have primary care provider, needs help on DS: Diagnosis Discharge Diagnosis (1) Pancreatitis: Status: Acute (2) Dilated pancreatic duct: Status: Acute (3) Alcohol use disorder: Status: Acute (4) Chest tightness: Status: Acute (5) Obesity (BMI 30-39.9): Status: Acute DS: Summary Hospital Course Hospital Course: From admission HPI: Date of Service: 01/13/25 Attending physician on admission: Gordo Thomson Chief Complaint: ABDOMINAL PAIN Patient is a 34-year-old black male with past medical history alcohol abuse, pancreatitis, GERD, hypertension, UZAIR, COPD/asthma, previous hamstring injury not requiring surgery presents to the emergency room with complaints of right upper quadrant mid epigastrci abdominal pain with radiation to the mid back area. Patient last used alcohol 3 days prior for a celebration of his friends promotion at his work and does have a history of reported pancreatitis related to alcohol use. Pt drank heavily in his 20's and slowed down in his 30's. Patient states that he only drinks intermittently now but when he does, he dr inks excessively and drinks both beer and Tequila. Pt denies use of illicit drugs, marijuana or tobacco. Patient states he does not currently have a primary care physician has not had any of his usual meds for the last 6 months. Patient's issues on admission include pancreatitis, abnormal CT of the abdomen and pelvis, abnormal EKG, rising troponins (?NSTEMI) and uncontrolled hypertension. CTA Chest ordered to rule out PE after review with attending, Dr. Barakat. CT of the abdomen and pelvis notes interstitial edematous pancreatitis. Also evidence of dilated common bile duct and pancreatic duct. Common bile duct measures up to 10 mm in diameter along with the pancreatic duct which measures up to 5 mm. There is no evidence of pancreatic head mass. Differentials include stricture versus stone or mass. Gastroenterology will be consulted. Total bilirubin 0.9. AST 341, ALT 572. Alk-phos 87. Lipase 119. Patient currently NPO on IV fluids. Low-dose Dilaudid IV for pain. CIWA protocol started with phenobarbital on board. Incidentally patient's EKG concerning for T-wave inversions in the inferior leads with concerning ST changes in V1 and V2. Request for repeat EKG made at this time noting troponin is now elevated at 36.3. Repeat troponin 46.3. BNP also pending. Pt is complaining of Back pain likely related to pancreatitis but after review with Attending Dr. Tamayo, CTA PE ordered for rule out. No D Dimer required per attending. Repeat ECG also ordered. Anticoagulation will be decided upon results of CT PE. Patient being admitted for acute pancreatitis secondary to alcohol use. In addition with abnormal EKG and elevated troponins, and back pain, CT PE ordered. Echo will also be done. Toxicology screen pending as well. Patient does use CPAP for his UZAIR at home. Patient did not bring his equipment in and will order for HS. This report writer was able to have a [id number] talk with patient regarding uncontrolled hypertension, alcohol use intermittently to excessive levels resulting in pancreatitis. Patient very insightful and very receptive to education provided. Case management will be consulted as patient wants a list of primary care providers he can start calling. Patient will need prescriptions for all his meds including inhalers upon discharge as he has had no meds for the at least the last 6 months. Hospital course: Pt was admitted to the hospital for treatment acute pancreatitis likely secondary to alcohol use. Pt was initially scanned with CT that showed interstitial edematous pancreatitis with dilated common bile duct and pancreatic duct without definitive filling deficits. Pt was treated with multiple rounds of IV analgesics and muscle relaxers and had repeat imaging with an abdominal MRI due to continued significant abdominal pain. MRI showed mild peripancreatic inflammatory stranding consistent with acute pancreatitis and again redemonstrated intra and extrahepatic biliary ductal dilation and dilation of the pancreatic duct, with recommendation for ERCP as pancreatic head mass could not be excluded. Had eventual gradual improvement in pain. LFTs noted to be downtrending. The patient's diet was advanced and has been tolerating a solid diet since yesterday evening without difficulties. No nausea or vomiting. Pain currently well-controlled. Was seen and evaluated by GI who found MRI with similar duct appearance to 2022. Recommendation was to hold off on ERCP in the acute setting, and instead consider scheduling as an outpatient procedure. Pt should call GI to set up followup appointment in one week. Additional problems as listed below: Elevated troponin with abnormal EKG (T wave inversions inferior leads, ST changes V1, V2) Chest tightness resolved, cardiac workup negative including normal echo, followed by cardiology Telemetry normal Lipid panel with elevated triglycerides D-Dimmer elevated; CTA to r/o PE but was inaccurate, VQ scan negative Alcohol use disorder with potential for withdrawal CIWA score mostly low, currently negative Was treated with phenobarbital protocol, thiamine, and folic acid Addiction med seen, no recs at this time Hypomagnesemia Mag repleted HTN Seen by Cardiology, labetalol and amlodipine stopped due to poor BP controlled Recommended switching to carvedilol 25 mg b.i.d. Patient's BP much better controlled COPD/asthma No exacerbation Continue Symbicort, rescue inhaler, and montelukast Obesity class 3 BMI 40.7 Weight loss encouraged Time Attestation Discharge Coordination Time (in mins): 35 Quality: Safe Use of Opioids Does Pt have an Active Cancer Diagnosis on the Problem List?: No Quality: Stroke Does the patient have a stroke diagnosis?: No Physical Exam Vital Signs: Vital Signs: Last Vital Signs Temp 98.5 F 01/18/25 11:09 Pulse 70 01/18/25 11:09 Resp 18 01/18/25 11:09 BP 118/68 01/18/25 11:09 Pulse Ox 96 01/18/25 11:09 O2 Del Method BiPAP 01/18/25 11:09 O2 Flow Rate 2 01/14/25 17:06 BMI result Body Mass Index 40.7 General: AOx3, no acute distress Resp: CTA bilaterally CVS: S1, S2, RRR GI: +BS, no distention, no significant tenderness Skin: Warm, dry Neuro: Cranial nerves II-XII grossly intact bilaterally. Motor grossly intact bilaterally Extremities: No edema Psych: Appropriate affect DS: Data Data Completed and Pending Completed studies during hospitalization [Text1]: Procedures Detoxification Services for Substance Abuse Treatment (05/18/20) Labs on day of discharge: Laboratory Results - last 24 hr 01/18/25 06:45 WBC 3.5 L RBC 4.44 L Hgb 13.2 L Hct 38.8 L MCV 87.4 MCH 29.7 MCHC 34.0 RDW 13.0 Plt Count 149 L MPV 11.9 Absolute Nucleated RBC 0.000 Nucleated RBC % (auto) 0.0 Sodium 135 Potassium 3.9 Chloride 99 Carbon Dioxide 27 Anion Gap 13 BUN 12 Creatinine 1.25 Estim Creat Clear Calc 117.8 Estimated GFR > 60 Random Glucose 142 H Calcium 8.8 C-Reactive Protein 0.66 H Lipase 10 Discharge Plan Discharge Anticipated Discharge Date/Time: 01/18/25 14:59 Patient Disposition: Home, Self-Care Discharge Diagnosis: Acute pancreatitis Referrals: [facility] [place] [facility] [Provider Group] - 02/01/25 10:30 am Referral Note: This an appt to discuss and start medication for alcohol use. Please use main hospital entrance --office is on the 4th floor. Call the office with any questions [phone] Physician,Unknown J [Primary Care Provider, Medical] - 1 Week Discharge Medications: New carvedilol [Coreg] 25 mg tablet 25 mg PO BID Qty: 180 0RF Rx Instructions: must administer with a meal/food. Take one tablet twice a day for hypertension cyclobenzaprine 5 mg tablet 5 mg PO TID PRN (Reason: Back Spasms) Qty: 21 0RF Rx Instructions: Tale one tablet up to three times a day for back spasms oxycodone 5 mg tablet 5 mg PO BID PRN (Reason: pain, severe) Qty: 8 0RF Rx Instructions: Partial Fill upon patient request. Take one tablet up to twice a day for severe pain. albuterol sulfate [Ventolin HFA] 90 mcg/actuation HFA aerosol inhaler 2 puff inhalation Q6H PRN (Reason: shortness of breath or wheezing) Qty: 8.5 0RF Rx Instructions: Take two puffs every six hours for shortness or breath or wheezing budesonide-formoterol [Symbicort] 160-4.5 mcg/actuation HFA aerosol inhaler 2 puff inhalation Q12H Qty: 10.2 0RF Rx Instructions: Take two puffs daily twice a day montelukast 10 mg tablet 10 mg PO DAILY Qty: 90 0RF Rx Instructions: Take one tablet daily Continued folic acid 1 mg tablet 1 tab PO DAILY Discontinued albuterol sulfate [Ventolin HFA] 90 mcg/actuation HFA aerosol inhaler 2 puff INHALATION Q4H PRN (Reason: wheezing) Qty: 8.5 3RF budesonide-formoterol [Symbicort] 160-4.5 mcg/actuation HFA aerosol inhaler 2 puff inhalation DAILY Qty: 10.2 0RF montelukast 10 mg tablet 1 tab PO DAILY labetalol 200 mg Tablet 400 mg PO BID Qty: 120 0RF Protocol: Hold for SBP/HR < HOLD for SBP < : 90 HOLD for HR < : 60 amlodipine 5 mg Tablet 5 mg PO DAILY Qty: 30 0RF Protocol: Hold for SBP< HOLD for SBP < : 90 Discharge Orders: Discharge Order (Routine); Ordered 01/18/25 Ordered By: Cipriano Rowland Activity on Discharge: As tolerated Stand Alone Forms: Patient Portal Discharge page, Work/School Release Print Language: French Care Plan Goals: Resolution of abdominal pain Resume all home meds See below Health Concerns: Pancreatitis Plan of Treatment: Resume diet as tolerated Analgesics for pain management Abstain from alcohol Take home meds as prescribed Contact [facility] to establish PCP care and finalize plan Call GI for follow up to schedule outpatient ERCP Assessment: See discharge summary Patient Instructions: Cyclobenzaprine (By mouth), Carvedilol (By mouth), Oxycodone, Slow Release (By mouth) Discharge Date/Time: 01/18/25 16:34
--- NOTE | 2025-02-03 20:12 | P.CDIM_ITS ---
PROVIDER RESPONSE TEXT: To clarify, the appropriate diagnosis supported by the clinical indicators: Chronic obstructive asthma and indicate if with acute lower respiratory infection: without acute infection ot exacerbation QUERY TEXT: PHYSICIAN'S DOCUMENTATION REQUEST Date of Query: 01/17/2025 01:14 PM EDT Patient Name: Que Cabrera Admit Date: 01/14/2025 Dear Ximena Rosado PA-C, A review of the medical record indicates additional documentation may be needed. Please review below and update the documentation accordingly. The diagnosis of asthma was documented in the record on 01/17/25. Additional clinical indicators from the record include: COPD/Asthma Duo nebs prn, Budesonide Based on the above, please clarify in the Progress Notes further specificity regarding the type and acuity of the asthma: Mild intermittent Please specify if with or without acute exacerbation or status asthmaticus Mild persistent Please specify if with or without acute exacerbation or status asthmaticus Moderate persistent Please specify if with or without acute exacerbation or status asthmaticus Severe persistent Please specify if with or without acute exacerbation or status asthmaticus Exercise induced Please specify if with or without acute exacerbation or status asthmaticus Chronic obstructive asthma and indicate if with acute lower respiratory infection Please specify if with or without acute exacerbation or status asthmaticus Asthma with underlying COPD and indicate if with acute lower respiratory infection Please specify if with or without acute exacerbation or status asthmaticus Other (explain) Clinically unable to determine (explain) Thank you, Diana Vásquez RN Use of terms such as suspected, likely, concern for, or probable (associated with a specific diagnosis that is being evaluated, monitored, or treated as if it exists) are acceptable and can be coded in the inpatient setting, when documented at the time of discharge. Please use your independent medical judgment in providing your response. THIS QUERY IS PART OF THE PERMANENT MEDICAL RECORD
== END 2025-01-18 16:34 | disposition home or self-care (01) | DRG 282 ==
LOC: HO.ED 21:40 → HO.EDOVER 22:25 → HO.IMC 01-14 19:32
PROVIDERS: Physician Assistant; Admitting Provider Nurse Practitioner Family; Emergency Provider Emergency Medicine Emergency Medical Services; Visit Provider Student in an Organized Health Care Education/Training Program
DX: K85.20 Alcohol induced acute pancreatitis without necrosis or infection (principal); E66.812 Obesity, class 2; F10.10 Alcohol abuse, uncomplicated; I10 Essential (primary) hypertension; I16.0 Hypertensive urgency; G47.33 Obstructive sleep apnea (adult) (pediatric); K59.00 Constipation, unspecified; K21.9 Gastro-esophageal reflux disease without esophagitis; J44.89 Other specified chronic obstructive pulmonary disease; Z71.3 Dietary counseling and surveillance; Z68.35 Body mass index [BMI] 35.0-35.9, adult; Z91.148 Patient's other noncompliance with medication regimen for other reason; Z87.891 Personal history of nicotine dependence; Z79.899 Other long term (current) drug therapy
CPT/HCPCS: 36415; 71275; 74177; 74183; 78580; 80048; 80053; 80061; 80307; 81003; 82550; 83036; 83690; 83735; 83880; 84484; 85025; 85027; 85379; 85610; 85730; 86140; 93005; 93306; 94640; 94660; 99285; A9540; A9585; J1171; J1650; J1808; J1885; J1920; J2405; J2470; J2560; J3411; J3475; J7120; Q9957; Q9967

== ENCOUNTER → 2025-01-13 20:08 | Outpatient (BNV) | payer MEDICAID, SELFPAY | PROVIDERS: Emergency Provider Emergency Medicine Emergency Medical Services; PCP Internal Medicine; Visit Provider Radiology Diagnostic Radiology | DX: R94.31 Abnormal electrocardiogram [ECG] [EKG] (principal) | CPT/HCPCS: 71275 ==

== ENCOUNTER 2025-01-13 21:49 | Outpatient (BNV) | payer MEDICAID, SELFPAY | END 2025-01-15 12:25 | PROVIDERS: Admitting Provider Nurse Practitioner Family; Emergency Provider Emergency Medicine Emergency Medical Services; Visit Provider Radiology Diagnostic Radiology | DX: K85.90 Acute pancreatitis without necrosis or infection, unspecified (principal) | CPT/HCPCS: 74183 ==

== ENCOUNTER 2025-01-13 21:49 | Outpatient (BNV) | payer SELFPAY | END 2025-01-14 11:56 | PROVIDERS: Admitting Provider Nurse Practitioner Family; Emergency Provider Emergency Medicine Emergency Medical Services; Visit Provider Radiology Diagnostic Radiology | DX: Z86.711 Personal history of pulmonary embolism (principal) | CPT/HCPCS: 78580 ==

== ENCOUNTER 2025-01-13 21:49 | Outpatient (BNV) | payer MEDICAID, SELFPAY | END 2025-01-15 07:00 | PROVIDERS: Admitting Provider Nurse Practitioner Family; Emergency Provider Emergency Medicine Emergency Medical Services; Visit Provider Internal Medicine | DX: I51.7 Cardiomegaly (principal) | CPT/HCPCS: 93306 ==

== ENCOUNTER 2025-01-13 21:49 | Outpatient (BNV) | payer MEDICAID, SELFPAY | END 2025-01-14 08:00 | PROVIDERS: Admitting Provider Nurse Practitioner Family; Emergency Provider Emergency Medicine Emergency Medical Services; Visit Provider Internal Medicine | DX: R94.31 Abnormal electrocardiogram [ECG] [EKG] (principal); R79.89 Other specified abnormal findings of blood chemistry | CPT/HCPCS: 93010 ==

== ENCOUNTER → 2025-01-13 21:49 | Outpatient (BNV) | payer MEDICAID, SELFPAY | PROVIDERS: Admitting Provider Nurse Practitioner Family; Emergency Provider Emergency Medicine Emergency Medical Services; Visit Provider Internal Medicine | DX: F10.90 Alcohol use, unspecified, uncomplicated (principal); K83.8 Other specified diseases of biliary tract; K86.89 Other specified diseases of pancreas; K85.20 Alcohol induced acute pancreatitis without necrosis or infection | CPT/HCPCS: 99222; 99232 ==

== ENCOUNTER → 2025-01-13 21:49 | Outpatient (BNV) | payer MEDICAID, SELFPAY | PROVIDERS: Admitting Provider Nurse Practitioner Family; Emergency Provider Emergency Medicine Emergency Medical Services; Visit Provider Nurse Practitioner Psychiatric/Mental Health | DX: F10.90 Alcohol use, unspecified, uncomplicated (principal) | CPT/HCPCS: 99222; 99231 ==

== ENCOUNTER → 2025-01-13 21:49 | Outpatient (BNV) | payer MEDICAID, SELFPAY | PROVIDERS: Admitting Provider Nurse Practitioner Family; Emergency Provider Emergency Medicine Emergency Medical Services; Visit Provider Nurse Practitioner Family | DX: K85.20 Alcohol induced acute pancreatitis without necrosis or infection (principal); K86.89 Other specified diseases of pancreas; F10.90 Alcohol use, unspecified, uncomplicated; R07.89 Other chest pain; E66.9 Obesity, unspecified | CPT/HCPCS: 99223; 99233 ==

== ENCOUNTER → 2025-01-13 21:49 | Outpatient (BNV) | payer MEDICAID, SELFPAY | PROVIDERS: Admitting Provider Nurse Practitioner Family; Emergency Provider Emergency Medicine Emergency Medical Services; Visit Provider Internal Medicine | DX: I16.0 Hypertensive urgency (principal) | CPT/HCPCS: 99232; 99233 ==

== ENCOUNTER 2025-02-07 13:13 | Emergency (ER) | payer OTHER, SELFPAY ==
[2025-02-07] VITALS (8 sets, daily range): BP systolic 113–145; BP diastolic 56–78; PULSE 82–96; RESP 15–22; TEMP 36.4–37; O2SAT 96–99; BMI 38.0
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
[2025-02-07 14:56] LABS: Resp Syncy Virus RNA Qual PCR NEGATIVE (Negative); SARS COV2 PCR INHOUSE NEGATIVE (Negative)
[2025-02-07] MEDS: Lactated Ringers 1,000 ML 999 ML IV (18:45)
[2025-02-07 18:48] LABS: Hematocrit 37.6 % (42.0-52.0); Hemoglobin 13.4 g/dl (14.0-18.0); Imm Gran Abs Auto 0.01 X10*3/uL (0.00-0.03); Imm Gran Pct Auto 0.4 % (0.0-0.4); Lymphocytes Absolute Auto 0.8 X10*3/uL (1.2-4.9); MANUAL DIFF FLAG SCAN; Mean Corpuscular HGB Conc 35.6 g/dl (31.0-36.0); Mean Corpuscular Hemoglobin 29.4 pg (27.0-33.0); Mean Corpuscular Volume 82.5 fL (80.0-98.0); NRBC Abs Auto 0.000 X10*3/uL (0.0-0.012); NRBC Pct Auto 0.0 /100WBC (0.0-0.2); Platelet Count 160 X10*3/uL (160-400); Red Blood Count 4.56 X10*6/uL (4.60-5.80); SCAN SMEAR FLAG 1; White Blood Count 2.8 X10*3/uL (4.8-10.8)
[2025-02-07 18:54] LABS: IDNOW Serial# 58CA691E; Strep A Nucleic Acid Negative (Negative)
[2025-02-07 19:02] LABS: Alanine Aminotransferase 131 U/L (0-40); Albumin Level 4.8 g/dL (3.5-5.0); Alkaline Phosphatase 68 U/L (39-117); Anion Gap 16 (12-20); Aspartate Amino Transferase 89 U/L (5-37); Blood Urea Nitrogen 22 mg/dL (9-16); Calcium 8.7 mg/dL (8.4-10.2); Carbon Dioxide 23 mmol/L (22-29); Chloride 98 mmol/L (96-108); Creatinine Clr Calc Pharmacy 86.6; Estimated Glomerular Filt Rate 48; Magnesium 2.2 mg/dL (1.6-2.6); Potassium 3.8 mmol/L (3.3-5.1); Sodium 133 mmol/L (135-145); Total Protein 8.0 g/dL (6.5-8.0)
[2025-02-07] MEDS: 0.9 % Sodium Chloride 2,328 ML 2328 ML IV (20:05)
[2025-02-07] MEDS: LORazepam 2 MG/ML VIAL 1 MG IVPUSH ×2 (20:21→20:57)
[2025-02-07 20:45] LABS: Procalcitonin 0.28 ng/mL
--- NOTE | 2025-02-07 21:40 | PC.NURSE ---
Pt noted to be seated in the stretcher with eyes closed, respirations even and unlabored and no acute distress noted. The pt's vitals remain stable. Due to the medications given and pt's current sleeping status ROD and face man are agreeable to a delayed discharge at this time.
--- NOTE | 2025-02-07 21:50 | PC.NURSE ---
Addendum entered by Isela King 02/07/25 23:28: RN was not made aware of the canceled sepsis alert and providers did not request that IVF be discontinued Original Note: sespis alert was reportedly canceled by provider at 2018
--- NOTE | 2025-02-07 22:25 | PC.NURSE ---
RN called to bedside at which time the pt was found to be awake and alert without distress noted. He states that the burning is back and upon further eval he states that he feels exactly the same and nothing has helped. RN discussed the patient with Dr Baig and new orders obtained
--- NOTE | 2025-02-08 07:39 | PC.NURSE ---
Late entry for 1999 report received and care assumed at 1900. Pt seen to be visibly uncomfortable, sitting upright in the stretcher grabbing onto the siderails as he reports diffuse body pain that he describes as burning and itchiness the he describes as bugs crawling on his skin. Sepsis called at 1939, and bc x2 and lactic obtained IVF started. Pt's previous Liter of LR was not infused as the patient's right arm has been bent, occluding his IV. ROD aware while she and MD Baig where at bedside, and this RN was advised to disregard the Liter of LR that had not infused and only give the ordered 30ml/kg/hr per order. While MD Baig at bedside, this RN was advised to STOP the IV antibiotics which were dc'd at 2004. Pt medicated for discomfort/burning and although he looks more comfortable as he is able to sit still in the stretcher vs being restless as he was prior to administration, the pt denies any relief s/p medical practitioners. Pt has been educated, questions answered and he is curently aware of the plan for dc home with scripts and PCP referral.
== END 2025-02-07 22:59 | disposition home or self-care (01) ==
PROVIDERS: Registered Nurse Emergency; Emergency Provider Emergency Medicine
DX: R11.2 Nausea with vomiting, unspecified (principal); T44.7X5A Adverse effect of beta-adrenoreceptor antagonists, initial encounter; Z79.899 Other long term (current) drug therapy; Z87.891 Personal history of nicotine dependence; Z03.818 Encounter for observation for suspected exposure to other biological agents ruled out
CPT/HCPCS: 36415; 80053; 83605; 83735; 84145; 85025; 85652; 86140; 87040; 87637; 87651; 96361; 96374; 96375; 96376; 99285; J0131; J1200; J1308; J1885; J2060; J2543; J2919; J7120

== ENCOUNTER 2025-06-28 08:53 | Inpatient (IN) | payer OTHER, SELFPAY ==
[2025-06-28] VITALS (9 sets, daily range): BP systolic 140–211; BP diastolic 70–131; PULSE 78–106; RESP 18–24; TEMP 36.2–36.5; O2SAT 96–98; BMI 38.4
--- NOTE | ~2025-06-28 | CT_ITS ---
EXAMINATION: CT ABDOMEN AND PELVIS WITH CONTRAST CLINICAL INFORMATION: Pancreatitis. COMPARISON: March 29, 2025. TECHNIQUE: Multidetector volumetric images were obtained from the superior aspect of the liver through the pubic symphysis following administration 85 mL of Omnipaque 350 intravenous contrast. Sagittal and coronal reformatted images were obtained on the technologist's workstation. Oral contrast: No This CT examination was performed using dose optimization techniques as appropriate, variously including the following: *Automated exposure control *Adjustment of mA and/or kV according to patient size (this includes techniques or standardized protocols for targeted exams where dose is matched to indication/reason for exam; i.e. extremities or head) *Use of iterative reconstruction technique DLP: 790 mGy-cm FINDINGS: LUNG BASES: Pulmonary patchy groundglass. LIVER, GALLBLADDER, AND BILIARY TREE: Liver measures 18 cm. No enhancing mass. Mild intrahepatic biliary ductal dilatation. Main portal veins and hepatic veins are patent. Gallbladder is nondistended. No pericholecystic fluid collection or gallbladder wall thickening. No extrahepatic biliary ductal dilatation. PANCREAS: Homogeneous enhancement of the pancreatic parenchyma. Mild peripancreatic edema pattern. No fluid collections. Main pancreatic duct measures 3 mm. SPLEEN: 11 cm. No solid or cystic mass. ADRENAL GLANDS: No nodular lesions. KIDNEYS AND URETERS: No hydronephrosis. No gross nephrolithiasis. Normal enhancement pattern of the renal parenchyma. No dilatation is of the ureters. BLADDER: Fluid-filled. GASTROINTESTINAL TRACT: A pannus is normal. Gas and fluid-filled mildly prominent small bowel loops. No pneumatosis intestinalis. No gross intestinal wall thickening. Appendix is normal. Small amount of ascites in the lower pelvis. No peripheral enhancing fluid collection. No pneumoperitoneum. ABDOMINAL WALL: Diastases abdominal rectus muscles. Small fat-containing umbilical hernia. LYMPH NODES: Prominent mesenteric, retroperitoneal and inguinal lymph nodes. VASCULAR: The splenic vessels are patent. No gross vascular abnormality in the splenic artery. No aneurysm or dissection, abdominal aorta. PELVIC VISCERA: Not enlarged. OSSEOUS STRUCTURES: No acute fracture or listhesis. No lytic or blastic lesions. CT/CT abdomen pelvis w IV con IMPRESSION: Acute interstitial pancreatitis without pseudoaneurysm or thrombosis of the splenic vessels. Hepatomegaly, mild and prominent lymph nodes. Lymphoproliferative disorder cannot be excluded. Fleischner guidelines were followed. Electronically signed by: Ryan Bates MD 07/01/2025 02:19 PM EST
--- NOTE | ~2025-06-28 | CT_ITS ---
EXAMINATION: CT ABDOMEN PELVIS WITH IV CONTRAST HISTORY: LUQ pain hx of pancreatitis COMPARISON: There are comparison is made with the prior examination dated 01/11/2025. TECHNIQUE: CT scan of the abdomen and pelvis was performed following administration of 85 mL Omnipaque 350 using standard departmental protocol. Coronal and sagittal reformatted images were generated and reviewed. Oral contrast material was not administered at the request of the referring physician. This CT exam was performed with one or more of the following dose reduction techniques: automated exposure control, adjustment of the mA and/or kV according to patient size, use of iterative reconstruction technique. DLP: 980 mGy-cm FINDINGS: LOWER CHEST: The visualized lung bases are clear. There is no pleural effusion. CARDIOVASCULATURE: The heart is normal in size. There is no pericardial effusion. LIVER: The liver is normal in size and contour. No liver mass is identified. The hepatic and portal veins are patent. GALLBLADDER / BILE DUCTS: The gallbladder is unremarkable. There is no intra or extrahepatic biliary ductal dilatation. SPLEEN: The spleen is top normal in size. No focal splenic lesion is identified. PANCREAS: There is mild infiltration of the peripancreatic fat, consistent with acute interstitial pancreatitis. The pancreas enhances normally, without evidence of necrosis. The pancreatic duct is normal in caliber. There is no peripancreatic fluid collection. ADRENAL GLANDS: Within normal limits. KIDNEYS/RETROPERITONEUM: No renal calculi are identified. There is no hydronephrosis. No renal masses are identified. LYMPH NODES: No abdominal or pelvic lymphadenopathy. VASCULATURE: The abdominal aorta is normal in caliber. MESENTERY/PERITONEUM: No free fluid. No masses. There is no free intraperitoneal gas. STOMACH: The stomach is collapsed, limiting evaluation. SMALL BOWEL: The small bowel is normal in caliber. COLON: The colon is unremarkable. APPENDIX: Normal. URINARY BLADDER/PELVIC ORGANS: The urinary bladder is unremarkable. The prostate is normal in size. BONES / SOFT TISSUES: No suspicious bony or soft tissue abnormalities. CT/CT abdomen pelvis w IV con IMPRESSION: Findings consistent with acute interstitial pancreatitis as described. Electronically signed by: Derrell Bocanegra MD 06/28/2025 10:53 AM [facility]
--- NOTE | ~2025-06-28 | US_ITS ---
EXAMINATION: US ABDOMEN LIMITED CLINICAL INFORMATION: Evaluate gallbladder, history pancreatitis. COMPARISON: No prior ultrasound. Correlation made with CT abdomen and pelvis dated earlier same day. TECHNIQUE: Real-time imaging of the gallbladder and bile ducts was performed. FINDINGS: GALLBLADDER: The gallbladder is physiologically distended without evidence of stones, sludge, polyps, wall thickening or pericholecystic fluid. Negative sonographic Nascimento's sign. COMMON BILE DUCT: Normal in caliber measuring 4.7 cm in diameter. FREE FLUID: None. US/US abdomen limited IMPRESSION: Normal gallbladder and bile ducts. Electronically signed by: Martinez James MD 06/28/2025 01:51 PM [facility]
--- NOTE | ~2025-06-28 | XR_ITS ---
CLINICAL HISTORY: sob 1 view chest x-ray. Comparison: CT/SR - CT ANGIO CHEST PE PROTOCOL - 01/13/25 23:10 EDT Findings: Normal lung volumes. Lungs are clear. No pneumothorax or pleural effusion. Heart size normal. No passive venous congestion. No midline shift or tracheal deviation. No acute fracture. Impression: 1. No acute cardiopulmonary disease. This document has been electronically signed by: Jae Carrington MD on 06/29/2025 04:56:21
--- NOTE | ~2025-06-28 | XR_ITS ---
EXAMINATION: XR CHEST 1 VIEW HISTORY: shortness of breath COMPARISON: Comparison is made with the prior examination performed earlier in the day at 4:28 AM. FINDINGS: A single AP portable view of the chest performed at 11:03 AM is submitted. The lungs are expanded and clear. There is no pleural effusion, pneumothorax, or pulmonary vascular congestion. The heart is normal in size. The bones are intact. XR/XR chest 1V IMPRESSION: No acute cardiopulmonary abnormality. Electronically signed by: Derrell Bocanegra MD 07/01/2025 07:41 AM [facility]
--- NOTE | 2025-06-28 09:25 | ECG_ITS ---
Test Reason : sob Blood Pressure : */* mmHG Vent. Rate : 94 BPM Atrial Rate : 94 BPM P-R Int : 178 ms QRS Dur : 90 ms QT Int : 354 ms P-R-T Axes : 54 54 226 degrees QTcB Int : 442 ms Normal sinus rhythm Possible Left atrial enlargement Minimal voltage criteria for LVH, may be normal variant ( Sokolow-Yee ) Nonspecific T wave abnormality Abnormal ECG When compared with ECG of 14-Jan-2025 07:56, No significant change was found Referred By: Guillaume Nye Electronically Signed By: JOAO LEARY
[2025-06-28 09:35] LABS: MANUAL DIFF FLAG NO
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
[2025-06-28 09:36] LABS: Hematocrit 44.0 % (42.0-52.0); Hemoglobin 15.1 g/dl (14.0-18.0); Imm Gran Abs Auto 0.01 X10*3/uL (0.00-0.03); Imm Gran Pct Auto 0.2 % (0.0-0.4); Lymphocytes Absolute Auto 1.1 X10*3/uL (1.2-4.9); Mean Corpuscular HGB Conc 34.3 g/dl (31.0-36.0); Mean Corpuscular Hemoglobin 30.1 pg (27.0-33.0); Mean Corpuscular Volume 87.6 fL (80.0-98.0); NRBC Abs Auto 0.000 X10*3/uL (0.0-0.012); NRBC Pct Auto 0.0 /100WBC (0.0-0.2); Platelet Count 161 X10*3/uL (160-400); Red Blood Count 5.02 X10*6/uL (4.60-5.80); White Blood Count 4.9 X10*3/uL (4.8-10.8)
[2025-06-28 09:55] LABS: Alanine Aminotransferase 47 U/L (0-40); Albumin Level 4.9 g/dL (3.5-5.0); Alkaline Phosphatase 35 U/L (39-117); Anion Gap 11 (12-20); Aspartate Amino Transferase 31 U/L (5-37); Blood Urea Nitrogen 20 mg/dL (9-16); Calcium 8.8 mg/dL (8.4-10.2); Carbon Dioxide 26 mmol/L (22-29); Chloride 105 mmol/L (96-108); Creatinine Clr Calc Pharmacy 128.7; Estimated Glomerular Filt Rate > 60; Lipase 56 U/L (8-78); Magnesium 1.9 mg/dL (1.6-2.6); Potassium 3.9 mmol/L (3.3-5.1); Sodium 138 mmol/L (135-145); Total Protein 7.6 g/dL (6.5-8.0)
[2025-06-28] MEDS: iohexoL 350 MG/ML 100 ML INFUS..BTL IV (10:29)
[2025-06-28] MEDS: Albuterol Sulfate 5 MG, Albuterol/Iprat 2.5/0.5MG 3 ML 3 ML INHALE (11:24)
--- NOTE | 2025-06-28 12:19 | PHA.MEDREC ---
Addendum entered by Alvin Hagen PharmD 06/28/25 12:32: reviewed Original Note: Pharmacy Consult ? Medication Reconciliation Pharmacy has completed the medication reconciliation. Spoke with pt and he confirmed his medications. Pt confirmed he ran out of all his meds in the last 3 months and hasn't been able to get refills for anything; Pt was able to verbally confirm what he is suppose to be on.
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
[2025-06-28] MEDS: Lactated Ringers 1,000 ML 150 ML IVCONT (13:06)
[2025-06-28] MEDS: 0.9 % Sodium Chloride Flush 3 ML SYRINGE IVFLUSH (15:48)
[2025-06-28] MEDS: Albuterol/Iprat 2.5/0.5MG 3 ML AMPUL.NEB INHALE ×2 (15:53→18:58)
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
[2025-06-28] MEDS: Lactated Ringers 1,000 ML 200 ML IVCONT (19:17)
[2025-06-28] MEDS: oxyCODONE HCl Immed Release 5 MG TABLET PO (20:49)
[2025-06-29] VITALS (11 sets, daily range): BP systolic 132–152; BP diastolic 82–95; PULSE 64–91; RESP 18–22; TEMP 36–36.6; O2SAT 91–99
[2025-06-29] MEDS: Albuterol/Iprat 2.5/0.5MG 3 ML AMPUL.NEB INHALE ×6 (01:36→18:30)
[2025-06-29] MEDS: Lactated Ringers 1,000 ML 200 ML IVCONT (01:38)
[2025-06-29] MEDS: oxyCODONE HCl Immed Release 5 MG TABLET PO ×4 (03:34→19:34)
[2025-06-29] MEDS: Furosemide 20 MG/2 ML VIAL IVPUSH ×2 (04:28→10:33)
--- NOTE | 2025-06-29 04:41 | PC.NURSE ---
0120 pt states his asthma is acting up and asking for updraft.lungs with inspiratory and expiratory wheezes.pt only has scheduled updrafts notified and PRN updrafts ordered.
--- NOTE | 2025-06-29 04:45 | PC.NURSE ---
0410 pt complaining of difficulty breathing and tightness in his chest.Lungs with wheezes.02 sats 99% on 2L. notified.IV fluids stopped, stat CXR, Lasix 20mg IV and BNP ordered.CPAP placed on pt.
[2025-06-29 05:06] LABS: MANUAL DIFF FLAG NO
[2025-06-29 05:08] LABS: Hematocrit 40.8 % (42.0-52.0); Hemoglobin 13.4 g/dl (14.0-18.0); Imm Gran Abs Auto 0.01 X10*3/uL (0.00-0.03); Imm Gran Pct Auto 0.2 % (0.0-0.4); Lymphocytes Absolute Auto 1.5 X10*3/uL (1.2-4.9); Mean Corpuscular HGB Conc 32.8 g/dl (31.0-36.0); Mean Corpuscular Hemoglobin 29.8 pg (27.0-33.0); Mean Corpuscular Volume 90.9 fL (80.0-98.0); NRBC Abs Auto 0.000 X10*3/uL (0.0-0.012); NRBC Pct Auto 0.0 /100WBC (0.0-0.2); Platelet Count 172 X10*3/uL (160-400); Red Blood Count 4.49 X10*6/uL (4.60-5.80); White Blood Count 4.4 X10*3/uL (4.8-10.8)
[2025-06-29 05:24] LABS: Alanine Aminotransferase 48 U/L (0-40); Albumin Level 5.0 g/dL (3.5-5.0); Alkaline Phosphatase 35 U/L (39-117); Anion Gap 14 (12-20); Aspartate Amino Transferase 34 U/L (5-37); Blood Urea Nitrogen 15 mg/dL (9-16); Calcium 8.8 mg/dL (8.4-10.2); Carbon Dioxide 24 mmol/L (22-29); Chloride 106 mmol/L (96-108); Cholesterol 174 mg/dL (<200); Creatinine Clr Calc Pharmacy 111.0; Estimated Glomerular Filt Rate > 60; HDL Cholesterol 47 mg/dL (>40); Potassium 4.3 mmol/L (3.3-5.1); Sodium 140 mmol/L (135-145); Total Protein 7.5 g/dL (6.5-8.0); Triglycerides 182 mg/dL (<150)
[2025-06-29 05:26] LABS: NT Pro B Type Natriuretic Pept 98.7 pg/mL (<300)
[2025-06-29] MEDS: 0.9 % Sodium Chloride Flush 3 ML SYRINGE IVFLUSH (07:08)
--- NOTE | 2025-06-29 10:08 | P.PNIM_ITS ---
Subjective Subjective Date of Service: 06/29/25 Interval History: Patient seen examined at bedside this morning, patient has mentioned that he is experiencing pain, as well as wheezing, which worsens whenever he gets bouts of pain. Patient earlier today received IV Lasix, x-ray done. Review of Systems Review of Systems: Yes all other systems are reviewed and are negative Physical Exam 2 Exam: Exam: General: AxOx3, in mild distress with oxygen Head: AT/NC ENT: Moist mucous membranes Neck: supple CVS; RRR, S1 S2 normal Lungs: Bilateral wheezing with decreased expansion Abd: tender to palpation in epigastric area and RUQ, similar to prior Ext: No edema and no calf tenderness MSK: moving all 4 limbs Skin: No cyanosis or edema Psych: Cooperative with exam Neurology: no focal deficit Vital Signs: Vital Signs: Last Vital Signs Temp 97.1 F 06/29/25 06:53 Pulse 91 06/29/25 07:22 Resp 20 06/29/25 07:22 BP 151/86 H 06/29/25 06:53 Pulse Ox 98 06/29/25 06:53 O2 Del Method Nasal Cannula 06/29/25 06:53 O2 Flow Rate 2 06/29/25 06:53 BMI result Body Mass Index 38.4 Objective Data Active Medications Acetaminophen (Acetaminophen 325 Mg Tablet) 650 mg PO TID [facility] Last Admin: 06/29/25 08:21 Dose: 650 mg Documented By: ALEJANDRO Albuterol Sulfate (Albuterol Sulfate 90 Mcg 8 Gm Inhaler) 2 puff INHALE Q6H PRN PRN Reason: shortness of breath or wheezing Albuterol/Ipratropium (Albuterol/Iprat 2.5/0.5mg 3 Ml Ampul.Neb) 3 ml INHALE RQ4H WHILE AWAKE [facility] Last Admin: 06/29/25 07:22 Dose: 3 ml Documented By: EARL Albuterol/Ipratropium (Albuterol/Iprat 2.5/0.5mg 3 Ml Ampul.Neb) 3 ml INHALE RQ4H WHILE AWAKE PRN PRN Reason: Shortness of Breath Last Admin: 06/29/25 05:35 Dose: 3 ml Documented By: EMELIA Amlodipine Besylate (Amlodipine Besylate 10 Mg Tablet) 10 mg PO DAILY [facility]; Protocol Last Admin: 06/29/25 08:22 Dose: 10 mg Documented By: ALEJANDRO Calcium Carbonate (Calcium Carbonate 750 Mg Tab.Chew) 750 mg PO Q4H PRN PRN Reason: Heartburn Cyclobenzaprine HCl (Cyclobenzaprine Hcl 10 Mg Tablet) 10 mg PO TID PRN PRN Reason: Muscle Spasm Fluticasone/Vilanterol (Fluticasone/Vilanterol 200/25 Blst.W.Dev) 1 puff INHALE RDAILY [facility] Heparin Sodium (Porcine) (Heparin Sodium,Porcine 5,000 Unit/Ml Vial) 5,000 unit SUBCUT Q12H [facility] Last Admin: 06/29/25 00:10 Dose: 5,000 unit Documented By: AUBRIE Hydromorphone HCl (Hydromorphone Hcl 2 Mg/Ml Vial) 2 mg IVPUSH Q3H PRN; Protocol PRN Reason: Pain, Severe (Pain Scale 7-10) Last Admin: 06/29/25 07:07 Dose: 2 mg Documented By: TERRI Lactated Ringer's (Lr) 1,000 mls @ 200 mls/hr IVCONT .Q5H [facility] Last Infusion: 06/29/25 04:00 Dose: 0 mls/hr Documented By: AUBRIE Lorazepam (Lorazepam 1 Mg Tablet) 1 mg PO TID PRN PRN Reason: severe itch Magnesium Hydroxide (Milk Of Magnesia 30 Ml Oral.Susp) 30 ml PO DAILY PRN PRN Reason: Constipation Melatonin (Melatonin 3 Mg Tablet) 6 mg PO BEDTIME PRN PRN Reason: Insomnia Last Admin: 06/28/25 21:47 Dose: 6 mg Documented By: AUBRIE Montelukast Sodium (Montelukast Sodium 10 Mg Tablet) 10 mg PO DAILY [facility] Last Admin: 06/29/25 08:22 Dose: 10 mg Documented By: ALEJANDRO Ondansetron HCl (Ondansetron Hcl 4 Mg/2 Ml Vial) 4 mg IVPUSH Q8H PRN PRN Reason: Nausea and Vomiting Oxycodone HCl (Oxycodone Hcl Immed Release 5 Mg Tablet) 5 mg PO Q3H PRN PRN Reason: Pain, Moderate(Pain Scale 4-6) Last Admin: 06/29/25 03:34 Dose: 5 mg Documented By: AUBRIE Pantoprazole Sodium (Pantoprazole Sodium 40 Mg/10 Ml Vial) 40 mg IVPUSH DAILY@0630 [facility] Last Admin: 06/29/25 06:02 Dose: 40 mg Documented By: JACKIE Sodium Chloride (0.9 % Sodium Chloride Flush 3 Ml Syringe) 3 ml IVFLUSH QSHIFT [facility] Last Admin: 06/29/25 07:08 Dose: 3 ml Documented By: TERRI Labs 06/29/25 04:37 06/29/25 04:37 Labs: Laboratory Results - last 24 hr 06/29/25 04:37 MCV 90.9 MCH 29.8 MCHC 32.8 RDW 12.6 Plt Count 172 MPV 11.6 Immature Gran % (Auto) 0.2 Neut % (Auto) 51.1 Lymph % (Auto) 34.5 [place] % (Auto) 7.7 Eos % (Auto) 5.6 H Baso % (Auto) 0.9 Lymph # (Auto) 1.5 [place] # (Auto) 0.3 Eos # (Auto) 0.3 Baso # (Auto) 0.0 Abs Immat Gran (auto) 0.01 Absolute Neuts (auto) 2.3 Absolute Nucleated RBC 0.000 Nucleated RBC % (auto) 0.0 Anion Gap 14 Estim Creat Clear Calc 111.0 Estimated GFR > 60 Random Glucose 122 H Calcium 8.8 Total Bilirubin 0.7 AST 34 ALT 48 H Alkaline Phosphatase 35 L NT-Pro-B Natriuret Pep 98.7 Total Protein 7.5 Albumin 5.0 Triglycerides 182 H Cholesterol 174 LDL Cholesterol, Calc 91 HDL Cholesterol 47 Assessment and Plan (1) Pancreatitis: Status: Acute (2) Asthma: Status: Acute (3) Acute hypoxic respiratory failure: Status: Acute Plan Assessment: 35-year-old female who presented to the hospital complaining of abdominal pain, on imaging found to have acute interstitial pancreatitis. Patient started on IVf and pain management Recurrent pancreatitis, could be multifactorial in the setting of alcohol use, diet. -labs showing no leukocytosis, lipase 56, alcohol less than 10 -abdomen and pelvis CT scan with acute interstitial pancreatitis. Patient has had extensive workup including abdominal MRI, MRCP, HIDA scan back in 2022. Recent -Continue LR IV at 150 mL/hour -continue multimodal pain management -clear liquid diet -GI consulted for recurrent pancreatitis, ERCP as outpatient, continue with present mgmt -UDS ordered and pending Acute hypoxic respiratory failure, requiring supplemental oxygen Asthma, chronic -continue with home inhalers and montelukast, monitor and titrate oxygen for SpO2 greater than 90% -Will give additional dose of lasix given increased IV fluids given yesterday, Chest x ray ordered -Increased inhaler frequency -Pulmonology consulted Hypertension, chronic -continue home blood pressure medications, we will adjust accordingly GERD Continue protonix IV FEN: LR, replete as needed, clear liquid diet GI PPx: Protonix DVT PPX: heparin Code status: Full Code Total time managing care of this patient today: 55 minutes. Quality Stroke Does the patient have a stroke diagnosis?: No VTE Prior VTE?: No VTE Risk Level:: Medical - low VTE Device Contraindication: N/A - Device Ordered VTE Drug Contraindication: N/A - Med Ordered
[2025-06-29] MEDS: Lactated Ringers 1,000 ML 150 ML IVCONT ×3 (10:34→23:07)
[2025-06-29] MEDS: Fluticasone/Vilanterol 200/25 BLST.W.DEV 1 PUFF INHALE (11:15)
[2025-06-29 12:22] LABS: Appearance Urine Cloudy; Glucose Urine UA Negative (Negative); PH 5.0 (5.0-9.0); Specific Gravity - Urine <= 1.005 (1.005-1.025)
[2025-06-29 12:30] LABS: Cannabinoid Screen Urine Not Detected (Not Detect)
--- NOTE | 2025-06-29 16:24 | MHC.CM.PN ---
PT LIVES W/EX GF AND IS FULLY INDEP, WORKS/DRIVES. HE USES A CPAP AND NO OTHER DME NO HOME SERVICES DECLINES HCP NO PCP-LIST PROVIDED DCP: HOME VIA PRIVATE TRANSPORT
[2025-06-30] VITALS (9 sets, daily range): BP systolic 138–159; BP diastolic 79–92; PULSE 76–97; RESP 15–18; TEMP 36.3–36.6; O2SAT 93–100
[2025-06-30] MEDS: oxyCODONE HCl Immed Release 5 MG TABLET PO ×2 (01:12→08:18)
[2025-06-30] MEDS: Albuterol Sulfate 90 MCG 8 GM INHALER 2 PUFF INHALE (01:22)
[2025-06-30] MEDS: Lactated Ringers 1,000 ML 150 ML IVCONT ×3 (05:46→20:30)
[2025-06-30 06:37] LABS: MANUAL DIFF FLAG NO
[2025-06-30 06:42] LABS: Hematocrit 39.8 % (42.0-52.0); Hemoglobin 12.6 g/dl (14.0-18.0); Imm Gran Abs Auto 0.01 X10*3/uL (0.00-0.03); Imm Gran Pct Auto 0.2 % (0.0-0.4); Lymphocytes Absolute Auto 1.0 X10*3/uL (1.2-4.9); Mean Corpuscular HGB Conc 31.7 g/dl (31.0-36.0); Mean Corpuscular Hemoglobin 29.9 pg (27.0-33.0); Mean Corpuscular Volume 94.5 fL (80.0-98.0); NRBC Abs Auto 0.000 X10*3/uL (0.0-0.012); NRBC Pct Auto 0.0 /100WBC (0.0-0.2); Platelet Count 150 X10*3/uL (160-400); Red Blood Count 4.21 X10*6/uL (4.60-5.80); White Blood Count 4.8 X10*3/uL (4.8-10.8)
[2025-06-30 07:02] LABS: Alanine Aminotransferase 45 U/L (0-40); Albumin Level 4.7 g/dL (3.5-5.0); Alkaline Phosphatase 31 U/L (39-117); Anion Gap 12 (12-20); Aspartate Amino Transferase 46 U/L (5-37); Blood Urea Nitrogen 11 mg/dL (9-16); Calcium 8.8 mg/dL (8.4-10.2); Carbon Dioxide 31 mmol/L (22-29); Chloride 101 mmol/L (96-108); Creatinine Clr Calc Pharmacy 101.7; Estimated Glomerular Filt Rate 56; Potassium 4.7 mmol/L (3.3-5.1); Sodium 139 mmol/L (135-145); Total Protein 7.3 g/dL (6.5-8.0)
[2025-06-30] MEDS: Fluticasone/Vilanterol 200/25 BLST.W.DEV 1 PUFF INHALE (07:24)
[2025-06-30] MEDS: Albuterol/Iprat 2.5/0.5MG 3 ML AMPUL.NEB INHALE ×4 (07:24→19:36)
--- NOTE | 2025-06-30 08:43 | P.PNIM_ITS ---
Subjective Subjective Date of Service: 06/30/25 Interval History: Patient seen examined at bedside this morning, patient states that his pain continues to be not managed, however mentioned that his breathing has improved. Creatinine today 1.4. Review of Systems Review of Systems: Yes all other systems are reviewed and are negative Physical Exam 2 Exam: Exam: General: AxOx3, complaining of pain Head: AT/NC ENT: Moist mucous membranes Neck: supple CVS; RRR, S1 S2 normal Lungs: Decreased pulmonary expansion Abd: tender to palpation in epigastric area and RUQ, mild improvement Ext: No edema and no calf tenderness MSK: moving all 4 limbs Skin: No cyanosis or edema Psych: Cooperative with exam Neurology: no focal deficit Vital Signs: Vital Signs: Last Vital Signs Temp 97.3 F 06/30/25 07:31 Pulse 86 06/30/25 07:31 Resp 18 06/30/25 07:31 BP 138/79 06/30/25 07:31 Pulse Ox 95 06/30/25 07:31 O2 Del Method Room Air 06/30/25 07:31 O2 Flow Rate 2 06/30/25 03:39 BMI result Body Mass Index 38.4 Objective Data Active Medications Acetaminophen (Acetaminophen 325 Mg Tablet) 650 mg PO TID [facility] Last Admin: 06/30/25 08:18 Dose: 650 mg Documented By: ALEJANDRO Albuterol Sulfate (Albuterol Sulfate 90 Mcg 8 Gm Inhaler) 2 puff INHALE RQ4H PRN PRN Reason: shortness of breath or wheezing Last Admin: 06/30/25 01:22 Dose: 2 puff Documented By: HECTOR Albuterol/Ipratropium (Albuterol/Iprat 2.5/0.5mg 3 Ml Ampul.Neb) 3 ml INHALE RQ4H WHILE AWAKE [facility] Last Admin: 06/30/25 07:24 Dose: 3 ml Documented By: YONG Albuterol/Ipratropium (Albuterol/Iprat 2.5/0.5mg 3 Ml Ampul.Neb) 3 ml INHALE RQ4H WHILE AWAKE PRN PRN Reason: Shortness of Breath Last Admin: 06/29/25 05:35 Dose: 3 ml Documented By: EMELIA Amlodipine Besylate (Amlodipine Besylate 10 Mg Tablet) 10 mg PO DAILY [facility]; Protocol Last Admin: 06/30/25 08:18 Dose: 10 mg Documented By: ALEJANDRO Calcium Carbonate (Calcium Carbonate 750 Mg Tab.Chew) 750 mg PO Q4H PRN PRN Reason: Heartburn Cyclobenzaprine HCl (Cyclobenzaprine Hcl 10 Mg Tablet) 10 mg PO TID PRN PRN Reason: Muscle Spasm Last Admin: 06/30/25 01:14 Dose: 10 mg Documented By: HECTOR Fluticasone/Vilanterol (Fluticasone/Vilanterol 200/25 Blst.W.Dev) 1 puff INHALE RDAILY [facility] Last Admin: 06/30/25 07:24 Dose: 1 puff Documented By: YONG Heparin Sodium (Porcine) (Heparin Sodium,Porcine 5,000 Unit/Ml Vial) 5,000 unit SUBCUT Q12H [facility] Last Admin: 06/30/25 01:19 Dose: 5,000 unit Documented By: HECTOR Hydromorphone HCl (Hydromorphone Hcl 2 Mg/Ml Vial) 2 mg IVPUSH Q3H PRN; Protocol PRN Reason: Pain, Severe (Pain Scale 7-10) Last Admin: 06/30/25 05:47 Dose: 2 mg Documented By: HECTOR Lactated Ringer's (Lr) 1,000 mls @ 150 mls/hr IVCONT .Q6H40M [facility] Last Admin: 06/30/25 05:46 Dose: 150 mls/hr Documented By: HECTOR Lorazepam (Lorazepam 1 Mg Tablet) 1 mg PO TID PRN PRN Reason: severe itch Magnesium Hydroxide (Milk Of Magnesia 30 Ml Oral.Susp) 30 ml PO DAILY PRN PRN Reason: Constipation Melatonin (Melatonin 3 Mg Tablet) 6 mg PO BEDTIME PRN PRN Reason: Insomnia Last Admin: 06/29/25 20:10 Dose: 6 mg Documented By: AUBRIE Montelukast Sodium (Montelukast Sodium 10 Mg Tablet) 10 mg PO DAILY [facility] Last Admin: 06/30/25 08:18 Dose: 10 mg Documented By: ALEJANDRO Ondansetron HCl (Ondansetron Hcl 4 Mg/2 Ml Vial) 4 mg IVPUSH Q8H PRN PRN Reason: Nausea and Vomiting Oxycodone HCl (Oxycodone Hcl Immed Release 5 Mg Tablet) 5 mg PO Q3H PRN PRN Reason: Pain, Moderate(Pain Scale 4-6) Last Admin: 06/30/25 08:18 Dose: 5 mg Documented By: ALEJANDRO Oxycodone HCl (Oxycodone Hcl Er 10 Mg Tab.Er.12h) 10 mg PO BID [facility] Pantoprazole Sodium (Pantoprazole Sodium 40 Mg/10 Ml Vial) 40 mg IVPUSH DAILY@0630 [facility] Last Admin: 06/30/25 05:47 Dose: 40 mg Documented By: HECTOR Sodium Chloride (0.9 % Sodium Chloride Flush 3 Ml Syringe) 3 ml IVFLUSH QSHIFT [facility] Last Admin: 06/30/25 07:23 Dose: Not Given Documented By: ALEJANDRO Non-Admin Reason: IV Running Labs 06/30/25 05:41 06/30/25 05:41 Labs: Laboratory Results - last 24 hr 06/29/25 06/30/25 12:15 05:41 MCV 94.5 MCH 29.9 MCHC 31.7 RDW 12.6 Plt Count 150 L MPV 12.2 Immature Gran % (Auto) 0.2 Neut % (Auto) 63.7 Lymph % (Auto) 21.2 [place] % (Auto) 9.7 Eos % (Auto) 4.4 H Baso % (Auto) 0.8 Lymph # (Auto) 1.0 L [place] # (Auto) 0.5 Eos # (Auto) 0.2 Baso # (Auto) 0.0 Abs Immat Gran (auto) 0.01 Absolute Neuts (auto) 3.0 Absolute Nucleated RBC 0.000 Nucleated RBC % (auto) 0.0 Anion Gap 12 Estim Creat Clear Calc 101.7 Estimated GFR 56 Random Glucose 108 Calcium 8.8 Total Bilirubin 0.7 AST 46 H ALT 45 H Alkaline Phosphatase 31 L Total Protein 7.3 Albumin 4.7 Urine Color Yellow Urine Appearance Cloudy Urine pH 5.0 Ur Specific [place] <= 1.005 Urine Protein Negative Urine Glucose (UA) Negative Urine Ketones Negative Urine Blood Negative Urine Nitrite Negative Ur Leukocyte Esterase Negative Urine RBC 0-2 Urine WBC 0-5 Ur Squamous Epith Cells 0-2 Urine Bacteria None Seen Hyaline Casts 0-2 Urine Opiates Screen Not Detected Ur Buprenorphine Scrn Not Detected Ur Oxycodone Screen Positive H Urine Methadone Screen Not Detected Urine Fentanyl Screen Not Detected Ur Barbiturates Screen Not Detected Ur Phencyclidine Scrn Not Detected Ur Amphetamines Screen Not Detected U Benzodiazepines Scrn Not Detected Urine Cocaine Screen Not Detected U Marijuana (THC) Screen Not Detected Microbiology Microbiology Results: Microbiology 06/28/25 10:08 Blood Culture - Preliminary Blood - Venous No growth after 24 hours. 06/28/25 09:23 Blood Culture - Preliminary Blood - Venous No growth after 24 hours. Assessment and Plan (1) Pancreatitis: Status: Acute (2) Asthma: Status: Acute (3) Acute hypoxic respiratory failure: Status: Acute Plan Assessment: 35-year-old female who presented to the hospital complaining of abdominal pain, on imaging found to have acute interstitial pancreatitis. Patient started on IVf and pain management Recurrent pancreatitis, could be multifactorial in the setting of alcohol use, diet. -labs showing no leukocytosis, lipase 56, alcohol less than 10 -abdomen and pelvis CT scan with acute interstitial pancreatitis. Patient has had extensive workup including abdominal MRI, MRCP, HIDA scan back in 2022. Recent -Continue LR IV at 150 mL/hour -continue multimodal pain management, will initiate oxycontin 10mg BID -clear liquid diet will try soft diet and assess if able to take -GI consulted for recurrent pancreatitis, ERCP as outpatient, continue with present mgmt Acute hypoxic respiratory failure, requiring supplemental oxygen, improved Asthma, chronic -continue with home inhalers and montelukast, monitor and titrate oxygen for SpO2 greater than 90% -Pulmonology consulted Acute kidney injury likely multifactorial -continue with IVf, monitor labs Hypertension, chronic -continue home blood pressure medications, we will adjust accordingly GERD Continue protonix IV FEN: LR, replete as needed, GI soft diet if tolerated GI PPx: Protonix DVT PPX: heparin Code status: Full Code Total time managing care of this patient today: 55 minutes. Quality Stroke Does the patient have a stroke diagnosis?: No VTE Prior VTE?: No VTE Risk Level:: Medical - low VTE Device Contraindication: N/A - Device Ordered VTE Drug Contraindication: N/A - Med Ordered
[2025-06-30] MEDS: oxyCODONE HCl ER 10 MG TAB.ER.12H PO ×2 (09:14→20:34)
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
[2025-06-30] MEDS: 0.9 % Sodium Chloride Flush 3 ML SYRINGE IVFLUSH (20:34)
[2025-07-01] VITALS (9 sets, daily range): BP systolic 140–164; BP diastolic 78–107; PULSE 67–95; RESP 17–19; TEMP 36.4–36.7; O2SAT 95–97
[2025-07-01] MEDS: oxyCODONE HCl Immed Release 5 MG TABLET PO ×6 (02:45→21:31)
[2025-07-01] MEDS: Lactated Ringers 1,000 ML 150 ML IVCONT ×3 (03:42→21:32)
[2025-07-01 06:18] LABS: MANUAL DIFF FLAG NO
[2025-07-01] MEDS: oxyCODONE HCl ER 10 MG TAB.ER.12H PO (06:18)
[2025-07-01 06:25] LABS: Hematocrit 39.1 % (42.0-52.0); Hemoglobin 12.9 g/dl (14.0-18.0); Imm Gran Abs Auto 0.01 X10*3/uL (0.00-0.03); Imm Gran Pct Auto 0.3 % (0.0-0.4); Lymphocytes Absolute Auto 1.2 X10*3/uL (1.2-4.9); Mean Corpuscular HGB Conc 33.0 g/dl (31.0-36.0); Mean Corpuscular Hemoglobin 29.9 pg (27.0-33.0); Mean Corpuscular Volume 90.7 fL (80.0-98.0); NRBC Abs Auto 0.000 X10*3/uL (0.0-0.012); NRBC Pct Auto 0.0 /100WBC (0.0-0.2); Platelet Count 150 X10*3/uL (160-400); Red Blood Count 4.31 X10*6/uL (4.60-5.80); White Blood Count 3.6 X10*3/uL (4.8-10.8)
[2025-07-01 06:47] LABS: Alanine Aminotransferase 48 U/L (0-40); Albumin Level 4.4 g/dL (3.5-5.0); Alkaline Phosphatase 34 U/L (39-117); Anion Gap 14 (12-20); Aspartate Amino Transferase 48 U/L (5-37); Blood Urea Nitrogen 8 mg/dL (9-16); Calcium 9.2 mg/dL (8.4-10.2); Carbon Dioxide 28 mmol/L (22-29); Chloride 101 mmol/L (96-108); Creatinine Clr Calc Pharmacy 118.2; Estimated Glomerular Filt Rate > 60; Potassium 3.9 mmol/L (3.3-5.1); Sodium 139 mmol/L (135-145); Total Protein 6.6 g/dL (6.5-8.0)
[2025-07-01] MEDS: Fluticasone/Vilanterol 200/25 BLST.W.DEV 1 PUFF INHALE (07:48)
[2025-07-01] MEDS: Albuterol/Iprat 2.5/0.5MG 3 ML AMPUL.NEB INHALE ×4 (07:48→19:57)
--- NOTE | 2025-07-01 08:31 | P.PNIM_ITS ---
Subjective Subjective Date of Service: 07/01/25 Interval History: Patient seen examined at bedside this morning, patient was seen by pulmonology, suggested on prednisone 40 mg p.o., Lilian hernández. Patient mentions that he still persists with abdominal tenderness. Review of Systems Review of Systems: Yes all other systems are reviewed and are negative Physical Exam 2 Exam: Exam: General: AxOx3, complaining of pain Head: AT/NC ENT: Moist mucous membranes Neck: supple CVS; RRR, S1 S2 normal Lungs: Decreased pulmonary expansion Abd: tender to superficial palpation Ext: No edema and no calf tenderness MSK: moving all 4 limbs Skin: No cyanosis or edema Psych: Cooperative with exam Neurology: no focal deficit Vital Signs: Vital Signs: Last Vital Signs Temp 97.5 F 07/01/25 07:42 Pulse 67 07/01/25 07:49 Resp 17 07/01/25 07:52 BP 155/78 H 07/01/25 07:42 Pulse Ox 95 07/01/25 07:42 O2 Del Method Room Air 07/01/25 07:42 O2 Flow Rate 2 06/30/25 03:39 BMI result Body Mass Index 38.4 Objective Data Active Medications Acetaminophen (Acetaminophen 325 Mg Tablet) 650 mg PO TID [facility] Last Admin: 07/01/25 08:06 Dose: 650 mg Documented By: JOSELUIS Albuterol Sulfate (Albuterol Sulfate 90 Mcg 8 Gm Inhaler) 2 puff INHALE RQ4H PRN PRN Reason: shortness of breath or wheezing Last Admin: 06/30/25 01:22 Dose: 2 puff Documented By: HECTOR Albuterol/Ipratropium (Albuterol/Iprat 2.5/0.5mg 3 Ml Ampul.Neb) 3 ml INHALE RQ4H WHILE AWAKE [facility] Last Admin: 07/01/25 07:48 Dose: 3 ml Documented By: ALIYAH Albuterol/Ipratropium (Albuterol/Iprat 2.5/0.5mg 3 Ml Ampul.Neb) 3 ml INHALE RQ4H WHILE AWAKE PRN PRN Reason: Shortness of Breath Last Admin: 06/29/25 05:35 Dose: 3 ml Documented By: EMELIA Amlodipine Besylate (Amlodipine Besylate 10 Mg Tablet) 10 mg PO DAILY [facility]; Protocol Last Admin: 07/01/25 08:06 Dose: 10 mg Documented By: JOSELUIS Calcium Carbonate (Calcium Carbonate 750 Mg Tab.Chew) 750 mg PO Q4H PRN PRN Reason: Heartburn Cyclobenzaprine HCl (Cyclobenzaprine Hcl 10 Mg Tablet) 10 mg PO TID PRN PRN Reason: Muscle Spasm Last Admin: 06/30/25 23:51 Dose: 10 mg Documented By: DANIELLE Fluticasone/Vilanterol (Fluticasone/Vilanterol 200/25 Blst.W.Dev) 1 puff INHALE RDAILY [facility] Last Admin: 07/01/25 07:48 Dose: 1 puff Documented By: ALIYAH Heparin Sodium (Porcine) (Heparin Sodium,Porcine 5,000 Unit/Ml Vial) 5,000 unit SUBCUT Q12H [facility] Last Admin: 06/30/25 23:52 Dose: 5,000 unit Documented By: DANIELLE Hydromorphone HCl (Hydromorphone Hcl 2 Mg/Ml Vial) 2 mg IVPUSH Q3H PRN; Protocol PRN Reason: Pain, Severe (Pain Scale 7-10) Last Admin: 07/01/25 06:02 Dose: 2 mg Documented By: DANIELLE Lactated Ringer's (Lr) 1,000 mls @ 150 mls/hr IVCONT .Q6H40M [facility] Last Admin: 07/01/25 03:42 Dose: 150 mls/hr Documented By: DANIELLE Lorazepam (Lorazepam 1 Mg Tablet) 1 mg PO TID PRN PRN Reason: severe itch Last Admin: 07/01/25 01:40 Dose: 1 mg Documented By: DANIELLE Magnesium Hydroxide (Milk Of Magnesia 30 Ml Oral.Susp) 30 ml PO DAILY PRN PRN Reason: Constipation Melatonin (Melatonin 3 Mg Tablet) 6 mg PO BEDTIME PRN PRN Reason: Insomnia Last Admin: 06/30/25 22:39 Dose: 6 mg Documented By: HUMBERTO Ondansetron HCl (Ondansetron Hcl 4 Mg/2 Ml Vial) 4 mg IVPUSH Q8H PRN PRN Reason: Nausea and Vomiting Oxycodone HCl (Oxycodone Hcl Immed Release 5 Mg Tablet) 5 mg PO Q3H PRN PRN Reason: Pain, Moderate(Pain Scale 4-6) Last Admin: 07/01/25 08:06 Dose: 5 mg Documented By: JOSELUIS Oxycodone HCl (Oxycodone Hcl Er 10 Mg Tab.Er.12h) 10 mg PO BID [facility] Last Admin: 07/01/25 06:18 Dose: 10 mg Documented By: LEONORA Pantoprazole Sodium (Pantoprazole Sodium 40 Mg/10 Ml Vial) 40 mg IVPUSH DAILY@0630 [facility] Last Admin: 07/01/25 05:40 Dose: 40 mg Documented By: DANIELLE Prednisone (Prednisone 20 Mg Tablet) 40 mg PO DAILY [facility] Last Admin: 07/01/25 06:18 Dose: 40 mg Documented By: LEONORA Sodium Chloride (0.9 % Sodium Chloride Flush 3 Ml Syringe) 3 ml IVFLUSH QSHIFT [facility] Last Admin: 07/01/25 08:07 Dose: Not Given Documented By: JOSELUIS Non-Admin Reason: IV Running Labs 07/01/25 05:34 07/01/25 05:35 Labs: Laboratory Results - last 24 hr 07/01/25 07/01/25 05:34 05:35 MCV 90.7 MCH 29.9 MCHC 33.0 RDW 12.2 Plt Count 150 L MPV 12.2 Immature Gran % (Auto) 0.3 Neut % (Auto) 51.3 Lymph % (Auto) 34.6 [place] % (Auto) 9.3 Eos % (Auto) 3.7 Baso % (Auto) 0.8 Lymph # (Auto) 1.2 [place] # (Auto) 0.3 Eos # (Auto) 0.1 Baso # (Auto) 0.0 Abs Immat Gran (auto) 0.01 Absolute Neuts (auto) 1.8 L Absolute Nucleated RBC 0.000 Nucleated RBC % (auto) 0.0 Anion Gap 14 Estim Creat Clear Calc 118.2 Estimated GFR > 60 Random Glucose 90 Calcium 9.2 Total Bilirubin 0.9 AST 48 H ALT 48 H Alkaline Phosphatase 34 L Total Protein 6.6 Albumin 4.4 Microbiology Microbiology Results: Microbiology 06/28/25 10:08 Blood Culture - Preliminary Blood - Venous No growth after 48 hours. 06/28/25 09:23 Blood Culture - Preliminary Blood - Venous No growth after 48 hours. Assessment and Plan (1) Pancreatitis: Status: Acute (2) Asthma: Status: Acute (3) Acute hypoxic respiratory failure: Status: Acute Plan Assessment: 35-year-old female who presented to the hospital complaining of abdominal pain, on imaging found to have acute interstitial pancreatitis. Patient started on IVf and pain management Recurrent pancreatitis, could be multifactorial in the setting of alcohol use, diet. -labs showing no leukocytosis, lipase 56, alcohol less than 10 -abdomen and pelvis CT scan with acute interstitial pancreatitis. Patient has had extensive workup including abdominal MRI, MRCP, HIDA scan back in [address] abdomen to rule out necrotiz pancreatitis -Continue LR IV at 150 mL/hour -continue multimodal pain management, oxycontin 10mg BID -GI soft diet and assess if able to take -GI consulted for recurrent pancreatitis, ERCP as outpatient, continue with present mgmt Acute hypoxic respiratory failure, requiring supplemental oxygen, improved Asthma, chronic -continue with inhalers, monitor and titrate oxygen for SpO2 greater than 90% -Pulmonology consulted -continue with prednisone 40mg q5 Acute kidney injury likely multifactorial -continue with IVf, monitor labs Hypertension, chronic -continue home blood pressure medications, we will adjust accordingly GERD Continue protonix IV FEN: LR, replete as needed, GI soft diet if tolerated GI PPx: Protonix DVT PPX: heparin Code status: Full Code Total time managing care of this patient today: 55 minutes. Quality Stroke Does the patient have a stroke diagnosis?: No VTE Prior VTE?: No VTE Risk Level:: Medical - low VTE Device Contraindication: N/A - Device Ordered VTE Drug Contraindication: N/A - Med Ordered
[2025-07-01] MEDS: iohexoL 350 MG/ML 100 ML INFUS..BTL IV (13:55)
--- NOTE | 2025-07-01 15:44 | MHC.CM.PN ---
per rounds pt not medically ready for dc
[2025-07-01] MEDS: oxyCODONE HCl ER 10 MG TAB.ER.12H 20 MG PO (21:30)
[2025-07-02] VITALS (9 sets, daily range): BP systolic 140–187; BP diastolic 85–102; PULSE 64–99; RESP 14–19; TEMP 36–37.3; O2SAT 95–99
[2025-07-02] MEDS: Lactated Ringers 1,000 ML 150 ML IVCONT ×3 (04:15→18:26)
[2025-07-02] MEDS: oxyCODONE HCl Immed Release 5 MG TABLET PO ×2 (04:26→12:13)
[2025-07-02] MEDS: 0.9 % Sodium Chloride Flush 3 ML SYRINGE IVFLUSH (07:33)
[2025-07-02] MEDS: Albuterol/Iprat 2.5/0.5MG 3 ML AMPUL.NEB INHALE ×4 (08:14→20:19)
[2025-07-02] MEDS: Fluticasone/Vilanterol 200/25 BLST.W.DEV 1 PUFF INHALE (08:14)
[2025-07-02] MEDS: oxyCODONE HCl ER 10 MG TAB.ER.12H 20 MG PO ×2 (08:45→20:04)
--- NOTE | 2025-07-02 15:04 | HO.PM.IMPN ---
Subjective Subjective Date of Service: 07/02/25 Interval History: Patient seen examined at bedside this morning, patient states that he is having pain, however improved and was able to sleep after starting the OxyContin, continues to be on IV fluids and p.o. pain medication at this time. Review of Systems Review of Systems: Yes all other systems are reviewed and are negative Physical Exam Exam: Exam: General: AxOx3, complaining of pain Head: AT/NC ENT: Moist mucous membranes Neck: supple CVS; RRR, S1 S2 normal Lungs: Decreased pulmonary expansion Abd: tender to superficial palpation, mildy improved Ext: No edema and no calf tenderness MSK: moving all 4 limbs Skin: No cyanosis or edema Psych: Cooperative with exam Neurology: no focal deficit Vital Signs: Vital Signs: Last Vital Signs Temp 97.1 F 07/02/25 07:44 Pulse 64 07/02/25 11:52 Resp 14 07/02/25 11:52 BP 140/85 H 07/02/25 07:44 Pulse Ox 95 07/02/25 07:44 O2 Del Method Room Air 07/02/25 07:44 O2 Flow Rate 2 06/30/25 03:39 BMI result Body Mass Index 38.4 Objective Data Active Medications Acetaminophen (Acetaminophen 325 Mg Tablet) 650 mg PO TID [facility] Last Admin: 07/02/25 14:10 Dose: 650 mg Documented By: JOSELUIS Albuterol Sulfate (Albuterol Sulfate 90 Mcg 8 Gm Inhaler) 2 puff INHALE RQ4H PRN PRN Reason: shortness of breath or wheezing Last Admin: 06/30/25 01:22 Dose: 2 puff Documented By: HECTOR Albuterol/Ipratropium (Albuterol/Iprat 2.5/0.5mg 3 Ml Ampul.Neb) 3 ml INHALE RQ4H WHILE AWAKE [facility] Last Admin: 07/02/25 11:52 Dose: 3 ml Documented By: LAIYAH Albuterol/Ipratropium (Albuterol/Iprat 2.5/0.5mg 3 Ml Ampul.Neb) 3 ml INHALE RQ4H WHILE AWAKE PRN PRN Reason: Shortness of Breath Last Admin: 06/29/25 05:35 Dose: 3 ml Documented By: EMELIA Amlodipine Besylate (Amlodipine Besylate 10 Mg Tablet) 10 mg PO DAILY [facility]; Protocol Last Admin: 07/02/25 08:45 Dose: 10 mg Documented By: JOSELUIS Calcium Carbonate (Calcium Carbonate 750 Mg Tab.Chew) 750 mg PO Q4H PRN PRN Reason: Heartburn Cyclobenzaprine HCl (Cyclobenzaprine Hcl 10 Mg Tablet) 10 mg PO TID PRN PRN Reason: Muscle Spasm Last Admin: 07/02/25 07:31 Dose: 10 mg Documented By: JOSELUIS Duloxetine HCl (Duloxetine Hcl 30 Mg Capsule.Dr) 30 mg PO DAILY [facility] Fluticasone/Vilanterol (Fluticasone/Vilanterol 200/25 Blst.W.Dev) 1 puff INHALE RDAILY [facility] Last Admin: 07/02/25 08:14 Dose: 1 puff Documented By: ALIYAH Heparin Sodium (Porcine) (Heparin Sodium,Porcine 5,000 Unit/Ml Vial) 5,000 unit SUBCUT Q12H [facility] Last Admin: 07/02/25 12:13 Dose: 5,000 unit Documented By: JOSELUIS Hydromorphone HCl (Hydromorphone Hcl 2 Mg/Ml Vial) 2 mg IVPUSH Q3H PRN; Protocol PRN Reason: Pain, Severe (Pain Scale 7-10) Last Admin: 07/02/25 14:10 Dose: 2 mg Documented By: JOSELUIS Lactated Ringer's (Lr) 1,000 mls @ 150 mls/hr IVCONT .Q6H40M [facility] Last Admin: 07/02/25 11:56 Dose: Not Given Documented By: JOSELUIS Non-Admin Reason: IV Running Lorazepam (Lorazepam 1 Mg Tablet) 1 mg PO TID PRN PRN Reason: severe itch Last Admin: 07/01/25 19:28 Dose: 1 mg Documented By: HUMBERTO Magnesium Hydroxide (Milk Of Magnesia 30 Ml Oral.Susp) 30 ml PO DAILY PRN PRN Reason: Constipation Melatonin (Melatonin 3 Mg Tablet) 6 mg PO BEDTIME PRN PRN Reason: Insomnia Last Admin: 07/01/25 21:31 Dose: 6 mg Documented By: HUMBERTO Naloxone HCl (Naloxone Hcl 0.4 Mg/Ml Vial) 0.1 mg IVPUSH Q5M PRN PRN Reason: Respiratory Rate < 10 Ondansetron HCl (Ondansetron Hcl 4 Mg/2 Ml Vial) 4 mg IVPUSH Q8H PRN PRN Reason: Nausea and Vomiting Oxycodone HCl (Oxycodone Hcl Immed Release 5 Mg Tablet) 5 mg PO Q3H PRN PRN Reason: Pain, Moderate(Pain Scale 4-6) Last Admin: 07/02/25 12:13 Dose: 5 mg Documented By: JOSELUIS Oxycodone HCl (Oxycodone Hcl Er 10 Mg Tab.Er.12h) 20 mg PO BID [facility] Last Admin: 07/02/25 08:45 Dose: 20 mg Documented By: JOSELUIS Prednisone (Prednisone 20 Mg Tablet) 40 mg PO DAILY [facility] Last Admin: 07/02/25 08:45 Dose: 40 mg Documented By: JOSELUIS Senna/Docusate Sodium (Sennosides/Docusate Sodium Tablet) 1 tab PO BID PRN PRN Reason: Constipation Last Admin: 07/02/25 11:09 Dose: 1 tab Documented By: JOSELUIS Sodium Chloride (0.9 % Sodium Chloride Flush 3 Ml Syringe) 3 ml IVFLUSH QSHIFT [facility] Last Admin: 07/02/25 07:33 Dose: 3 ml Documented By: JOSELUIS Labs 07/01/25 05:34 07/01/25 05:35 Assessment and Plan (1) Pancreatitis: Status: Acute (2) Asthma: Status: Acute (3) Acute hypoxic respiratory failure: Status: Acute Plan Assessment: 35-year-old female who presented to the hospital complaining of abdominal pain, on imaging found to have acute interstitial pancreatitis. Patient started on IVf and pain management Recurrent pancreatitis, could be multifactorial in the setting of alcohol use, diet, to consider genetics in origin -labs showing no leukocytosis, lipase 56, alcohol less than 10 -abdomen and pelvis CT scan with acute interstitial pancreatitis. Patient has had extensive workup including abdominal MRI, MRCP, HIDA scan back in [address]. [address] CT scan with interstitial pancreatitis -Continue LR IV at 150 mL/hour -continue multimodal pain management, oxycontin 10mg BID, will initiate duloxetine 30mg for pain, will try to wean off. -GI soft diet and assess if able to take -GI consulted for recurrent pancreatitis, ERCP as outpatient, continue with present mgmt -Bowel regimen ordered Acute hypoxic respiratory failure, requiring supplemental oxygen, improved Asthma, chronic -continue with inhalers, monitor and titrate oxygen for SpO2 greater than 90% -Pulmonology consulted -continue with prednisone 40mg q5 Acute kidney injury likely multifactorial -continue with IVf, monitor labs Hypertension, chronic -continue home blood pressure medications, we will adjust accordingly GERD Continue protonix IV FEN: LR, replete as needed, GI soft diet if tolerated GI PPx: Protonix DVT PPX: heparin Code status: Full Code Total time managing care of this patient today: 55 minutes. Quality Stroke Does the patient have a stroke diagnosis?: No VTE Prior VTE?: No VTE Risk Level:: Medical - low VTE Device Contraindication: N/A - Device Ordered VTE Drug Contraindication: N/A - Med Ordered
[2025-07-03] VITALS (7 sets, daily range): BP systolic 140–168; BP diastolic 70–98; PULSE 75–103; RESP 16–19; TEMP 36.4–37.1; O2SAT 91–100
[2025-07-03] MEDS: oxyCODONE HCl Immed Release 5 MG TABLET PO ×2 (00:15→03:23)
[2025-07-03] MEDS: Lactated Ringers 1,000 ML 125 ML IVCONT ×2 (00:16→08:05)
[2025-07-03] MEDS: oxyCODONE HCl ER 10 MG TAB.ER.12H 20 MG PO (07:59)
[2025-07-03] MEDS: Fluticasone/Vilanterol 200/25 BLST.W.DEV 1 PUFF INHALE (08:19)
[2025-07-03] MEDS: Albuterol/Iprat 2.5/0.5MG 3 ML AMPUL.NEB INHALE ×2 (08:19→11:50)
--- NOTE | 2025-07-03 10:28 | P.PNIM_ITS ---
Subjective Subjective Date of Service: 07/03/25 Interval History: f/u acute pancreatitis, still has pain but better and wants diey upgrade from full liquid Review of Systems Review of Systems: Yes all other systems are reviewed and are negative Physical Exam 2 Vital Signs: Vital Signs: Last Vital Signs Temp 97.5 F 07/03/25 07:41 Pulse 75 07/03/25 08:20 Resp 17 07/03/25 08:22 BP 168/98 H 07/03/25 08:14 Pulse Ox 97 07/03/25 07:41 O2 Del Method Room Air 07/03/25 07:41 O2 Flow Rate 2 06/30/25 03:39 BMI result Body Mass Index 38.4 Const: Other: General: AO X 3, no acute distress Resp: CTA bilateral CVS: S1,S2,RRR GI: +BS, NT, mild tendenress, Skin: No rash Neuro: motor grossly intact Psych: appropriate affect Objective Data Active Medications Acetaminophen (Acetaminophen 325 Mg Tablet) 650 mg PO TID [facility] Last Admin: 07/03/25 08:01 Dose: 650 mg Documented By: KEYSHAWN Albuterol Sulfate (Albuterol Sulfate 90 Mcg 8 Gm Inhaler) 2 puff INHALE RQ4H PRN PRN Reason: shortness of breath or wheezing Last Admin: 06/30/25 01:22 Dose: 2 puff Documented By: HECTOR Albuterol/Ipratropium (Albuterol/Iprat 2.5/0.5mg 3 Ml Ampul.Neb) 3 ml INHALE RQ4H WHILE AWAKE [facility] Last Admin: 07/03/25 08:19 Dose: 3 ml Documented By: ALIYAH Albuterol/Ipratropium (Albuterol/Iprat 2.5/0.5mg 3 Ml Ampul.Neb) 3 ml INHALE RQ4H WHILE AWAKE PRN PRN Reason: Shortness of Breath Last Admin: 06/29/25 05:35 Dose: 3 ml Documented By: EMELIA Amlodipine Besylate (Amlodipine Besylate 10 Mg Tablet) 10 mg PO DAILY [facility]; Protocol Last Admin: 07/03/25 08:15 Dose: 10 mg Documented By: KEYSHAWN Calcium Carbonate (Calcium Carbonate 750 Mg Tab.Chew) 750 mg PO Q4H PRN PRN Reason: Heartburn Cyclobenzaprine HCl (Cyclobenzaprine Hcl 10 Mg Tablet) 10 mg PO TID PRN PRN Reason: Muscle Spasm Last Admin: 07/03/25 04:36 Dose: 10 mg Documented By: LILA Duloxetine HCl (Duloxetine Hcl 30 Mg Capsule.Dr) 30 mg PO DAILY [facility] Last Admin: 07/03/25 08:09 Dose: 30 mg Documented By: KEYSHAWN Fluticasone/Vilanterol (Fluticasone/Vilanterol 200/25 Blst.W.Dev) 1 puff INHALE RDAILY [facility] Last Admin: 07/03/25 08:19 Dose: 1 puff Documented By: ALIYAH Heparin Sodium (Porcine) (Heparin Sodium,Porcine 5,000 Unit/Ml Vial) 5,000 unit SUBCUT Q12H [facility] Last Admin: 07/02/25 23:49 Dose: 5,000 unit Documented By: LILA Hydromorphone HCl (Hydromorphone Hcl 2 Mg/Ml Vial) 2 mg IVPUSH Q3H PRN; Protocol PRN Reason: Pain, Severe (Pain Scale 7-10) Last Admin: 07/03/25 07:56 Dose: 2 mg Documented By: KEYSHAWN Lactated Ringer's (Lr) 1,000 mls @ 125 mls/hr IVCONT .Q8H [facility] Last Admin: 07/03/25 08:05 Dose: 125 mls/hr Documented By: KEYSHAWN Lorazepam (Lorazepam 1 Mg Tablet) 1 mg PO TID PRN PRN Reason: severe itch Last Admin: 07/03/25 04:37 Dose: 1 mg Documented By: LILA Magnesium Hydroxide (Milk Of Magnesia 30 Ml Oral.Susp) 30 ml PO DAILY PRN PRN Reason: Constipation Melatonin (Melatonin 3 Mg Tablet) 6 mg PO BEDTIME PRN PRN Reason: Insomnia Last Admin: 07/02/25 22:28 Dose: 6 mg Documented By: LILA Naloxone HCl (Naloxone Hcl 0.4 Mg/Ml Vial) 0.1 mg IVPUSH Q5M PRN PRN Reason: Respiratory Rate < 10 Ondansetron HCl (Ondansetron Hcl 4 Mg/2 Ml Vial) 4 mg IVPUSH Q8H PRN PRN Reason: Nausea and Vomiting Oxycodone HCl (Oxycodone Hcl Immed Release 5 Mg Tablet) 5 mg PO Q3H PRN PRN Reason: Pain, Moderate(Pain Scale 4-6) Last Admin: 07/03/25 03:23 Dose: 5 mg Documented By: LILA Oxycodone HCl (Oxycodone Hcl Er 10 Mg Tab.Er.12h) 20 mg PO BID [facility] Last Admin: 07/03/25 07:59 Dose: 20 mg Documented By: KEYSHAWN Prednisone (Prednisone 20 Mg Tablet) 40 mg PO DAILY [facility] Last Admin: 07/03/25 08:09 Dose: 40 mg Documented By: KEYSHAWN Senna/Docusate Sodium (Sennosides/Docusate Sodium Tablet) 1 tab PO BID PRN PRN Reason: Constipation Last Admin: 07/02/25 11:09 Dose: 1 tab Documented By: LUCKOBIME Sodium Chloride (0.9 % Sodium Chloride Flush 3 Ml Syringe) 3 ml IVFLUSH QSHIFT [facility] Last Admin: 07/03/25 07:56 Dose: Not Given Documented By: KEYSHAWN Non-Admin Reason: IV Running Labs 07/01/25 05:34 07/01/25 05:35 Assessment and Plan (1) Pancreatitis: Status: Acute (2) Asthma: Status: Acute (3) Acute hypoxic respiratory failure: Status: Acute Plan 35-year-old male who presented to the hospital complaining of abdominal pain, on imaging found to have acute interstitial pancreatitis. Patient started on IVf and pain management Recurrent pancreatitis, could be multifactorial in the setting of alcohol use, diet, to consider genetics in origin, normal lipase, but ct finding of pancreatitis, clinically improving advance diet and outpatient GI followup for possible ERCP. Advise to avoid EToh Acute hypoxic respiratory failure, requiring supplemental oxygen, moderate peristent asthma, and likely UZAIR continue prednisone gerald, bronchodilators, should follow up with pulm on outpatient basis. Acute kidney injury likely, pre renal, resolved with IVF Hypertension, chronic -continue home blood pressure medications, we will adjust accordingly GERD PPI can be changed to PO FEN: LR, replete as needed, GI soft diet if tolerated GI PPx: Protonix DVT PPX: heparin Code status: Full Code home if [place] diet Total time managing care of this patient today: 55 minutes. Quality Stroke Does the patient have a stroke diagnosis?: No VTE Prior VTE?: No VTE Risk Level:: Medical - low VTE Device Contraindication: N/A - Device Ordered VTE Drug Contraindication: N/A - Med Ordered
--- NOTE | 2025-07-03 14:00 | PM.DS ---
DS: Providers Provider Date of admission: 06/28/25 12:40 Date of discharge: 07/03/25 Primary care physician: None Physician Consults: 06/28/25 12:37 Consult to Gastroenterology Routine Consulting Provider: [facility] Reason for consultation: pancreatitis Has provider been notified: No 06/29/25 10:23 Consult to Pulmonology Routine Consulting Provider: [facility] Reason for consultation: asthma exacerbation with pancreatitis Has provider been notified: No DS: Diagnosis Discharge Diagnosis (1) Pancreatitis: Status: Resolved (2) Asthma: Status: Resolved (3) Acute hypoxic respiratory failure: Status: Resolved DS: Summary Hospital Course Hospital Course: admision hpi Chief Complaint: abdominal pain 35-year-old male who presented to hospital complaining of abdominal pain that began approximately 3 days ago and has been progressing, worsened with eating, associated with nausea and vomiting. Mentioned that his last drink was 2 24 ounce beers 5 days ago. Patient states that he has had multiple episodes of pancreatitis in the past, began over 5 years ago, mentioned that his brother also has episodes of recurrent pancreatitis as well. In the ED CT scan showing acute interstitial pancreatitis, lipase within normal limits. Patient admitted for acute pancreatitis hospital course: 35-year-old male who presented to the hospital complaining of abdominal pain, on imaging found to have acute interstitial pancreatitisl lipase was normal. She was admitted and treated with IVF, pain medication Recurrent pancreatitis, could be multifactorial in the setting of alcohol use, diet, to consider genetics in origin, normal lipase, but ct finding of pancreatitis, clinically improved, diet was advanced and was tolerating regular diet. avdised alcohol cessation and outpeitne follow up with GI for possible ERCP Acute hypoxic respiratory failure, requiring supplemental oxygen, moderate peristent asthma, and likely UZAIR continue prednisone gerald, bronchodilators, should follow up with pulm on outpatient basis. Acute kidney injury likely, pre renal, resolved with IVF Hypertension, chronic -continue home blood pressure medications, we will adjust accordingly GERD PPi PO dispo: home Time Attestation Discharge Coordination Time (in mins): 45 Quality: Safe Use of Opioids Does Pt have an Active Cancer Diagnosis on the Problem List?: No Quality: Stroke Does the patient have a stroke diagnosis?: No Physical Exam Vital Signs: Vital Signs: Last Vital Signs Temp 98.3 F 07/03/25 16:00 Pulse 103 H 07/03/25 16:00 Resp 19 07/03/25 16:00 BP 140/70 H 07/03/25 16:00 Pulse Ox 94 07/03/25 16:00 O2 Del Method Room Air 07/03/25 16:00 O2 Flow Rate 2 06/30/25 03:39 BMI result Body Mass Index 38.4 DS: Data Data Completed and Pending Completed studies during hospitalization [Text1]: Procedures Detoxification Services for Substance Abuse Treatment (05/18/20) Discharge Plan Discharge Anticipated Discharge Date/Time: 07/03/25 10:35 Patient Disposition: Home, Self-Care Discharge Diagnosis: Acute on chronic pancreaitis, Asthma exacerbation Referrals: Physician,None [Primary Care Provider, Medical] - 1 Week Discharge Medications: New prednisone 10 mg tablet See Taper PO DAILY Qty: 20 0RF Taper: Prednisone 40 mg daily for 3 Days and 0 Hour 30 mg daily for 3 Days and 0 Hour 20 mg daily for 3 Days and 0 Hour 10 mg daily for 3 Days and 0 Hour oxycodone 5 mg Tablet 5 mg PO Q3H PRN (Reason: Pain, Moderate(Pain Scale 4-6)) Qty: 12 0RF Rx Instructions: Partial Fill upon patient request. Continued montelukast 10 mg tablet 10 mg PO DAILY Qty: 90 0RF Rx Instructions: Take one tablet daily Allergy Relief (loratadine) 10 mg capsule 10 mg PO DAILY Qty: 20 0RF cyclobenzaprine 10 mg tablet 10 mg PO TID PRN (Reason: muscle spasm) Qty: 12 0RF famotidine [Pepcid] 20 mg tablet 20 mg PO DAILY Qty: 90 0RF amlodipine 10 mg tablet 10 mg PO DAILY Qty: 90 0RF lorazepam 1 mg tablet 1 mg PO TID PRN (Reason: severe itch) Qty: 10 0RF budesonide-formoterol [Symbicort] 160-4.5 mcg/actuation HFA aerosol inhaler 2 puff inhalation Q12H Qty: 1 0RF Rx Instructions: Take two puffs daily twice a day albuterol sulfate [Ventolin HFA] 90 mcg/actuation HFA aerosol inhaler 2 puff inhalation Q6H PRN (Reason: shortness of breath or wheezing) Qty: 1 0RF Rx Instructions: Take two puffs every six hours for shortness or breath or wheezing Discharge Orders: Discharge Order (Routine); Ordered 07/03/25 Ordered By: Johnathon Valiente Diet: Low fat, low cholesterol Activity on Discharge: As tolerated Stand Alone Forms: Patient Portal Discharge page, Work/School Release Print Language: Italian Care Plan Goals: recovery from pancreatitis, and asthma Health Concerns: acute and chronic pancreatitis, astham exacerbation Plan of Treatment: avoid alcohol take predniosne and inhalers for asthma follow up with your primary care provider in a week, call for appointment ask your doctor to make a referal for a lung doctor follow up with GI doctor for ERCP Assessment: see above Discharge Date/Time: 07/03/25 17:31
--- NOTE | 2025-07-03 14:11 | MHC.CM.PN ---
pt dcd home self care
[2025-07-03] MEDS: 0.9 % Sodium Chloride Flush 3 ML SYRINGE IVFLUSH (15:17)
== END 2025-07-03 17:31 | disposition home or self-care (01) | DRG 282 ==
LOC: HO.ED 11:47 → HO.EDOVER 12:40 → HO.S3 13:06
PROVIDERS: Hospitalist; Physician Assistant; Admitting Provider Student in an Organized Health Care Education/Training Program; Emergency Provider Emergency Medicine; Visit Provider Internal Medicine
DX: K85.20 Alcohol induced acute pancreatitis without necrosis or infection (principal); N17.9 Acute kidney failure, unspecified; K86.0 Alcohol-induced chronic pancreatitis; F17.210 Nicotine dependence, cigarettes, uncomplicated; G47.33 Obstructive sleep apnea (adult) (pediatric); I10 Essential (primary) hypertension; K21.9 Gastro-esophageal reflux disease without esophagitis; J45.40 Moderate persistent asthma, uncomplicated; Z71.6 Tobacco abuse counseling; Z79.899 Other long term (current) drug therapy
CPT/HCPCS: 36415; 71045; 74177; 76705; 80053; 80061; 80307; 81001; 82248; 83605; 83690; 83735; 83880; 85025; 87040; 93005; 94640; 94660; 99285; J1171; J1644; J1938; J2270; J2405; J2470; J7120; Q9967

== ENCOUNTER → 2025-06-28 09:25 | Outpatient (BNV) | payer OTHER, SELFPAY | PROVIDERS: Admitting Provider Student in an Organized Health Care Education/Training Program; Emergency Provider Emergency Medicine; Visit Provider Internal Medicine | DX: R94.31 Abnormal electrocardiogram [ECG] [EKG] (principal); R06.02 Shortness of breath | CPT/HCPCS: 93010 ==

== ENCOUNTER → 2025-06-28 09:38 | Outpatient (BNV) | payer OTHER, SELFPAY | PROVIDERS: Emergency Provider Emergency Medicine; Visit Provider Radiology Diagnostic Radiology | DX: K85.90 Acute pancreatitis without necrosis or infection, unspecified (principal); R59.0 Localized enlarged lymph nodes; R16.0 Hepatomegaly, not elsewhere classified | CPT/HCPCS: 74177; 76705 ==

== ENCOUNTER 2025-06-28 12:40 | Outpatient (BNV) | payer OTHER, SELFPAY | END 2025-06-29 04:28 | PROVIDERS: Admitting Provider Student in an Organized Health Care Education/Training Program; Emergency Provider Emergency Medicine; Visit Provider Radiology Diagnostic Radiology | DX: R06.02 Shortness of breath (principal) | CPT/HCPCS: 71045 ==

== ENCOUNTER 2025-06-28 12:40 | Outpatient (BNV) | payer OTHER, SELFPAY | END 2025-07-01 13:53 | PROVIDERS: Admitting Provider Student in an Organized Health Care Education/Training Program; Emergency Provider Emergency Medicine; Visit Provider Radiology Diagnostic Radiology | DX: K85.80 Other acute pancreatitis without necrosis or infection (principal); R16.0 Hepatomegaly, not elsewhere classified; R59.0 Localized enlarged lymph nodes | CPT/HCPCS: 74177 ==

== ENCOUNTER → 2025-06-28 12:40 | Outpatient (BNV) | payer OTHER, SELFPAY | PROVIDERS: Admitting Provider Student in an Organized Health Care Education/Training Program; Emergency Provider Emergency Medicine; Visit Provider Hospitalist | DX: K85.90 Acute pancreatitis without necrosis or infection, unspecified (principal); J45.40 Moderate persistent asthma, uncomplicated; J96.01 Acute respiratory failure with hypoxia; G47.33 Obstructive sleep apnea (adult) (pediatric) | CPT/HCPCS: 99223 ==

== ENCOUNTER → 2025-06-28 12:40 | Outpatient (BNV) | payer OTHER, SELFPAY | PROVIDERS: Admitting Provider Student in an Organized Health Care Education/Training Program; Emergency Provider Emergency Medicine; Visit Provider Internal Medicine | DX: F10.90 Alcohol use, unspecified, uncomplicated (principal); K83.8 Other specified diseases of biliary tract; K86.89 Other specified diseases of pancreas; K85.20 Alcohol induced acute pancreatitis without necrosis or infection | CPT/HCPCS: 99222 ==

== ENCOUNTER → 2025-06-28 12:40 | Outpatient (BNV) | payer OTHER, SELFPAY | PROVIDERS: Admitting Provider Student in an Organized Health Care Education/Training Program; Emergency Provider Emergency Medicine; Visit Provider Student in an Organized Health Care Education/Training Program | DX: K85.90 Acute pancreatitis without necrosis or infection, unspecified (principal); J45.40 Moderate persistent asthma, uncomplicated; J96.01 Acute respiratory failure with hypoxia | CPT/HCPCS: 99232 ==

== ENCOUNTER 2025-07-19 00:05 | Emergency (ER) | payer OTHER, SELFPAY ==
--- NOTE | ~2025-07-19 | US_ITS ---
CLINICAL HISTORY: hx pancreatitis, dilated CBD PD, new pain US abdomen limited Comparison: CT/REG/SR - CT ABDOMEN PELVIS WITH IV CONTRAST - 07/01/25 13:53 EST US/MT/SR - US ABDOMEN LIMITED - 06/28/25 13:28 EST Findings: Pancreas is obscured by gas. The aorta and inferior vena cava are normal caliber. The liver is enlarged measuring 18.9 cm in length. There is no intrahepatic bile duct dilatation. The common duct is 7 mm in diameter, mildly dilated. The gallbladder is normal. Gallbladder wall thickening measuring 4-5 mm. This could in part be related to partial nondistention. [place] Presser reports a positive sonographic Nascimento's sign. The main portal vein is antegrade. The right kidney is 11.6 cm in length. No ascites. IMPRESSION: 1. Mild gallbladder wall thickening, possibly related to partial nondistention. No sonographically apparent stones identified. No pericholecystic fluid. The game room attendant does report pain in the region of the gallbladder. 2. Mild common duct dilation. Consider MRI with MRCP. This document has been electronically signed by: Jessica Crook MD on 07/19/2025 06:34:48
[2025-07-19 00:21] VITALS: BP 206/118; PULSE 117; RESP 20; TEMP 36.9; O2SAT 97; BMI 37.3
[2025-07-19 01:31] VITALS: BP 185/91; PULSE 115; RESP 20; TEMP 36.6; O2SAT 97
[2025-07-19 01:32] LABS: MANUAL DIFF FLAG NO
[2025-07-19 01:33] LABS: Hematocrit 47.4 % (42.0-52.0); Hemoglobin 16.5 g/dl (14.0-18.0); Imm Gran Abs Auto 0.03 X10*3/uL (0.00-0.03); Imm Gran Pct Auto 0.4 % (0.0-0.4); Lymphocytes Absolute Auto 1.5 X10*3/uL (1.2-4.9); Mean Corpuscular HGB Conc 34.8 g/dl (31.0-36.0); Mean Corpuscular Hemoglobin 30.0 pg (27.0-33.0); Mean Corpuscular Volume 86.2 fL (80.0-98.0); NRBC Abs Auto 0.000 X10*3/uL (0.0-0.012); NRBC Pct Auto 0.0 /100WBC (0.0-0.2); Platelet Count 240 X10*3/uL (160-400); Red Blood Count 5.50 X10*6/uL (4.60-5.80); White Blood Count 7.7 X10*3/uL (4.8-10.8)
[2025-07-19 01:48] LABS: Alanine Aminotransferase 64 U/L (0-40); Albumin Level 5.1 g/dL (3.5-5.0); Alkaline Phosphatase 41 U/L (39-117); Anion Gap 16 (12-20); Aspartate Amino Transferase 27 U/L (5-37); Blood Urea Nitrogen 17 mg/dL (9-16); Calcium 9.5 mg/dL (8.4-10.2); Carbon Dioxide 25 mmol/L (22-29); Chloride 103 mmol/L (96-108); Creatinine Clr Calc Pharmacy 108.6; Estimated Glomerular Filt Rate > 60; Lipase 11 U/L (8-78); Potassium 4.5 mmol/L (3.3-5.1); Sodium 139 mmol/L (135-145); Total Protein 8.1 g/dL (6.5-8.0)
[2025-07-19] MEDS: Lactated Ringers 1,000 ML 999 ML IV (03:05)
[2025-07-19 03:10] VITALS: PULSE 117; RESP 26; O2SAT 99
[2025-07-19 04:12] VITALS: BP 148/94; PULSE 93; RESP 19; TEMP 36.3; O2SAT 96
--- NOTE | 2025-07-19 05:22 | PC.NURSE ---
patient called to report he feels better and would like the doctor to discharge. educated pt that ultrasound has been ordered. Patient stated he wouldn't be able to stay regardless of results d/t work. Patient asked for prescriptions and to just be discharged
[2025-07-19 06:01] VITALS: BP 149/95; PULSE 106; RESP 18; TEMP 36.7; O2SAT 98
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
[2025-07-19 07:02] VITALS: BP 149/95; PULSE 106; RESP 18; TEMP 36.7; O2SAT 98
== END 2025-07-19 07:02 | disposition home or self-care (01) ==
PROVIDERS: Emergency Provider Emergency Medicine
DX: R10.13 Epigastric pain (principal); R11.0 Nausea; R79.89 Other specified abnormal findings of blood chemistry; I10 Essential (primary) hypertension; J45.909 Unspecified asthma, uncomplicated; K21.9 Gastro-esophageal reflux disease without esophagitis; F17.200 Nicotine dependence, unspecified, uncomplicated; Z87.19 Personal history of other diseases of the digestive system; Z71.6 Tobacco abuse counseling
CPT/HCPCS: 36415; 76705; 80053; 80307; 83690; 85025; 96361; 96374; 96375; 99284; J1171; J1200; J1630; J7120

== ENCOUNTER → 2025-07-19 03:45 | Outpatient (BNV) | payer OTHER, SELFPAY | PROVIDERS: Emergency Provider Emergency Medicine; Visit Provider Radiology Diagnostic Radiology | DX: K82.8 Other specified diseases of gallbladder (principal); K83.8 Other specified diseases of biliary tract | CPT/HCPCS: 76705 ==